=== PATIENT | male | born 1960 | race African-American/Black ===

== ENCOUNTER 2017-02-20 17:59 | Emergency (ER) | payer MEDICARE, MEDICAID ==
[2017-02-20] MEDS ORDERED: Furosemide 40 MG/4 ML VIAL ONE (19:42)
[2017-02-20 19:48] LABS: #Eosinphils 0.3 thou/uL (0.0-0.7); #Lymphocytes 1.3 thou/uL (1.20-3.40); #Monocytes 0.6 thou/uL (0.11-0.59); %Basophils 0.5 % (0.0-1.0); %Eosinophils 5.8 % (0.0-10.0); %Lymphocytes 25.1 % (21.0-51.0); %Monocytes 11.8 % (0.0-10.0); Hematocrit 33.8 % (42.0-52.0); Mean Platelet Volume 7.7 fL (7.4-10.4); Red Blood Cell (RBC) Count 3.95 mill/uL (4.70-6.10); White Blood Cell (WBC) Count 5.3 thou/uL (4.8-10.8)
--- NOTE | 2017-02-20 19:55 | RAD ---
PORTABLE AP CHEST X-RAY 02/20/17 HISTORY: Dyspnea, lower extremity swelling for a couple of months. Now with pain to the lower extremities. COMPARISON: 03/15/15. FINDINGS: The cardiac silhouette is magnified by projection but is at the upper limits of normal in size. Ther e is a subsegmental atelectasis in the region of the lingula versus mild scarring. Lungs are otherwi se clear. The pulmonary vasculature is at the upper limits of normal. There has been no other interv al change from prior study. IMPRESSION: 1. No acute cardiopulmonary process. 2. Scarring versus atelectasis in the region of the lingula. POS: [facility]
[2017-02-20 20:14] LABS: ALT (SGPT) 37 U/L (8-55); AST (SGOT) 31 U/L (5-34); Alkaline Phosphatase 311 U/L (40-150); Anion Gap 7 mmol/L (10-20); BUN (Urea Nitrogen) 32 mg/dL (8.4-25.7); Bilirubin, Total 0.2 mg/dL (0.2-1.2); CK (CPK) 908 U/L (30-200); Calc. Creatinine Clearance 0 mL/min (70-130); Calcium 8.5 mg/dL (7.8-10.44); Carbon Dioxide 27 mmol/L (22-29); Chloride 110 mmol/L (98-107); Estimated GFR-MDRD 25; Globulin 3.3 g/dL (2.4-3.5); Protein, Total 6.1 g/dL (6.0-8.3)
[2017-02-20 20:15] LABS: Troponin I 0.042 ng/mL (< 0.028)
== END 2017-02-20 22:10 | disposition home or self-care (01) ==
LOC: ERS 17:59
DX: I12.9 Hypertensive chronic kidney disease with stage 1 through stage 4 chronic kidney disease, or unspecified chronic kidney disease (principal); E11.22 Type 2 diabetes mellitus with diabetic chronic kidney disease; N18.9 Chronic kidney disease, unspecified; J44.9 Chronic obstructive pulmonary disease, unspecified; G47.30 Sleep apnea, unspecified; I25.10 Atherosclerotic heart disease of native coronary artery without angina pectoris; E78.5 Hyperlipidemia, unspecified; F41.9 Anxiety disorder, unspecified; F17.210 Nicotine dependence, cigarettes, uncomplicated; Z79.4 Long term (current) use of insulin; Z79.899 Other long term (current) drug therapy
CPT/HCPCS: 36415; 71010; 80053; 82553; 83880; 84484; 85025; 93005; 96374; J1940

== ENCOUNTER 2017-04-20 09:53 | Inpatient (IN) | payer MEDICAID, MEDICARE ==
[2017-04-20 10:32] LABS: #Eosinphils 0.2 thou/uL (0.0-0.7); #Lymphocytes 1.7 thou/uL (1.20-3.40); #Monocytes 0.7 thou/uL (0.11-0.59); #Neutrophils 4.9 thou/uL (1.40-6.50); %Lymphocytes 22.6 % (21.0-51.0); %Monocytes 8.9 % (0.0-10.0); Hematocrit 38.3 % (42.0-52.0); Mean Platelet Volume 8.4 fL (7.4-10.4); Red Blood Cell (RBC) Count 4.61 mill/uL (4.70-6.10); White Blood Cell (WBC) Count 7.5 thou/uL (4.8-10.8)
--- NOTE | 2017-04-20 10:40 | RAD ---
CHEST 1 VIEW: Date: 04/20/17 COMPARISON: 02/20/17. HISTORY: Vomiting. Nausea. Abdominal pain. FINDINGS: Enlarged cardiac silhouette. Pulmonary vessels and hilum are normal. No consolidation or mass. No pne umothorax or osseous abnormalities. IMPRESSION: Cardiomegaly. No acute cardiopulmonary process. POS: [facility]
[2017-04-20 10:57] LABS: Troponin I 0.084 ng/mL (< 0.028)
[2017-04-20] MEDS ORDERED: Ondansetron HCl/PF 4 MG/2 ML Vial ONE (11:16)
[2017-04-20 11:22] LABS: ALT (SGPT) 18 U/L (8-55); AST (SGOT) 21 U/L (5-34); Alkaline Phosphatase 201 U/L (40-150); Anion Gap 11 mmol/L (10-20); BUN (Urea Nitrogen) 30 mg/dL (8.4-25.7); Bilirubin, Total 0.4 mg/dL (0.2-1.2); CK (CPK) 657 U/L (30-200); Calc. Creatinine Clearance 0 mL/min (70-130); Calcium 9.2 mg/dL (7.8-10.44); Carbon Dioxide 23 mmol/L (22-29); Chloride 108 mmol/L (98-107); Estimated GFR-MDRD 28; Globulin 4.1 g/dL (2.4-3.5); Protein, Total 7.1 g/dL (6.0-8.3)
[2017-04-20 11:35] LABS: Bilirubin Negative (Negative); Blood, Urine Moderate (Negative); Glucose, Urine (Dipstick) 100 mg/dL (Negative); Ketone, Urine Negative (Negative); Nitrite Negative (Negative); Protein, Urine (Dipstick) 300 mg/dL (Neg-Trace); Urobilinogen 0.2 mg/dL (0.2-1.0)
[2017-04-20 11:37] LABS: Bacteria/HPF None Seen HPF (None Seen); Hyaline Casts/LPF 4-6 HYALINE CAST LPF (0-3 Hyaline); Squamous Epithelial 0-3 HPF (0-3); WBC/HPF 0-3 HPF (0-3)
[2017-04-20 11:53] LABS: Oval Fat Bodies/HPF None Seen HPF (None Seen); Trichomonas/HPF None Seen HPF (None Seen)
[2017-04-20] MEDS ORDERED: Morphine 4 MG/ML VIAL ONE (12:51)
[2017-04-20 15:04] LABS: Hemoglobin A1c 6.6 % (4.0-6.0)
[2017-04-20 15:10] LABS: Amphetamine Not Detected (NotDetected); Methadone Not Detected (NotDetected); Methamphetamine Not Detected (NotDetected)
--- NOTE | 2017-04-20 15:44 | CT ---
CT ABDOMEN AND PELVIS WITHOUT CONTRAST 04/20/17 COMPARISON: 12/22/14. INDICATION: Pain. FINDINGS: There is punctate calcification of the left kidney without hydronephrosis. The contrast opacified sma ll bowel is normal in caliber. There is limited evaluation of the solid abdominal organs without IV c ontrast administration. No obvious free air or ascites of significance. There are areas of skin thick ening/subcutaneous fat stranding of the ventral abdomen which could relate to recent injections. Cindy elate clinically. Mild colonic diverticulosis is present. There is mild vascular calcification. Scatt ered patchy opacities of the pulmonary parenchyma at each lung base are incompletely assessed. There is scattered osseous degenerative change. IMPRESSION: 1. Punctate calcific density at the left renal hilum. This could be on the basis of vascular siobhan cification or possibly punctate nonobstructing nephrolithiasis. There is no hydronephrosis of either kidney. 2. The contrast opacified small bowel is normal in caliber. 3. Evaluation otherwise limited on the basis of noncontrast technique. POS: [facility]
[2017-04-20 15:48] LABS: Troponin I 0.077 ng/mL (< 0.028)
[2017-04-20 15:50] LABS: Critical Call CKMBM RESULT DECREASING
--- NOTE | 2017-04-20 17:43 | HP ---
PRIMARY CARE PHYSICIAN: Dr. Nunez. PRIMARY BLOCK CLEANER: Dr. Nickolas Mercado. CHIEF COMPLAINT: Persistent intractable nausea and abdominal pain with poor p.o. intake. HISTORY OF PRESENTING ILLNESS: Mr. Keita is a pleasant 56-year-old -Tuval[place] male with histo ry of diabetes, hypertension, nonischemic cardiomyopathy as well as nonischemic cardiomyopathy with l ast EF recorded on 45%, who presented to the ER with the above-mentioned complaints. History is main ly obtained by the patient himself and electronic medical records have been reviewed. His last admis laureen to our facility was in 03/2015 for chest pain. At that time, he underwent a nuclear medicine st ress test, which showed a fixed defect and EF estimated at 40% without any evidence of reversible isc hemia. Mr. Keita reports that he has been having symptoms of persistent nausea, vomiting, abdominal pain, a nd some diarrhea for almost 4-5 weeks. He initially presented to the [facility] about 1 month ago fo r these symptoms and was admitted for overnight or maybe 2 nights. He underwent some sort of imaging , which was reportedly normal. He was treated with possibly antibiotics and was discharged home. Hi s symptoms did improve somewhat, especially his diarrhea and cough and rhinorrhea, but his vomiting a nd nausea persisted. He reports nausea for most of the foods and is unable to eat or drink much. He also reports dry heaving a lot. He also reports on and off or vomiting. He reports constipation as well as crampy abdominal pain all over. He denies any hematochezia, melena or hematemesis. He repo rts that he underwent an EGD and colonoscopy about [address] Heard, which was reportedly normal. The patient reports good control of his blood sugars, actually low blood sugar values. He checks his blood sugar every day according to him. He is compliant with his medications. Only new m edication includes carvedilol. Upon presentation to the emergency room, his blood pressure was elevated at 225/110. His workup reve aled renal insufficiency with creatinine of 2.90 with his baseline creatinine. He was also found to have elevated creatinine kinase with CK of 657 with elevated alkaline phosphatase of 201. His tropon in is also elevated to 0.084 which seems mostly chronic. He does have elevated BNP of 503 along with these above-mentioned findings. His urinalysis shows RBC glucosuria and proteinuria. Chest x-ray i s unremarkable. CT scan of the abdomen and pelvis is ordered, but pending. He was treated in the Emergency Room with his home medications for his uncontrolled hypertension and is now being admitted for same. He will also be worked up for his intractable nausea and abdominal p ain as well as acute renal insufficiency on chronic kidney disease. The patient does report that he was seen in the emergency room couple of months ago for increased low er extremity swelling, but it has since resolved. He is compliant with his diuretics. PAST MEDICAL HISTORY: 1. Diabetes mellitus type 2. 2. COPD. 3. Tobacco abuse. 4. Hypertension. 5. Dyslipidemia. 6. Cardiomyopathy, likely nonischemic. 7. Mild coronary artery disease without any CABG or stenting. He follows up with Dr. Mercado at [facility]. 8. History of peripheral neuropathy. PAST SURGICAL HISTORY: Cardiac catheterization x2; 2006 and 2013. ALLERGIES: No known medication allergies. SOCIAL HISTORY: He stopped smoking about 6 years ago, but has picked up the habit again. One pack o f cigarettes last him about 2-3 days. He denies any drug or alcohol abuse, but he used to drink heav bebe in the past. He also has history of cocaine abuse, but has been abstinent. He is currently empl oyed. FAMILY HISTORY: Significant for diabetes and hypertension in his father and mother had stroke. CURRENT MEDICATIONS: As per the ER records, hydralazine 25 mg b.i.d., metronidazole 500 mg b.i.d., T essalon Perles as needed, Phenergan as needed, calcitriol 0.25 mcg daily, Advair Diskus 1 puff b.i.d. , aspirin 81 mg daily, Ventolin 2 puffs every 6 hours as needed, carvedilol 25 mg daily, Levemir 50 u nits b.i.d., Lasix 80 mg daily, atorvastatin 40 mg daily, clonidine 0.2 mg b.i.d., tramadol 50 mg b.i .d. and glimepiride at 4 mg daily. REVIEW OF SYSTEMS: The following complete review of systems was negative, unless otherwise mentioned in the HPI or below: Constitutional: Weight loss or gain, ability to conduct usual activities. Skin: Rash, itching. Eyes: Double vision, pain. ENT/Mouth: Nose bleeding, neck stiffness, pain, tenderness. Cardiovascular: Palpitations, dyspnea on exertion, orthopnea. Respiratory: Shortness of breath, wheezing, cough, hemoptysis, fever or night sweats. Gastrointestinal: Poor appetite, abdominal pain, heartburn, nausea, vomiting, constipation, or diarr hea. Genitourinary: Urgency, frequency, dysuria, nocturia. Musculoskeletal: Pain, swelling. Neurologic/Psychiatric: Anxiety, depression. Allergy/Immunologic: Skin rash, bleeding tendency. It is negative except for those mentioned in the history and physical. PHYSICAL EXAMINATION: VITAL SIGNS: Most recent vital signs include blood pressure 145/83, pulse 58, respirations 16, tempe rature 98.1, and saturating 96% on room air. GENERAL: No acute distress, awake, alert, oriented x3, lying comfortably in bed. No respiratory dis tress noticed. HEENT: Mucous membrane is moist and pink. No oropharyngeal exudate or erythema. Head is normocepha lic, atraumatic. Pupils are equal and reactive to light and accommodation. NECK: Supple without any lymphadenopathy, JVD or bruit. CHEST: Clear to auscultation without any wheezing, rales or rhonchi. Rhythm is regular without any murmur, rubs or gallops. ABDOMEN: Distended, obese, nontender. No fluid wave noticed. Soft. No rebound, guarding or rigidi ty. No hepatosplenomegaly. EXTREMITIES: Free of any cyanosis, clubbing, or edema. NEUROLOGIC: Examination is nonfocal. SKIN: Free of any rashes or bruises. Feels warm and dry to touch. PSYCHIATRIC: Normal affect. VASCULAR: +2 pedal pulses felt bilaterally. LABORATORY DATA AND IMAGING: His CBC is unremarkable except for hemoglobin low at 12.9. Serum chemi stries shows BUN of 30, creatinine 2.90. Total bilirubin, AST, ALT are within normal limits with alk mary phosphatase of 201. Creatinine kinase is 657. CK-MB 8.9, troponin 0.084, BNP of 503. Lipase is normal. Chest x-ray by my review has no pulmonary edema, effusion or infiltrate. IMPRESSION AND PLAN: 1. Hypertensive urgency with possible end organ damage in form of demand ischemia. The patient will be admitted to telemetry unit and his blood pressure has been controlled in the emergency room by re sumption of his home medications. We will restart all of his home medications once confirmed and add p.r.n. antihypertensives as well. Given his history of mild coronary artery disease and cardiomyopa thy; we will repeat transthoracic echocardiogram. He will be monitored closely. 2. Acute on chronic kidney disease. This is most likely secondary to decreased p.o. intake in the s etting of intractable nausea for almost over a month. He will be gently rehydrated with IV fluids wi th close monitoring of hemodynamics and fluid status. We will consult his device repair technician, Dr. Jose blancas in the hospital. Avoid any nephrotoxic medications. 3. Intractable nausea, vomiting, and abdominal pain. Etiology is unclear. He does have elevated al kaline phosphatase and creatinine kinase, but this seems to be rather chronic. CT scan has been orde red and the report is pending at this time. His lipase is unremarkable. Possible differential would include diabetic gastroparesis versus viral or bacterial gastroenteritis versus pancreatic or gallbl adder pathology. The patient had a normal esophagogastroduodenoscopy and colonoscopy about 5 years a go. We will reconsult his pattern wheel maker, Dr. Heard. He is supposed to see him in the clini c, but because of poor p.o. intake, he has sustained renal insufficiency and likely demand ischemia. We will also check serology for Helicobacter pylori. Add empiric proton pump inhibitor in case the symptoms are secondary to gastritis. We will also send stool studies given his recent diarrheal illn ess. No indication for antibiotics currently until CT scan shows evidence of inflammation/infection. 4. Elevated creatinine kinase, unclear significance. We will check urine drug screen given his hist ory of cocaine abuse. The patient seems to have chronically elevated creatinine kinase. He will be gently rehydrated. 5. Elevated cardiac enzymes, likely demand ischemia from uncontrolled hypertension. His CK-MB is al so elevated because of chronically elevated creatinine kinase. We will continue to trend serial card iac enzymes and obtain a transthoracic echocardiogram. We will restart his home medication of aspiri n and statin as well as beta shaun. He will continue follow up with his mobility specialist as an outpati ent if there is no acute need. 6. Diabetes mellitus type 2. We will restart his Levemir and glimepiride. We will add additional c overage with insulin sliding scale with frequent Accu-Cheks. Also, check hemoglobin A1c given his hi story of uncontrolled diabetes. 7. History of cardiomyopathy. Likely nonischemic given his history of mild coronary artery disease and cardiac catheterization, multiple years ago. At this time, he appears hemodynamically stable. W e will monitor his fluid status closely and restart his home medications. 8. History of chronic obstructive pulmonary disease. He is currently compensated with regards to th at. We will restart his Advair and add nebulizers as needed and continue with his Ventolin as needed as well. 9. Deep venous thrombosis and gastrointestinal prophylaxis. 10. Add p.r.n. medication order. 11. Code status: FULL CODE. Discussed with the patient. DISPOSITION: Mr. Keita is currently being admitted for a multitude of symptoms and findings includi ng acute renal insufficiency, elevated cardiac enzymes, hypertensive urgency and likely demand ischem ia secondary to that along with intractable nausea, vomiting, and abdominal pain. Estimated length of stay is at least 2-3 midnights. He is hemodynamically stable and further hospita l course will be dictated by his clinical progress.
[2017-04-20] MEDS ORDERED: Mag-Al 1200 mg/1200 mg/30 ML UDCUP PO PRN (18:23)
[2017-04-20] MEDS ORDERED: Benzonatate 100 MG CAP PO PRN (18:23)
[2017-04-20] MEDS ORDERED: Sodium Chloride 0.9% 1,000 ML IV SCH (18:23)
[2017-04-20] MEDS ORDERED: Diabetic Tussin 200 MG/10 ML UDCUP PO PRN (18:23)
[2017-04-20] MEDS ORDERED: Dextrose 5% in Water 1,000 ML IV PRN (18:23)
[2017-04-20] MEDS ORDERED: Nitroglycerin 0.4 MG TAB (25 Tab Bottle) SL PRN (18:23)
[2017-04-20] MEDS ORDERED: HumaLOG 300 UNITS/3 ML VIAL SC PRN ×2 (18:23)
[2017-04-20] MEDS ORDERED: Dextrose 50% Abboject 50 ML SYRINGE SLOW IVP PRN (18:23)
[2017-04-20] MEDS ORDERED: Acetaminophen 325 MG TAB PO PRN (18:23)
[2017-04-20] MEDS ORDERED: Bisacodyl 5 MG TAB PO PRN ×2 (18:23)
[2017-04-20] MEDS ORDERED: Ondansetron HCl/PF 4 MG/2 ML Vial IVP PRN (18:23)
[2017-04-20] MEDS ORDERED: Loratadine 10 MG TAB PO PRN (18:23)
[2017-04-20] MEDS ORDERED: hydrALAZINE 20 MG/ML VIAL SLOW IVP PRN (18:23)
[2017-04-20] MEDS ORDERED: Calcium Carbonate 500 MG ChewTAB PO PRN (18:23)
[2017-04-20] MEDS ORDERED: Senokot 8.6 MG TAB PO PRN ×2 (18:23)
[2017-04-20] MEDS: cloNIDine 0.1 MG TAB PO PRN (18:44)
[2017-04-20] MEDS: Mometasone/Formoterol 120 PUFF INHALER INH SCH (20:10)
[2017-04-20] MEDS: Atorvastatin Calcium 40 MG TAB PO SCH (20:57)
[2017-04-20] MEDS: Famotidine/PF 20 mg/2ml Vial SLOW IVP SCH (20:58)
[2017-04-20] MEDS: Heparin 5,000 UNITS/ML VIAL SC SCH ×2 (21:00)
[2017-04-20] MEDS ORDERED: hydrALAZINE 25 MG TAB PO SCH (21:00)
[2017-04-20] MEDS: traMADol HCl 50 MG TAB PO PRN (21:11)
[2017-04-20 22:41] VITALS: BMI 34.5
[2017-04-21 05:14] LABS: #Eosinphils 0.2 thou/uL (0.0-0.7); #Lymphocytes 1.3 thou/uL (1.20-3.40); #Monocytes 0.6 thou/uL (0.11-0.59); #Neutrophils 2.7 thou/uL (1.40-6.50); %Basophils 0.4 % (0.0-1.0); %Eosinophils 4.1 % (0.0-10.0); %Lymphocytes 27.4 % (21.0-51.0); %Monocytes 12.1 % (0.0-10.0); Hematocrit 33.5 % (42.0-52.0); Mean Platelet Volume 8.1 fL (7.4-10.4); Red Blood Cell (RBC) Count 3.99 mill/uL (4.70-6.10); White Blood Cell (WBC) Count 4.9 thou/uL (4.8-10.8)
[2017-04-21 05:44] LABS: Anion Gap 10 mmol/L (10-20); BUN (Urea Nitrogen) 30 mg/dL (8.4-25.7); Calc. Creatinine Clearance 47 mL/min (70-130); Calcium 8.4 mg/dL (7.8-10.44); Carbon Dioxide 24 mmol/L (22-29); Chloride 108 mmol/L (98-107); Estimated GFR-MDRD 29
[2017-04-21] MEDS: cloNIDine 0.1 MG TAB PO PRN ×2 (05:57→16:37)
--- NOTE | 2017-04-21 06:42 | CON ---
DATE OF CONSULTATION: 04/20/2017 REFERRING PHYSICIAN: Mignon Urias MD REASON FOR CONSULTATION: Persistent nausea and vomiting and vague abdominal pain. HISTORY OF PRESENT ILLNESS: Mr. Morris Keita is a 56-year-old -[place] male with hyperten laureen, insulin-dependent diabetes mellitus, coronary artery disease, chronic kidney disease. The brenton ent presented to the hospital this evening with vague abdominal pain, nausea, vomiting, and also diar thierno. The patient says he has had this persistent nausea and vomiting over the last month or so. Th e vomiting occurs on an empty stomach and also postprandially. He has no acute abdominal pain or rig ht upper quadrant pain. He has some vague abdominal pain over the lower abdomen. He has no fever or chills. The patient also has intermittent diarrhea. The patient came to the ER because of the abov e reason and hospitalized. At the time of the consultation, he appears to be very comfortable. He i s in no acute distress. He has had no more nausea or vomiting since admission to the hospital. He a lso had no stool today. The patient had seen me in 2013 with some abdominal pain and nausea. He had a negative EGD at that time. He also had a negative CAT scan. He had a colonoscopy and polypectomy . At that time, he was under a lot of stress and was placed on Zoloft. The patient did not come usama k to me after he was placed on Zoloft. The patient has had nausea and vomiting off and on and was ho spitalized more than a month ago at [facility]. They did a noncontrast abdominal CAT scan as he could not keep the contrast, kept throwing up. A noncontrast CAT scan of the abdomen was negative. Again, today's noncontrast abdominal CAT scan shows no acute pathology. There is no evidence of small-bowel obstruction. The patient is obese. He was more than 300 pounds in 2013. He did lose his weight and came down to weight 200 pounds. Now, he is gaining the weight back again. His weight is up 242 pounds at the present time. When he came to the ER, he was also found to have a markedly elevated blood pressure of 220/115, it is down to 192/105. At the present time, he denies chest pain, any palpitation, dyspnea, orthopnea, or PND. He has no other relevant history. ALLERGIES: None. SOCIAL HISTORY: The patient is . He is employed. He smoked cigarettes and quit smoking for a while, then started back the cigarettes again. He has positive alcohol abuse. At the present time , he does not drink alcohol and no history of drug abuse. MEDICAL ILLNESSES: 1. Hypertension. 2. Diabetes mellitus type 2. 3. COPD. 4. Hyperlipidemia. 5. Cardiomyopathy, nonischemic with EF of around 45%. 6. Chronic kidney disease. 7. Peripheral neuropathy. SURGERIES: He has had multiple cardiac catheterizations in the past. FAMILY HISTORY: Hypertension, diabetes in father and mother had a stroke. No family history of any cancer. MEDICATIONS: List reviewed, which include hydralazine, metronidazole, Tessalon Perles, Phenergan as needed. He is also on Calcitriol, Advair Diskus, aspirin, Ventolin spray, Coreg, Levemir, atorvastat in, tramadol, glimepiride. REVIEW OF SYSTEMS: A 10-point system reviewed. HIGHWAY TRAFFIC CONTROL TECHNICIAN: No history of TIA. No syncope, no seizure dis order, no chronic headache. Constitutional: No history of fever or chills, no weight loss. Respira tory System: No history of chronic cough, hemoptysis, or dyspnea. Cardiovascular System: No chest pain, no palpitation, no exertional dyspnea, orthopnea, or PND. Gastrointestinal: As in the history of present illness. Genitourinary: No dysuria, hematuria, or frequency of urination. Musculoskele ciera: Unremarkable. Endocrine: Unremarkable. Hematologic: Unremarkable. Neuropsychiatric: Unrem arkable. PHYSICAL EXAMINATION: GENERAL: The patient is obese, appears comfortable. VITAL SIGNS: His pulse is 58, blood pressure was 220/115 this afternoon, but it has come down to 190 /100 at the present time. HEENT: Conjunctivae clear. NECK: Supple. No adenitis or thyromegaly noted. CARDIOVASCULAR SYSTEM: First and second heart sounds are normal. LUNGS: Clear to auscultation. ABDOMEN: Soft to palpate. Abdomen is tender across the lower abdomen, very mild. He has no epigast alyce tenderness. There is no right upper quadrant tenderness. No organomegaly or masses. Bowel soun ds are normal. EXTREMITIES: Reveal no edema. CENTRAL NERVOUS SYSTEM: Grossly within normal limits. LABORATORY DATA: CBC: WBC 7500, hemoglobin 12.9, hematocrit 38.3, MCV 83.1, platelet count 188,000, polymorphs 65, lymphocytes 22, monocytes 8. Serum chemistries: Sodium 138, potassium 3.6, chloride 108, bicarbonate 23, BUN is 30, creatinine 2.90, glucose is 101, calcium 9.2, bilirubin 0.4, AST 21, ALT 18, alkaline phosphatase 201, creatine kinase 657, CPK 6.7, troponin 0.077, albumin is 3. CLINICAL IMPRESSION: A 56-year-old -[place] male with: 1. Intractable nausea and vomiting, etiology unclear. He also has had diarrhea off and on. The [facility] had an EGD and a colonoscopy on 07/12/2013, which was negative. He also had an abdominal CAT sc an in 2013. 2. Diabetes mellitus. 3. Hypertension. 4. Chronic kidney disease. 5. Nonischemic cardiomyopathy. 6. Obesity. 7. Colon polyp. RECOMMENDATIONS: 1. Symptomatic treatment. 2. We will plan on EGD tomorrow and make further recommendations after EGD.
[2017-04-21] MEDS: Mometasone/Formoterol 120 PUFF INHALER INH SCH ×2 (07:21→19:24)
[2017-04-21] MEDS ORDERED: Carvedilol 25 MG TAB PO SCH (08:00)
[2017-04-21] MEDS ORDERED: Diprivan 20 ML ONE (08:08)
[2017-04-21] MEDS: Aspirin 81 mg Enteric Coated Tablet PO SCH (09:38)
[2017-04-21] MEDS: Famotidine/PF 20 mg/2ml Vial SLOW IVP SCH ×2 (09:38→20:27)
[2017-04-21] MEDS: Carvedilol 25 MG TAB PO SCH ×2 (09:38→20:28)
[2017-04-21] MEDS: hydrALAZINE 25 MG TAB PO SCH ×3 (09:38→20:28)
[2017-04-21] MEDS: cloNIDine 0.2 MG TAB PO SCH ×2 (09:41→20:29)
[2017-04-21] MEDS: Heparin 5,000 UNITS/ML VIAL SC SCH ×3 (09:42→20:28)
--- NOTE | 2017-04-21 11:05 | OP ---
DATE OF PROCEDURE: 04/21/2017 SURGEON: Fidel Heard M.D. OPERATIVE PROCEDURE: Esophagogastroduodenoscopy with biopsy. PREOPERATIVE DIAGNOSIS: A 56-year-old -Turkmen male with recurrent nausea and vomiting, unde rgoing esophagogastroduodenoscopy. POSTOPERATIVE DIAGNOSES: 1. Normal esophagus. 2. Normal duodenum. 3. Mildly friable edematous mucosa over the gastric antrum. 4. Hypertrophied gastric mucosa with proximal stomach, biopsied. Overall, the endoscopic examinatio n is basically negative except for abdominal pain, nausea, and vomiting. PROCEDURE IN DETAIL: The patient was placed on his left lateral position and was given sedation by A nesthesia Department. A Pentax video gastroscope under direct vision was passed down the oropharynx, past the GE junction, into the stomach and subsequently into the descending duodenum. The esophagea l mucosa appeared normal. No esophagitis seen. The GE junction, no pathology seen. The gastric muc raúl was hypertrophied and nodular. Again, the same findings about 3 years ago. There was no pyloric obstruction seen. Over the gastric antrum close to the pyloric opening, the mucosa was edematous an d friable. The duodenal bulb and descending duodenum, no pathology seen. Biopsies were obtained of the gastric body. The stomach was decompressed and the scope removed. RECOMMENDATIONS: 1. Obtain abdominal sonogram. 2. Consider doing a gastric emptying study as it is possible that the patient would have gastropares is. 3. If the symptoms recur, consider Reglan 10 mg p.o. 3 times a day.
[2017-04-21] MEDS: traMADol HCl 50 MG TAB PO PRN (11:11)
[2017-04-21] MEDS ORDERED: Propofol 200 MG/20 ML VIAL ONE (12:07)
[2017-04-21] MEDS ORDERED: Lidocaine 1% PF 5 ML VIAL ONE (12:07)
--- NOTE | 2017-04-21 12:28 | CON ---
DATE OF CONSULTATION: 04/21/2017 SERVICE: Renal Medicine. HISTORY OF PRESENT ILLNESS: Mr. Keita is a 56-year-old black male with known history of chronic annette al failure from presumed diabetic nephropathy and admitted for nausea, vomiting and abdominal pain. He was seen by GI. He underwent upper GI endoscopy with negative findings. The feeling that this ma y be related to his diabetic gastroparesis. We are now being consulted for his chronic renal failure . Please note, I followed this patient in the clinic for the last several years and he has had fluct uating creatinine. This morning, he said he is feeling better. He says no issues. REVIEW OF SYSTEMS: Occasional nausea and vomiting. No diarrhea, no constipation, no abdominal pain, no headache. Positive for abdominal pain, no headache, no diplopia, no fever or chills. No sore th roat. No hematochezia, no melena, no hematemesis, no gross hematuria, no dysuria, no urinary frequen cy. MEDICATIONS: Ecotrin 81 mg tab once a day, Lipitor 40 mg tab at bedtime, Tessalon Perles p.r.n., Rubia s 1000 mg q.4 h, clonidine 0.1 mg q.4 h., Coreg 25 mg p.o. b.i.d., Catapres 0.2 mg p.o. b.i.d., Pepci d 40 mg tab once a day, heparin 5000 units subcutaneously every 8, Humalog sliding scale, Dulera oral ly inhaler as directed, valsartan 320 mg tab once a day, and Senokot p.r.n. PAST MEDICAL HISTORY: 1. Chronic renal failure from diabetic nephropathy. 2. Type 2 diabetes mellitus. 3. Diabetic gastroparesis. 4. Hypertension. 5. History of decreased EF, coronary artery disease. PAST SURGICAL HISTORY: Recently status post upper GI endoscopy, status post colonoscopy, history of status post cardiac catheterization. SOCIAL HISTORY: The patient still smokes about 1/3 pack a day and has been smoking for the last 20+ years. 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 and lives in [place]. Originally from [place]. No IV drug abuse. No blood transfusion. ALLERGIES: None. TRAUMA: None. IMMUNIZATIONS: Up to date. HOSPITALIZATIONS: Please see past medical history. FAMILY HISTORY: No family history of ESRD. PHYSICAL EXAMINATION: VITAL SIGNS: Blood pressure ranging from 189/94-230/119, elevated 230s before medication, heart rate 60, respiratory rate 18, temperature 96. GENERAL: Awake, alert, comfortable. SKIN: Adequate turgor. HEENT: Pinkish conjunctivae, anicteric sclerae. NECK: No neck mass, no carotid bruits, no JVD. CHEST: No deformities. LUNGS: Clear breath sounds, no wheezing, no crackles. HEART: Normal sinus rhythm. No murmur, no gallops, no rubs. ABDOMEN: Globular, soft, nontender, no masses. EXTREMITIES: No edema. LABORATORY AND X-RAY FINDINGS: Laboratories of 04/21/2017 was reviewed. Please note creatinine was 2.76, which is near baseline. ASSESSMENT AND PLAN: 1. Chronic renal failure from diabetic nephropathy, supportive care. No indication for any dialytic intervention. Continue supportive care. No changes to be made with this medication and avoid all N SAIDs. Should the renal function in the near future worsened, we could always suggest the valsartan. Please note that valsartan due to his hypertension and proteinuria. 2. Hypertension. Continue current blood pressure meds. If still not in good control, consider star ting low dose minoxidil 5 mg tab q.a.m. 3. Nausea, vomiting -- most likely related to diabetic gastroparesis, negative upper GI endoscopy. Thank you for the consult. We will continue to follow as an outpatient.
--- NOTE | 2017-04-21 12:56 | PDOC.PN ---
- Subjective Encounter Start Date: 04/21/17 Encounter Start Time: 12:53 Subjective: feels very good.nausea better - Objective MAR Reviewed: Yes Vital Signs & Weight: Vital Signs (12 hours) Temp Pulse Resp BP BP Pulse Ox 04/21/17 11:06 98.7 F 60 16 146/76 H 95 04/21/17 09:41 230/119 H 04/21/17 09:38 60 230/119 H 04/21/17 09:30 97.2 F L 60 18 230/119 H 96 04/21/17 08:02 97.4 F L 60 17 189/94 H 95 04/21/17 07:28 98.5 F 58 L 16 04/21/17 07:21 58 L 16 100 04/21/17 05:57 192/95 H 04/21/17 04:00 97.8 F 62 18 192/95 H 96 Weight Weight 241 lb I&O: 04/20/17 04/21/17 04/22/17 06:59 06:59 06:59 Output Total 200 Balance -200 Result Diagrams: 04/21/17 04:53 04/21/17 04:53 Additional Labs: Accuchecks 04/21/17 04/21/17 04/20/17 12:40 05:42 20:20 POC Glucose 180 H 109 188 H Laboratory Tests 12/11/16 02/20/17 02/20/17 13:17 19:41 19:41 Creatinine 3.21 H Hemoglobin A1c 10.0 H Creatine Kinase CK-MB (CK-2) 7.5 H* Troponin I 0.042 H U Cocaine Metab Screen 03/08/17 04/20/17 04/20/17 11:30 10:25 10:25 Creatinine 2.65 H 2.90 H Hemoglobin A1c Creatine Kinase 657 H CK-MB (CK-2) 8.9 H* Troponin I 0.084 H U Cocaine Metab Screen 04/20/17 04/20/17 04/20/17 10:25 11:15 15:11 Creatinine Hemoglobin A1c 6.6 H Creatine Kinase CK-MB (CK-2) 6.7 H* Troponin I 0.077 H U Cocaine Metab Screen Detected H 04/21/17 04:53 Creatinine 2.76 H Hemoglobin A1c Creatine Kinase CK-MB (CK-2) Troponin I U Cocaine Metab Screen Phys Exam - Physical Examination Constitutional: NAD HEENT: PERRLA, moist MMs, sclera anicteric, oral pharynx no lesions Neck: no nodes, no JVD, supple, full ROM Respiratory: no wheezing, no rales, no rhonchi, clear to auscultation bilateral Cardiovascular: RRR, no significant murmur Gastrointestinal: soft, non-tender, no distention, positive bowel sounds Musculoskeletal: no edema, pulses present Neurological: non-focal, normal sensation, moves all 4 limbs Psychiatric: normal affect, A&O x 3 Skin: no rash Dx/Plan (1) Hypertensive urgency Code(s): I16.0 - HYPERTENSIVE URGENCY Status: Acute (2) Intractable vomiting with nausea Code(s): R11.2 - NAUSEA WITH VOMITING, UNSPECIFIED Status: Acute (3) CKD (chronic kidney disease), stage II Code(s): N18.2 - CHRONIC KIDNEY DISEASE, STAGE 2 (MILD) Status: Acute (4) Cocaine abuse Code(s): F14.10 - COCAINE ABUSE, UNCOMPLICATED Status: Acute (5) Diabetic nephropathy associated with type 2 diabetes mellitus Code(s): E11.21 - TYPE 2 DIABETES MELLITUS WITH DIABETIC NEPHROPATHY Status: Acute (6) Tobacco abuse Code(s): Z72.0 - TOBACCO USE Status: Acute (7) NSTEMI (non-ST elevated myocardial infarction) Code(s): I21.4 - NON-ST ELEVATION (NSTEMI) MYOCARDIAL INFARCTION Status: Acute - Plan out of bed/ambulate, DVT proph w/SCDs BP still very high.cont meds. Increase hydralazine to TID. -: add Minoxidil starting tomorrrow.appreciate nephrology follow up -: add Abdominal US per GI.EGD negative.prn reglan -: not stable for DC yet . -: am labs * . Review of Systems - Review of Systems Constitutional: negative: Fever, Chills, Sweats, Weakness, Malaise, Other ENT: negative: Ear Pain, Ear Discharge, Nose Pain, Nose Discharge, Nose Congestion, Mouth Pain, Mouth Swelling, Throat Pain, Throat Swelling, Other Respiratory: negative: Cough, Dry, Shortness of Breath, Hemoptysis, SOB with Excertion, Pleuritic Pain, Sputum, Wheezing Cardiovascular: negative: Chest Pain, Palpitations, Orthopnea, Paroxysmal Noc. Dyspnea, Edema, Light Headedness, Other Gastrointestinal: negative: Nausea, Vomiting, Abdominal Pain, Diarrhea, Constipation, Melena, Hematochezia, Other Genitourinary: negative: Dysuria, Frequency, Incontinence, Hematuria, Retention , Other Musculoskeletal: negative: Neck Pain, Shoulder Pain, Arm Pain, Back Pain, Hand Pain, Leg Pain, Foot Pain, Other Neurological: negative: Weakness, Numbness, Incoordination, Change in Speech, Confusion, Seizures, Other - Medications/Allergies Allergies/Adverse Reactions: Allergies Allergy/AdvReac Type Severity Reaction Status Date / Time No Known Drug Allergies Allergy Verified 04/20/17 20:27 Medications: Current Medications Acetaminophen (Tylenol) 650 mg PO Q4H PRN PRN Reason: Headache/Fever or Pain Al Hydroxide/Mg Hydroxide (Maalox) 30 ml PO Q6H PRN PRN Reason: Heartburn or Indigestion Aspirin (Ecotrin) 81 mg PO DAILY [facility] Last Admin: 04/21/17 09:38 Dose: 81 mg Atorvastatin Calcium (Lipitor) 40 mg PO HS [facility] Last Admin: 04/20/17 20:57 Dose: 40 mg Benzonatate (Tessalon) 100 mg PO Q4H PRN PRN Reason: Cough Bisacodyl (Dulcolax) 10 mg PO DAILYPRN PRN PRN Reason: Constipation Calcium Carbonate (Tums) 1,000 mg PO Q4H PRN PRN Reason: Heartburn or Indigestion Carvedilol (Coreg) 25 mg PO BID [facility] Last Admin: 04/21/17 09:38 Dose: 25 mg Clonidine (Catapres) 0.1 mg PO Q4H PRN PRN Reason: Systolic BP > 160 Last Admin: 04/21/17 05:57 Dose: 0.1 mg Clonidine (Catapres) 0.2 mg PO BID [facility] Last Admin: 04/21/17 09:41 Dose: 0.2 mg Dextrose/Water (Dextrose 50%) 25 gm SLOW IVP PRN PRN PRN Reason: Hypoglycemia Famotidine (Pepcid) 20 mg SLOW IVP Q12HR [facility] Last Admin: 04/21/17 09:38 Dose: 20 mg Glucagon (Glucagon) 1 mg IM PRN PRN PRN Reason: Hypoglycemia Guaifenesin (Robitussin Sf) 200 mg PO Q4H PRN PRN Reason: Cough Heparin Sodium (Porcine) (Heparin) 5,000 units SC TID [facility] Last Admin: 04/21/17 09:42 Dose: 5,000 units Hydralazine HCl (Apresoline) 10 mg SLOW IVP Q4H PRN PRN Reason: Systolic BP > 170 Hydralazine HCl (Apresoline) 25 mg PO TID [facility] Last Admin: 04/21/17 09:38 Dose: 25 mg Dextrose/Water (D5w) 1,000 mls @ 0 mls/hr IV .Q0M PRN; As Directed PRN Reason: Hypoglycemia Insulin Human Lispro (Humalog) 0 units SC .AGGRESSIVE SLIDING PRN PRN Reason: Aggressive Correctional Scale Insulin Human Lispro (Humalog) 0 units SC .BEDTIME SLIDING SC PRN PRN Reason: Bedtime Correctional Scale Loratadine (Claritin) 10 mg PO DAILYPRN PRN PRN Reason: Sinus Symptoms Minoxidil (Minoxidil) 5 mg PO DAILY [facility] Mometasone Furoate/Formoterol Fumar (Dulera 100 Mcg/5 Mcg Inhaler) 1 puff INH BID-RT [facility] Last Admin: 04/21/17 07:21 Dose: 1 puff Nitroglycerin (Nitrostat) 0.4 mg SL Q5MIN PRN PRN Reason: Chest Pain Ondansetron HCl (Zofran) 4 mg IVP Q6H PRN PRN Reason: Nausea/Vomiting Pantoprazole Sodium (Protonix) 40 mg PO 2100 [facility] Senna (Senokot) 2 tab PO HSPRN PRN PRN Reason: Constipation Sodium Chloride (Flush - Normal Saline) 10 ml IVF PRN PRN PRN Reason: Saline Flush Tramadol HCl (Ultram) 50 mg PO Q4H PRN PRN Reason: Moderate Pain (4-6) Last Admin: 04/21/17 11:11 Dose: 50 mg
--- NOTE | 2017-04-21 16:58 | ULT ---
ABDOMINAL ULTRASOUND: Date: 04/21/17 HISTORY: Abdominal pain and intermittent nausea/vomiting for 1 month. TECHNIQUE: Multiplanar Lewis scale sonographic imaging of the abdomen obtained. FINDINGS: The imaged abdominal aorta and IVC appear within normal limits. The pancreas is not well assessed sec ondary to body habitus and bowel gas. No focal liver lesion or intrahepatic biliary dilatation is see n. The common bile duct measures 4.0 mm, within normal limits. The press set up person reports a negative Parry's sign. The gallbladder demonstrates no wall thickening or cholelithiasis. A small amount of gallbladder sludge is seen within the gallbladder lumen. Right kidn ey measures 11.1 cm in craniocaudal dimension and left kidney measures 10.3 cm in craniocaudal dimens ion. No renal mass, hydronephrosis, or renal stone seen on either side. Spleen measures up to 10.3 cm , within normal limits. IMPRESSION: No sonographic evidence of cholelithiasis, cholecystitis, or biliary dilatation. POS: [facility]
[2017-04-21] MEDS: Metoclopramide HCl 10 MG/10 ML UDCUP PO SCH ×2 (17:37→20:28)
[2017-04-21] MEDS: Atorvastatin Calcium 40 MG TAB PO SCH (20:28)
[2017-04-22] MEDS: Mometasone/Formoterol 120 PUFF INHALER INH SCH (07:16)
[2017-04-22] MEDS: Metoclopramide HCl 10 MG/10 ML UDCUP PO SCH ×2 (08:18→12:00)
[2017-04-22] MEDS: Famotidine/PF 20 mg/2ml Vial SLOW IVP SCH (08:19)
[2017-04-22] MEDS: Heparin 5,000 UNITS/ML VIAL SC SCH ×2 (08:19→15:41)
[2017-04-22] MEDS: Carvedilol 25 MG TAB PO SCH (08:20)
[2017-04-22] MEDS: Aspirin 81 mg Enteric Coated Tablet PO SCH (08:20)
[2017-04-22] MEDS: hydrALAZINE 25 MG TAB PO SCH ×2 (08:20→15:41)
[2017-04-22] MEDS: cloNIDine 0.2 MG TAB PO SCH (08:20)
[2017-04-22] MEDS ORDERED: Minoxidil 2.5 MG TAB PO SCH (09:00)
[2017-04-22] MEDS: traMADol HCl 50 MG TAB PO PRN (10:04)
--- NOTE | 2017-04-22 13:54 | PDOC.PN ---
- Subjective Encounter Start Date: 04/22/17 Encounter Start Time: 13:52 Subjective: feels well. slept all night - Objective MAR Reviewed: Yes Vital Signs & Weight: Vital Signs (12 hours) Temp Pulse Resp BP BP BP Pulse Ox 04/22/17 13:00 69 169/87 H 04/22/17 12:00 60 197/91 H 04/22/17 11:50 67 18 197/91 H 96 04/22/17 09:43 60 147/70 H 04/22/17 08:20 58 L 209/99 H 04/22/17 07:35 96.9 F L 60 16 209/99 H 96 04/22/17 07:16 61 16 100 04/22/17 04:00 97.8 F 64 12 183/91 H 96 Weight Weight 241 lb I&O: 04/21/17 04/22/17 04/23/17 06:59 06:59 06:59 Intake Total 1800 Output Total 200 2800 Balance -200 -1000 Result Diagrams: 04/21/17 04:53 04/21/17 04:53 Additional Labs: Accuchecks 04/22/17 04/22/17 04/21/17 11:17 05:51 19:54 POC Glucose 207 H 133 H 193 H 04/21/17 17:16 POC Glucose 147 H Radiology Reviewed by me: Yes (US abdomen-NL.ECHO-Diastolic dysFx) Phys Exam - Physical Examination Constitutional: NAD HEENT: PERRLA, moist MMs, sclera anicteric, oral pharynx no lesions Neck: no nodes, no JVD, supple, full ROM Respiratory: no wheezing, no rales, no rhonchi, clear to auscultation bilateral Cardiovascular: RRR, no significant murmur Gastrointestinal: soft, non-tender, no distention, positive bowel sounds Musculoskeletal: no edema, pulses present Neurological: non-focal, normal sensation, moves all 4 limbs Psychiatric: normal affect, A&O x 3 Skin: no rash Dx/Plan (1) Hypertensive urgency Code(s): I16.0 - HYPERTENSIVE URGENCY Status: Acute (2) Intractable vomiting with nausea Code(s): R11.2 - NAUSEA WITH VOMITING, UNSPECIFIED Status: Acute (3) CKD (chronic kidney disease), stage II Code(s): N18.2 - CHRONIC KIDNEY DISEASE, STAGE 2 (MILD) Status: Acute (4) Cocaine abuse Code(s): F14.10 - COCAINE ABUSE, UNCOMPLICATED Status: Acute (5) Diabetic nephropathy associated with type 2 diabetes mellitus Code(s): E11.21 - TYPE 2 DIABETES MELLITUS WITH DIABETIC NEPHROPATHY Status: Acute (6) Tobacco abuse Code(s): Z72.0 - TOBACCO USE Status: Acute (7) NSTEMI (non-ST elevated myocardial infarction) Code(s): I21.4 - NON-ST ELEVATION (NSTEMI) MYOCARDIAL INFARCTION Status: Acute - Plan out of bed/ambulate, DVT proph w/SCDs appreciate GI & Nephrology input.Reglan added w benefit. -: all work up for GI causes negative.suspect either gastroparesis/HTN -: increase clonidine.Add Minoxidil.hydralazine increased yesterday -: BP still very high this am.Monitor -: DC home when BP better controlled,later today or tomorrow * .Pt Vehemently denies using Cocaine despite UDS positive for same. * Renal Fx better. restart lasix tonight * am labs if still here tomorrow Review of Systems - Review of Systems Constitutional: negative: Fever, Chills, Sweats, Weakness, Malaise, Other Respiratory: negative: Cough, Dry, Shortness of Breath, Hemoptysis, SOB with Excertion, Pleuritic Pain, Sputum, Wheezing Cardiovascular: negative: Chest Pain, Palpitations, Orthopnea, Paroxysmal Noc. Dyspnea, Edema, Light Headedness, Other Gastrointestinal: negative: Nausea, Vomiting, Abdominal Pain, Diarrhea, Constipation, Melena, Hematochezia, Other Genitourinary: negative: Dysuria, Frequency, Incontinence, Hematuria, Retention , Other Musculoskeletal: negative: Neck Pain, Shoulder Pain, Arm Pain, Back Pain, Hand Pain, Leg Pain, Foot Pain, Other Neurological: negative: Weakness, Numbness, Incoordination, Change in Speech, Confusion, Seizures, Other - Medications/Allergies Allergies/Adverse Reactions: Allergies Allergy/AdvReac Type Severity Reaction Status Date / Time No Known Drug Allergies Allergy Verified 04/20/17 20:27 Medications: Current Medications Acetaminophen (Tylenol) 650 mg PO Q4H PRN PRN Reason: Headache/Fever or Pain Al Hydroxide/Mg Hydroxide (Maalox) 30 ml PO Q6H PRN PRN Reason: Heartburn or Indigestion Aspirin (Ecotrin) 81 mg PO DAILY [facility] Last Admin: 04/22/17 08:20 Dose: 81 mg Atorvastatin Calcium (Lipitor) 40 mg PO HS [facility] Last Admin: 04/21/17 20:28 Dose: 40 mg Benzonatate (Tessalon) 100 mg PO Q4H PRN PRN Reason: Cough Bisacodyl (Dulcolax) 10 mg PO DAILYPRN PRN PRN Reason: Constipation Calcium Carbonate (Tums) 1,000 mg PO Q4H PRN PRN Reason: Heartburn or Indigestion Carvedilol (Coreg) 25 mg PO BID [facility] Last Admin: 04/22/17 08:20 Dose: 25 mg Clonidine (Catapres) 0.1 mg PO Q4H PRN PRN Reason: Systolic BP > 160 Last Admin: 04/21/17 16:37 Dose: 0.1 mg Clonidine (Catapres) 0.2 mg PO TID [facility] Dextrose/Water (Dextrose 50%) 25 gm SLOW IVP PRN PRN PRN Reason: Hypoglycemia Famotidine (Pepcid) 20 mg SLOW IVP Q12HR [facility] Last Admin: 04/22/17 08:19 Dose: 20 mg Furosemide (Lasix) 40 mg PO HS [facility] Glimepiride (Amaryl) 4 mg PO BID [facility] Glucagon (Glucagon) 1 mg IM PRN PRN PRN Reason: Hypoglycemia Guaifenesin (Robitussin Sf) 200 mg PO Q4H PRN PRN Reason: Cough Heparin Sodium (Porcine) (Heparin) 5,000 units SC TID [facility] Last Admin: 04/22/17 08:19 Dose: 5,000 units Hydralazine HCl (Apresoline) 10 mg SLOW IVP Q4H PRN PRN Reason: Systolic BP > 170 Last Admin: 04/22/17 12:00 Dose: 10 mg Hydralazine HCl (Apresoline) 25 mg PO TID [facility] Last Admin: 04/22/17 08:20 Dose: 25 mg Dextrose/Water (D5w) 1,000 mls @ 0 mls/hr IV .Q0M PRN; As Directed PRN Reason: Hypoglycemia Insulin Human Lispro (Humalog) 0 units SC .AGGRESSIVE SLIDING PRN PRN Reason: Aggressive Correctional Scale Last Admin: 04/22/17 12:01 Dose: 6 unit Insulin Human Lispro (Humalog) 0 units SC .BEDTIME SLIDING SC PRN PRN Reason: Bedtime Correctional Scale Loratadine (Claritin) 10 mg PO DAILYPRN PRN PRN Reason: Sinus Symptoms Metoclopramide HCl (Reglan) 10 mg PO ACHS [facility] Last Admin: 04/22/17 12:00 Dose: 10 mg Minoxidil (Minoxidil) 5 mg PO DAILY [facility] Last Admin: 04/22/17 08:19 Dose: 5 mg Mometasone Furoate/Formoterol Fumar (Dulera 100 Mcg/5 Mcg Inhaler) 1 puff INH BID-RT [facility] Last Admin: 04/22/17 07:16 Dose: 1 puff Nitroglycerin (Nitrostat) 0.4 mg SL Q5MIN PRN PRN Reason: Chest Pain Ondansetron HCl (Zofran) 4 mg IVP Q6H PRN PRN Reason: Nausea/Vomiting Pantoprazole Sodium (Protonix) 40 mg PO 2100 [facility] Last Admin: 04/21/17 20:29 Dose: 40 mg Senna (Senokot) 2 tab PO HSPRN PRN PRN Reason: Constipation Sodium Chloride (Flush - Normal Saline) 10 ml IVF PRN PRN PRN Reason: Saline Flush Last Admin: 04/22/17 08:18 Dose: 10 ml Tramadol HCl (Ultram) 50 mg PO Q4H PRN PRN Reason: Moderate Pain (4-6) Last Admin: 04/22/17 10:04 Dose: 50 mg
[2017-04-22] MEDS ORDERED: cloNIDine 0.2 MG TAB PO SCH (15:00)
[2017-04-22 15:45] VITALS: BP 156/73
[2017-04-22 15:54] VITALS: TEMP 97.9
--- NOTE | 2017-04-22 17:34 | DIS ---
DATE OF ADMISSION: 04/20/2017 DATE OF DISCHARGE: 04/22/2017 CONDITION AT THE TIME OF DISCHARGE: Stable and improved. PRIMARY CARE PHYSICIAN: Kim Nunez M.D. DISCHARGE DISPOSITION: Home. DISCHARGE DIAGNOSES: 1. Uncontrolled hypertension with hypertensive urgency with end-organ damage in the form of acute re nal insufficiency. 2. Intractable nausea and vomiting. 3. Chronic kidney disease. 4. Cocaine abuse. 5. Diabetic nephropathy with chronic kidney disease and diabetes mellitus. 6. Non-ST elevation myocardial infarction secondary to demand ischemia. 7. Ongoing tobacco abuse. DISCHARGE MEDICATIONS: As follows: Tramadol as needed, glimepiride 4 mg p.o. b.i.d., Lasix 40 mg at bedtime, Advair Diskus 1 puff b.i.d., carvedilol 25 mg p.o. b.i.d., calcitriol 0.25 mcg daily, benzo natate as needed, atorvastatin 40 mg daily, aspirin 81 mg daily, albuterol as needed. New medication , hydralazine was increased to 25 mg p.o. t.i.d. from b.i.d. and clonidine 0.2 mg p.o. t.i.d. from b. i.d., minoxidil 5 mg p.o. daily. CONSULTATIONS: In-House include, 1. Nephrology, Dr. Garcia. 2. Gastroenterology, Dr. Heard. PROCEDURES DONE IN THE HOSPITAL: 1. CT scan of the abdomen and pelvis upon presentation without contrast which was unremarkable. 2. Transthoracic echocardiogram, which showed diastolic dysfunction, left ventricular hypertrophy. 3. EGD on 04/21/2017 which shows esophagus, normal duodenum, mildly friable edematous mucosa with th e gastric antrum and hypertrophic gastric mucosa with biopsies obtained. 4. Abdominal ultrasound which was negative for cholelithiasis. ADMISSION HISTORY: Mr. Keita is a 57-year-old male with past medical history of hypertension and ch ronic kidney disease who presented to the emergency room with complaints of persistent intractable na usea and abdominal pain with poor p.o. intake for about 4-5 weeks. Upon admission, his blood pressur e was elevated to 225/110 and his creatinine was elevated to 2.90, above the baseline and mild elevat ion of creatinine kinase and troponin. His BNP was also 503, but chest x-ray was unremarkable. He w as admitted for hypertensive emergency as well as acute renal insufficiency and workup for intractabl e nausea and vomiting. Please see admission history and physical for further details. HOSPITAL COURSE: The patient was seen by Gastroenterology and underwent an EGD along with a CT scan of the abdomen and pelvis and abdominal ultrasound. All the workup was unremarkable. This was thoug ht secondary to diabetic gastroparesis and was started on Reglan and was discharged on the same. 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 With regards to his uncontrolled hypertension, his medications were adjusted and Nephrology was consu lted. The patient was started on minoxidil and his hydralazine and clonidine dose were increased. H is blood pressure responded very well to this. Dr. Garcia also saw the patient for his acute on chronic renal insufficiency. He also recommended blood pressure management. His creatinine continued to im prove and on the day of discharge, it was almost close to his baseline. He is instructed to follow u p with Dr. Garcia as an outpatient as well. He was seen and examined prior to discharge. Please see hospitalist progress note from today's date for further details including [id number] interaction. All medication prescriptions were provided a nd discharge plan was discussed with the patient who verbalized understanding.
[2017-04-22] MEDS ORDERED: Furosemide 20 MG TAB PO SCH (21:00)
[2017-04-22] MEDS ORDERED: Glimepiride 4 MG TAB PO SCH (21:00)
== END 2017-04-22 17:30 | disposition home or self-care (01) | DRG 281 ==
LOC: ERS 09:53 → 2NO 17:57
PROVIDERS: ADMIT Internal Medicine; ATTEND Internal Medicine
PROC: 0DB68ZX Excision of Stomach, Via Natural or Artificial Opening Endoscopic, Diagnostic (ICD-10-PCS; principal; 2017-04-21)
DX: I16.1 Hypertensive emergency (principal); I21.4 Non-ST elevation (NSTEMI) myocardial infarction; N17.9 Acute kidney failure, unspecified; K31.84 Gastroparesis; I42.8 Other cardiomyopathies; E11.22 Type 2 diabetes mellitus with diabetic chronic kidney disease; E11.43 Type 2 diabetes mellitus with diabetic autonomic (poly)neuropathy; I50.9 Heart failure, unspecified; I13.0 Hypertensive heart and chronic kidney disease with heart failure and stage 1 through stage 4 chronic kidney disease, or unspecified chronic kidney disease; F14.10 Cocaine abuse, uncomplicated; J44.9 Chronic obstructive pulmonary disease, unspecified; E78.5 Hyperlipidemia, unspecified; I25.10 Atherosclerotic heart disease of native coronary artery without angina pectoris; Z87.891 Personal history of nicotine dependence; N18.2 Chronic kidney disease, stage 2 (mild)
CPT/HCPCS: 36415; 36416; 71010; 74176; 76700; 80048; 80053; 80306; 81003; 81015; 82553; 83036; 83690; 83880; 84484; 85025; 88305; 88312; 93005; 93306; 94664; 96374; 96375; 99406; A4216; J0360; J1644; J2001; J2270; J2405; J2704; S0028

== ENCOUNTER 2017-05-22 11:04 | Inpatient (IN) | payer MEDICARE ==
[2017-05-22] MEDS ORDERED: Nitroglycerin 2% Ointment 1 INCH/1 GM Packet ONE (11:30)
[2017-05-22] MEDS ORDERED: Furosemide 40 MG/4 ML VIAL ONE (11:30)
[2017-05-22 11:36] LABS: #Eosinphils 0.2 thou/uL (0.0-0.7); #Lymphocytes 0.9 thou/uL (1.20-3.40); #Monocytes 0.5 thou/uL (0.11-0.59); #Neutrophils 4.4 thou/uL (1.40-6.50); %Basophils 0.7 % (0.0-1.0); %Eosinophils 3.3 % (0.0-10.0); %Monocytes 8.4 % (0.0-10.0); %Neutrophils 72.6 % (42.0-75.0); Hemoglobin 9.7 g/dL (14.0-18.0); Mean Corpuscular HGB CONC 32.7 g/dL (32.0-36.0); Mean Corpuscular Hemoglobin 27.8 pg (27.0-31.0); Mean Corpuscular Volume 84.9 fl (80.0-94.0); Mean Platelet Volume 7.8 fL (7.4-10.4); Platelet Count 195 thou/uL (130-400); RBC Distribution Width 12.3 % (11.5-14.5); Red Blood Cell (RBC) Count 3.51 mill/uL (4.70-6.10); White Blood Cell (WBC) Count 6.1 thou/uL (4.8-10.8)
[2017-05-22 12:03] LABS: Troponin I 0.073 ng/mL (< 0.028)
[2017-05-22 12:04] LABS: ALT (SGPT) 21 U/L (8-55); AST (SGOT) 20 U/L (5-34); Alkaline Phosphatase 382 U/L (40-150); Anion Gap 10 mmol/L (10-20); BUN (Urea Nitrogen) 26 mg/dL (8.4-25.7); Bilirubin, Total 0.3 mg/dL (0.2-1.2); CK (CPK) 875 U/L (30-200); Calc. Creatinine Clearance 0 mL/min (70-130); Calcium 8.6 mg/dL (7.8-10.44); Carbon Dioxide 22 mmol/L (22-29); Chloride 109 mmol/L (98-107); Estimated GFR-MDRD 27; Globulin 3.4 g/dL (2.4-3.5); Glucose 140 mg/dL (70-105); Lipase 8 U/L (8-78); Potassium 3.8 mmol/L (3.5-5.1); Protein, Total 6.4 g/dL (6.0-8.3); Sodium 137 mmol/L (136-145)
--- NOTE | 2017-05-22 12:05 | RAD ---
CHEST 2 VIEWS: Date: 05/22/17 HISTORY: Dyspnea. COMPARISON: 04/20/17. FINDINGS: Cardiac silhouette is enlarged. Pulmonary vasculature is now engorged with widespread reticulonodular interstitial prominence. Mediastinum is midline. There is no lobar consolidation or pneumothorax ainsley dent. farm boss leads overlie the chest. IMPRESSION: CHF. POS: [facility]
[2017-05-22 12:12] LABS: CKMB 8.8 ng/mL (0-6.6)
[2017-05-22] MEDS ORDERED: Acetaminophen 500 MG TAB ONE (12:49)
[2017-05-22 13:11] LABS: Bilirubin Negative (Negative); Blood, Urine Small (Negative); Clarity CLEAR (Clear); Glucose, Urine (Dipstick) 100 mg/dL (Negative); Leukocyte Negative (Negative); Nitrite Negative (Negative); Protein, Urine (Dipstick) 300 mg/dL (Neg-Trace); Specific Gravity, Urine 1.013 (1.002-1.036); Urobilinogen 0.2 mg/dL (0.2-1.0)
[2017-05-22 13:24] LABS: Bacteria/HPF None Seen HPF (None Seen); Hyaline Casts/LPF 0-3 HYALINE CAST LPF (0-3 Hyaline); Pathc Cast-AUWi Flag 0.13 (0-2.49); RBC/HPF 0-3 HPF (0-3); Squamous Epithelial 0-3 HPF (0-3); WBC/HPF 0-3 HPF (0-3)
--- NOTE | 2017-05-22 14:49 | HP ---
PRIMARY CARE PHYSICIAN: Dr. Nunez. CHIEF COMPLAINT: Coughing and shortness of breath. HISTORY OF PRESENT ILLNESS: Mr. Keita is a pleasant 57-year-old gentleman that has a history of chr onic diastolic heart failure as well as COPD and diabetes mellitus. He says that he has been coughin g a lot and throwing up liquid almost every day and sometimes twice a day. The patient initially hollie cribed it as vomiting, but on further discussion, it appears as if he has spells of coughing and then one he has the coughing for longtime and then he throws up clear liquid he says. He also notes shor tness of breath when walking just minimal distance. He says he always feels nauseated and he has had some constipation. He denies any chest pain however and in review of his records, he was actually h ere just a month ago with almost exactly the same presentation. At that time, he was evaluated by GI . He had a CT scan of the abdomen which was essentially negative and an upper endoscopy which was es sentially negative as well as an abdominal ultrasound. At that time, it was felt that his symptoms w ere likely attributable to CHF exacerbation. I also asked him has he been on any recent medications. He had been started on minoxidil around about the same time that he started having these symptoms a nd he does admit that the minoxidil has caused him to have some leg swelling. In fact, his nephrolog ist had reduced the dose of minoxidil. He also takes Reglan and he says that the Reglan does absolut lacey nothing for his symptoms. He had been tried on this by Dr. Nunez prior to admission and then si nce being discharged on Reglan, he says it does not help him at all. REVIEW OF SYSTEMS: CONSTITUTIONAL: There have been no fevers, chills, no night sweats, no weight lo ss. HEENT: No headaches, no dizziness, no visual changes, no sore throat, no rhinorrhea, neck pain, no adenopathy. PULMONARY: He does complain of some shortness of breath and some wheezing, no hemop tysis. CARDIOVASCULAR: He denies any chest pain. He has had dyspnea on exertion, lower extremity e antonia, but he says it is actually less than it has been before as well as some orthopnea. GASTROINTES TINAL: He complains of some diffuse abdominal pain as well as nausea and vomiting and constipation, but no melena or hematemesis. MUSCULOSKELETAL: No muscle pain, weakness or joint pains. NEUROLOGIC: No focal weakness, numbness, no seizures. PSYCHIATRIC: No symptoms of anxiety or depression. SKI N AND INTEGUMENT: No skin changes. No rash. PAST MEDICAL HISTORY: Significant for chronic diastolic heart failure, COPD, diabetes mellitus type 2, hypertension, unsure about coronary artery disease. PAST SURGICAL HISTORY: He has had cardiac catheterization x2 in 2017. SOCIAL HISTORY: He currently smokes. He had quit for 6 years and started back 2 years ago. He says the pack lasts him anywhere from 3-4 days. Denies any alcohol use and he is . FAMILY HISTORY: Significant for diabetes and hypertension. ALLERGIES: No known drug allergies. CURRENT MEDICATIONS: These are taken from the ER records. Actually the medications were taken from the patient himself, he brought his medications with him and these include carvedilol 25 mg twice a d ay, isosorbide 20 mg t.i.d., furosemide 60 mg daily, Flovent inhaler 110 mcg inhaled daily, calcitrio l 0.25 mcg daily, atorvastatin 40 mg daily, minoxidil 5 mg daily, metoprolol 100 mg twice daily and h ydralazine 25 mg t.i.d. PHYSICAL EXAMINATION: GENERAL: He is alert and oriented. He appears to be actually in no acute distress. He is able to t alk in complete sentences and in fact he is lying fairly flat on the stretcher. He does not appear t oxic at all. VITAL SIGNS: Blood pressure was 160/94, heart rate 68, respiratory rate of 18, and he is afebrile. HEENT: Pupils are equal, round, and reactive. Extraocular muscles are intact. His sclerae are anic teric. Throat: There is no erythema, no exudates. NECK: No adenopathy, no bruits. LUNGS: He has got bilateral wheezing. The left is greater than the right. There were no rales. CARDIOVASCULAR: He has a normal S1 and S2. I did not appreciate an S3 or S4. No murmurs, clicks or rubs. ABDOMEN: Obese, it is soft, nontender, nondistended. Positive for bowel sounds. No rebound or guar ding. EXTREMITIES: He has got 2+ pitting edema bilaterally, no erythema, no redness. Palpable pulses bila terally. LABORATORY DATA AND IMAGING DATA: White blood cell count 6.1, hemoglobin 9.7, hematocrit is 29.8, an d platelet count is 195. Sodium 137, potassium 3.8, chloride is 109, CO2 is 22, BUN 26, creatinine 2 .9, glucose is 140. Urinalysis was essentially negative. On his chest x-ray, he has got cardiomegal y and bilateral pulmonary vascular, increase in pulmonary vascular markings. ASSESSMENT AND PLAN: 1. This is a 57-year-old gentleman that comes in with cough which is followed by vomiting. I suspec t his symptoms are more related to the cough than it is gastrointestinal problem. He has had an exte nsive gastrointestinal workup in the past and it appears as if a trial of Reglan was ineffective for possible diabetic gastroparesis which essentially rules this out well which makes this less likely. I suspect that the cough could be either related to chronic obstructive pulmonary disease. However, he said he has had chronic obstructive pulmonary disease exacerbations in the past which were "never like this." One factor is that he does have increased fluid on chest x-ray as well as an elevated BN P. Therefore, I suspect that this cough is related to congestive heart failure exacerbation. This m ight be made worse with minoxidil, which can cause significant fluid retention in some people. There fore, for the plan for the acute on chronic diastolic heart failure, he will be admitted and started on IV diuretics. We will hold minoxidil and see how his blood pressure tolerates off of the minoxidi l. We may need to use another agent such as Procardia in its place. 2. For chronic kidney disease, his renal function actually is slightly improved from the previous ho spitalization. Given the degree of his renal failure, it is likely best to have a expense analyst júnior casper to help renally dose medications, etc. 3. Hypertension. We will restart his medications with the exception minoxidil and place him on p.r. n. medications and see how his blood pressure trends and hopefully his blood pressure can be controll ed without minoxidil. 4. Anemia. I suspect this is anemia of chronic kidney disease. It appears to be stable over the la st few months. 5. Tobacco abuse. He has been counseled on this and the need to quit and if needed nicotine patch w ill be administered.
[2017-05-22 15:26] LABS: Troponin I 0.074 ng/mL (< 0.028)
[2017-05-22 15:33] LABS: CKMB 9.8 ng/mL (0-6.6)
[2017-05-22] MEDS ORDERED: Docusate 100 MG CAP PO PRN (16:03)
[2017-05-22] MEDS ORDERED: Dextrose 5% in Water 1,000 ML IV PRN (16:03)
[2017-05-22] MEDS ORDERED: Dextrose 50% Abboject 50 ML SYRINGE SLOW IVP PRN (16:03)
[2017-05-22] MEDS ORDERED: hydrALAZINE 20 MG/ML VIAL SLOW IVP PRN (16:03)
[2017-05-22] MEDS ORDERED: Labetalol HCl 100 MG/20 ML VIAL SLOW IVP PRN (16:03)
[2017-05-22] MEDS ORDERED: HumaLOG 300 UNITS/3 ML VIAL SC PRN (16:03)
[2017-05-22] MEDS ORDERED: Heparin 5,000 UNITS/ML VIAL SC SCH (16:30)
[2017-05-22] MEDS ORDERED: Benzonatate 100 MG CAP PO SCH (16:45)
[2017-05-22] MEDS ORDERED: hydrALAZINE 25 MG TAB PO SCH (16:45)
[2017-05-22 18:36] VITALS: BMI 38.6
[2017-05-22] MEDS: Nicotine 14 MG PATCH TD SCH (19:07)
[2017-05-22] MEDS: Famotidine 20 MG TAB PO SCH (21:41)
[2017-05-22] MEDS: Carvedilol 25 MG TAB PO SCH (21:41)
[2017-05-22] MEDS: hydrALAZINE 25 MG TAB PO SCH (21:41)
[2017-05-22] MEDS: Benzonatate 100 MG CAP PO SCH (21:41)
[2017-05-22] MEDS: Heparin 5,000 UNITS/ML VIAL SC SCH (21:55)
[2017-05-23] MEDS ORDERED: traMADol HCl 50 MG TAB PO PRN (00:03)
[2017-05-23] MEDS: traMADol HCl 50 MG TAB PO PRN ×2 (00:23→21:43)
[2017-05-23] MEDS: Ondansetron HCl/PF 4 MG/2 ML Vial IVP PRN ×4 (01:21→21:39)
[2017-05-23 05:16] LABS: #Eosinphils 0.2 thou/uL (0.0-0.7); #Lymphocytes 1.3 thou/uL (1.20-3.40); #Monocytes 0.6 thou/uL (0.11-0.59); #Neutrophils 3.6 thou/uL (1.40-6.50); %Basophils 0.3 % (0.0-1.0); %Eosinophils 3.7 % (0.0-10.0); %Lymphocytes 23.2 % (21.0-51.0); %Monocytes 10.1 % (0.0-10.0); %Neutrophils 62.7 % (42.0-75.0); Hemoglobin 9.4 g/dL (14.0-18.0); Mean Corpuscular HGB CONC 31.7 g/dL (32.0-36.0); Mean Corpuscular Hemoglobin 26.8 pg (27.0-31.0); Mean Corpuscular Volume 84.5 fl (80.0-94.0); Mean Platelet Volume 8.4 fL (7.4-10.4); Platelet Count 196 thou/uL (130-400); RBC Distribution Width 12.3 % (11.5-14.5); Red Blood Cell (RBC) Count 3.49 mill/uL (4.70-6.10); White Blood Cell (WBC) Count 5.7 thou/uL (4.8-10.8)
[2017-05-23 05:27] LABS: Anion Gap 10 mmol/L (10-20); BUN (Urea Nitrogen) 27 mg/dL (8.4-25.7); Calc. Creatinine Clearance 50 mL/min (70-130); Calcium 8.7 mg/dL (7.8-10.44); Carbon Dioxide 24 mmol/L (22-29); Chloride 108 mmol/L (98-107); Estimated GFR-MDRD 28; Glucose 109 mg/dL (70-105); Potassium 3.7 mmol/L (3.5-5.1); Sodium 138 mmol/L (136-145)
[2017-05-23] MEDS: Furosemide 40 MG/4 ML VIAL SLOW IVP SCH ×2 (06:53→14:50)
[2017-05-23] MEDS ORDERED: FLU VACC QS2017-18 36 mo. & older 0.5 ML SYRINGE IM ONE (09:00)
--- NOTE | 2017-05-23 09:01 | CON ---
DATE OF CONSULTATION: 05/23/2017 HISTORY OF PRESENT ILLNESS: Mr. Keita is a 57-year-old black male with known history of chronic annette al failure secondary to presumed diabetic nephropathy and admitted for coughing and shortness of ortega th. He was found to be in CHF. We are now being consulted for his chronic renal failure. Patient w [facility]. Adjustments with his diuretics have been made previously. REVIEW OF SYSTEMS: Positive for cough. Positive for shortness of breath, no chest pain, no syncopal episode, no diarrhea, no constipation, no productive cough, no fever or chills, no hematochezia, no melena, no hematemesis, no dysuria, no abdominal pain. Appetite and energy level is fair. No headac he, no sore throat, no earache, no new skin rash, occasional joint pains. HOME MEDICATIONS: Includes the following; carvedilol 25 mg p.o. b.i.d., isosorbide dinitrate 20 mg t ab t.i.d., furosemide 60 mg daily, Flovent inhaler, calcitriol 0.25 mcg tab daily, atorvastatin 40 mg tab daily, minoxidil 5 mg daily, metoprolol 100 mg p.o. twice a day, hydralazine 25 p.o. t.i.d. PAST MEDICAL HISTORY: Includes the following; chronic renal failure from presumed diabetic nephropat hy, type 2 diabetes mellitus, COPD, history of decreased EF/CHF, hypertension, diabetic gastroparesis , and coronary artery disease. PAST SURGICAL HISTORY: 1. Status post cardiac catheterization. 2. Status post colonoscopy. 3. Status post upper GI endoscopy. SOCIAL HISTORY: The patient originally from [place], but currently living in [place]. 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 History of smoking for the last 20+ years and still sm oking about a one-third pack a day. No blood transfusion. No IV drug abuse. Sedentary lifestyle. . ALLERGIES: None. TRAUMA: None. IMMUNIZATIONS: Up to date. HOSPITALIZATIONS: Please see past medical history. FAMILY HISTORY: No family history of ESRD. PHYSICAL EXAMINATION: VITAL SIGNS: Blood pressure is 177/86, heart rate 85, respiratory rate 21, temperature 98.2, and pul se ox 95%. GENERAL: Awake, supine, comfortable, not in overt distress. SKIN: Adequate turgor. HEENT: Slightly pale conjunctivae, anicteric sclerae. NECK: No neck mass, no carotid bruits, no JVD. CHEST: No deformities. LUNGS: Decreased breath sounds. HEART: Normal sinus rhythm. No murmur, no gallops, no rubs. ABDOMEN: Globular, soft, nontender, no masses. EXTREMITIES: Trace edema. NEUROLOGIC: Awake, oriented in 3 spheres. Moving all extremities. No tremors, no asterixis, no lc tucker. Current medications at the hospital have been removed. He is actually on furosemide 60 mg IV q.12 ho urs. LABORATORY DATA AND IMAGING DATA: 1. Laboratories of 05/23/2017; white count 5.7, hemoglobin 9.4. Sodium 138, potassium 3.7, chloride 108, carbon dioxide 24, BUN 27, creatinine 2.83, GFR 28 mL per minute, calcium 8.7, CK-MB is 9.8. B ORAL THERAPIST is 576. On 05/22/2017, creatinine is noted at 2.90. 2. On 04/25/2017, creatinine 3.28. 3. Report of his chest x-ray on 05/22/2017 showed evidence of CHF. ASSESSMENT AND PLAN: 1. Congestive heart failure - agree with diuresis. Continue current Lasix 60 mg IV q.12. 2. Chronic renal failure from diabetic nephropathy, stable relatively near baseline. There is no in dication for any emergent hemodialysis. I do anticipate some worsening of the renal dysfunction with the current diuretic regimen. We will continue to monitor. 3. Anemia - continue to observe. If this further worsens, we may need to consider initiating Epogen with this patient. Overall, agree with current management.
[2017-05-23] MEDS: Heparin 5,000 UNITS/ML VIAL SC SCH ×3 (10:54→21:39)
[2017-05-23] MEDS: hydrALAZINE 25 MG TAB PO SCH ×3 (10:55→21:38)
[2017-05-23] MEDS: Benzonatate 100 MG CAP PO SCH ×3 (10:55→21:38)
[2017-05-23] MEDS: Aspirin 81 mg Enteric Coated Tablet PO SCH (10:56)
[2017-05-23] MEDS: Carvedilol 25 MG TAB PO SCH ×2 (10:56→21:38)
[2017-05-23] MEDS: Calcitriol 0.25 MCG CAP PO SCH (10:56)
[2017-05-23] MEDS: Atorvastatin Calcium 40 MG TAB PO SCH (10:56)
[2017-05-23] MEDS: Famotidine 20 MG TAB PO SCH (21:38)
[2017-05-23] MEDS ORDERED: cloNIDine 0.1 MG TAB PO SCH (21:45)
--- NOTE | 2017-05-23 21:47 | PDOC.PN ---
- Subjective Encounter Start Date: 05/23/17 Encounter Start Time: 19:00 Patient seen and examined. SOB improving. No overnight events - Objective Resuscitation Status: Resuscitation Status FULL:Full Resuscitation MAR Reviewed: Yes Vital Signs & Weight: Vital Signs (12 hours) Temp Pulse Pulse Pulse Resp BP BP 05/23/17 20:50 97.5 F L 78 18 05/23/17 18:12 69 197/97 H 05/23/17 16:01 71 14 05/23/17 15:22 97.8 F 79 18 05/23/17 14:47 77 200/92 H 05/23/17 11:30 73 75 169/90 H 05/23/17 11:06 97.7 F 76 18 05/23/17 10:55 77 220/98 H BP BP Pulse Ox Pulse Ox Pulse Ox 05/23/17 20:50 189/91 H 95 05/23/17 18:12 05/23/17 16:01 97 05/23/17 15:22 191/89 H 98 05/23/17 14:47 05/23/17 11:30 183/88 H 95 94 L 05/23/17 11:06 201/104 H 96 05/23/17 10:55 Weight Weight 260 lb 12.8 oz I&O: 05/22/17 05/23/17 05/24/17 06:59 06:59 06:59 Intake Total 720 720 Output Total 750 1175 Balance -30 -455 Result Diagrams: 05/23/17 04:36 05/23/17 04:36 Additional Labs: Accuchecks 05/23/17 05/23/17 05/23/17 20:04 16:50 11:05 POC Glucose 154 H 154 H 162 H 05/23/17 06:01 POC Glucose 104 EKG Reviewed by me: Yes (Tele SR) Phys Exam - Physical Examination Constitutional: NAD Respiratory: no wheezing, no rhonchi Scat rales at bases, Symmetrical Cardiovascular: RRR, no rub no heaves/pulsations Gastrointestinal: soft, non-tender, no distention, positive bowel sounds Musculoskeletal: edema present Neurological: non-focal, moves all 4 limbs Psychiatric: A&O x 3 Dx/Plan - Plan DVT proph w/SCDs IMPRESSION: 1. Acute on chronic diastolic heart failure 2. Hypertensive crisis 3. Cocaine abuse 4. CKD 4 5. ?CAD/DM2/COPD/Tobacco dep/Elevated CK/Elevated troponins due to demand ischemia PLAN: * DC Heparin due to uncontrolled HTN * Add Clonidine PRN * Check Urine drug screen - Pt was Cocaine positive 04/28 * Resume home dose of Imdur * Nephro following * AM labs * Add Fluid restriction * Cont diuretics * Avoid Nephrotoxic agent * Conselled on HTN/CHF * Cont Cardiac Rehab * Check CK in AM Review of Systems - Review of Systems Respiratory: Cough, Dry. negative: Shortness of Breath, Hemoptysis, SOB with Excertion, Pleuritic Pain, Sputum, Wheezing Cardiovascular: edema. negative: chest pain, palpitations, orthopnea, paroxysmal nocturnal dyspnea, light headedness, other Gastrointestinal: negative: Nausea, Vomiting, Abdominal Pain, Diarrhea, Constipation, Melena, Hematochezia - Medications/Allergies Allergies/Adverse Reactions: Allergies Allergy/AdvReac Type Severity Reaction Status Date / Time No Known Drug Allergies Allergy Verified 05/22/17 16:54 Medications: Current Medications Acetaminophen (Tylenol) 650 mg PO Q4H PRN PRN Reason: Headache/Fever or Pain Albuterol/Ipratropium (Duoneb) 3 ml NEB Q6H PRN PRN Reason: SOB &/or Wheezing Last Admin: 05/23/17 16:01 Dose: 3 ml Aspirin (Ecotrin) 81 mg PO DAILY [facility] Last Admin: 05/23/17 10:56 Dose: 81 mg Atorvastatin Calcium (Lipitor) 40 mg PO DAILY [facility] Last Admin: 05/23/17 10:56 Dose: 40 mg Benzonatate (Tessalon) 200 mg PO TID [facility] Last Admin: 05/23/17 14:50 Dose: 200 mg Calcitriol (Rocaltrol) 0.25 mcg PO DAILY [facility] Last Admin: 05/23/17 10:56 Dose: 0.25 mcg Carvedilol (Coreg) 25 mg PO BID [facility] Last Admin: 05/23/17 10:56 Dose: 25 mg Clonidine (Catapres) 0.1 mg PO Q4H PRN PRN Reason: Systolic BP > 180 Clonidine (Catapres) 0.1 mg PO ONE [facility] Dextrose/Water (Dextrose 50%) 25 gm SLOW IVP PRN PRN PRN Reason: Hypoglycemia Docusate Sodium (Colace) 100 mg PO BIDPRN PRN PRN Reason: Constipation Famotidine (Pepcid) 20 mg PO Q24HR [facility] Last Admin: 05/22/17 21:41 Dose: 20 mg Furosemide (Lasix) 60 mg SLOW IVP 0600,1400 [facility] Last Admin: 05/23/17 14:50 Dose: 60 mg Glucagon (Glucagon) 1 mg IM PRN PRN PRN Reason: Hypoglycemia Heparin Sodium (Porcine) (Heparin) 5,000 units SC TID [facility] Last Admin: 05/23/17 14:51 Dose: 5,000 units Hydralazine HCl (Apresoline) 10 mg SLOW IVP Q4H PRN PRN Reason: Systolic BP > 180 Last Admin: 05/23/17 18:12 Dose: 10 mg Hydralazine HCl (Apresoline) 50 mg PO TID [facility] Last Admin: 05/23/17 14:47 Dose: 50 mg Hydralazine HCl (Apresoline) 10 mg SLOW IVP Q4H PRN PRN Reason: SBP Greater Than 180 Dextrose/Water (D5w) 1,000 mls @ 0 mls/hr IV .Q0M PRN; As Directed PRN Reason: Hypoglycemia Insulin Human Lispro (Humalog) 0 units SC .MILD SLIDING SCALE PRN PRN Reason: Mild Correctional Scale Insulin Human Lispro (Humalog) 0 units SC .BEDTIME SLIDING SC PRN PRN Reason: Bedtime Correctional Scale Isosorbide Dinitrate (Isordil) 20 mg PO TID [facility] Nicotine (Nicoderm Patch) 14 mg TD Q24HR [facility] Last Admin: 05/22/17 19:07 Dose: Not Given Non-Formulary Medication (Fluticasone/Salmeterol [Advair Diskus 250/50]) 1 inh IH BID [facility] Ondansetron HCl (Zofran) 4 mg IVP Q6H PRN PRN Reason: Nausea/Vomiting Last Admin: 05/23/17 14:50 Dose: 4 mg Sodium Chloride (Flush - Normal Saline) 10 ml IVF Q12HR [facility] Last Admin: 05/23/17 14:50 Dose: 10 ml Sodium Chloride (Flush - Normal Saline) 10 ml IVF PRN PRN PRN Reason: Saline Flush Tramadol HCl (Ultram) 50 mg PO Q4H PRN PRN Reason: Mild-Moderate Pain (1-5) Tramadol HCl (Ultram) 100 mg PO Q6H PRN PRN Reason: Moderate to Severe Pain (6-10) Last Admin: 05/23/17 00:23 Dose: 100 mg
[2017-05-23] MEDS: Acetaminophen 325 MG TAB PO PRN (22:47)
[2017-05-23] MEDS: Nicotine 14 MG PATCH TD SCH (22:54)
[2017-05-24] MEDS: cloNIDine 0.1 MG TAB PO PRN (04:41)
[2017-05-24 05:26] LABS: #Eosinphils 0.2 thou/uL (0.0-0.7); #Lymphocytes 1.2 thou/uL (1.20-3.40); #Monocytes 0.7 thou/uL (0.11-0.59); #Neutrophils 3.3 thou/uL (1.40-6.50); %Basophils 0.5 % (0.0-1.0); %Eosinophils 3.5 % (0.0-10.0); %Lymphocytes 22.5 % (21.0-51.0); %Monocytes 12.2 % (0.0-10.0); %Neutrophils 61.4 % (42.0-75.0); Hemoglobin 9.5 g/dL (14.0-18.0); Mean Corpuscular HGB CONC 32.9 g/dL (32.0-36.0); Mean Corpuscular Hemoglobin 27.7 pg (27.0-31.0); Mean Corpuscular Volume 84.3 fl (80.0-94.0); Mean Platelet Volume 8.5 fL (7.4-10.4); Platelet Count 189 thou/uL (130-400); RBC Distribution Width 12.3 % (11.5-14.5); Red Blood Cell (RBC) Count 3.43 mill/uL (4.70-6.10); White Blood Cell (WBC) Count 5.3 thou/uL (4.8-10.8)
[2017-05-24 05:37] LABS: Anion Gap 13 mmol/L (10-20); BUN (Urea Nitrogen) 30 mg/dL (8.4-25.7); CK (CPK) 791 U/L (30-200); Calc. Creatinine Clearance 44 mL/min (70-130); Calcium 8.7 mg/dL (7.8-10.44); Carbon Dioxide 22 mmol/L (22-29); Chloride 108 mmol/L (98-107); Estimated GFR-MDRD 25; Glucose 125 mg/dL (70-105); Potassium 3.6 mmol/L (3.5-5.1); Sodium 139 mmol/L (136-145)
[2017-05-24] MEDS: Furosemide 40 MG/4 ML VIAL SLOW IVP SCH (06:40)
[2017-05-24] MEDS: hydrALAZINE 20 MG/ML VIAL SLOW IVP PRN (06:47)
[2017-05-24] MEDS ORDERED: Artificial Tears 18 DROP/0.9 ML EA EYE PRN (08:01)
[2017-05-24] MEDS ORDERED: Sodium Chloride 0.65% Nasal 44 ML BOT EA NARE PRN (08:01)
[2017-05-24] MEDS ORDERED: Eucerin (Mineral Oil/Petrolatum,White) 30 gm Jar TOP PRN (08:01)
[2017-05-24] MEDS ORDERED: Milk Of Magnesia 30 ML UDCUP PO PRN (08:01)
[2017-05-24] MEDS ORDERED: Mag-Al 1200 mg/1200 mg/30 ML UDCUP PO PRN (08:01)
[2017-05-24] MEDS ORDERED: Loperamide HCl 2 MG CAP PO PRN (08:01)
[2017-05-24] MEDS ORDERED: Metoclopramide HCl 10 MG TAB PO PRN (08:01)
[2017-05-24] MEDS ORDERED: HYDROcodone/Acetaminophen 5/325 mg Tablet PO PRN (08:01)
[2017-05-24] MEDS ORDERED: Diabetic Tussin 200 MG/10 ML UDCUP PO PRN (08:01)
[2017-05-24] MEDS ORDERED: Ondansetron ODT 4 MG TAB PO PRN (08:01)
[2017-05-24] MEDS ORDERED: Loratadine 10 MG TAB PO PRN (08:01)
[2017-05-24] MEDS: Mometasone/Formoterol 120 PUFF INHALER INH SCH ×2 (08:07→20:24)
[2017-05-24 09:05] LABS: Amphetamine Not Detected (NotDetected); Barbiturates Screen Not Detected (NotDetected); Benzodiazepine Screen Not Detected (NotDetected); Cocaine Metabolite Screen Detected (NotDetected); Medtox Control Line Valid? VALID (VALID); Medtox Reader # READER 1; Methadone Not Detected (NotDetected); Methamphetamine Not Detected (NotDetected); Opiate Screen Not Detected (NotDetected); Oxycodone Screen Not Detected (NotDetected); Phencyclidine (PCP) Not Detected (NotDetected); THC/Cannabinoid Screen Not Detected (NotDetected); Tricyclic Screen Not Detected (NotDetected)
--- NOTE | 2017-05-24 09:31 | PRG ---
DATE OF SERVICE: 05/24/2017 SUBJECTIVE: Mr. Keita is a 57-year-old black male with chronic renal failure from diabetic nephropa thy, admitted for congestive heart failure. He was started on IV Lasix 60 mg IV q.12. His shortness of breath is much improved. However, creatinine is noted to be slightly higher. No new complaints. No chest pain. PHYSICAL EXAMINATION: VITAL SIGNS: Blood pressure 192/88, heart rate 87, respiratory rate 15, pulse ox 97%. GENERAL: Noted to be awake, alert, comfortable, not in overt distress. SKIN: Adequate turgor. HEENT: He has pinkish conjunctivae, anicteric sclerae. NECK: No neck mass, no carotid bruits, no JVD. CHEST: No deformities. LUNGS: Clear. Decreased breath sounds. HEART: Normal sinus rhythm. No murmur, no gallops, no rubs. ABDOMEN: Globular, soft, nontender. No masses. EXTREMITIES: Trace edema. MEDICATIONS: 05/24/2017 - Reviewed. LABORATORIES: 05/24/2017 - White count 5.3, hemoglobin 9.5, hematocrit 28.9. Sodium 139, potassium 3.6, chloride 108, carbon dioxide 22, BUN 30, creatinine 3.2, glucose 125, calcium 8.7. CK 391. ASSESSMENT AND PLAN: 1. Congestive heart failure, clinically much improved with IV Lasix. Due to the worsening renal dys function we may need to adjust the Lasix downwards. 2. Chronic renal failure/acute kidney injury. Creatinine noted at 3.2 and this was 2.83 yesterday. The plan is to decrease his furosemide from 60 mg IV q.12h to once daily dosing. There is no indica tion for any dialytic intervention with this patient. Continue supportive care.
[2017-05-24] MEDS: Aspirin 81 mg Enteric Coated Tablet PO SCH (09:55)
[2017-05-24] MEDS: Atorvastatin Calcium 40 MG TAB PO SCH (09:55)
[2017-05-24] MEDS: Benzonatate 100 MG CAP PO SCH ×3 (09:56→21:22)
[2017-05-24] MEDS: Carvedilol 25 MG TAB PO SCH ×2 (09:56→21:22)
[2017-05-24] MEDS: Calcitriol 0.25 MCG CAP PO SCH (09:56)
[2017-05-24] MEDS: cloNIDine 0.2 MG TAB PO SCH ×3 (09:57→21:22)
[2017-05-24] MEDS: Isosorbide Dinitrate 20 MG TAB PO SCH ×3 (09:59→21:23)
[2017-05-24] MEDS: hydrALAZINE 25 MG TAB PO SCH ×4 (10:07→21:23)
--- NOTE | 2017-05-24 11:21 | PDOC.PN ---
- Subjective Encounter Start Date: 05/24/17 Encounter Start Time: 07:40 -: old records requested/rev Patient seen and examined. No new complaints. No overnight events - Objective Resuscitation Status: Resuscitation Status FULL:Full Resuscitation MAR Reviewed: Yes Vital Signs & Weight: Vital Signs (12 hours) Temp Pulse Resp BP BP Pulse Ox 05/24/17 10:10 151/83 H 05/24/17 10:07 151/83 H 05/24/17 09:57 151/83 H 05/24/17 09:52 98.2 F 79 18 151/83 H 96 05/24/17 08:09 87 15 97 05/24/17 08:07 87 15 97 05/24/17 06:48 70 192/88 H 05/24/17 06:47 70 192/88 H 05/24/17 04:41 205/91 H 05/24/17 04:00 98.6 F 68 14 205/91 H 94 L 05/23/17 23:31 75 16 98 05/23/17 23:29 81 18 166/100 H 05/23/17 23:22 166/100 H Weight Weight 260 lb 11.2 oz I&O: 05/23/17 05/24/17 05/25/17 06:59 06:59 06:59 Intake Total 720 1320 Output Total 750 2150 Balance -30 -830 Result Diagrams: 05/24/17 04:39 05/24/17 04:39 Additional Labs: Accuchecks 05/24/17 05/23/17 05/23/17 05:54 20:04 16:50 POC Glucose 124 H 154 H 154 H 05/23/17 11:05 POC Glucose 162 H EKG Reviewed by me: Yes Phys Exam - Physical Examination Constitutional: NAD HEENT: PERRLA, moist MMs, sclera anicteric Neck: no JVD, supple Respiratory: no wheezing, no rales, no rhonchi Cardiovascular: RRR, no significant murmur, no rub Gastrointestinal: soft, non-tender, no distention, positive bowel sounds Musculoskeletal: pulses present, edema present Neurological: non-focal, normal sensation, moves all 4 limbs Lymphatic: no nodes Psychiatric: normal affect, A&O x 3 Skin: no rash, normal turgor Dx/Plan (1) Acute on chronic diastolic (congestive) heart failure Code(s): I50.33 - ACUTE ON CHRONIC DIASTOLIC (CONGESTIVE) HEART FAILURE Status : Acute (2) Elevated troponin Code(s): R74.8 - ABNORMAL LEVELS OF OTHER SERUM ENZYMES Status: Acute (3) Hypertensive urgency Code(s): I16.0 - HYPERTENSIVE URGENCY Status: Acute (4) Rhabdomyolysis Code(s): M62.82 - RHABDOMYOLYSIS Status: Acute (5) CKD (chronic kidney disease) stage 4, GFR 15-29 ml/min Code(s): N18.4 - CHRONIC KIDNEY DISEASE, STAGE 4 (SEVERE) Status: Chronic (6) COPD (chronic obstructive pulmonary disease) Status: Chronic (7) Cocaine abuse Code(s): F14.10 - COCAINE ABUSE, UNCOMPLICATED Status: Chronic (8) Diabetic nephropathy associated with type 2 diabetes mellitus Code(s): E11.21 - TYPE 2 DIABETES MELLITUS WITH DIABETIC NEPHROPATHY Status: Chronic (9) Obesity (BMI 30-39.9) Code(s): E66.9 - OBESITY, UNSPECIFIED Status: Chronic (10) Tobacco abuse Code(s): Z72.0 - TOBACCO USE Status: Chronic - Plan cont current plan of care * medication reviewed as below * symptomatic treatment * continue diuresis * monitor renal function and electrolytes * nephrology following * counselled to avoid coccaine. Review of Systems - Review of Systems Eyes: negative: Pain, Vision Change, Conjunctivae Inflammation, Eyelid Inflammation, Redness, Other ENT: negative: Ear Pain, Ear Discharge, Nose Pain, Nose Discharge, Nose Congestion, Mouth Pain, Mouth Swelling, Throat Pain, Throat Swelling, Other Respiratory: negative: Cough, Dry, Shortness of Breath, Hemoptysis, SOB with Excertion, Pleuritic Pain, Sputum, Wheezing Cardiovascular: edema. negative: chest pain, palpitations, orthopnea, paroxysmal nocturnal dyspnea, light headedness, other Gastrointestinal: negative: Nausea, Vomiting, Abdominal Pain, Diarrhea, Constipation, Melena, Hematochezia, Other Genitourinary: negative: Dysuria, Frequency, Incontinence, Hematuria, Retention , Other Musculoskeletal: negative: Neck Pain, Shoulder Pain, Arm Pain, Back Pain, Hand Pain, Leg Pain, Foot Pain, Other Skin: negative: Rash, Lesions, Bryant, Bruising, Other - Medications/Allergies Allergies/Adverse Reactions: Allergies Allergy/AdvReac Type Severity Reaction Status Date / Time No Known Drug Allergies Allergy Verified 05/22/17 16:54 Medications: Current Medications Acetaminophen (Tylenol) 650 mg PO Q4H PRN PRN Reason: Headache/Fever or Pain Last Admin: 05/23/17 22:47 Dose: 650 mg Hydrocodone Bitart/Acetaminophen ([place] 5/325) 1 tab PO Q4H PRN PRN Reason: Moderate Pain (4-6) Al Hydroxide/Mg Hydroxide (Maalox) 15 ml PO Q4H PRN PRN Reason: Heartburn or Indigestion Albuterol/Ipratropium (Duoneb) 3 ml NEB Q6H PRN PRN Reason: SOB &/or Wheezing Last Admin: 05/24/17 08:09 Dose: 3 ml Artificial Tears (Tears Naturale) 0 drop EA EYE PRN PRN PRN Reason: Dry Eyes Aspirin (Ecotrin) 81 mg PO DAILY [facility] Last Admin: 05/24/17 09:55 Dose: 81 mg Atorvastatin Calcium (Lipitor) 40 mg PO DAILY [facility] Last Admin: 05/24/17 09:55 Dose: 40 mg Benzonatate (Tessalon) 200 mg PO TID [facility] Last Admin: 05/24/17 09:56 Dose: 200 mg Calcitriol (Rocaltrol) 0.25 mcg PO DAILY [facility] Last Admin: 05/24/17 09:56 Dose: 0.25 mcg Carvedilol (Coreg) 25 mg PO BID [facility] Last Admin: 05/24/17 09:56 Dose: 25 mg Clonidine (Catapres) 0.1 mg PO Q4H PRN PRN Reason: Systolic BP > 180 Last Admin: 05/24/17 04:41 Dose: 0.1 mg Clonidine (Catapres) 0.2 mg PO TID [facility] Last Admin: 05/24/17 09:57 Dose: 0.2 mg Dextrose/Water (Dextrose 50%) 25 gm SLOW IVP PRN PRN PRN Reason: Hypoglycemia Docusate Sodium (Colace) 100 mg PO BIDPRN PRN PRN Reason: Constipation Famotidine (Pepcid) 20 mg PO Q24HR [facility] Last Admin: 05/23/17 21:38 Dose: 20 mg Furosemide (Lasix) 60 mg SLOW IVP DAILY [facility] Glucagon (Glucagon) 1 mg IM PRN PRN PRN Reason: Hypoglycemia Guaifenesin (Robitussin Sf) 200 mg PO Q4H PRN PRN Reason: Cough Hydralazine HCl (Apresoline) 10 mg SLOW IVP Q4H PRN PRN Reason: SBP Greater Than 180 Last Admin: 05/24/17 06:47 Dose: 10 mg Hydralazine HCl (Apresoline) 75 mg PO TID [facility] Last Admin: 05/24/17 10:10 Dose: 75 mg Dextrose/Water (D5w) 1,000 mls @ 0 mls/hr IV .Q0M PRN; As Directed PRN Reason: Hypoglycemia Insulin Human Lispro (Humalog) 0 units SC .MILD SLIDING SCALE PRN PRN Reason: Mild Correctional Scale Insulin Human Lispro (Humalog) 0 units SC .BEDTIME SLIDING SC PRN PRN Reason: Bedtime Correctional Scale Isosorbide Dinitrate (Isordil) 20 mg PO TID [facility] Last Admin: 05/24/17 09:59 Dose: 20 mg Loperamide HCl (Imodium) 2 mg PO PRN PRN PRN Reason: Diarrhea/Loose Stools Loratadine (Claritin) 10 mg PO DAILYPRN PRN PRN Reason: Sinus Symptoms Magnesium Hydroxide (Milk Of Magnesium) 30 ml PO DAILYPRN PRN PRN Reason: Constipation Metoclopramide HCl (Reglan) 10 mg PO AC PRN PRN Reason: nausea Mineral Oil/White Petrolatum (Eucerin Cream) 0 gm TOP BIDPRN PRN PRN Reason: Dry Skin Mometasone Furoate/Formoterol Fumar (Dulera 200 Mcg/5 Mcg Inhaler) 1 puff INH BID-RT [facility] Last Admin: 05/24/17 08:07 Dose: 1 puff Nicotine (Nicoderm Patch) 14 mg TD Q24HR [facility] Last Admin: 05/23/17 22:54 Dose: Not Given Ondansetron HCl (Zofran) 4 mg IVP Q6H PRN PRN Reason: Nausea/Vomiting Last Admin: 05/23/17 21:39 Dose: 4 mg Ondansetron HCl (Zofran Odt) 4 mg PO Q6H PRN PRN Reason: Nausea/Vomiting Sodium Chloride (Flush - Normal Saline) 10 ml IVF Q12HR [facility] Last Admin: 05/24/17 09:58 Dose: 10 ml Sodium Chloride (Flush - Normal Saline) 10 ml IVF PRN PRN PRN Reason: Saline Flush Sodium Chloride ([place] 0.65%) 0 ml EA NARE QIDPRN PRN PRN Reason: Nasal Congestion Temazepam (Restoril) 15 mg PO HSPRN PRN PRN Reason: Insomnia Tramadol HCl (Ultram) 50 mg PO Q4H PRN PRN Reason: Mild-Moderate Pain (1-5)
[2017-05-24] MEDS: Nicotine 14 MG PATCH TD SCH (16:34)
[2017-05-24] MEDS: Famotidine 20 MG TAB PO SCH (21:23)
[2017-05-24] MEDS: Temazepam 15 MG CAP PO PRN (21:28)
[2017-05-25 05:19] LABS: #Eosinphils 0.2 thou/uL (0.0-0.7); #Lymphocytes 1.3 thou/uL (1.20-3.40); #Monocytes 0.5 thou/uL (0.11-0.59); #Neutrophils 3.2 thou/uL (1.40-6.50); %Basophils 0.2 % (0.0-1.0); %Eosinophils 3.4 % (0.0-10.0); %Lymphocytes 25.1 % (21.0-51.0); %Monocytes 9.8 % (0.0-10.0); %Neutrophils 61.6 % (42.0-75.0); Hemoglobin 9.3 g/dL (14.0-18.0); Mean Corpuscular HGB CONC 32.6 g/dL (32.0-36.0); Mean Corpuscular Hemoglobin 27.6 pg (27.0-31.0); Mean Corpuscular Volume 84.5 fl (80.0-94.0); Mean Platelet Volume 8.5 fL (7.4-10.4); Platelet Count 184 thou/uL (130-400); RBC Distribution Width 12.2 % (11.5-14.5); Red Blood Cell (RBC) Count 3.38 mill/uL (4.70-6.10); White Blood Cell (WBC) Count 5.3 thou/uL (4.8-10.8)
[2017-05-25 05:52] LABS: Albumin 2.9 g/dL (3.5-5.0); Anion Gap 10 mmol/L (10-20); BUN (Urea Nitrogen) 33 mg/dL (8.4-25.7); BUN/Creatinine Ratio 9.71; CK (CPK) 565 U/L (30-200); Calc. Creatinine Clearance 41 mL/min (70-130); Calcium 8.8 mg/dL (7.8-10.44); Carbon Dioxide 24 mmol/L (22-29); Chloride 107 mmol/L (98-107); Estimated GFR-MDRD 23; Glucose 125 mg/dL (70-105); Phosphorus 4.1 mg/dL (2.3-4.7); Potassium 3.5 mmol/L (3.5-5.1); Sodium 137 mmol/L (136-145)
[2017-05-25] MEDS ORDERED: Albumin 25% 25 GM/100 ML BOT IVPB SCH (07:00)
[2017-05-25] MEDS: Mometasone/Formoterol 120 PUFF INHALER INH SCH ×2 (07:27→20:11)
[2017-05-25] MEDS: Isosorbide Dinitrate 20 MG TAB PO SCH ×3 (08:08→21:11)
[2017-05-25] MEDS: Atorvastatin Calcium 40 MG TAB PO SCH (08:08)
[2017-05-25] MEDS: Calcitriol 0.25 MCG CAP PO SCH (08:08)
[2017-05-25] MEDS: Carvedilol 25 MG TAB PO SCH ×2 (08:08→21:10)
[2017-05-25] MEDS: cloNIDine 0.2 MG TAB PO SCH ×3 (08:08→21:10)
[2017-05-25] MEDS: Benzonatate 100 MG CAP PO SCH ×3 (08:09→21:09)
[2017-05-25] MEDS: Aspirin 81 mg Enteric Coated Tablet PO SCH (08:09)
[2017-05-25] MEDS: hydrALAZINE 25 MG TAB PO SCH ×3 (08:09→21:10)
[2017-05-25] MEDS ORDERED: Furosemide 40 MG/4 ML VIAL SLOW IVP SCH (09:00)
--- NOTE | 2017-05-25 09:07 | PDOC.PN ---
- Subjective Encounter Start Date: 05/25/17 Encounter Start Time: 07:30 Patient seen and examined. No new complaints. No overnight events - Objective Resuscitation Status: Resuscitation Status FULL:Full Resuscitation MAR Reviewed: Yes Vital Signs & Weight: Vital Signs (12 hours) Temp Pulse Resp BP BP Pulse Ox 05/25/17 08:53 155/90 H 05/25/17 08:08 193/83 H 05/25/17 08:05 98.3 F 66 16 193/83 H 95 05/25/17 07:28 70 16 99 05/25/17 07:27 70 16 98 05/25/17 04:15 97 05/25/17 03:51 98.2 F 67 18 162/78 H 97 05/25/17 00:18 93 L 05/25/17 00:00 97.5 F L 73 18 158/74 H 93 L 05/24/17 21:23 64 164/78 H 05/24/17 21:22 164/78 H Weight Weight 261 lb I&O: 05/24/17 05/25/17 05/26/17 06:59 06:59 06:59 Intake Total 1320 1440 Output Total 2150 1000 Balance -830 440 Result Diagrams: 05/25/17 04:39 05/25/17 04:39 Additional Labs: Accuchecks 05/25/17 05/24/17 05/24/17 05:55 20:44 15:37 POC Glucose 126 H 185 H 176 H 05/24/17 11:55 POC Glucose 172 H EKG Reviewed by me: Yes Phys Exam - Physical Examination Constitutional: NAD HEENT: PERRLA, moist MMs, sclera anicteric Neck: no JVD, supple Respiratory: no wheezing, no rales, no rhonchi Cardiovascular: RRR, no significant murmur, no rub Gastrointestinal: soft, non-tender, no distention, positive bowel sounds Musculoskeletal: pulses present, edema present Neurological: non-focal, normal sensation Lymphatic: no nodes Psychiatric: normal affect, A&O x 3 Skin: no rash, normal turgor Dx/Plan (1) Acute on chronic diastolic (congestive) heart failure Code(s): I50.33 - ACUTE ON CHRONIC DIASTOLIC (CONGESTIVE) HEART FAILURE Status : Acute (2) Elevated troponin Code(s): R74.8 - ABNORMAL LEVELS OF OTHER SERUM ENZYMES Status: Acute (3) Hypertensive urgency Code(s): I16.0 - HYPERTENSIVE URGENCY Status: Acute (4) Rhabdomyolysis Code(s): M62.82 - RHABDOMYOLYSIS Status: Acute (5) CKD (chronic kidney disease) stage 4, GFR 15-29 ml/min Code(s): N18.4 - CHRONIC KIDNEY DISEASE, STAGE 4 (SEVERE) Status: Chronic (6) COPD (chronic obstructive pulmonary disease) Status: Chronic (7) Cocaine abuse Code(s): F14.10 - COCAINE ABUSE, UNCOMPLICATED Status: Chronic (8) Diabetic nephropathy associated with type 2 diabetes mellitus Code(s): E11.21 - TYPE 2 DIABETES MELLITUS WITH DIABETIC NEPHROPATHY Status: Chronic (9) Obesity (BMI 30-39.9) Code(s): E66.9 - OBESITY, UNSPECIFIED Status: Chronic (10) Tobacco abuse Code(s): Z72.0 - TOBACCO USE Status: Chronic (11) Acute worsening of stage 4 chronic kidney disease Code(s): N28.9 - DISORDER OF KIDNEY AND URETER, UNSPECIFIED; N18.4 - CHRONIC KIDNEY DISEASE, STAGE 4 (SEVERE) Status: Acute - Plan cont current plan of care * will give 25% albumin one dose * edema reducing but creatinine is rising * lasix reduced * will repeat labs tomorrow * nephrology following * medication reviewed as below * symptomatic treatment. Review of Systems - Review of Systems Constitutional: negative: fever, chills, sweats, weakness, malaise, other ENT: negative: Ear Pain, Ear Discharge, Nose Pain, Nose Discharge, Nose Congestion, Mouth Pain, Mouth Swelling, Throat Pain, Throat Swelling, Other Respiratory: negative: Cough, Dry, Shortness of Breath, Hemoptysis, SOB with Excertion, Pleuritic Pain, Sputum, Wheezing Cardiovascular: negative: chest pain, palpitations, orthopnea, paroxysmal nocturnal dyspnea, edema, light headedness, other Gastrointestinal: negative: Nausea, Vomiting, Abdominal Pain, Diarrhea, Constipation, Melena, Hematochezia, Other Genitourinary: negative: Dysuria, Frequency, Incontinence, Hematuria, Retention , Other Musculoskeletal: negative: Neck Pain, Shoulder Pain, Arm Pain, Back Pain, Hand Pain, Leg Pain, Foot Pain, Other Skin: negative: Rash, Lesions, Bryant, Bruising, Other - Medications/Allergies Allergies/Adverse Reactions: Allergies Allergy/AdvReac Type Severity Reaction Status Date / Time No Known Drug Allergies Allergy Verified 05/22/17 16:54 Medications: Current Medications Acetaminophen (Tylenol) 650 mg PO Q4H PRN PRN Reason: Headache/Fever or Pain Last Admin: 05/23/17 22:47 Dose: 650 mg Hydrocodone Bitart/Acetaminophen ([place] 5/325) 1 tab PO Q4H PRN PRN Reason: Moderate Pain (4-6) Al Hydroxide/Mg Hydroxide (Maalox) 15 ml PO Q4H PRN PRN Reason: Heartburn or Indigestion Albumin Human (Albumin 25%) 25 gm IVPB NOW [facility] Stop: 05/25/17 11:00 Last Admin: 05/25/17 08:08 Dose: 25 gm Albuterol/Ipratropium (Duoneb) 3 ml NEB Q6H PRN PRN Reason: SOB &/or Wheezing Last Admin: 05/25/17 07:28 Dose: 3 ml Artificial Tears (Tears Naturale) 0 drop EA EYE PRN PRN PRN Reason: Dry Eyes Aspirin (Ecotrin) 81 mg PO DAILY [facility] Last Admin: 05/25/17 08:09 Dose: 81 mg Atorvastatin Calcium (Lipitor) 40 mg PO DAILY [facility] Last Admin: 05/25/17 08:08 Dose: 40 mg Benzonatate (Tessalon) 200 mg PO TID [facility] Last Admin: 05/25/17 08:09 Dose: 200 mg Calcitriol (Rocaltrol) 0.25 mcg PO DAILY [facility] Last Admin: 05/25/17 08:08 Dose: 0.25 mcg Carvedilol (Coreg) 25 mg PO BID [facility] Last Admin: 05/25/17 08:08 Dose: 25 mg Clonidine (Catapres) 0.1 mg PO Q4H PRN PRN Reason: Systolic BP > 180 Last Admin: 05/24/17 04:41 Dose: 0.1 mg Clonidine (Catapres) 0.2 mg PO TID [facility] Last Admin: 05/25/17 08:08 Dose: 0.2 mg Dextrose/Water (Dextrose 50%) 25 gm SLOW IVP PRN PRN PRN Reason: Hypoglycemia Docusate Sodium (Colace) 100 mg PO BIDPRN PRN PRN Reason: Constipation Famotidine (Pepcid) 20 mg PO Q24HR [facility] Last Admin: 05/24/17 21:23 Dose: 20 mg Furosemide (Lasix) 60 mg SLOW IVP DAILY [facility] Last Admin: 05/25/17 08:09 Dose: 60 mg Glucagon (Glucagon) 1 mg IM PRN PRN PRN Reason: Hypoglycemia Guaifenesin (Robitussin Sf) 200 mg PO Q4H PRN PRN Reason: Cough Hydralazine HCl (Apresoline) 10 mg SLOW IVP Q4H PRN PRN Reason: SBP Greater Than 180 Last Admin: 05/24/17 06:47 Dose: 10 mg Hydralazine HCl (Apresoline) 75 mg PO TID [facility] Last Admin: 05/25/17 08:09 Dose: 75 mg Dextrose/Water (D5w) 1,000 mls @ 0 mls/hr IV .Q0M PRN; As Directed PRN Reason: Hypoglycemia Insulin Human Lispro (Humalog) 0 units SC .MILD SLIDING SCALE PRN PRN Reason: Mild Correctional Scale Insulin Human Lispro (Humalog) 0 units SC .BEDTIME SLIDING SC PRN PRN Reason: Bedtime Correctional Scale Isosorbide Dinitrate (Isordil) 20 mg PO TID [facility] Last Admin: 05/25/17 08:08 Dose: 20 mg Loperamide HCl (Imodium) 2 mg PO PRN PRN PRN Reason: Diarrhea/Loose Stools Loratadine (Claritin) 10 mg PO DAILYPRN PRN PRN Reason: Sinus Symptoms Magnesium Hydroxide (Milk Of Magnesium) 30 ml PO DAILYPRN PRN PRN Reason: Constipation Metoclopramide HCl (Reglan) 10 mg PO AC PRN PRN Reason: nausea Mineral Oil/White Petrolatum (Eucerin Cream) 0 gm TOP BIDPRN PRN PRN Reason: Dry Skin Mometasone Furoate/Formoterol Fumar (Dulera 200 Mcg/5 Mcg Inhaler) 1 puff INH BID-RT [facility] Last Admin: 05/25/17 07:27 Dose: 1 puff Nicotine (Nicoderm Patch) 14 mg TD Q24HR [facility] Last Admin: 05/24/17 16:34 Dose: Not Given Ondansetron HCl (Zofran) 4 mg IVP Q6H PRN PRN Reason: Nausea/Vomiting Last Admin: 01/11/18 21:39 Dose: 4 mg Ondansetron HCl (Zofran Odt) 4 mg PO Q6H PRN PRN Reason: Nausea/Vomiting Sodium Chloride (Flush - Normal Saline) 10 ml IVF Q12HR [facility] Last Admin: 05/25/17 08:10 Dose: 10 ml Sodium Chloride (Flush - Normal Saline) 10 ml IVF PRN PRN PRN Reason: Saline Flush Sodium Chloride ([place] 0.65%) 0 ml EA NARE QIDPRN PRN PRN Reason: Nasal Congestion Temazepam (Restoril) 15 mg PO HSPRN PRN PRN Reason: Insomnia Last Admin: 05/24/17 21:28 Dose: 15 mg Tramadol HCl (Ultram) 50 mg PO Q4H PRN PRN Reason: Mild-Moderate Pain (1-5)
--- NOTE | 2017-05-25 10:57 | PRG ---
DATE OF SERVICE: 05/25/2017 SUBJECTIVE: Mr. Keita is a 57-year-old black male, who was seen by the renal service for his acute kidney injury on top of his chronic renal failure. He was admitted for CHF exacerbation. He has bee n diuresed. His breathing is much improved. His leg edema is also dramatically decreased. No new c omplaints today. No chest pain or shortness of breath. He has also been started on some salt poor a lbumin. OBJECTIVE: VITAL SIGNS: Blood pressure is 155/90, heart rate 66, respiratory rate 16, temperature 98.2, and pul se ox 95%. GENERAL: Noted to be awake, alert, comfortable, supine, not in distress. SKIN: Adequate turgor. HEENT: He has slightly pale conjunctivae, anicteric sclerae. NECK: No neck mass, no carotid bruits, no JVD. CHEST: No deformities. LUNGS: Decreased breath sounds. HEART: Normal sinus rhythm. No murmurs, no gallops or rubs. ABDOMEN: Globular, soft, nontender, no masses. EXTREMITIES: Trace ankle edema. MEDICATIONS: 05/25/2017 was reviewed. LABORATORY DATA: 05/25/2017 - White count 5.3, hemoglobin 9.3. Sodium 137, potassium 3.5, chloride 107, carbon dioxide 24, BUN 33, creatinine 3.4, glucose 125, calcium 8.8, phosphorus 4.1, and albumin 2.9. ASSESSMENT AND PLAN: 1. Acute kidney injury/chronic renal failure. Renal function slightly worsening. This is a reflect ion of the current diuretic regimen. My plan is to change IV Lasix 60 mg to 40 mg tab q. day. Alysia nue supportive care. There is no indication for any dialytic intervention. 2. Congestive heart failure, clinically much improved with diuresis. Change IV Lasix to p.o. Lasix 40 mg tablet once a day. 3. Anemia. We will continue to observe. Consider starting this patient on ferrous sulfate 325 mg t ablet b.i.d. We will recheck basic metabolic panel and CBC in a.m.
[2017-05-25] MEDS: HumaLOG 300 UNITS/3 ML VIAL SC PRN (12:09)
[2017-05-25] MEDS: Albumin 25% 25 GM/100 ML BOT IVPB SCH ×2 (15:09→21:08)
[2017-05-25] MEDS: Acetaminophen 325 MG TAB PO PRN (15:16)
[2017-05-25] MEDS: Nicotine 14 MG PATCH TD SCH (17:10)
[2017-05-25] MEDS: Ferrous Sulfate 325 MG TAB PO SCH (17:30)
[2017-05-25] MEDS: Famotidine 20 MG TAB PO SCH (21:10)
[2017-05-25] MEDS: Temazepam 15 MG CAP PO PRN (21:11)
[2017-05-26] MEDS: hydrALAZINE 20 MG/ML VIAL SLOW IVP PRN (00:35)
[2017-05-26] MEDS: Albumin 25% 25 GM/100 ML BOT IVPB SCH ×3 (02:17→15:17)
[2017-05-26] MEDS: cloNIDine 0.1 MG TAB PO PRN (02:19)
[2017-05-26] MEDS: Acetaminophen 325 MG TAB PO PRN (04:22)
[2017-05-26] MEDS ORDERED: Amlodipine 5 MG TAB PO SCH (05:00)
[2017-05-26 05:15] LABS: #Eosinphils 0.2 thou/uL (0.0-0.7); #Monocytes 0.5 thou/uL (0.11-0.59); #Neutrophils 3.4 thou/uL (1.40-6.50); %Basophils 0.4 % (0.0-1.0); %Eosinophils 3.1 % (0.0-10.0); %Lymphocytes 19.9 % (21.0-51.0); %Monocytes 9.7 % (0.0-10.0); %Neutrophils 67.1 % (42.0-75.0); Hemoglobin 9.3 g/dL (14.0-18.0); Mean Corpuscular HGB CONC 32.9 g/dL (32.0-36.0); Mean Corpuscular Hemoglobin 27.5 pg (27.0-31.0); Mean Corpuscular Volume 83.5 fl (80.0-94.0); Mean Platelet Volume 8.4 fL (7.4-10.4); Platelet Count 170 thou/uL (130-400); RBC Distribution Width 12.1 % (11.5-14.5); Red Blood Cell (RBC) Count 3.38 mill/uL (4.70-6.10); White Blood Cell (WBC) Count 5.1 thou/uL (4.8-10.8)
[2017-05-26 05:23] LABS: Anion Gap 13 mmol/L (10-20); BUN (Urea Nitrogen) 32 mg/dL (8.4-25.7); Calc. Creatinine Clearance 45 mL/min (70-130); Calcium 9.5 mg/dL (7.8-10.44); Carbon Dioxide 22 mmol/L (22-29); Chloride 107 mmol/L (98-107); Estimated GFR-MDRD 25; Glucose 134 mg/dL (70-105); Potassium 3.4 mmol/L (3.5-5.1); Sodium 139 mmol/L (136-145)
[2017-05-26] MEDS: Mometasone/Formoterol 120 PUFF INHALER INH SCH (07:10)
[2017-05-26] MEDS: Isosorbide Dinitrate 20 MG TAB PO SCH (07:22)
[2017-05-26] MEDS: Carvedilol 25 MG TAB PO SCH (07:22)
[2017-05-26] MEDS: Calcitriol 0.25 MCG CAP PO SCH (07:22)
[2017-05-26] MEDS: hydrALAZINE 25 MG TAB PO SCH (07:22)
[2017-05-26] MEDS: cloNIDine 0.2 MG TAB PO SCH (07:22)
[2017-05-26] MEDS: Aspirin 81 mg Enteric Coated Tablet PO SCH (07:23)
[2017-05-26] MEDS: Atorvastatin Calcium 40 MG TAB PO SCH (07:23)
[2017-05-26] MEDS ORDERED: Furosemide 40 MG TAB PO SCH (07:30)
[2017-05-26] MEDS: Benzonatate 100 MG CAP PO SCH (07:53)
[2017-05-26] MEDS: Ferrous Sulfate 325 MG TAB PO SCH (07:53)
[2017-05-26] MEDS ORDERED: Potassium Chloride 20 MEQ TAB PO SCH (08:00)
[2017-05-26] MEDS: HumaLOG 300 UNITS/3 ML VIAL SC PRN (11:52)
[2017-05-26 12:06] VITALS: BP 175/84; TEMP 98.3
--- NOTE | 2017-05-26 14:16 | PRG ---
DATE OF SERVICE: 05/26/2017 SERVICE: Renal Medicine. SUBJECTIVE: Mr. Keita is a 57-year-old black male who was admitted for shortness of breath. He was found to have congestive heart failure. He was diuresed with clinical improvement of the CHF. We a re following him up for his acute kidney injury on top of his chronic renal failure. Creatinine is c urrently now stabilizing after adjustments of his diuretics. He feels better. He is wanting to go h ome. He denies any chest pain or shortness of breath. OBJECTIVE: VITAL SIGNS: Blood pressure is 175/83, heart rate is 83, respiratory rate 20 and temperature 95. GENERAL: He is noted to be awake, alert and comfortable, not in distress. SKIN: Adequate turgor. HEENT: He has pinkish conjunctivae, anicteric sclerae. NECK: No neck mass, no carotid bruits, no JVD. CHEST: No deformities. LUNGS: Clear breath sounds. No wheezing, no crackles. HEART: Normal sinus rhythm. No murmur, no gallops, no rubs. ABDOMEN: Globular, soft and nontender. No masses. EXTREMITIES: Trace edema. MEDICATIONS: Medications of 05/26/2017 reviewed. LABORATORY DATA: Laboratories of 05/26/2017, white count 5.1 and hemoglobin 9.3. Sodium 139, potass ium 3.4, chloride 107, carbon dioxide 22, BUN 32, creatinine 3.13, glucose 134 and calcium 9.5. ASSESSMENT AND PLAN: 1. Acute kidney injury on top of his chronic renal failure, slowly improving creatinine after adjust ment of the diuretics. Please note he is also on infusion. Continue current management. Cont inue current dose of Lasix. 2. Congestive heart failure, clinically improved. Continue current dose of furosemide of 40 mg tab once a day. I did instruct the patient once discharged, he can go back to 40 mg tab b.i.d., dosing o f the Lasix. We will adjust this after I see him at the renal outpatient clinic. Please note there is no indication for any dialytic intervention with this patient. From a renal poi nt of view, this patient can be discharged.
[2017-05-26] MEDS ORDERED: hydrALAZINE 25 MG TAB PO SCH (15:00)
--- NOTE | 2017-05-26 20:10 | DIS ---
DATE OF ADMISSION: 05/22/2017 DATE OF DISCHARGE: 05/26/2017 DISCHARGE DIAGNOSES: 1. Acute on chronic diastolic congestive heart failure exacerbation with ejection fraction of 50% to 55%. 2. Hypertension, labile. 3. Acute kidney injury on chronic kidney disease, stage 3-4. 4. Elevated troponin I, chronic. 5. Cocaine use. 6. Chronic normocytic anemia secondary to chronic kidney disease. 7. Rhabdomyolysis, mild, resolving. 8. Hypertensive urgency, resolving. 9. Tobacco abuse. CONSULTATIONS: Dr. Garcia with Nephrology Service. PERTINENT LABORATORY AND X-RAY FINDINGS: Creatinine ranged between 2.83-3.40. Estimated GFR ranged between 23-28. Total CK 875, troponin I ranged between 0.073-0.074. BNP ranged between 432-576. CB C showed hemoglobin ranged between 9.3-9.7. Urine drug screen positive for cocaine on 05/24/2017. P ortable chest x-ray dated 05/22/2017 showed bilateral pulmonary edema. HOSPITAL COURSE: The patient was admitted to the telemetry unit after initially presenting with incr eased shortness of breath and cough. Chest imaging confirmed evidence of bilateral pulmonary edema, at which point, the patient was placed on IV Lasix. The patient continued to improve symptomatically with the addition of IV Lasix and stabilize without need for oxygen supplementation. The patient wa s also noted with worsening renal function in the context of known chronic kidney disease stage 3-4. The patient was evaluated by the Nephrology Service with recommendations for tighter blood pressure control with titration of hydralazine to 100 mg t.i.d., Coreg 25 mg b.i.d., and amlodipine 10 mg p.o. daily. The patient was transitioned off IV Lasix to oral regimen at 40 mg daily. Overall, the brenton ent remained clinically stable through the remainder of the hospital course, tolerating regular oral intake, maintaining O2 saturations in the mid 90% range on room air and ready for discharge on 2017. DISCHARGE MEDICATIONS: 1. Amlodipine 10 mg 1 tab p.o. daily. 2. Xanax 0.25 mg p.o. daily p.r.n. anxiety. 3. ProAir HFA two puffs inhaled q.6 hours p.r.n. 4. Enteric coated aspirin 81 mg 1 tab p.o. daily. 5. Lipitor 40 mg 1 tab p.o. daily. 6. Calcitriol 0.25 mcg p.o. daily. 7. Carvedilol 25 mg p.o. b.i.d. 8. Clonidine 0.2 mg p.o. t.i.d. 9. Advair Diskus 1 inhalation b.i.d. 10. Lasix 60 mg 1 tab p.o. daily. 11. Hydralazine 100 mg p.o. t.i.d. 12. Levemir 100 units subcutaneously daily. 13. Isosorbide dinitrate 20 mg p.o. t.i.d. 14. Reglan 10 mg p.o. a.c. and at bedtime. 15. Tramadol 50 mg 1-2 tabs p.o. q.4-6 hours p.r.n. FOLLOWUP: The patient will follow up with his primary care provider, Dr. Nunez within 7 days of dis charge. The patient will follow up with Dr. Garcia with Nephrology Service. The patient given referral to [facility]. CONDITION ON DISCHARGE: Stable. ACTIVITY: Ad varun. DIET: Heart healthy and ADA. CODE STATUS: FULL. DISPOSITION: Home on 05/26/2017.
[2017-05-27] MEDS ORDERED: Amlodipine 10 MG TAB PO SCH (09:00)
--- NOTE | 2017-06-15 14:10 | EKG ---
Test Reason : Blood Pressure : / mmHG Vent. Rate : 064 BPM Atrial Rate : 064 BPM P-R Int : 156 ms QRS Dur : 108 ms QT Int : 436 ms P-R-T Axes : 051 -13 106 degrees QTc Int : 449 ms Normal sinus rhythm Possible Left atrial enlargement Incomplete left bundle branch block T wave abnormality, consider lateral ischemia Abnormal ECG Confirmed by MICHAEL JIMENEZ, ZANE ([id number]), technical editor DELVIN LANIER ([id number]) on 06/15/2017 2:09:46 PM [facility] Confirmed By:ZANE RODRIGUEZ MD
== END 2017-05-26 15:59 | disposition home or self-care (01) | DRG 292 ==
LOC: ERS 11:04 → 2NO 14:31
PROVIDERS: ADMIT Internal Medicine; ATTEND Internal Medicine
DX: I11.0 Hypertensive heart disease with heart failure (principal); N17.9 Acute kidney failure, unspecified; E11.22 Type 2 diabetes mellitus with diabetic chronic kidney disease; M62.82 Rhabdomyolysis; N18.4 Chronic kidney disease, stage 4 (severe); D63.1 Anemia in chronic kidney disease; E11.9 Type 2 diabetes mellitus without complications; F14.90 Cocaine use, unspecified, uncomplicated; F17.210 Nicotine dependence, cigarettes, uncomplicated; I50.33 Acute on chronic diastolic (congestive) heart failure; I16.0 Hypertensive urgency; I25.10 Atherosclerotic heart disease of native coronary artery without angina pectoris; J44.9 Chronic obstructive pulmonary disease, unspecified; R74.8 Abnormal levels of other serum enzymes; Z83.3 Family history of diabetes mellitus; Z82.49 Family history of ischemic heart disease and other diseases of the circulatory system
CPT/HCPCS: 36415; 36416; 71046; 80048; 80053; 80069; 80306; 81003; 81015; 82550; 82553; 83690; 83880; 84484; 85025; 93005; 93798; 94640; 96374; A4216; J0360; J1644; J1940; J2405; J7620; P9047

== ENCOUNTER 2017-08-06 12:39 | Outpatient (CLI) | payer MEDICARE ==
--- NOTE | 2017-08-06 14:43 | RAD ---
RADIOGRAPH CHEST 2 VIEWS: DATE: 07-27-17 HISTORY: 57-year-old male with dyspnea. FINDINGS: There is cardiomegaly. There is no evidence of air space density, pulmonary edema, or pneumothorax. T here is no pleural effusion. The cardiomegaly is similar to the 05-22-17 study. The pulmonary vascular engorgement demonstrated previously has slightly decreased on the current study. IMPRESSION: 1) No acute pulmonary findings. 2) Cardiomegaly without congestive heart failure. oscar POS: CECILIA
== END 2017-08-06 12:40 | disposition home or self-care (01) ==
LOC: RAD 12:39
PROVIDERS: ATTEND Internal Medicine Critical Care Medicine
DX: R06.00 Dyspnea, unspecified (principal); I51.7 Cardiomegaly
CPT/HCPCS: 71046

== ENCOUNTER 2017-08-22 14:22 | Outpatient (CLI) | payer MEDICARE, MEDICAID ==
--- NOTE | 2017-08-28 09:22 | PFT ---
PATIENT HISTORY: HEIGHT: WEIGHT: SMOKER: HOW LONG: PACKS PER DAY PRODUCTIVE COUGH: LUNG DISEASE: PHYSICIAN INTERPRETATION FINAL REPORT: Dough Sheeter comments patient had good effort and cooperation FVC 3.62 (88%), FEV1 3.08 (102%), FEV1/FVC 0.85. TLC 5.52 (90%), RV 2.20 (113%). Diffusion 25.85 (93%). The FEV1 and FVC are normal. There is insignificant improvement following bronchodilator. The ratio was also normal suggesting there is no element of obstructive airflow limitation. Lung volumes fall within the normal limits. Diffusion capacity is also normal. IMPRESSION: These pulmonary function studies are normal Dough Sheeter: SANTOS Ward Clerk: SANTOS SEO
== END 2017-08-22 14:23 | disposition home or self-care (01) ==
LOC: CP 14:22
PROVIDERS: ATTEND Internal Medicine Critical Care Medicine
DX: R06.00 Dyspnea, unspecified (principal)
CPT/HCPCS: 94060; 94727; 94729

== ENCOUNTER 2017-09-22 12:52 | Emergency (ER) | payer MEDICARE, MEDICAID | END 2017-09-22 13:25 | disposition home or self-care (01) | LOC: ERS 12:52 | DX: L03.811 Cellulitis of head [any part, except face] (principal); L02.811 Cutaneous abscess of head [any part, except face]; J44.9 Chronic obstructive pulmonary disease, unspecified; G47.30 Sleep apnea, unspecified; I25.10 Atherosclerotic heart disease of native coronary artery without angina pectoris; E11.40 Type 2 diabetes mellitus with diabetic neuropathy, unspecified; E78.5 Hyperlipidemia, unspecified; I12.0 Hypertensive chronic kidney disease with stage 5 chronic kidney disease or end stage renal disease; E11.22 Type 2 diabetes mellitus with diabetic chronic kidney disease; F17.210 Nicotine dependence, cigarettes, uncomplicated; N18.6 End stage renal disease; Z79.4 Long term (current) use of insulin; Z79.51 Long term (current) use of inhaled steroids; Z79.82 Long term (current) use of aspirin; Z79.891 Long term (current) use of opiate analgesic; Z79.899 Other long term (current) drug therapy | CPT/HCPCS: 99283 ==

== ENCOUNTER 2017-11-03 15:11 | Emergency (ER) | payer MEDICARE, MEDICAID ==
[2017-11-03 15:36] LABS: #Eosinphils 0.4 thou/uL (0.0-0.7); #Lymphocytes 0.7 thou/uL (1.20-3.40); #Monocytes 0.6 thou/uL (0.11-0.59); #Neutrophils 4.6 thou/uL (1.40-6.50); %Basophils 0.3 % (0.0-1.0); %Eosinophils 6.6 % (0.0-10.0); %Lymphocytes 11.2 % (21.0-51.0); %Monocytes 9.2 % (0.0-10.0); %Neutrophils 72.7 % (42.0-75.0); Hemoglobin 10.4 g/dL (14.0-18.0); Mean Corpuscular HGB CONC 33.3 g/dL (32.0-36.0); Mean Corpuscular Hemoglobin 27.8 pg (27.0-31.0); Mean Corpuscular Volume 83.5 fL (78.0-98.0); Mean Platelet Volume 8.2 fL (7.4-10.4); Platelet Count 170 thou/uL (130-400); RBC Distribution Width 12.6 % (11.5-14.5); Red Blood Cell (RBC) Count 3.75 mill/uL (4.70-6.10); White Blood Cell (WBC) Count 6.3 thou/uL (4.8-10.8)
--- NOTE | 2017-11-03 15:37 | RAD ---
TWO VIEWS CHEST: Comparison: 05-22-17 History: Cough and weakness for one day. FINDINGS: Two views of the chest show normal sized cardiomediastinal silhouette. There is no evidence of consol idation, mass, or pleural effusion. Degenerative changes are seen in the spine. IMPRESSION: No evidence of acute cardiopulmonary disease. POS: [facility]
[2017-11-03 15:58] LABS: ALT (SGPT) 13 U/L (8-55); AST (SGOT) 21 U/L (5-34); Albumin 2.7 g/dL (3.5-5.0); Alkaline Phosphatase 200 U/L (40-150); Anion Gap 11 mmol/L (10-20); BUN (Urea Nitrogen) 37 mg/dL (8.4-25.7); Bilirubin, Total 0.2 mg/dL (0.2-1.2); Calc. Creatinine Clearance 0 mL/min (70-130); Calcium 8.3 mg/dL (7.8-10.44); Carbon Dioxide 24 mmol/L (22-29); Chloride 106 mmol/L (98-107); Estimated GFR-MDRD 13; Globulin 3.4 g/dL (2.4-3.5); Glucose 181 mg/dL (70-105); Potassium 4.4 mmol/L (3.5-5.1); Protein, Total 6.1 g/dL (6.0-8.3); Sodium 137 mmol/L (136-145)
[2017-11-03 16:11] LABS: Troponin I 0.166 ng/mL (< 0.028)
[2017-11-03 16:16] LABS: CKMB 10.6 ng/mL (0-6.6)
[2017-11-03] MEDS ORDERED: methylPREDNISolone Sod Succ/PF 125 MG/2 ML VIAL ONE (16:17)
[2017-11-03 16:27] LABS: Magnesium 1.6 mg/dL (1.6-2.6)
[2017-11-03] MEDS ORDERED: Enoxaparin Sodium 100 MG/ML SYRINGE ONE (17:55)
[2017-11-03] MEDS ORDERED: Furosemide 20 MG/2 ML VIAL ONE (17:55)
[2017-11-03] MEDS ORDERED: Furosemide 40 MG/4 ML VIAL ONE (17:55)
== END 2017-11-03 16:30 | disposition left against medical advice (07) ==
LOC: ERS 15:11
DX: I21.4 Non-ST elevation (NSTEMI) myocardial infarction (principal); G47.30 Sleep apnea, unspecified; J44.9 Chronic obstructive pulmonary disease, unspecified; I25.10 Atherosclerotic heart disease of native coronary artery without angina pectoris; E78.5 Hyperlipidemia, unspecified; I13.2 Hypertensive heart and chronic kidney disease with heart failure and with stage 5 chronic kidney disease, or end stage renal disease; E11.22 Type 2 diabetes mellitus with diabetic chronic kidney disease; N18.6 End stage renal disease; I50.9 Heart failure, unspecified; E11.40 Type 2 diabetes mellitus with diabetic neuropathy, unspecified; F41.9 Anxiety disorder, unspecified; F17.210 Nicotine dependence, cigarettes, uncomplicated; Z79.899 Other long term (current) drug therapy; Z79.82 Long term (current) use of aspirin; Z79.4 Long term (current) use of insulin
CPT/HCPCS: 36415; 71046; 80053; 82553; 83690; 83735; 83880; 84484; 85025; 85379; 93005; 94640; J1650; J1940; J2930; J7620

== ENCOUNTER 2017-11-04 09:52 | Inpatient (IN) | payer MEDICARE, MEDICAID ==
[2017-11-04] MEDS ORDERED: Nitroglycerin 2% Ointment 1 INCH/1 GM Packet ONE (10:08)
[2017-11-04 10:45] LABS: #Lymphocytes 0.8 thou/uL (1.20-3.40); #Monocytes 0.8 thou/uL (0.11-0.59); #Neutrophils 6.6 thou/uL (1.40-6.50); %Basophils 0.2 % (0.0-1.0); %Eosinophils 0.2 % (0.0-10.0); %Lymphocytes 9.8 % (21.0-51.0); %Monocytes 9.7 % (0.0-10.0); %Neutrophils 80.1 % (42.0-75.0); Hemoglobin 10.5 g/dL (14.0-18.0); Mean Corpuscular HGB CONC 33.2 g/dL (32.0-36.0); Mean Corpuscular Hemoglobin 27.8 pg (27.0-31.0); Mean Corpuscular Volume 83.6 fL (78.0-98.0); Mean Platelet Volume 9.1 fL (7.4-10.4); Platelet Count 184 thou/uL (130-400); RBC Distribution Width 12.4 % (11.5-14.5); Red Blood Cell (RBC) Count 3.78 mill/uL (4.70-6.10); White Blood Cell (WBC) Count 8.2 thou/uL (4.8-10.8)
--- NOTE | 2017-11-04 11:04 | RAD ---
SINGLE VIEW CHEST: Date: 11/04/17 COMPARISON: None. HISTORY: Chest pain. FINDINGS: Single view of the chest shows an enlarged but stable cardiomediastinal silhouette. There is no evide nce of consolidation, mass, or pleural effusion. Degenerative changes are seen in the spine. IMPRESSION: 1. No evidence of acute cardiopulmonary disease. 2. Stable cardiomegaly. POS: OFF
[2017-11-04 11:07] LABS: ALT (SGPT) 13 U/L (8-55); AST (SGOT) 20 U/L (5-34); Albumin 2.8 g/dL (3.5-5.0); Alkaline Phosphatase 210 U/L (40-150); Anion Gap 12 mmol/L (10-20); BUN (Urea Nitrogen) 43 mg/dL (8.4-25.7); Bilirubin, Total 0.2 mg/dL (0.2-1.2); Calc. Creatinine Clearance 0 mL/min (70-130); Calcium 8.5 mg/dL (7.8-10.44); Carbon Dioxide 24 mmol/L (22-29); Chloride 105 mmol/L (98-107); Estimated GFR-MDRD 13; Globulin 3.8 g/dL (2.4-3.5); Glucose 177 mg/dL (70-105); Potassium 4.4 mmol/L (3.5-5.1); Protein, Total 6.6 g/dL (6.0-8.3); Sodium 137 mmol/L (136-145)
[2017-11-04 11:09] LABS: Troponin I 0.146 ng/mL (< 0.028)
[2017-11-04 11:13] LABS: CKMB 9.6 ng/mL (0-6.6)
[2017-11-04 12:59] LABS: Troponin I 0.113 ng/mL (< 0.028)
[2017-11-04] MEDS ORDERED: cloNIDine 0.1 MG TAB PO PRN (15:34)
[2017-11-04] MEDS ORDERED: Nitroglycerin 0.4 MG TAB (25 Tab Bottle) PO PRN (15:34)
[2017-11-04] MEDS ORDERED: Acetaminophen 500 MG TAB PO PRN (15:34)
[2017-11-04] MEDS ORDERED: Ondansetron HCl/PF 4 MG/2 ML Vial IVP PRN (15:34)
[2017-11-04] MEDS ORDERED: PROVENTIL INHALER 6.7 G (200 INHALATIONS) INH PRN (15:34)
[2017-11-04] MEDS ORDERED: Dextrose 5% in Water 1,000 ML IV PRN (15:34)
[2017-11-04] MEDS ORDERED: HumaLOG 300 UNITS/3 ML VIAL SC PRN ×2 (15:34)
[2017-11-04] MEDS ORDERED: Ondansetron ODT 4 MG TAB PO PRN (15:34)
[2017-11-04] MEDS ORDERED: hydrALAZINE 20 MG/ML VIAL SLOW IVP PRN (15:34)
[2017-11-04] MEDS ORDERED: Benzonatate 100 MG CAP PO PRN (15:34)
[2017-11-04] MEDS ORDERED: Dextrose 50% Abboject 50 ML SYRINGE SLOW IVP PRN (15:34)
[2017-11-04] MEDS ORDERED: Meclizine HCl 25 MG TAB PO PRN (15:34)
[2017-11-04] MEDS: Sodium Chloride 0.9% 1,000 ML IV SCH (16:45)
[2017-11-04 16:52] LABS: Troponin I 0.131 ng/mL (< 0.028)
[2017-11-04 18:12] VITALS: BMI 33.1
[2017-11-04] MEDS: Mometasone/Formoterol 120 PUFF INHALER INH SCH (19:47)
[2017-11-04] MEDS ORDERED: Famotidine 20 MG TAB PO SCH (21:00)
[2017-11-04] MEDS ORDERED: INSULIN DETEMIR 50 UNIT SQ SCH (21:00)
[2017-11-04] MEDS ORDERED: Atorvastatin Calcium 40 MG TAB PO SCH (21:00)
--- NOTE | 2017-11-04 21:26 | HP ---
PRIMARY CARE PROVIDER: Dr. Nunez. CHIEF COMPLAINT: Shortness of breath, cough, and chest pain. HISTORY OF PRESENT ILLNESS: This is a 57-year-old -Australian male who presents to [facility] complaining of persistent dry cough, chest pain, left arm discomfort and genera l body aches. The patient was apparently seen in the emergency room at [place] on 11/03/2017 for similar symptoms; however, left against medical advice due to his having health issues. The elsa arabella followed up with his primary oracle forms developer, Dr. Garcia, for routine appointment at which point Dr. Deanna schwartz directed him back to the emergency room for evaluation due to concerns for his symptoms and descri ption. The patient admits to increased shortness of breath over the last several weeks, increasing l ower extremity swelling with persistent dry cough. The patient states he had a dry cough that lasted for approximately 24 hours causing his left ribcage to hurt. The patient does admit to smoking up t o 1-2 packs of cigarettes daily since 14 years of age as well as remote use of crack cocaine. The linda patricia admits to hypertension, diabetes as well as chronic kidney disease which has been followed by h is oracle forms developer for consideration of initiation of hemodialysis. The patient states he had been titr ated down on his Lasix dosing and discontinued finally at the direction of Dr. Garcia. The patient stat es he is also transitioned from metoprolol to Coreg. The patient denies any specific travel history, but does states he has been in and out of the hospital due to his 's illness. In the emergency room, the patient underwent general evaluation including chest imaging showing no prominent pulmonary edema. Screening metabolic survey showed elevated creatinine of 5.57 with estimated GFR of 13 as we ll as elevated troponin I x2. Initial BNP over 1000. The patient received morphine sulfate, intrave nous normal saline, enteric coated aspirin 324 mg as well as transdermal nitroglycerin. The patient also received captopril 25 mg x1 dose. The patient was transferred to the telemetry unit for further evaluation and potential non-ST elevation myocardial infarction and worsening renal function. PAST MEDICAL HISTORY: 1. Diastolic heart failure with ejection fraction of 50%-55%. 2. Hypertension, labile. 3. 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 4. Chronic elevated troponin I. 5. History of remote cocaine use. 6. Chronic normocytic anemia secondary to chronic kidney disease. 7. Tobacco abuse. 8. Chronic obstructive pulmonary disease. 9. Diabetes mellitus type 2, insulin requiring. PAST SURGICAL HISTORY: Status post cardiac catheterization x2 in 2017. CURRENT MEDICATIONS: 1. ProAir HFA 2 puffs inhaled q.6 hours p.r.n. 2. Norvasc 10 mg 1 tab p.o. daily. 3. Enteric coated aspirin 81 mg p.o. daily. 4. Lipitor 40 mg p.o. at bedtime. 5. Calcitriol 0.25 mcg p.o. daily. 6. Carvedilol 25 mg p.o. b.i.d. 7. Clonidine 0.2 mg p.o. b.i.d. 8. Advair Diskus 1 inhalation b.i.d. 9. Amaryl 4 mg p.o. b.i.d. 10. Hydralazine 100 mg p.o. daily. 11. Levemir 50 units subcutaneously b.i.d. 12. Antivert 25 mg p.o. daily. ALLERGIES: No known drug allergies. FAMILY HISTORY: Mother had CVA at age 62. Dad with history of alcoholism, hypertension and diabetes mellitus. Brother with history of diabetes mellitus and chronic kidney disease. SOCIAL HISTORY: The patient is and resides in [place], [place]. Currently disabled. Smokes up to 1-2 packs of cigarettes since the age of [age] years old. No alcohol use. History of coca ine use, last noted positive drug screen 05/2017. REVIEW OF SYSTEMS: The following complete review of systems was negative, unless otherwise mentioned in the HPI or below: Constitutional: Weight loss or gain, ability to conduct usual activities. Skin: Rash, itching. Eyes: Double vision, pain. ENT/Mouth: Nose bleeding, neck stiffness, pain, tenderness. Cardiovascular: Palpitations, dyspnea on exertion, orthopnea. Respiratory: Shortness of breath, wheezing, cough, hemoptysis, fever or night sweats. Gastrointestinal: Poor appetite, abdominal pain, heartburn, nausea, vomiting, constipation, or diarr hea. Genitourinary: Urgency, frequency, dysuria, nocturia. Musculoskeletal: Pain, swelling. Neurologic/Psychiatric: Anxiety, depression. Allergy/Immunologic: Skin rash, bleeding tendency. Otherwise negative except as stated per HPI. PHYSICAL EXAMINATION: VITAL SIGNS: Currently, blood pressure 195/108, pulse 72, respiratory rate 16, temperature 98.0 degr ees Fahrenheit, O2 saturation 98% on room air. GENERAL APPEARANCE: This is a 57-year-old -Australian male, alert and oriented x3, pleasant, co nversant, responsive, in no acute distress. HEENT: Pupils equal, round and reactive to light and accommodation. Extraocular muscles are intact. No scleral icterus, no conjunctival injection. Nares patent. OP is clear. NECK: Supple, no cervical adenopathy, no thyromegaly, no carotid bruits, no JVD appreciated. Cervic al spine with full active and passive range of motion. No meningeal signs appreciated. CHEST: Coarse rhonchi and decreased breath sounds bilaterally. CARDIOVASCULAR: S1 and S2 with a 1-2/6 systolic ejection murmur in the left upper sternal border. ABDOMEN: Nontender and nondistended. Bowel sounds are positive in all 4 quadrants. No hepatospleno megaly, no abdominal bruits, no rebound or guarding appreciated. EXTREMITIES: Pitting edema to the proximal shins bilaterally. Pulses palpable distally. NEUROLOGIC: Cranial nerves II-XII are grossly intact. No focal or lateralizing signs appreciated. PERTINENT LABORATORY DATA AND X-RAY FINDINGS: Sodium 137, potassium 4.4, chloride 105, CO2 24, BUN 4 3, creatinine 5.57, estimated GFR of 13, glucose 177, calcium 8.5. LFTs within normal limits. Tropo piotr I 0.113-0.146, BNP 1181 previously noted 712 on 11/03/2017. CBC showed a white blood cell count 8.2, hemoglobin 10.5, hematocrit 32, platelet count 184 with 80% neutrophils. Portable chest x-ray d ated 11/04/2017 showed no acute cardiopulmonary process. Cardiomegaly noted. EKG dated 11/04/2017 b y my interpretation shows sinus mechanism with heart rates in the 70s. Normal R-wave progression not ed in the precordial leads. Normal axis. Isolated T-wave inversion in lead 1. No acute ST-T wave c hanges appreciated. ASSESSMENT AND PLAN: 1. Chest pain. The patient will be admitted to the telemetry unit. It appears patient likely with NSTEMI. We will continue aspirin 325 mg daily and nitroglycerin 0.4 mg sublingually p.r.n. chest darien n. We will consult Cardiology Service for evaluation. Patient likely will need a left heart cathete rization for further delineation of coronary anatomy. Continue Lipitor 40 mg daily. 2. Non-ST elevation myocardial infarction. Suspected given patient's elevated troponin I above base line values of troponin I. Potential component of worsening chronic kidney disease. See #1 above. 3. Chronic kidney disease stage 4-5. Renal function continues declining after review of electronic medical record. Avoid nephrotoxic agents and limit contrast exposure. Consult Nephrology Service fo r further evaluation and likely initiation of hemodialysis during this hospital course. 4. Diabetes mellitus type 2, insulin requiring. Insulin sliding scale for reflexive coverage. Cont inue home regimen of Levemir 50 units subcutaneously b.i.d., Accu-Cheks a.c. and at bedtime. Hold Am aryl due to worsening renal function. ADA diet. 5. Chronic obstructive pulmonary disease. We will continue Advair Diskus 1 inhalation b.i.d., DuoNe b q.4 hours while awake. Oxygen p.r.n. 6. Tobacco abuse. We will offer smoking cessation resources prior to discharge. 7. Prophylaxis. Sequential compression devices held due to lower extremity edema. Heparin 5000 uni ts subcutaneously t.i.d. and Pepcid 20 mg p.o. b.i.d. 8. Code status is FULL. Surrogate medical decision maker is patient's spouse.
[2017-11-04] MEDS: Heparin 5,000 UNITS/ML VIAL SC SCH (21:44)
[2017-11-04] MEDS: Carvedilol 25 MG TAB PO SCH (21:45)
[2017-11-04] MEDS: cloNIDine 0.2 MG TAB PO SCH (21:45)
[2017-11-04] MEDS: Insulin Glargine 50 UNITS in Pre-Filled Syringe SC SCH (21:46)
--- NOTE | 2017-11-05 01:26 | CON ---
DATE OF CONSULTATION: 11/04/2017 HISTORY OF PRESENT ILLNESS: Mr. Keita is a 57-year-old black male with known history of chronic annette al failure and admitted for chest pain and shortness of breath. He was initially seen in the ER yest chris. He was found to be in CHF, but declined admission. Today, he decided to go back to the ER fo r further management. We are now being consulted for his chronic renal failure. Please note, I have reviewed his records and he has progressive ischemia. This morning, prior to admission, he was seen at the renal clinic. At that time, I did recommend to consider initiating dialysis. The patient at that time was a bit hesitant. We are being consulted for further management of his chronic renal failure. REVIEW OF SYSTEMS: Positive for leg edema. Positive for dry cough. Positive for mild shortness of breath. No nausea. No vomiting. No diarrhea or constipation. Occasional chest pain. No syncopal episode. Decreased energy level. Positive for occasional joint pains. No abdominal pain. No gross hematuria. No dysuria. No urinary frequency. PAST MEDICAL HISTORY: 1. Chronic renal failure from presumed diabetic nephropathy. 2. Type 2 diabetes mellitus. 3. COPD. 4. History of CHF/decreased EF. 5. Hypertension. 6. Diabetic gastroparesis. 7. Coronary artery disease. PAST SURGICAL HISTORY: Status post cardiac catheterization, status post colonoscopy, status post upp er GI endoscopy. MEDICATIONS: DuoNeb q.6 hours p.r.n.; aspirin 325 mg daily; Lipitor 40 mg at bedtime; calcitriol 0.2 5 mcg every day; Tessalon Perles p.r.n.; Coreg 25 mg p.o. b.i.d.; clonidine 0.2 mg b.i.d.; heparin 50 00 units subcu daily; Humalog sliding scale; NovoLog mix 70/30, 20 units subcu b.i.d.; normal saline 50 mL per hour. SOCIAL HISTORY: The patient is . He lives in the [facility] area, but originally from [place]. He has history of smoking for the last 20+ years, still smoking about a third of a pack a day. No blood transfusion. No IV drug abuse . 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 Edu cation, high school. ALLERGIES: None. TRAUMA: None. IMMUNIZATIONS: Up-to-date. HOSPITALIZATIONS: Please see past medical history. FAMILY HISTORY: No family history of ESRD. PHYSICAL EXAMINATION: VITAL SIGNS: Blood pressure is 195/108, heart rate 72, respiratory rate 16, temperature 98, pulse ox 98%. GENERAL: Noted to be awake, alert, comfortable, not in overt distress. SKIN: Adequate turgor. HEENT: He has pinkish conjunctivae, anicteric sclerae. NECK: No neck mass. No carotid bruits. No JVD. CHEST: No deformities. LUNGS: Bibasilar crackles. HEART: Normal sinus rhythm. No murmur. No gallops or rubs. ABDOMEN: Globular, soft, nontender. No masses. EXTREMITIES: +4 edema. LABORATORY DATA: 11/04/2017, white count 8.2, hemoglobin 10.5. Sodium 137, potassium 4.4, chloride 105, carbon dioxide 24, BUN 43, creatinine 5.57, GFR 13 mL/minute, glucose 177, CK-MB 9.6, albumin 2. 8. BNP is 1181. 11/04/2017, chest x-ray, stable cardiomegaly, no evidence of acute cardiopulmonary disease. ASSESSMENT AND PLAN: 1. Chronic renal failure from diabetic nephropathy - worsening renal dysfunction. This patient may need to be initiated on dialysis. He is still hesitant to proceed with dialysis. If he is declining for an acute dialysis, I would at least consider placing an AV fistula while the patient is here at the hospital. He is not interested in peritoneal dialysis at the moment since he is taking care of h is , who is also on dialysis. I did explain to the patient eventually he will need to be referre d for renal transplant evaluation. 2. Secondary hyperparathyroidism - lab work at the renal office shows a PTH that is more than 1000. For this reason, the patient will be started on calcitriol 0.25 mcg tab every day. I would suggest we recheck PTH and phosphorus level in a.m. Agree with current management.
--- NOTE | 2017-11-05 04:05 | CON ---
DATE OF CONSULTATION: 11/04/2017 HISTORY OF PRESENT ILLNESS: Morris Keita is a 57-year-old black male, who has been evaluated by Mayda Storey in the past. In 05/2006, Dr. Storey performed a catheterization. He had a 10% steno sis in the pvc-ia-ckylil circumflex, an ejection fraction of 55% to 60%. Also, he apparently had a c atheterization by Dr. Mercado 5 or 6 years ago and was told that he had some disease, but nothing re quired any intervention. In 03/2015, he was hospitalized here with chest pain and underwent Cardioli te testing, which revealed no evidence of ischemia. He now is admitted with increase chest pain. At times, he would have pain in his left arm and other times pain in the lower costal margins on both sides of his chest. The pain along the lower costal m argins is definitely pleuritic in nature and related to cough. States that he has had more coughing recently productive of clear sputum. He has chronically elevated cardiac enzymes and is admitted for further evaluation. PAST MEDICAL HISTORY: Hypertension, hyperlipidemia, diabetes, neuropathy, coronary artery disease, c hronic kidney disease, COPD. OPERATION: Heart catheterization. MEDICATIONS: ProAir 2 puffs q.6 hours p.r.n., Norvasc 10 mg daily, aspirin 81 daily, atorvastatin 40 at bedtime, carvedilol 25 mg b.i.d., clonidine 0.2 mg b.i.d., Amaryl 4 mg daily, Advair b.i.d., hydr alazine 100 mg daily, insulin, and meclizine. ALLERGIES: None. SOCIAL HISTORY: Smokes 1/2 to 2 packs per day. He has a longstanding history of cocaine abuse. FAMILY HISTORY: Unremarkable. REVIEW OF SYSTEMS: Twelve-point review of systems unremarkable. PHYSICAL EXAMINATION: VITAL SIGNS: Blood pressure 170/93, pulse 65. HEENT: PERRL. NECK: Supple. CHEST: Reveals expiratory wheezing bilaterally. CARDIOVASCULAR: S1 and S2 are normal, without any S3 or S4, or murmurs. ABDOMEN: Normal bowel sounds. EXTREMITIES: Revealed 1+ pretibial edema. NEUROLOGIC: Grossly intact. SKIN: Warm and dry. LABORATORY AND DIAGNOSTIC DATA: EKG revealed normal sinus rhythm with left atrial enlargement. Hemo globin 10.5, hematocrit 31.6, white count 8200, platelets 184,000. D-dimer 0.48. Sodium 137, potass ium 4.4, chloride 105, carbon dioxide 24, BUN 43, creatinine 5.57. BNP 1181.4. CK-MB 9.6. Troponin I is up to 0.146. No urine drug screen was performed. IMPRESSION: 1. Atypical chest discomfort which probably is more related to chronic obstructive pulmonary disease exacerbation with pain, worse with coughing and deep breath. 2. Chronically elevated troponin I as well as CK being elevated and MB always in the past. 3. Hypertension. 4. Hyperlipidemia. 5. Diabetes. 6. Smoker. 7. Cocaine abuse. PLAN: Echocardiogram will be performed. He has chronically elevated troponin I, CK, and CK-MB. CK has not been performed and this will be performed. Also, urine drug screen will be performed with hi s chronic history of cocaine abuse. I will start him on DuoNeb with his expiratory wheezing on a rou nati basis and he will undergo Lexiscan Cardiolite testing. I would be very hesitant to consider larissa ing this gentleman to the labor relations director with his current creatinine unless there is definite evidence of i schemia.
[2017-11-05] MEDS ORDERED: traMADol HCl 50 MG TAB PO PRN (04:42)
[2017-11-05 05:06] LABS: Anion Gap 12 mmol/L (10-20); BUN (Urea Nitrogen) 42 mg/dL (8.4-25.7); Calc. Creatinine Clearance 23 mL/min (70-130); Calcium 8.3 mg/dL (7.8-10.44); Carbon Dioxide 21 mmol/L (22-29); Cardiac Risk 3.6 (Less than 4.5); Chloride 109 mmol/L (98-107); Cholesterol 170 mg/dl (< 200 Desired); Estimated GFR-MDRD 13; Glucose 146 mg/dL (70-105); HDL Cholesterol 47 mg/dL (>60 Neg Risk); LDL Cholesterol, Calculated 103 mg/dL; Phosphorus 4.8 mg/dL (2.3-4.7); Potassium 4.1 mmol/L (3.5-5.1); Sodium 138 mmol/L (136-145); Triglycerides 100 mg/dL (Less than 150)
[2017-11-05 06:00] LABS: Band 16 % (5-11); Eosinophils 6 % (0-10); Lymphocytes 23 % (21-51); MDiff Complete? YES; Mean Corpuscular HGB CONC 32.5 g/dL (32.0-36.0); Mean Corpuscular Hemoglobin 27.5 pg (27.0-31.0); Mean Corpuscular Volume 84.6 fL (78.0-98.0); Mean Platelet Volume 8.5 fL (7.4-10.4); Monocytes 7 % (0-10); Neutrophil 48 % (42-75); Platelet Count 171 thou/uL (130-400); RBC Distribution Width 12.6 % (11.5-14.5); Red Blood Cell (RBC) Count 3.63 mill/uL (4.70-6.10); White Blood Cell (WBC) Count 5.6 thou/uL (4.8-10.8)
[2017-11-05 06:17] LABS: Amphetamine Not Detected (NotDetected); Barbiturates Screen Not Detected (NotDetected); Benzodiazepine Screen Not Detected (NotDetected); Cocaine Metabolite Screen Detected (NotDetected); Medtox Control Line Valid? VALID (VALID); Medtox Reader # READER 4; Methadone Not Detected (NotDetected); Methamphetamine Not Detected (NotDetected); Opiate Screen Detected (NotDetected); Oxycodone Screen Not Detected (NotDetected); Phencyclidine (PCP) Not Detected (NotDetected); THC/Cannabinoid Screen Not Detected (NotDetected); Tricyclic Screen Not Detected (NotDetected)
[2017-11-05] MEDS: Mometasone/Formoterol 120 PUFF INHALER INH SCH (06:37)
[2017-11-05 08:25] VITALS: TEMP 97.7
[2017-11-05] MEDS: cloNIDine 0.2 MG TAB PO SCH (08:25)
[2017-11-05] MEDS ORDERED: Amlodipine 10 MG TAB PO SCH (09:00)
[2017-11-05] MEDS ORDERED: hydrALAZINE 25 MG TAB PO SCH ×2 (09:00→15:00)
[2017-11-05] MEDS ORDERED: Calcitriol 0.25 MCG CAP PO SCH (09:00)
[2017-11-05] MEDS ORDERED: Aspirin 325 MG TAB PO SCH (09:00)
--- NOTE | 2017-11-05 09:29 | PRG ---
DATE OF SERVICE: 11/05/2017 SUBJECTIVE: Mr. Keita is a 57-year-old black male with known history of chronic renal failure secon larry to presumed diabetic nephropathy and admitted due to shortness of breath and questionable chest pain. He has been evaluated by Cardiology - Dr. De La Vega. The plan is for him to undergo a cardiac echo. He did have a history of cocaine abuse in the past. I have discussed dialysis with this patient. He is hesitant to proceed with dialysis, but he has agr eed to have an AV fistula placed. He said he could not pursue peritoneal dialysis because he is taki ng care of his who is also on dialysis. This morning, he is feeling a little better. He denies any worsening shortness of breath or chest pain. PHYSICAL EXAMINATION: VITAL SIGNS: Blood pressure is 178/105, heart rate 64, respiratory rate 17, temperature 97.7. GENERAL: Noted to be awake, supine, comfortable, not in distress. SKIN: Adequate turgor. HEENT: He has slightly pale conjunctivae, anicteric sclerae. NECK: No neck mass, no carotid bruits, no JVD. CHEST: No deformities. LUNGS: Decreased breath sounds. Occasional wheezing. HEART: Normal sinus rhythm. No murmur, no gallops, no rubs. ABDOMEN: Globular, soft, nontender, no masses. EXTREMITIES: No edema, no deformities. MEDICATIONS: 11/05/2017 - Reviewed. LABORATORY DATA: 11/05/2017 - White count 5.6, hemoglobin 10. Sodium 138, potassium 4.1, chloride 1 09, carbon dioxide 21, BUN 42, creatinine 5.42, glucose 146, calcium 8.3, phosphorus is 4.8. Cholest lydia is 170, CK 842. Chest x-ray of 11/04/2017 shows no evidence of acute cardiopulmonary disease. ASSESSMENT AND PLAN: 1. Chest pain - currently being evaluated by Cardiology. The patient is undergoing cardiac echo at the present time. 2. Chronic renal failure from diabetic/hypertensive nephropathy - stable renal function. I have rec ommended initiating dialysis with this patient, but he has declined. However, he has agreed to proce ed with an AV fistula placement. We will be consulting Surgery, Dr. Delarosa/Leeroy for AV fistula pl acement. 3. Hypertension. His medications were reviewed today. Currently, the patient is on hydralazine 100 mg p.o. daily. We will adjust this to a t.i.d. dosing. Please note the patient is also on clonidin e 0.2 mg p.o. b.i.d. 4. Secondary hyperparathyroidism. PTH more than 1000, which was done a few days ago. Continue calc itriol. 5. Hyperphosphatemia. Start Renvela 800 mg t.i.d. with meals. Recheck base met and CBC in a.m.
[2017-11-05] MEDS: Insulin Glargine 50 UNITS in Pre-Filled Syringe SC SCH (11:58)
[2017-11-05] MEDS: Heparin 5,000 UNITS/ML VIAL SC SCH ×2 (11:58→14:05)
[2017-11-05] MEDS ORDERED: Regadenoson 0.4 MG/5 ML SYRINGE ONE (13:48)
[2017-11-05] MEDS: Carvedilol 25 MG TAB PO SCH (14:04)
[2017-11-05] MEDS: Sevelamer Carbonate 800 MG TAB PO SCH ×2 (14:11→18:13)
--- NOTE | 2017-11-05 14:15 | PDOC.CTH ---
Cardiology Progress Note - Subjective Anxious now as in ER. BP up. No CP today. Just returned from stress test. - Objective Vital Signs Temp Pulse Resp BP BP BP Pulse Ox 11/05/17 10:42 167/85 H 11/05/17 09:21 179/103 H 11/05/17 09:05 217/114 H 11/05/17 08:22 97.7 F 64 17 178/105 H 98 11/05/17 06:38 96 11/05/17 06:37 65 16 96 11/05/17 06:36 65 16 96 11/05/17 03:58 97.5 F L 59 L 18 172/97 H 96 Admit Weight 231 lb 4 oz Weight 231 lb 4 oz 11/04/17 11/05/17 11/06/17 06:59 06:59 06:59 Intake Total 1080 Output Total 800 Balance 280 - Physical Examination General/Neuro: alert & oriented x3 Neck: no JVD present Lungs: CTA Heart: RRR Abdomen: NT/ND Extremities: other: (no edema) - Telemetry Telemetry Rhythm: SR - Labs Result Diagrams: 11/05/17 03:47 11/05/17 03:47 Troponin/CKMB CK-MB (CK-2) 9.6 ng/mL (0-6.6) H* 11/04/17 10:20 Troponin I 0.131 ng/mL (< 0.028) H 11/04/17 16:18 - Assessment/Plan 1. Chest pain 2. HTN 3. Cocaine Abuse 4. CKD-V Stable. BP meds being resumed now as they were held this morning for stress test. Await MPI results. If negative and BP controlled, ok for discharge from cardio standpoint.
--- NOTE | 2017-11-05 15:07 | ULT ---
BILATERAL UPPER EXTREMITY ULTRASOUND FOR VESSEL MAPPING AND DIALYSIS ACCESSS: Date: 11/05/17 HISTORY: 57-year-old male with history of renal failure and ESRD. FINDINGS: RIGHT UPPER EXTREMITY CEPHALIC VEIN Proximal Arm: 1.4 mm Mid Arm: 1.4 mm Distal Arm: 1.3 mm Antecubital Fossa: 2.2 mm Proximal Forearm: 1.5 mm Mid Forearm: 1.0 mm Distal Forearm: 1.0 mm BASILIC VEIN Proximal Arm: 2.5 mm Mid Arm: 1.4 mm Distal Arm: 1.3 mm Antecubital Fossa: 1.2 mm Proximal Forearm: 1.1 mm Mid Forearm: 1.1 mm Distal Forearm: 1.0 mm BRACHIAL ARTERY: 5.2 mm RADIAL ARTERY: 2.6 mm ULNAR ARTERY: 1.6 mm LEFT UPPER EXTREMITY CEPHALIC VEIN Proximal Arm: 1.5 mm Mid Arm: 2.2 mm Distal Arm: 1.4 mm Antecubital Fossa: 2.2 mm Proximal Forearm: 1.1 mm Mid Forearm: 1.2 mm Distal Forearm: 1.0 mm BASILIC VEIN Proximal Arm: 1.5 mm Mid Arm: 1.4 mm Distal Arm: 1.2 mm Antecubital Fossa: 1.1 mm Proximal Forearm: 1.2 mm Mid Forearm: 1.3 mm Distal Forearm: 1.1 mm BRACHIAL ARTERY: 3.9 mm RADIAL ARTERY: 2.6 mm ULNAR ARTERY: 1.5 mm POS: [facility]
[2017-11-05] MEDS ORDERED: CEFAZOLIN/Water 2 GM/20 ML SYRINGE SLOW IVP SCH (15:45)
--- NOTE | 2017-11-05 16:05 | NM ---
CARDIAC SPECT: CLINICAL HISTORY: 57-year-old male with elevated troponin, coronary artery disease, CHF, COPD, hypertension, diabetes, and smoker. TECHNIQUE: A myocardial perfusion scan was performed using the single isotope one day protocol with technetium-9 9m sestamibi. 9 mCi were injected intravenously for the rest exam followed by 28 mCi for the stress e xam. Pharmacologic stress with Lexiscan was monitored and interpreted by Bakari Acosta NP. FINDINGS: Homogeneous tracer distribution is seen in the myocardial segments on stress and rest images without fixed or reversible defects. GATED SPECT LVEF: 37%. WALL MOTION EXAM: Global hypokinesis. IMPRESSION: No evidence of reversible ischemia. POS: OFF
[2017-11-05] MEDS: Sodium Chloride 0.9% 1,000 ML IV SCH (16:31)
[2017-11-05 17:27] VITALS: BP 138/76
--- NOTE | 2017-11-05 22:27 | HP ---
HISTORY OF PRESENT ILLNESS: Bossman is a 57-year-old black male with progressive renal failure second karthikeyan to diabetes and hypertension has been seen by Dr. Garcia, who has asked me to see him regarding dial ysis access. 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 He has been told he has good veins by ultrasound vein mapping suggests the veins are small. He has b andage over his left antecubital area indicative of recent blood draw on IV in his left hand. ALLERGIES: None. SOCIAL HISTORY: Tobacco: Less than a pack a day. Alcohol occasionally. MEDICATIONS: Insulin, hydralazine, carvedilol 25 b.i.d., calcitriol 0.25 mcg daily, atorvastatin 40 mg at bedtime, aspirin 81 mg, amlodipine 2 mg daily, albuterol p.r.n., glimepiride 4 mg b.i.d., mecli zine 25 mg daily, clonidine 0.2 mg daily. PAST SURGICAL HISTORY: Noncontributory. PAST MEDICAL HISTORY: Diabetes mellitus, elevated cholesterol, hypertension. Patient had a cardiac stress test today, results pending. He has been followed Dr. Mercado had a cardiac catheterization 6 years ago. He was told to had minimal disease. Patient has history of cocaine use. Cocaine metab olite positive on 11/04/2017 screen. PHYSICAL EXAMINATION: VITAL SIGNS: 5 feet 10 inches, 231 pounds, 33 BMI, 97.7, 167/85, 170, and 98% room air, respiration rate 17. HEAD, EYES, EARS, NOSE, AND THROAT: Unremarkable. NEUROLOGICAL: Neurologically intact. No deficit. NECK: No lymphadenopathy in neck, axilla, or groins. LUNGS: Clear to auscultation, no wheezing. CARDIAC: Regular rate and rhythm without murmur or gallop. ABDOMEN: Soft, nontender, no hernias evident. EXTREMITIES: Palpable radial pulses bilaterally. LABORATORY DATA: Sodium 138, potassium 4.1, creatinine 5.4, BUN 42. GFR 13, hemoglobin 10, white co unt 5. ASSESSMENT AND PLAN: 1. Progressive chronic kidney disease secondary to diabetes and hypertension. We will plan placemen t of a left-arm primary fistula as an outpatient later date his is having surgery today and he w ishes to be discharged. He has had a cardiac stress test this hospitalization and pending cardiac ca theterization [address] Mercado was without significant disease. 2. Diabetes mellitus. 3. Hypertension. 4. Tobacco use.
== END 2017-11-05 18:18 | disposition home or self-care (01) | DRG 191 ==
LOC: ERS 09:52 → 2NO 13:38
PROVIDERS: ADMIT Family Medicine; ATTEND Family Medicine
DX: J44.1 Chronic obstructive pulmonary disease with (acute) exacerbation (principal); I13.2 Hypertensive heart and chronic kidney disease with heart failure and with stage 5 chronic kidney disease, or end stage renal disease; N18.5 Chronic kidney disease, stage 5; I50.30 Unspecified diastolic (congestive) heart failure; N17.9 Acute kidney failure, unspecified; N25.81 Secondary hyperparathyroidism of renal origin; E11.22 Type 2 diabetes mellitus with diabetic chronic kidney disease; F17.210 Nicotine dependence, cigarettes, uncomplicated; Z79.4 Long term (current) use of insulin; Z79.82 Long term (current) use of aspirin; E78.00 Pure hypercholesterolemia, unspecified; F14.10 Cocaine abuse, uncomplicated; E83.39 Other disorders of phosphorus metabolism; I25.10 Atherosclerotic heart disease of native coronary artery without angina pectoris; E11.43 Type 2 diabetes mellitus with diabetic autonomic (poly)neuropathy; K31.84 Gastroparesis; D63.1 Anemia in chronic kidney disease
CPT/HCPCS: 36415; 36416; 71045; 71046; 78452; 80048; 80053; 80061; 80306; 82553; 83690; 83735; 83880; 83970; 84100; 84484; 85007; 85025; 85027; 85379; 93005; 93017; 93306; 93798; 93970; 94640; 94760; 96361; 96372; 96374; 96375; A9500; G0365; J0360; J1644; J1650; J1940; J2270; J2785; J2930; J7620

== ENCOUNTER 2017-11-14 12:02 | Emergency (ER) | payer MEDICARE, MEDICAID ==
[2017-11-14] MEDS ORDERED: hydrALAZINE 20 MG/ML VIAL ONE (12:44)
[2017-11-14] MEDS ORDERED: Aspirin 325 MG TAB ONE (12:44)
[2017-11-14 12:54] LABS: #Basophils 0.1 thou/uL (0.0-0.2); #Eosinphils 0.5 thou/uL (0.0-0.7); #Lymphocytes 1.3 thou/uL (1.20-3.40); #Monocytes 0.4 thou/uL (0.11-0.59); #Neutrophils 4.7 thou/uL (1.40-6.50); %Eosinophils 7.7 % (0.0-10.0); %Lymphocytes 17.9 % (21.0-51.0); %Monocytes 6.2 % (0.0-10.0); %Neutrophils 67.2 % (42.0-75.0); Mean Corpuscular HGB CONC 30.8 g/dL (32.0-36.0); Mean Corpuscular Hemoglobin 25.9 pg (27.0-31.0); Mean Corpuscular Volume 83.9 fL (78.0-98.0); Mean Platelet Volume 9.3 fL (7.4-10.4); Platelet Count 165 thou/uL (130-400); RBC Distribution Width 12.5 % (11.5-14.5); Red Blood Cell (RBC) Count 4.23 mill/uL (4.70-6.10)
--- NOTE | 2017-11-14 13:05 | RAD ---
SINGLE VIEW CHEST: Date: 11/14/17 COMPARISON: 11/04/17. HISTORY: Chest pain. FINDINGS: Single view of the chest shows a normal sized cardiomediastinal silhouette. There is no evidence of c onsolidation, mass, or pleural effusion. The bones are unremarkable. IMPRESSION: No evidence of acute cardiopulmonary disease. POS: [facility]
[2017-11-14 13:24] LABS: ALT (SGPT) 14 U/L (8-55); AST (SGOT) 20 U/L (5-34); Albumin 2.6 g/dL (3.5-5.0); Alkaline Phosphatase 195 U/L (40-150); Anion Gap 10 mmol/L (10-20); BUN (Urea Nitrogen) 32 mg/dL (8.4-25.7); Bilirubin, Total 0.2 mg/dL (0.2-1.2); Calc. Creatinine Clearance 0 mL/min (70-130); Calcium 8.3 mg/dL (7.8-10.44); Carbon Dioxide 24 mmol/L (22-29); Chloride 107 mmol/L (98-107); Estimated GFR-MDRD 11; Globulin 3.4 g/dL (2.4-3.5); Glucose 174 mg/dL (70-105); Potassium 4.3 mmol/L (3.5-5.1); Sodium 137 mmol/L (136-145)
[2017-11-14 13:27] LABS: Troponin I 0.157 ng/mL (< 0.028)
[2017-11-14 13:29] LABS: CKMB 10.8 ng/mL (0-6.6)
[2017-11-14] MEDS ORDERED: Nitroglycerin 2% Ointment 1 INCH/1 GM Packet ONE (13:34)
[2017-11-14] MEDS ORDERED: cloNIDine 0.1 MG TAB ONE (14:16)
[2017-11-14] MEDS ORDERED: Amlodipine 5 MG TAB ONE (14:16)
[2017-11-14] MEDS ORDERED: Carvedilol 25 MG TAB PO SCH (14:30)
--- NOTE | 2017-11-16 14:25 | EKG ---
Test Reason : Blood Pressure : / mmHG Vent. Rate : 080 BPM Atrial Rate : 080 BPM P-R Int : 142 ms QRS Dur : 100 ms QT Int : 386 ms P-R-T Axes : 054 -18 100 degrees QTc Int : 445 ms Normal sinus rhythm Possible Left atrial enlargement T wave abnormality, consider lateral ischemia Abnormal ECG Confirmed by BECKA GARDNER ([id number]), scientific editor DELVIN LANIER ([id number]) on 11/16/2017 2:24:41 PM Referred By: Confirmed By:BECKA GARDNER
== END 2017-11-14 17:04 | disposition home or self-care (01) ==
LOC: ERS 12:02
DX: I13.2 Hypertensive heart and chronic kidney disease with heart failure and with stage 5 chronic kidney disease, or end stage renal disease (principal); E11.22 Type 2 diabetes mellitus with diabetic chronic kidney disease; I43 Cardiomyopathy in diseases classified elsewhere; N18.6 End stage renal disease; I50.9 Heart failure, unspecified; Z71.6 Tobacco abuse counseling; F17.210 Nicotine dependence, cigarettes, uncomplicated; G47.30 Sleep apnea, unspecified; J44.9 Chronic obstructive pulmonary disease, unspecified; I25.10 Atherosclerotic heart disease of native coronary artery without angina pectoris; E11.40 Type 2 diabetes mellitus with diabetic neuropathy, unspecified; E78.5 Hyperlipidemia, unspecified; Z79.82 Long term (current) use of aspirin; Z79.4 Long term (current) use of insulin; Z79.899 Other long term (current) drug therapy
CPT/HCPCS: 71045; 80053; 82553; 83880; 84484; 85025; 93005; 96374; 99406; J0360

== ENCOUNTER 2017-11-25 08:51 | Day surgery (SDC) | payer MEDICARE, MEDICAID ==
[2017-11-22 16:12] VITALS: BMI 32.9
[2017-11-25] MEDS ORDERED: Bupivacaine HCl 0.5%/Epinephrine 1:200,000/PF 30 ml Vial ONE ×2 (09:52→13:37)
[2017-11-25] MEDS ORDERED: Protamine Sulfate 50 MG/5 ML VIAL ONE (09:53)
[2017-11-25] MEDS ORDERED: Heparin 5,000 UNITS/ML VIAL ONE (09:53)
[2017-11-25] MEDS ORDERED: Lidocaine 2% 10 ML INJ ONE (09:53)
[2017-11-25] MEDS ORDERED: Fentanyl 100 MCG/2 ML VIAL ONE ×2 (09:56→10:03)
[2017-11-25] MEDS ORDERED: Propofol 500 MG/50 ML VIAL ONE (09:56)
[2017-11-25] MEDS ORDERED: Midazolam HCl 2 mg/2 ml Vial ONE (10:03)
[2017-11-25] MEDS ORDERED: CEFAZOLIN/Water 2 GM/20 ML SYRINGE ONE (10:03)
[2017-11-25] MEDS ORDERED: Ropivacaine 0.2% HCl/PF 0 ML ONE (10:12)
[2017-11-25 10:32] LABS: Anion Gap 12 mmol/L (10-20); Carbon Dioxide 20 mmol/L (22-29); Chloride 110 mmol/L (98-107); Potassium 4.4 mmol/L (3.5-5.1); Sodium 138 mmol/L (136-145)
[2017-11-25] MEDS ORDERED: Propofol 1,000 MG/100 ML VIAL IV ONE (11:21)
--- NOTE | 2017-11-25 12:40 | OP ---
DATE OF OPERATION: 11/25/2017 PREOPERATIVE DIAGNOSIS: Chronic kidney disease, not yet started dialysis. POSTOPERATIVE DIAGNOSIS: Chronic kidney disease, not yet started dialysis. PROCEDURES: Left arm Nellie fistula, 4 mm coronary dilator interrogation cephalic vein outflow. Goo d Doppler signal at the end of the procedure. SURGEON: Dr. Jovon Delarosa ANESTHESIA: Regional, TIVA. PROCEDURE: The patient was taken to the operating room where under regional and TIVA anesthesia, lef t upper extremity was prepared with ChloraPrep, draped in routine fashion. Incision made longitudina lly between the radial artery and cephalic vein wrist, carried down skin and subcutaneous tissue and the radial artery and cephalic vein dissected free. Cephalic vein was of good caliber and stump on t he hand side ligated with 3-0 silk tie and branches divided between 4-0 silk ties and clips. Vein sp atulated and interrogated with coronary dilators, passing coronary dilators from a 2 mm to a 4 mm cor onary dilator throughout the length of the cephalic vein without obstruction. It was then flushed wi th heparinized saline solution. The patient was given 6000 units heparin intravenously by Anesthesia . Radial artery that was of good caliber, dissected free and clamped proximally and distally and sunny gitudinal arteriotomy made sharply and elongated with the Trevino scissors and end vein to side radial artery anastomosis created with continuous suture of 6-0 Prolene. After completion of anastomosis, v ascular clamps were released and there was good Doppler signal in the fistula outflow. Good hemostas is noted. The patient given 25 mg protamine intravenously. Subcutaneous tissues approximated with 3 -0 Monocryl, skin with subdermal 4-0 Monocryl and DermaGlue applied.
[2017-11-25] MEDS ORDERED: Ropivacaine 0.2% HCl/PF (40 MG/20 ML VIAL) ONE (13:37)
[2017-11-25] MEDS ORDERED: PROPOFOL 200 MG/20 ML VIAL ONE (14:30)
[2017-11-25] MEDS ORDERED: Lidocaine 1% PF 5 ML VIAL ONE (14:30)
[2017-11-25] MEDS ORDERED: Heparin 10,000 UNITS/ 10 ML VIAL ONE (14:30)
== END 2017-11-25 14:15 | disposition home or self-care (01) ==
LOC: SDC 08:51
PROVIDERS: ATTEND Specialist
PROC: 031C0ZF Bypass Left Radial Artery to Lower Arm Vein, Open Approach (ICD-10-PCS; principal; 2017-11-25)
DX: I12.0 Hypertensive chronic kidney disease with stage 5 chronic kidney disease or end stage renal disease (principal); E11.22 Type 2 diabetes mellitus with diabetic chronic kidney disease; E11.40 Type 2 diabetes mellitus with diabetic neuropathy, unspecified; N18.6 End stage renal disease; E78.5 Hyperlipidemia, unspecified; I25.10 Atherosclerotic heart disease of native coronary artery without angina pectoris; J44.9 Chronic obstructive pulmonary disease, unspecified; F32.9 Major depressive disorder, single episode, unspecified; K21.9 Gastro-esophageal reflux disease without esophagitis; G47.33 Obstructive sleep apnea (adult) (pediatric); F17.210 Nicotine dependence, cigarettes, uncomplicated; Z79.82 Long term (current) use of aspirin; Z79.899 Other long term (current) drug therapy
CPT/HCPCS: 36415; 36416; 80051; J0670; J1644; J2001; J2250; J2704; J2720; J2795; J3010

== ENCOUNTER 2017-12-07 01:02 | Inpatient (IN) | payer MEDICARE, MEDICAID ==
[2017-12-07 02:18] LABS: #Eosinphils 0.8 thou/uL (0.0-0.7); #Lymphocytes 1.4 thou/uL (1.20-3.40); #Monocytes 0.6 thou/uL (0.11-0.59); #Neutrophils 6.4 thou/uL (1.40-6.50); %Basophils 0.5 % (0.0-1.0); %Eosinophils 8.6 % (0.0-10.0); %Lymphocytes 14.9 % (21.0-51.0); %Monocytes 6.4 % (0.0-10.0); %Neutrophils 69.6 % (42.0-75.0); Hemoglobin 11.2 g/dL (14.0-18.0); Mean Corpuscular HGB CONC 33.2 g/dL (32.0-36.0); Mean Corpuscular Hemoglobin 28.2 pg (27.0-31.0); Mean Corpuscular Volume 84.9 fL (78.0-98.0); Platelet Count 211 thou/uL (130-400); RBC Distribution Width 12.3 % (11.5-14.5); Red Blood Cell (RBC) Count 3.98 mill/uL (4.70-6.10); White Blood Cell (WBC) Count 9.2 thou/uL (4.8-10.8)
[2017-12-07 02:35] LABS: ALT (SGPT) 13 U/L (8-55); AST (SGOT) 18 U/L (5-34); Albumin 2.9 g/dL (3.5-5.0); Alkaline Phosphatase 220 U/L (40-150); Anion Gap 12 mmol/L (10-20); BUN (Urea Nitrogen) 38 mg/dL (8.4-25.7); Bilirubin, Total 0.3 mg/dL (0.2-1.2); Calc. Creatinine Clearance 0 mL/min (70-130); Calcium 9.1 mg/dL (7.8-10.44); Carbon Dioxide 23 mmol/L (22-29); Chloride 108 mmol/L (98-107); Estimated GFR-MDRD 11; Globulin 3.8 g/dL (2.4-3.5); Glucose 147 mg/dL (70-105); Magnesium 1.6 mg/dL (1.6-2.6); Potassium 4.3 mmol/L (3.5-5.1); Protein, Total 6.7 g/dL (6.0-8.3); Sodium 139 mmol/L (136-145)
[2017-12-07 02:41] LABS: Troponin I 0.153 ng/mL (< 0.028)
[2017-12-07 02:45] LABS: CKMB 9.5 ng/mL (0-6.6); Critical Call CKMBM RESULT DECREASING
[2017-12-07] MEDS ORDERED: Furosemide 100 MG/10 ML VIAL ONE (03:16)
[2017-12-07] MEDS ORDERED: Nitroglycerin 2% Ointment 1 INCH/1 GM Packet ONE ×2 (03:16→03:40)
[2017-12-07] MEDS ORDERED: diphenhydrAMINE 50 MG/ML VIAL ONE (04:05)
[2017-12-07] MEDS ORDERED: methylPREDNISolone Sod Succ/PF 125 MG/2 ML VIAL ONE (04:05)
[2017-12-07 04:51] LABS: Bilirubin Negative (Negative); Blood, Urine Small (Negative); Clarity CLEAR (Clear); Glucose, Urine (Dipstick) 250 mg/dL (Negative); Leukocyte Negative (Negative); Nitrite Negative (Negative); Protein, Urine (Dipstick) > or equal to 300 mg/dL (Neg-Trace); Specific Gravity, Urine 1.016 (1.002-1.036); Urobilinogen 0.2 mg/dL (0.2-1.0)
[2017-12-07 04:55] LABS: Bacteria/HPF None Seen HPF (None Seen); Pathc Cast-AUWi Flag 0.72 (0-2.49); Squamous Epithelial 0-3 HPF (0-3); WBC/HPF 0-3 HPF (0-3)
[2017-12-07 05:29] LABS: Hyaline Casts/LPF NONE SEEN LPF (0-3 Hyaline)
[2017-12-07] MEDS ORDERED: hydrALAZINE 20 MG/ML VIAL SLOW IVP PRN (06:37)
[2017-12-07] MEDS ORDERED: cloNIDine 0.1 MG TAB PO PRN (06:37)
[2017-12-07] MEDS ORDERED: Dextrose 50% Abboject 50 ML SYRINGE SLOW IVP PRN (06:39)
[2017-12-07] MEDS ORDERED: Dextrose 5% in Water 1,000 ML IV PRN (06:39)
[2017-12-07] MEDS ORDERED: HumaLOG 300 UNITS/3 ML VIAL SC PRN (06:39)
[2017-12-07] MEDS ORDERED: Carvedilol 25 MG TAB PO SCH (07:15)
[2017-12-07] MEDS ORDERED: cloNIDine 0.2 MG TAB PO SCH (07:15)
[2017-12-07 07:29] LABS: Troponin I 0.151 ng/mL (< 0.028)
[2017-12-07 07:37] LABS: CKMB 10.4 ng/mL (0-6.6)
[2017-12-07] MEDS ORDERED: Cephalexin 250 MG CAP PO SCH (09:00)
[2017-12-07] MEDS ORDERED: Aspirin 325 mg Enteric Coated Tablet PO SCH (09:00)
[2017-12-07] MEDS ORDERED: INSULIN DETEMIR 50 UNIT SQ SCH (09:00)
[2017-12-07] MEDS: INSULIN GLARGINE SC SCH ×2 (09:03→21:30)
[2017-12-07] MEDS: Aspirin 81 mg Enteric Coated Tablet PO SCH (09:03)
[2017-12-07] MEDS: Glimepiride 4 MG TAB PO SCH ×2 (09:03→17:33)
[2017-12-07] MEDS ORDERED: Bisacodyl 5 MG TAB PO PRN (09:30)
[2017-12-07] MEDS ORDERED: Acetaminophen 650 MG Suppository PR PRN (09:30)
[2017-12-07] MEDS ORDERED: Ondansetron HCl/PF 4 MG/2 ML Vial IVP PRN (09:30)
--- NOTE | 2017-12-07 10:06 | RAD ---
PA AND LATERAL CHEST: HISTORY: A 57-year-old male with a history of shortness of breath and wheezing. COMPARISON: 11/03/2017 and 11/14/2017 FINDINGS: There is bilateral mild vascular congestion and small pleural effusions with minimal cardiomegaly dev eloping since the 11/14/2017 study. This is evidence for some developing mild congestive heart failu re. IMPRESSION: Cardiomegaly with mild vascular congestion and pleural effusions developing since the prior study, ev idence for some developing mild congestive heart failure. Short term followup for clearing or stabil ity. POS: [facility]
[2017-12-07 10:36] LABS: Troponin I 0.138 ng/mL (< 0.028)
[2017-12-07 10:45] LABS: CKMB 11.5 ng/mL (0-6.6)
[2017-12-07] MEDS ORDERED: predniSONE 20 MG TAB PO SCH (11:00)
[2017-12-07] MEDS: diphenhydrAMINE 50 MG/ML VIAL IVP PRN ×2 (11:51→21:24)
[2017-12-07] MEDS: Nicotine 21 MG PATCH TD SCH (11:52)
[2017-12-07] MEDS: HumaLOG 300 UNITS/3 ML VIAL SC PRN ×3 (13:04→21:25)
[2017-12-07] MEDS: Nitroglycerin 2% Ointment 1 INCH/1 GM Packet TOP SCH ×2 (13:05→21:24)
[2017-12-07] MEDS: Furosemide 40 MG/4 ML VIAL SLOW IVP SCH (13:05)
--- NOTE | 2017-12-07 13:26 | HP ---
PRIMARY CARE PROVIDER: Kim Nunez M.D. CHIEF COMPLAINT: Shortness of breath. HISTORY OF PRESENT ILLNESS: Mr. Keita is a pleasant 57-year-old gentleman who was seen at [facility] on 12/07/2017. He reports that he has been having shortness of breath over the last several days, worse over the las t 3 days. He also reports being started on an antibiotic approximately a week ago. After he started that antibiotic, he started having itchy lesions on his body. Over the last 3 days, he has had worsening shortness of breath. Shortness of breath is worse with ex ertion. He also endorses orthopnea. He reports cough that is productive of whitish sputum. He monika es fevers or chills. He reports wheezing. He also reports that he fell twice in the last couple of days. He also reports chronic leg swelling which has recently worsened. He came to the emergency room because of ongoing shortness of breath. REVIEW OF SYSTEMS: All other systems reviewed and found to be negative. PAST MEDICAL HISTORY: Diastolic heart failure with ejection fraction of 50%-55%, labile hypertension , chronic kidney disease stage 3 to IV, transitioning to stage 5, chronic elevated troponin I, remote cocaine use, chronic normocytic anemia secondary to chronic kidney disease, tobacco abuse, chronic o bstructive pulmonary disease, diabetes mellitus type 2, insulin requiring. PAST SURGICAL HISTORY: Cardiac catheterization in 2017, left upper extremity dialysis fistula placed on 11/25/2017. ALLERGIES: No known drug allergies. CURRENT MEDICATIONS: Amlodipine 10 mg at bedtime, aspirin 81 mg daily, atorvastatin 40 mg at bedtime , carvedilol 25 mg 2 times a day, cephalexin 500 mg 2 times a day, clonidine 0.2 mg 2 times a day, gl imepiride 4 mg 2 times a day and Levemir insulin 50 units 2 times a day. FAMILY HISTORY: Cerebrovascular accident in his mother at age 62. Alcoholism, hypertension, and autumn betes mellitus in his father. Brother with diabetes mellitus and chronic kidney disease. SOCIAL HISTORY: The patient smokes 1-2 packs of cigarettes a day. No alcohol use. Reports previous cocaine use, but not recently. PHYSICAL EXAMINATION: GENERAL: On examination, Mr. Keita is awake and alert, not in acute distress. He is obese, with a BMI of 32.5. VITAL SIGNS: Blood pressure is 167/84, pulse 75, respiratory rate 20, and oxygen saturation 94% on r oom air. He is afebrile. EYES: No scleral icterus. No conjunctival pallor. ENT: Moist mucosal membranes, no oropharyngeal erythema or exudates. NECK: Supple, nontender, trachea is midline. He has jugular venous distention. RESPIRATORY: Accessory muscles of breathing are not active. Chest wall movements are symmetric bila terally. He has diffuse expiratory wheeze. CARDIOVASCULAR: S1 and S2 are heard, regular. Peripheral pulses palpable. No carotid bruit, no per icardial rub. ABDOMEN: Soft, nontender, bowel sounds heard, no hepatomegaly, no splenomegaly. NEUROLOGIC: Cranial nerves II-XII intact. Deep tendon reflexes are 2+. MUSCULOSKELETAL: Power is 5/5 in all 4 extremities. SKIN: He has multiple urticarial lesions over his back and his extremities. LYMPHATIC: No cervical lymphadenopathy. PSYCHIATRIC: Normal mood, normal affect, patient is oriented to person, place, and time. IMAGING DATA AND LABORATORY DATA: Mr. Keita's labs and investigations were reviewed. I reviewed hi s electrocardiogram, which shows normal sinus rhythm, no ST changes to suggest an acute coronary synd francisco. I also reviewed his chest x-ray, which shows vascular congestion, no pulmonary infiltrates. Nitin blancas has a normal white count, normocytic anemia with hemoglobin 11.2, normal platelet count, normal sod ium, normal potassium, elevated blood urea nitrogen of 38, elevated creatinine of 6.30, last known cr eatinine 6.21 on 11/28/2017, elevated alkaline phosphatase of 220, it was 207 on 11/28/2017, decrease d albumin of 2.9, normal calcium, normal magnesium, normal AST, normal ALT and normal total bilirubin . Troponin I is indeterminate at 0.138. Urinalysis is positive for blood and RBC as well as protein and glucose. ASSESSMENT AND PLAN: Mr. Keita is a pleasant 57-year-old gentleman who was seen at [facility] on 12/07/2017. His problem list includes: 1. Shortness of breath: Likely secondary to a combination of chronic obstructive pulmonary disease exacerbation and congestive heart failure exacerbation. He will be admitted to the hospital for furt her management. 2. Congestive heart failure exacerbation: Diastolic congestive heart failure exacerbation class C. He will be treated with intravenous diuretics. Creatinine and electrolytes will be followed. 3. Chronic obstructive pulmonary disease exacerbation: We will treat patient with oxygen, steroids, and bronchodilators. I am avoiding antibiotics since he recently had a course of antibiotics. 4. Chronic kidney disease. Nephrology Service will be consulted for ongoing management and decision s regarding dialysis. 5. Allergic drug reaction: He appears to have had allergic reaction to CEPHALEXIN. We will hold ce phalexin and provide him Benadryl as needed. 6. Tobacco use: The patient has been counseled regarding tobacco cessation. We will start patient on nicotine replacement therapy. 7. Elevated troponin: Patient denies any chest pain. Troponin elevation most likely secondary to c hronic kidney disease. Many thanks for allowing me to participate in your patient's care. Please feel free to contact me wi th any questions or concerns. LEVEL OF RISK: High. LEVEL OF COMPLEXITY: High.
--- NOTE | 2017-12-07 15:30 | CON ---
DATE OF CONSULTATION: 12/07/2017 HISTORY OF PRESENT ILLNESS: Mr. Keita is a 57-year-old black male with chronic renal failure from d iabetic nephropathy. Few weeks ago, he had a left upper extremity AV fistula placed by Dr. Delarosa. He was admitted for shortness of breath. Review of the chest x-ray suggests he is in chronic congest regina failure. I did discuss with the hospitalist regarding management. We will proceed with IV diure tics. If needed, we can initiate dialysis. REVIEW OF SYSTEMS: Positive for shortness of breath, no chest pain, no syncopal episode, no producti ve cough, no fever or chills, no diarrhea, no constipation, no medications, no melena, no hematemesis , no headache, no diplopia, no sore throat. Appetite and energy level is decreased. No hematochezia , no melena, no dysuria, no abdominal pain, occasional joint pains. MEDICATIONS: The patient is currently on Lasix 40 mg IV q.12, DuoNeb q.4 hours as needed, Norvasc 10 mg at bedtime, aspirin 81 mg tab once a day, Lipitor 40 mg at bedtime, Coreg 25 mg p.o. b.i.d., Anupama pres 0.2 mg p.o. b.i.d., Amaryl 4 mg p.o. b.i.d., heparin 5000 units subcu t.i.d., hydralazine p.r.n. , insulin glargine 50 units subcu b.i.d., Humalog sliding scale, Nicoderm patch, Nitro-Bid 0.5 an inc h q.8 hours, omeprazole 40 mg daily, valsartan 320 mg once a day, Zofran 4 mg IV q.6 hours, and predn isone 14 mg q. day. PAST MEDICAL HISTORY: Includes, 1. History of chronic renal failure from diabetic nephropathy. 2. Type 2 diabetes mellitus. 3. Status post CHF. 4. COPD. 5. Diabetic gastroparesis. 6. Coronary artery disease. 7. Longstanding hypertension. PAST SURGICAL HISTORY: 1. Status post cardiac catheterization 2. Status post colonoscopy. 3. Status post upper GI endoscopy. 4. Status post AV fistula placement. SOCIAL HISTORY: Patient is and lives in the [facility] - originally from [place]. Smoke d for 20+ years, averaging 1 pack a day, but currently on and off about 1/3 pack a day. No blood tra nsfusion, no IV drug abuse. 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 He has sever al children. ALLERGIES: None. TRAUMA: None. IMMUNIZATIONS: Up to date. HOSPITALIZATIONS: Please see past medical history. FAMILY HISTORY: No family history of ESRD. PHYSICAL EXAMINATION: VITAL SIGNS: Blood pressure is 167/84, heart rate 75, respiratory rate 20, temperature 98, and pulse ox 94%. GENERAL: Noted to be awake, alert, comfortable, not in overt distress. SKIN: Adequate turgor. HEENT: He has slightly pale conjunctivae, anicteric sclerae. NECK: No neck mass, no carotid bruits, no JVD. CHEST: No deformities. LUNGS: Decreased breath sounds, no wheezing. HEART: Normal sinus rhythm. No murmur, no gallops, no rubs. ABDOMEN: Globular, soft, nontender, no masses. EXTREMITIES: No edema, no deformities. LABORATORY DATA: On 12/07/2017, white count 9.2, hemoglobin 11.2, hematocrit 33.8. Sodium is noted at 139, potassium 4.3, chloride 108, carbon dioxide 23, BUN 38, creatinine 6.3, glucose 147, CK-MB 10 .4. BNP is 1369. Chest x-ray shows CHF. ASSESSMENT AND PLAN: 1. Shortness of breath - secondary to congestive heart failure. Agree with IV Lasix 40 mg IV q.12 h ours. 2. Chronic renal failure secondary to diabetic nephropathy. Most recent GFR is now 11 mL per minute . The patient has an AV fistula. We are awaiting for it to mature. Should his renal function furth er worsen, we can consider initiating dialysis while he is at the hospital. 3. Hypertension. For the moment, continue current blood pressure meds. I would discontinue valsart an due to the worsening renal dysfunction on this patient another blood pressure medication - nifedip ine 60 mg XL tab q. day.
[2017-12-07] MEDS: Heparin 5,000 UNITS/ML VIAL SC SCH ×2 (15:45→21:24)
[2017-12-07] MEDS: hydrALAZINE 25 MG TAB PO SCH ×2 (15:45→21:23)
[2017-12-07] MEDS ORDERED: Amoxicillin/Potassium Clav 875 MG TAB PO SCH (21:00)
[2017-12-07] MEDS: cloNIDine 0.2 MG TAB PO SCH (21:22)
[2017-12-07] MEDS: Amlodipine 10 MG TAB PO SCH (21:23)
[2017-12-07] MEDS: Acetaminophen 325 MG TAB PO PRN (21:23)
[2017-12-07] MEDS: Atorvastatin Calcium 40 MG TAB PO SCH (21:23)
[2017-12-07] MEDS: Carvedilol 25 MG TAB PO SCH (21:24)
[2017-12-08] MEDS: Acetaminophen 325 MG TAB PO PRN ×3 (03:21→23:05)
[2017-12-08] MEDS: diphenhydrAMINE 50 MG/ML VIAL IVP PRN (03:21)
[2017-12-08] MEDS: Furosemide 40 MG/4 ML VIAL SLOW IVP SCH ×4 (05:55→14:22)
[2017-12-08] MEDS: Nitroglycerin 2% Ointment 1 INCH/1 GM Packet TOP SCH ×3 (05:55→20:47)
[2017-12-08 06:44] LABS: Anion Gap 13 mmol/L (10-20); BUN (Urea Nitrogen) 53 mg/dL (8.4-25.7); Calc. Creatinine Clearance 18 mL/min (70-130); Calcium 8.1 mg/dL (7.8-10.44); Carbon Dioxide 20 mmol/L (22-29); Chloride 107 mmol/L (98-107); Estimated GFR-MDRD 10; Glucose 181 mg/dL (70-105); Potassium 4.7 mmol/L (3.5-5.1); Sodium 135 mmol/L (136-145)
[2017-12-08 06:46] LABS: #Monocytes 0.7 thou/uL (0.11-0.59); #Neutrophils 7.9 thou/uL (1.40-6.50); %Basophils 0.1 % (0.0-1.0); %Eosinophils 0.3 % (0.0-10.0); %Lymphocytes 10.3 % (21.0-51.0); %Monocytes 7.5 % (0.0-10.0); %Neutrophils 81.7 % (42.0-75.0); Hemoglobin 9.4 g/dL (14.0-18.0); Mean Corpuscular HGB CONC 32.7 g/dL (32.0-36.0); Mean Corpuscular Hemoglobin 27.8 pg (27.0-31.0); Mean Corpuscular Volume 85.1 fL (78.0-98.0); Mean Platelet Volume 8.4 fL (7.4-10.4); Platelet Count 172 thou/uL (130-400); RBC Distribution Width 12.2 % (11.5-14.5); Red Blood Cell (RBC) Count 3.37 mill/uL (4.70-6.10); White Blood Cell (WBC) Count 9.6 thou/uL (4.8-10.8)
[2017-12-08] MEDS: Heparin 5,000 UNITS/ML VIAL SC SCH ×3 (08:27→20:46)
[2017-12-08] MEDS: hydrALAZINE 25 MG TAB PO SCH ×3 (08:28→20:46)
[2017-12-08] MEDS: predniSONE 20 MG TAB PO SCH (08:28)
[2017-12-08] MEDS: Aspirin 81 mg Enteric Coated Tablet PO SCH (08:28)
[2017-12-08] MEDS: cloNIDine 0.2 MG TAB PO SCH ×2 (08:28→20:47)
[2017-12-08] MEDS: Glimepiride 4 MG TAB PO SCH ×2 (08:29→16:15)
[2017-12-08] MEDS: Carvedilol 25 MG TAB PO SCH ×2 (08:29→20:47)
[2017-12-08] MEDS: INSULIN GLARGINE SC SCH ×2 (09:28→20:45)
[2017-12-08] MEDS: Nicotine 21 MG PATCH TD SCH (09:28)
[2017-12-08] MEDS ORDERED: Epoetin (ESRD) 20,000 UNITS/ML SC SCH (11:00)
--- NOTE | 2017-12-08 11:52 | PRG ---
DATE OF SERVICE: 12/08/2017 RENAL MEDICINE SUBJECTIVE: Mr. Keita is a 57-year-old black male who was admitted for shortness of breath secondar y to congestive heart failure. He is started on IV diuretics. We are following up this patient for his chronic renal failure. Creatinine is slightly worsened from yesterday. This is anticipated due to the current diuretic regimen. GFR is 11 mL per minute which is actually stable. He has had a lef t upper extremity AV fistula placed recently by Dr. Delarosa. No other complaints. His shortness of breath slightly improved. I did have a long discussion with this patient about initiation of dialysis. He has declined for the moment. PHYSICAL EXAMINATION: VITAL SIGNS: Blood pressure is 147/84, heart rate 76, respiratory rate 16, pulse ox 100% room air. GENERAL: Noted to be awake, alert, comfortable, not in overt distress. SKIN: Adequate turgor. HEENT: He has slightly pale conjunctivae, anicteric sclerae. NECK: No neck mass, no carotid bruits, no JVD. CHEST: No deformities. LUNGS: Clear breath sounds. No wheezing, no crackles. HEART: Normal sinus rhythm. No murmur, no gallops, no rubs. ABDOMEN: Globular, soft, nontender, no masses. EXTREMITIES: No edema. MEDICATIONS: Medications of 12/08/2017 reviewed. LABORATORY DATA: Laboratories of 12/08/2017; white count 9.6, hemoglobin 9.4. Sodium 135, potassium 4.7, chloride 107, carbon dioxide 20, BUN 53, creatinine 6.74, glucose 181, calcium 8.1. ASSESSMENT AND PLAN: 1. Chronic renal failure - creatinine slightly high at 6.74. Repeat creatinine showed a value of 6. 74 and GFR has dropped from 11 to 10 mL per minute. He is currently at stage 5 chronic renal failure . This is secondary to diabetic nephropathy, worsening renal dysfunction. I anticipate that because of the diuretic regimen, GFR has dropped from 11 to 10 mL per minute. He is currently at stage 5 ch ronic renal failure. I had a long discussion about initiating dialysis. Patient declining for the m oment, 2. Anemia. Start Epogen and iron supplementation. 3. Congestive heart failure, clinically improved. Continue current diuretic regimen. There is no e mergent indication for dialytic intervention.
[2017-12-08] MEDS ORDERED: Furosemide 40 MG/4 ML VIAL SLOW IVP SCH (14:00)
--- NOTE | 2017-12-08 14:13 | PDOC.PN ---
- Subjective Encounter Start Date: 12/08/17 Encounter Start Time: 07:40 Patient seen for followup re: CHF exacerbation. Feels better. Shortness of breath is better. Denies nausea or vomiting. - Objective MAR Reviewed: Yes Vital Signs & Weight: Vital Signs (12 hours) Temp Pulse Resp BP BP Pulse Ox 12/08/17 13:49 84 16 12/08/17 11:40 97.6 F 62 18 135/83 96 12/08/17 08:28 147/84 H 12/08/17 08:00 97.7 F 67 18 97 12/08/17 07:26 100 12/08/17 07:25 76 16 12/08/17 07:10 97.7 F 67 18 147/84 H 97 12/08/17 05:51 67 141/77 H 12/08/17 03:17 98.0 F 68 18 147/79 H 99 Weight Weight 227 lb 6.4 oz I&O: 12/07/17 12/08/17 12/09/17 06:59 06:59 06:59 Intake Total 1400 Output Total 230 550 Balance -230 850 Result Diagrams: 12/08/17 06:04 12/08/17 06:04 Additional Labs: Accuchecks 12/08/17 12/08/17 12/07/17 10:59 05:54 22:32 POC Glucose 107 205 H 232 H 12/07/17 12/07/17 21:17 15:58 POC Glucose 239 H 223 H EKG Reviewed by me: Yes (Tele: NSR) Phys Exam - Physical Examination Constitutional: NAD HEENT: moist MMs, sclera anicteric, oral pharynx no lesions, 2+ tonsils Neck: no nodes, supple, full ROM JVD Respiratory: no rales, no rhonchi, wheezing present Cardiovascular: RRR, no rub S1, S2 Gastrointestinal: soft, non-tender, no distention, positive bowel sounds Musculoskeletal: edema present Neurological: moves all 4 limbs Psychiatric: normal affect, A&O x 3 Dx/Plan (1) CHF exacerbation Code(s): I50.9 - HEART FAILURE, UNSPECIFIED Status: Acute Comment: continue IV furosemide (2) COPD exacerbation Code(s): J44.1 - CHRONIC OBSTRUCTIVE PULMONARY DISEASE W (ACUTE) EXACERBATION Status: Acute Comment: continue oxygen, steroids, bronchodilators (3) CKD (chronic kidney disease), stage V Code(s): N18.5 - CHRONIC KIDNEY DISEASE, STAGE 5 Status: Chronic Comment: nephrology following (4) Tobacco use Code(s): Z72.0 - TOBACCO USE Status: Chronic Comment: continue nicotine replacement therapy (5) DM2 (diabetes mellitus, type 2) Status: Chronic Comment: continue accuchecks, insulin sliding scale - Plan out of bed/ambulate * . Review of Systems - Review of Systems Constitutional: negative: fever, chills, sweats, weakness, malaise Respiratory: Cough, Shortness of Breath, SOB with Excertion. negative: Dry, Hemoptysis, Pleuritic Pain, Sputum, Wheezing Cardiovascular: negative: chest pain, palpitations, orthopnea, paroxysmal nocturnal dyspnea, edema, light headedness Gastrointestinal: negative: Nausea, Vomiting, Abdominal Pain, Diarrhea, Constipation, Melena, Hematochezia Genitourinary: negative: Dysuria, Frequency, Incontinence, Hematuria, Retention Skin: negative: Rash, Lesions, Bryant, Bruising - Medications/Allergies Allergies/Adverse Reactions: Allergies Allergy/AdvReac Type Severity Reaction Status Date / Time No Known Drug Allergies Allergy Verified 12/07/17 06:32 Medications: Current Medications Acetaminophen (Tylenol) 650 mg PO Q4H PRN PRN Reason: Headache/Fever or Pain Last Admin: 12/08/17 09:48 Dose: 650 mg Acetaminophen (Tylenol) 650 mg ME Q4H PRN PRN Reason: Headache/Fever or Pain Albuterol/Ipratropium (Duoneb) 3 ml NEB [id number] PRN PRN Reason: SOB &/or Wheezing Albuterol/Ipratropium (Duoneb) 3 ml NEB [id number] [facility] Last Admin: 12/08/17 13:49 Dose: 3 ml Amlodipine Besylate (Norvasc) 10 mg PO HS [facility] Last Admin: 12/07/17 21:23 Dose: 10 mg Aspirin (Ecotrin) 81 mg PO DAILY [facility] Last Admin: 12/08/17 08:28 Dose: 81 mg Atorvastatin Calcium (Lipitor) 40 mg PO HS [facility] Last Admin: 12/07/17 21:23 Dose: 40 mg Bisacodyl (Dulcolax) 10 mg PO DAILYPRN PRN PRN Reason: Constipation Carvedilol (Coreg) 25 mg PO BID [facility] Last Admin: 12/08/17 08:29 Dose: 25 mg Clonidine (Catapres) 0.1 mg PO Q4H PRN PRN Reason: SBP>160 Clonidine (Catapres) 0.2 mg PO BID [facility] Last Admin: 12/08/17 08:28 Dose: 0.2 mg Dextrose/Water (Dextrose 50%) 25 gm SLOW IVP PRN PRN PRN Reason: Hypoglycemia Diphenhydramine HCl (Benadryl) 25 mg IVP Q6H PRN PRN Reason: Itching Last Admin: 12/08/17 03:21 Dose: 25 mg Epoetin Rojelio (Procrit) 7,500 units SC Q7D [facility] Furosemide (Lasix) 40 mg SLOW IVP 0600,1400 [facility] Last Admin: 12/08/17 08:27 Dose: 40 mg Furosemide (Lasix) 40 mg SLOW IVP 1400 [facility] Stop: 12/08/17 16:00 [facility]l) [facility] Last Admin: 12/08/17 08:29 Dose: 4 mg Glucagon (Glucagon) 1 mg IM PRN PRN PRN Reason: Hypoglycemia Heparin Sodium (Porcine) (Heparin) 5,000 units SC TID [facility] Last Admin: 12/08/17 08:27 Dose: 5,000 units Hydralazine HCl (Apresoline) 10 mg SLOW IVP Q4H PRN PRN Reason: SBP>170 Last Admin: 12/07/17 12:09 Dose: 10 mg Hydralazine HCl (Apresoline) 75 mg PO TID [facility] Last Admin: 12/08/17 08:28 Dose: 75 mg Dextrose/Water (D5w) 1,000 mls @ 0 mls/hr IV .Q0M PRN; As Directed PRN Reason: Hypoglycemia Insulin Glargine 50 units/ (Syringe) 0.5 mls @ 0 mls/hr SC BID [facility] Last Admin: 12/08/17 09:28 Dose: 0.5 mls Insulin Human Lispro (Humalog) 0 units SC .MODERATE SLIDING SC PRN PRN Reason: Moderate Correctional Scale Last Admin: 12/07/17 21:25 Dose: 4 units Insulin Human Lispro (Humalog) 0 units SC .BEDTIME SLIDING SC PRN PRN Reason: Bedtime Correctional Scale Nicotine (Nicoderm Patch) 21 mg TD Q24HR [facility] Last Admin: 12/08/17 09:28 Dose: 21 mg Nitroglycerin (Nitro-Bid 2% Ointment) 0.5 inch TOP Q8HR [facility] Last Admin: 12/08/17 05:55 Dose: 0.5 inch Ondansetron HCl (Zofran) 4 mg IVP Q6H PRN PRN Reason: Nausea/Vomiting Prednisone (Prednisone) 40 mg PO DAILY [facility] Last Admin: 12/08/17 08:28 Dose: 40 mg
[2017-12-08] MEDS: Ferrous Sulfate 325 MG TAB PO SCH (16:15)
[2017-12-08] MEDS: HumaLOG 300 UNITS/3 ML VIAL SC PRN (16:27)
[2017-12-08] MEDS: Amlodipine 10 MG TAB PO SCH (20:47)
[2017-12-08] MEDS: Atorvastatin Calcium 40 MG TAB PO SCH (20:47)
[2017-12-09] MEDS: diphenhydrAMINE 50 MG/ML VIAL IVP PRN ×2 (02:33→23:02)
[2017-12-09] MEDS: Furosemide 40 MG/4 ML VIAL SLOW IVP SCH ×2 (05:38→13:30)
[2017-12-09] MEDS: Nitroglycerin 2% Ointment 1 INCH/1 GM Packet TOP SCH ×3 (05:38→23:02)
[2017-12-09 05:45] LABS: #Lymphocytes 1.4 thou/uL (1.20-3.40); #Monocytes 0.5 thou/uL (0.11-0.59); %Eosinophils 0.3 % (0.0-10.0); %Lymphocytes 17.6 % (21.0-51.0); %Monocytes 6.7 % (0.0-10.0); %Neutrophils 75.4 % (42.0-75.0); Anion Gap 13 mmol/L (10-20); BUN (Urea Nitrogen) 61 mg/dL (8.4-25.7); Calc. Creatinine Clearance 17 mL/min (70-130); Carbon Dioxide 21 mmol/L (22-29); Chloride 105 mmol/L (98-107); Estimated GFR-MDRD 10; Glucose 80 mg/dL (70-105); Hemoglobin 10.4 g/dL (14.0-18.0); Mean Corpuscular HGB CONC 33.9 g/dL (32.0-36.0); Mean Corpuscular Hemoglobin 28.9 pg (27.0-31.0); Mean Corpuscular Volume 85.1 fL (78.0-98.0); Mean Platelet Volume 8.9 fL (7.4-10.4); Platelet Count 175 thou/uL (130-400); Potassium 4.2 mmol/L (3.5-5.1); RBC Distribution Width 12.4 % (11.5-14.5); Red Blood Cell (RBC) Count 3.59 mill/uL (4.70-6.10); Sodium 135 mmol/L (136-145)
[2017-12-09] MEDS: Acetaminophen 325 MG TAB PO PRN (06:41)
[2017-12-09] MEDS: hydrALAZINE 25 MG TAB PO SCH ×3 (07:55→20:25)
[2017-12-09] MEDS: predniSONE 20 MG TAB PO SCH (07:56)
[2017-12-09] MEDS: Aspirin 81 mg Enteric Coated Tablet PO SCH (07:56)
[2017-12-09] MEDS: cloNIDine 0.2 MG TAB PO SCH ×2 (07:56→20:26)
[2017-12-09] MEDS: Ferrous Sulfate 325 MG TAB PO SCH ×2 (07:56→16:44)
[2017-12-09] MEDS: Glimepiride 4 MG TAB PO SCH (07:57)
[2017-12-09] MEDS: Carvedilol 25 MG TAB PO SCH ×2 (07:57→20:27)
[2017-12-09] MEDS: Heparin 5,000 UNITS/ML VIAL SC SCH ×3 (07:57→20:27)
[2017-12-09] MEDS: INSULIN GLARGINE SC SCH ×2 (07:58→20:29)
[2017-12-09] MEDS ORDERED: Tuberculin PPD 0.1 ML VIAL I-DERMAL SCH (08:45)
[2017-12-09 09:49] LABS: HBSAB Concentration 1.24 mIU/mL; Hep B Surf AB Non-Reactive (NonReactive); Hep B Surf Ag Non-Reactive S/CO (NonReactive); Hep C IgG Ab Non-Reactive (NonReactive); Hep C Index 0.06 S/CO (0-0.79)
--- NOTE | 2017-12-09 09:51 | PRG ---
DATE OF SERVICE: 12/09/2017 RENAL MEDICINE SUBJECTIVE: Mr. Keita is a 57-year-old black male with chronic renal failure from diabetic nephropa thy. He was admitted for CHF. He is currently being diuresed. I did explain to the patient the annette al function has been worsening. An AV fistula has been placed 2 weeks ago, but this is not mature to initiate dialysis. I told the patient, he may need dialysis earlier. He has agreed to proceed with dialysis and place a cuffed hemodialysis catheter. No other complaints. His shortness of breath is actually improved. PHYSICAL EXAMINATION: VITAL SIGNS: Blood pressure 187/88, heart rate 70, respiratory rate 16, temperature 98, pulse ox 98% room air. GENERAL: Noted to be awake, supine, comfortable, not in distress. SKIN: Adequate turgor. HEENT: Slightly pale conjunctivae, anicteric sclerae. NECK: No neck mass, no carotid bruits, no JVD. CHEST: No deformities. LUNGS: Decreased breath sounds. HEART: Normal sinus rhythm. No murmurs, no gallops, no rubs. ABDOMEN: Globular, soft, nontender, no masses. EXTREMITIES: No edema, no deformities. MEDICATIONS: Medications of 12/09/2017 reviewed. LABORATORY DATA: Laboratories of 12/09/2017; white count 8, hemoglobin 10.4, sodium 135, potassium 4 .2, chloride 105, carbon dioxide 21, BUN 61, creatinine 7.17, glucose 80, calcium 8. ASSESSMENT AND PLAN: 1. Chronic renal failure from diabetic nephropathy, worsening renal dysfunction. GFR has dropped do wn to 10 mL per minute. I did advise the patient with his history of congestive heart failure that w e should initiate dialysis. He has agreed to that. He tells me he is not feeling well. He may actu ally be uremic at the present time. A surgical consult will be done with Dr. Delarosa for placement of a cuffed hemodialysis catheter. AV fistula is not yet matured. 2. Anemia. Epogen and iron supplementation. Epogen and iron has been initiated with this patient. 3. Congestive heart failure, clinically improved. Continue IV Lasix until we initiate dialysis. Recheck base met and CBC in a.m. Hepatitis B surface antigen has been ordered as well as a PPD.
[2017-12-09] MEDS: Nicotine 21 MG PATCH TD SCH (11:14)
--- NOTE | 2017-12-09 15:46 | PDOC.PN ---
- Subjective Encounter Start Date: 12/09/17 Encounter Start Time: 15:30 Subjective: f/u for ESRD prepping for HD. No new complaints. Still with edema of -: LE's but SOB improved. - Objective MAR Reviewed: Yes Vital Signs & Weight: Vital Signs (12 hours) Temp Pulse Pulse Pulse Resp BP BP 12/09/17 15:09 97.7 F 67 18 12/09/17 14:26 70 12/09/17 13:21 70 12 12/09/17 11:16 64 16 12/09/17 09:52 59 L 61 128/66 12/09/17 08:00 98.0 F 70 16 12/09/17 07:56 187/88 H 12/09/17 07:55 70 12/09/17 07:31 98.0 F 70 16 12/09/17 07:15 80 14 12/09/17 05:32 97.9 F 72 18 BP BP Pulse Ox 12/09/17 15:09 160/85 H 98 12/09/17 14:26 12/09/17 13:21 12/09/17 11:16 156/83 H 98 12/09/17 09:52 155/80 H 12/09/17 08:00 12/09/17 07:56 12/09/17 07:55 12/09/17 07:31 187/91 H 98 12/09/17 07:15 12/09/17 05:32 148/77 H 98 Weight Weight 231 lb 8 oz I&O: 12/08/17 12/09/17 12/10/17 06:59 06:59 06:59 Intake Total 1400 800 Output Total 550 450 Balance 850 350 Result Diagrams: 12/09/17 04:29 12/09/17 04:29 Additional Labs: Accuchecks 12/09/17 12/09/17 12/09/17 11:24 11:04 08:39 POC Glucose 72 55 L* 84 12/09/17 12/09/17 12/08/17 07:53 07:14 20:44 POC Glucose 58 L* 50 L* 164 H 12/08/17 16:24 POC Glucose 220 H Laboratory Tests 12/07/17 12/07/17 12/08/17 02:05 02:06 06:04 Creatinine 6.30 H 6.74 H Hep Bs Antigen Non-Reactive Hep Bs Antibody Non-Reactive Hep Bs Antibody Index 1.24 Hepatitis C Antibody Non-Reactive EKG Reviewed by me: Yes (Tele - SR) Phys Exam - Physical Examination Constitutional: NAD HEENT: PERRLA, sclera anicteric, oral pharynx no lesions Neck: no nodes, no JVD, supple, full ROM Respiratory: no wheezing, no rales, no rhonchi, clear to auscultation bilateral Cardiovascular: RRR, no significant murmur, no rub, gallop Gastrointestinal: soft, non-tender, no distention, positive bowel sounds Musculoskeletal: pulses present, edema present Neurological: non-focal, normal sensation, moves all 4 limbs Psychiatric: normal affect, A&O x 3 Skin: no rash, normal turgor, cap refill <2 seconds Dx/Plan (1) ESRD (end stage renal disease) Code(s): N18.6 - END STAGE RENAL DISEASE Status: Chronic Comment: Plan for Dempsey catheter placement then initiation of HD, avoid nephrotoxic meds and limit contrast exposure (2) Tobacco use Code(s): Z72.0 - TOBACCO USE Status: Chronic Comment: continue nicotine replacement therapy (3) Acute on chronic diastolic (congestive) heart failure Code(s): I50.33 - ACUTE ON CHRONIC DIASTOLIC (CONGESTIVE) HEART FAILURE Status : Acute Comment: Stable currently, continue Lasix 40mg IV BID (4) DM2 (diabetes mellitus, type 2) Status: Chronic Comment: continue accuchecks, insulin sliding scale, monitor for hypoglycemia - Plan 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
[2017-12-09] MEDS ORDERED: Heparin 10,000 UNITS/ 10 ML VIAL ONE (15:53)
[2017-12-09] MEDS: Glimepiride 2 MG TAB PO SCH (16:44)
[2017-12-09] MEDS: Amlodipine 10 MG TAB PO SCH (20:25)
[2017-12-09] MEDS: Atorvastatin Calcium 40 MG TAB PO SCH (20:27)
[2017-12-10] MEDS: diphenhydrAMINE 50 MG/ML VIAL IVP PRN (03:48)
[2017-12-10 05:34] LABS: #Lymphocytes 1.3 thou/uL (1.20-3.40); #Monocytes 0.7 thou/uL (0.11-0.59); #Neutrophils 5.2 thou/uL (1.40-6.50); %Basophils 0.5 % (0.0-1.0); %Eosinophils 0.7 % (0.0-10.0); %Lymphocytes 18.4 % (21.0-51.0); %Monocytes 9.7 % (0.0-10.0); %Neutrophils 70.8 % (42.0-75.0); Hemoglobin 9.7 g/dL (14.0-18.0); Mean Corpuscular HGB CONC 33.4 g/dL (32.0-36.0); Mean Corpuscular Hemoglobin 28.4 pg (27.0-31.0); Mean Corpuscular Volume 84.8 fL (78.0-98.0); Mean Platelet Volume 8.6 fL (7.4-10.4); Platelet Count 178 thou/uL (130-400); RBC Distribution Width 12.4 % (11.5-14.5); Red Blood Cell (RBC) Count 3.42 mill/uL (4.70-6.10); White Blood Cell (WBC) Count 7.3 thou/uL (4.8-10.8)
[2017-12-10 05:58] LABS: Anion Gap 12 mmol/L (10-20); BUN (Urea Nitrogen) 62 mg/dL (8.4-25.7); Calc. Creatinine Clearance 18 mL/min (70-130); Calcium 7.7 mg/dL (7.8-10.44); Carbon Dioxide 24 mmol/L (22-29); Chloride 105 mmol/L (98-107); Estimated GFR-MDRD 10; Glucose 87 mg/dL (70-105); Potassium 4.1 mmol/L (3.5-5.1); Sodium 137 mmol/L (136-145)
[2017-12-10 06:20] VITALS: BMI 33.5
[2017-12-10] MEDS: Nitroglycerin 2% Ointment 1 INCH/1 GM Packet TOP SCH ×3 (06:32→22:07)
[2017-12-10] MEDS: Carvedilol 25 MG TAB PO SCH ×2 (06:32→22:09)
[2017-12-10] MEDS: Furosemide 40 MG/4 ML VIAL SLOW IVP SCH ×2 (06:32→16:43)
[2017-12-10] MEDS ORDERED: CEFAZOLIN/Water 2 GM/20 ML SYRINGE SLOW IVP SCH (08:45)
[2017-12-10] MEDS: INSULIN GLARGINE SC SCH (09:00)
--- NOTE | 2017-12-10 09:11 | PRG ---
DATE OF SERVICE: 12/10/2017 Mr. Keita is a 57-year-old white male with chronic renal failure from diabetic nephropathy, admitted for CHF. He has been diuresed in the last few days. His breathing is better. However, renal funct ion has been worsening. He had a left AV fistula placed 2 weeks ago, but it has not matured. I did discuss with Mr. Keita about initiating dialysis. He has agreed. I have consulted Surgery for plac ement of cuffed hemodialysis catheter. No new complaints today. PHYSICAL EXAMINATION: VITAL SIGNS: Blood pressure 160/81, heart rate 80, respiratory rate 18, temperature 97.9, pulse ox 9 6%. GENERAL: Awake, alert, comfortable, not in distress. SKIN: Adequate turgor. HEENT: He has slightly pale conjunctivae, anicteric sclerae. NECK: No neck mass, no carotid bruits, no JVD. CHEST: No deformities. LUNGS: Decreased breath sounds. HEART: Normal sinus rhythm. No murmur, no gallops, no rubs. ABDOMEN: Globular, soft, nontender, no masses. EXTREMITIES: No edema. MEDICATIONS: 12/10/2017 - Reviewed. LABORATORY: 12/10/2017 - White count 7.3, hemoglobin 9.7, sodium 137, potassium 4.1, chloride 105, c arbon dioxide 24, BUN 62, creatinine 7.04, glucose 87, calcium 7.7. Glucose 51. ASSESSMENT AND PLAN: 1. Chronic renal failure from diabetic nephropathy, worsening renal dysfunction. Due to the volume overload we will initiate dialysis. A cuffed hemodialysis catheter will be placed. After the said p rocedure we will initiate a 1 hour hemodialysis with 1 liter fluid removal with this patient. 2. Congestive heart failure, clinically improved. After initiation of dialysis, consider discontinu ing the Lasix.
[2017-12-10] MEDS: cloNIDine 0.2 MG TAB PO SCH ×2 (09:18→22:08)
[2017-12-10] MEDS: Aspirin 81 mg Enteric Coated Tablet PO SCH (09:18)
[2017-12-10] MEDS: Ferrous Sulfate 325 MG TAB PO SCH ×2 (09:19→16:42)
[2017-12-10] MEDS: Heparin 5,000 UNITS/ML VIAL SC SCH ×3 (09:46→22:07)
[2017-12-10] MEDS: Glimepiride 2 MG TAB PO SCH ×3 (09:46→17:00)
--- NOTE | 2017-12-10 10:21 | CON ---
DATE OF CONSULTATION: 12/10/2017 REASON FOR CONSULTATION: Need for dialysis catheter. HISTORY: Mr. Keita is a 57-year-old man who is a patient of Dr. Whiting. Dr. Delarosa placed a fistu la for him last month for worsening renal failure, but the fistula is not yet mature and the patient has had a worsening of his renal failure and heart failure with fluid overload and Dr. Garcia feels that institution of dialysis is necessary at this time. A tunneled hemodialysis catheter has been reques krystal for that purpose. 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 PAST SURGICAL HISTORY: Left AV fistula on 11/25/2017 and heart catheterization in 2017 without signi ficant occlusive disease found. ALLERGIES: No known drug allergies. OUTPATIENT MEDICATIONS: Amlodipine, aspirin, atorvastatin, carvedilol, clonidine, glimepiride and Le vemir. He was also taking Keflex for shortness of breath, but this was causing itching and he is no longer taking that. FAMILY HISTORY: Stroke, hypertension, diabetes, and renal failure. SOCIAL HISTORY: Ongoing tobacco use, no alcohol use. Distant history of cocaine use, but none curre ntly. REVIEW OF SYSTEMS: Ten system review of systems is negative except per HPI and the following. The p atient came in because of worsening shortness of breath and lower extremity edema. He has been treat ed with diuretics and both of these are much better. He denies any chest pain. This morning he is f eeling like his blood sugar is low. PHYSICAL EXAMINATION: VITAL SIGNS: The patient has been afebrile since his hospital admission. Heart rate 80, respiration s 14, 96% saturated on room air, blood pressure 160/81. GENERAL: Reveals a pleasant gentleman in no acute distress. He is not flushed or toxic, jaundiced o r icteric. HEENT: Unremarkable. NECK: Supple, without lymphadenopathy or thyroid nodules. HEART: Regular in its rate and rhythm without murmurs, rubs or gallops. LUNGS: Clear to auscultation bilaterally and the patient is able to lie flat without dyspnea. ABDOMEN: Soft, nontender, nondistended. EXTREMITIES: Warm and well perfused without sores. He has moderate ankle edema. He has a left Cimi no AV fistula which has a good thrill at the level of the wrist which is more difficult to feel above the mid forearm. However, the cephalic vein is dilated up to the antecubital fossa. NEUROLOGIC: No focal deficits. PSYCHIATRIC: Alert, oriented and appropriate. LABORATORY DATA: White count 7.3, hematocrit 29, platelets 178. BUN and creatinine are 62 and 7.04, but potassium and bicarbonate are normal. Bedside glucose just performed by the nurse was 51. Urin e was positive for greater than 300 protein, 250 glucose, and small amount of blood and hepatitis ser ology is negative. ASSESSMENT: End-stage renal failure requiring dialysis. His fistula is not yet mature and he may groves ve collaterals which are delaying maturation. A tunneled hemodialysis catheter has been recommended for institution of dialysis during this hospital admission. He has responded somewhat to diuretics, but given his underlying diastolic heart failure and renal failure, dialysis is felt to be necessary at this time. The procedure of tunneled hemodialysis catheter was discussed with the patient. Inher ent risks were also discussed. These include, but are not limited to bleeding, infection, risks of a nesthesia, hemothorax, pneumothorax, and DVT. He understands and accepts these risks and wishes to p roceed. All of his questions were answered. He has been posted for the OR. His case is scheduled f or afternoon, so I will allow him to have clear liquids this morning due to his hypoglycemia. Niya garcia, he needs to be n.p.o. after 11.
[2017-12-10] MEDS: hydrALAZINE 25 MG TAB PO SCH ×3 (10:45→22:08)
[2017-12-10] MEDS ORDERED: Dextrose 50% Abboject 50 ML SYRINGE ONE ×2 (12:17→14:12)
[2017-12-10] MEDS: Nicotine 21 MG PATCH TD SCH (12:46)
[2017-12-10] MEDS: predniSONE 20 MG TAB PO SCH ×2 (12:47→16:43)
[2017-12-10] MEDS ORDERED: PROPOFOL 200 MG/20 ML VIAL ONE (13:31)
[2017-12-10] MEDS ORDERED: Lidocaine 2% Jelly 5 ML TUBE ONE (14:04)
[2017-12-10] MEDS ORDERED: Propofol 500 MG/50 ML VIAL ONE (14:04)
[2017-12-10] MEDS ORDERED: Fentanyl 100 MCG/2 ML VIAL ONE (14:04)
[2017-12-10] MEDS ORDERED: CEFAZOLIN/Water 2 GM/20 ML SYRINGE ONE (14:05)
[2017-12-10] MEDS ORDERED: Sodium Chloride 0.9% 30 ML ONE (14:13)
[2017-12-10] MEDS ORDERED: Heparin 10,000 UNITS/1 ML VIAL ONE (14:13)
[2017-12-10] MEDS ORDERED: Lidocaine 2% 10 ML INJ ONE (14:13)
[2017-12-10] MEDS ORDERED: Bupivacaine/Epinephrine 0.25% 30 ML VIAL ONE (14:13)
[2017-12-10] MEDS ORDERED: Promethazine HCl 25 MG/ML VIAL IM PRN (15:06)
[2017-12-10] MEDS ORDERED: Ondansetron HCl/PF 4 MG/2 ML Vial IVP PRN (15:06)
[2017-12-10] MEDS ORDERED: Promethazine HCl 25 MG/ML VIAL SLOW IVP PRN (15:06)
--- NOTE | 2017-12-10 17:46 | RAD ---
PORTABLE UPRIGHT FRONTAL CHEST: Date: 12/10/17 COMPARISON: 11/14/17. HISTORY: Evaluate chest following dialysis catheter placement. FINDINGS: A right-sided dialysis catheter is present. The superior curl in the supraclavicular region is not fu lly imaged. The distal tip overlies the expected location of the SVC. No pneumothorax. There is mild pulmonary vascular congestion. Cardiac silhouette is enlarged. IMPRESSION: Right-sided dialysis catheter as detailed above. POS: CECILIA
--- NOTE | 2017-12-10 18:36 | PDOC.PN ---
- Subjective Encounter Start Date: 12/10/17 Encounter Start Time: 18:30 Subjective: f/u for ESRD s/p R Dempsey catheter placement today. Initiating HD today. -: Feels ok overall. Nsg reports hypoglycemia tx with D50, DM meds held. - Objective MAR Reviewed: Yes Vital Signs & Weight: Vital Signs (12 hours) Temp Pulse Pulse Pulse Resp BP BP 12/10/17 16:57 62 189/97 H 12/10/17 10:45 178/84 H 12/10/17 09:35 67 64 178/94 H 12/10/17 09:18 178/84 H 12/10/17 08:00 97.6 F 66 16 12/10/17 07:08 80 14 BP BP Pulse Ox 12/10/17 16:57 12/10/17 10:45 12/10/17 09:35 142/75 H 12/10/17 09:18 12/10/17 08:00 178/84 H 96 12/10/17 07:08 Weight Weight 234 lb I&O: 12/09/17 12/10/17 12/11/17 06:59 06:59 06:59 Intake Total 800 Output Total 450 Balance 350 Result Diagrams: 12/10/17 04:31 12/10/17 04:31 Additional Labs: Accuchecks 12/10/17 12/10/17 12/10/17 17:23 16:49 15:20 POC Glucose 81 52 L* 87 12/10/17 12/10/17 12/10/17 14:45 14:09 12:45 POC Glucose 58 L* 45 L* 106 12/10/17 12/10/17 12/10/17 10:45 08:43 05:50 POC Glucose 64 L 51 L* 72 12/09/17 20:47 POC Glucose 192 H Laboratory Tests 03/15/15 03/16/15 12/07/17 16:03 04:57 02:05 Creatinine 1.33 H Creatine Kinase 451 H Hep Bs Antigen Non-Reactive Hep Bs Antibody Non-Reactive Hep Bs Antibody Index 1.24 Hepatitis C Antibody Non-Reactive 12/07/17 12/08/17 02:06 06:04 Creatinine 6.30 H 6.74 H Creatine Kinase Hep Bs Antigen Hep Bs Antibody Hep Bs Antibody Index Hepatitis C Antibody Radiology Reviewed by me: Yes (PCXR - R IJ HD catheter in place, no pneumothorax ) EKG Reviewed by me: Yes (Tele - SR) Phys Exam - Physical Examination Constitutional: NAD HEENT: PERRLA, sclera anicteric, oral pharynx no lesions Neck: no nodes, no JVD, supple, full ROM R IJ Dempsey catheter in place Respiratory: no wheezing, no rales, no rhonchi, clear to auscultation bilateral S1, S2 Cardiovascular: RRR, no significant murmur, no rub, gallop Gastrointestinal: soft, non-tender, no distention, positive bowel sounds Musculoskeletal: pulses present, edema present Neurological: non-focal, normal sensation, moves all 4 limbs Psychiatric: normal affect, A&O x 3 Skin: no rash, normal turgor, cap refill <2 seconds Dx/Plan (1) ESRD (end stage renal disease) Code(s): N18.6 - END STAGE RENAL DISEASE Status: Chronic Comment: Dempsey catheter placement then initiation of HD 12/10/17, avoid nephrotoxic meds and limit contrast exposure (2) Tobacco use Code(s): Z72.0 - TOBACCO USE Status: Chronic Comment: continue nicotine replacement therapy (3) Acute on chronic diastolic (congestive) heart failure Code(s): I50.33 - ACUTE ON CHRONIC DIASTOLIC (CONGESTIVE) HEART FAILURE Status : Acute Comment: Stable currently, continue Lasix 40mg IV BID (4) DM2 (diabetes mellitus, type 2) Status: Chronic Comment: continue accuchecks, insulin sliding scale, hold all DM meds, D50 prn, monitor trend - Plan 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
--- NOTE | 2017-12-10 21:43 | PDOC.OP ---
Operative Note - Operative Note Operative Note: PROCEDURE: Placement of right internal jugular tunneled hemodialysis catheter with ultrasound and fluoroscopic guidance. SURGEON: Thania Umaña M.D. DATE OF PROCEDURE: 12/10/2017 PREOPERATIVE DIAGNOSIS: End-stage renal failure. POSTOPERATIVE DIAGNOSIS: End-stage renal failure. HISTORY: Patient with chronic renal failure which has progressed to end-stage. He requires dialysis due to fluid overload. He has a fistula but this is not yet mature. 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 PROCEDURE: After informed consent was obtained and appropriate preoperative antibiotics were administered, the patient was taken to the Operating Room, placed in the supine position and monitored anesthesia care was administered. The neck and chest were prepped and draped in a standard sterile fashion and the patient placed in Trendelenburg position. A sterile ultrasound probe was used to identify the patent compressible right IJ vein which was accessed under direct ultrasound guidance. A wire was threaded through the needle and confirmed by ultrasound to be within the patent compressible vessel with the tip in the vena cava by fluoroscopy. Local anesthesia was infused to the skin and subcutaneous tissues of the right neck and chest. An infraclavicular incision was made and a catheter tunneled from the infraclavicular to the right IJ access site. The right IJ was sequentially dilated over the wire following which a dilator and sheath were placed over the wire and the dilator and wire removed leaving the sheath in place. The catheter was tunneled through the sheath which was then split and removed leaving the catheter in place. This was confirmed by fluoroscopy to be in good position in the superior vena cava with no kinking of the course of the catheter. Both ports easily aspirated dark venous nonpulsatile blood and easily flushed without resistance. Heparin was instilled to the quantity specified on the hub, and the hub was secured to the skin with 3-0 nylon sutures. The skin incision at the neck was closed in two layers with 4-0 Monocryl suture and Dermabond dressings were placed. The skin at the exit site was snugged up around the catheter with 4-0 Monocryl suture and Dermabond was placed there as well. Once the Dermabond was dry, a Biopatch and Tegaderm dressing was placed at the exit site. The patient was taken to Recovery in good condition. Estimated blood loss was minimal. There were no complications. There were no specimens.
[2017-12-10] MEDS: Acetaminophen 325 MG TAB PO PRN (22:07)
[2017-12-10] MEDS: Atorvastatin Calcium 40 MG TAB PO SCH (22:08)
[2017-12-10] MEDS: Amlodipine 10 MG TAB PO SCH (22:09)
[2017-12-11] MEDS: Acetaminophen 325 MG TAB PO PRN ×2 (01:35→16:03)
[2017-12-11] MEDS: Furosemide 40 MG/4 ML VIAL SLOW IVP SCH (05:53)
[2017-12-11] MEDS: Nitroglycerin 2% Ointment 1 INCH/1 GM Packet TOP SCH ×3 (05:53→20:54)
[2017-12-11] MEDS: diphenhydrAMINE 50 MG/ML VIAL IVP PRN ×2 (05:59→18:27)
[2017-12-11] MEDS: Aspirin 81 mg Enteric Coated Tablet PO SCH (09:01)
[2017-12-11] MEDS: Carvedilol 25 MG TAB PO SCH ×3 (09:01→20:48)
[2017-12-11] MEDS: cloNIDine 0.2 MG TAB PO SCH ×3 (09:01→20:48)
[2017-12-11] MEDS: hydrALAZINE 25 MG TAB PO SCH ×3 (09:01→20:54)
[2017-12-11] MEDS: Ferrous Sulfate 325 MG TAB PO SCH ×2 (09:01→16:04)
[2017-12-11] MEDS: Heparin 5,000 UNITS/ML VIAL SC SCH ×3 (09:01→20:49)
--- NOTE | 2017-12-11 09:06 | PRG ---
DATE OF SERVICE: 12/11/2017 RENAL MEDICINE SUBJECTIVE: Mr. Keita is a 57-year-old black male with chronic renal failure from diabetic nephropa thy. He was admitted for congestive heart failure. Over the last several days, renal function has w orsened. We have initiated dialysis due to the worsening renal dysfunction as well as uremic signs a nd symptoms. He received 1 hour hemodialysis yesterday and tolerated said procedure. [facility] dialysis. My plan is to do a 2-hour dialysis. He is asymptomatic at the present time. His shortness of breath is improved. PHYSICAL EXAMINATION: VITAL SIGNS: Blood pressure is 178/86, heart rate 73, respiratory rate 20, temperature 96.8, pulse o x 100%. GENERAL: Awake, alert, comfortable, not in distress. SKIN: Adequate turgor. HEENT: He has pinkish conjunctivae, anicteric sclerae. NECK: No neck mass, no carotid bruits, no JVD. CHEST: No deformities. LUNGS: Clear breath sounds, no wheezing, no crackles. HEART: Normal sinus rhythm. No murmurs, no gallops, no rubs. ABDOMEN: Globular, soft, nontender. No masses. EXTREMITIES: Positive for edema. MEDICATIONS: Medications of 12/11/2017 was reviewed. LABORATORY DATA: Laboratories of 12/10/2017; white count 7.3, hemoglobin 9.7. On 12/10/2017; sodium 137, potassium 4.1, chloride 105, carbon dioxide 24, BUN 62, creatinine 7.04, c alcium 7.7. ASSESSMENT AND PLAN: 1. Chronic renal failure - due to the volume overload and uremic signs and symptoms, hemodialysis groves s been initiated. My plan is to do a 2-hour hemodialysis with fluid removal as tolerated. Due to th e initiation of dialysis, we will discontinue furosemide. We will make arrangements for outpatient h emodialysis placement. 2. Congestive heart failure, clinically much improved. Fluid removal with dialysis.
[2017-12-11] MEDS: Nicotine 21 MG PATCH TD SCH (12:37)
[2017-12-11 14:53] LABS: HIV (1/2) Antibody/Antigen Non-Reactive (NonReactive); HIV 1/2 INDEX 0.14 S/CO (<1.00); Hep B Core Total Ab Non-Reactive (NonReactive); Hep B Core Total Index 0.05 S/CO (0-0.79)
--- NOTE | 2017-12-11 15:26 | PDOC.PN ---
- Subjective Encounter Start Date: 12/11/17 Encounter Start Time: 15:20 Subjective: f/u for ESRD initiating HD completing 2nd session 12/11/17. No new -: complaints except some R upper chest wall discomfort near Dempsey -: catheter. - Objective MAR Reviewed: Yes Vital Signs & Weight: Vital Signs (12 hours) Temp Pulse Resp BP BP Pulse Ox 12/11/17 14:04 70 12 12/11/17 12:00 98.1 F 69 20 191/93 H 12/11/17 08:00 96.8 F L 73 20 178/86 H 100 12/11/17 07:10 100 12/11/17 07:07 76 12 12/11/17 03:26 98.2 F 71 17 142/82 H 98 Weight Weight 235 lb 1.6 oz I&O: 12/10/17 12/11/17 12/12/17 06:59 06:59 06:59 Intake Total 820 Output Total 850 Balance -30 Result Diagrams: 12/10/17 04:31 12/10/17 04:31 Additional Labs: Accuchecks 12/11/17 12/11/17 12/10/17 11:06 05:41 20:43 POC Glucose 150 H 185 H 106 12/10/17 12/10/17 12/10/17 17:23 16:49 15:20 POC Glucose 81 52 L* 87 12/10/17 12/09/17 09:37 20:47 POC Glucose 69 L 192 H Laboratory Tests 03/15/15 03/16/15 12/07/17 16:03 04:57 02:05 Creatinine 1.33 H Creatine Kinase 451 H Hep Bs Antigen Non-Reactive Hep Bs Antibody Non-Reactive Hep Bs Antibody Index 1.24 Hepatitis C Antibody Non-Reactive 12/07/17 12/08/17 02:06 06:04 Creatinine 6.30 H 6.74 H Creatine Kinase Hep Bs Antigen Hep Bs Antibody Hep Bs Antibody Index Hepatitis C Antibody EKG Reviewed by me: Yes (Tele - SR) Phys Exam - Physical Examination Constitutional: NAD HEENT: PERRLA, sclera anicteric, oral pharynx no lesions Neck: no nodes, no JVD, supple, full ROM Respiratory: no wheezing, no rales, no rhonchi, clear to auscultation bilateral S1, S2 Cardiovascular: RRR, no significant murmur, no rub, gallop Gastrointestinal: soft, non-tender, no distention, positive bowel sounds Musculoskeletal: pulses present, edema present Neurological: non-focal, normal sensation, moves all 4 limbs Psychiatric: normal affect, A&O x 3 Skin: no rash, normal turgor, cap refill <2 seconds Dx/Plan (1) ESRD (end stage renal disease) Code(s): N18.6 - END STAGE RENAL DISEASE Status: Chronic Comment: Dempsey catheter placement then initiation of HD 12/10/17, avoid nephrotoxic meds and limit contrast exposure, continue HD, CM assisting with outpt HD coordination (2) Tobacco use Code(s): Z72.0 - TOBACCO USE Status: Chronic Comment: continue nicotine replacement therapy (3) Acute on chronic diastolic (congestive) heart failure Code(s): I50.33 - ACUTE ON CHRONIC DIASTOLIC (CONGESTIVE) HEART FAILURE Status : Acute Comment: Stable currently (4) DM2 (diabetes mellitus, type 2) Status: Chronic Comment: continue accuchecks, insulin sliding scale, hold all DM meds, D50 prn, monitor trend - Plan 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
[2017-12-11] MEDS: Atorvastatin Calcium 40 MG TAB PO SCH (20:48)
[2017-12-11] MEDS: Amlodipine 10 MG TAB PO SCH (20:49)
[2017-12-11] MEDS: Insulin Glargine 20 UNITS in Pre-Filled Syringe SC SCH (20:49)
[2017-12-12] MEDS: diphenhydrAMINE 50 MG/ML VIAL IVP PRN (00:09)
[2017-12-12] MEDS: Acetaminophen 325 MG TAB PO PRN ×2 (05:45→16:36)
[2017-12-12] MEDS: Nitroglycerin 2% Ointment 1 INCH/1 GM Packet TOP SCH ×3 (06:01→20:56)
--- NOTE | 2017-12-12 08:49 | PRG ---
DATE OF SERVICE: 12/12/2017 SUBJECTIVE: Mr. Keita is a 57-year-old black male who was admitted for CHF. Due to the worsening r enal dysfunction and volume overload he was initiated on dialysis. Doing better. He is currently un dergoing dialysis. I am at the bedside supervising his dialysis. No new complaints. No chest pain or shortness of breath. PHYSICAL EXAMINATION: VITAL SIGNS: Blood pressure 141/68, heart rate 66, respiratory rate 14, temperature 97.9, pulse ox 1 00%. GENERAL: Noted to be awake, alert, comfortable, not in distress SKIN: Adequate turgor. HEENT: He has slightly pale conjunctivae, anicteric sclerae. NECK: No neck mass, no carotid bruits, no JVD. CHEST: No deformities. LUNGS: Clear breath sounds. No wheezing, no crackles. HEART: Normal sinus rhythm. No murmur, no gallops or rubs. ABDOMEN: Globular, soft, nontender, no masses. EXTREMITIES: No edema, no deformities. Left upper extremity positive for AV fistula. MEDICATIONS: 12/12/2017 - Reviewed. LABORATORY: 12/10/2017 - Hemoglobin 9.7. 12/12/2017 - Glucose 206. 12/10/2017 - BUN 62, creatinine 7.04. ASSESSMENT AND PLAN: 1. Anemia - on weekly Epogen, p.r.n. blood transfusion. 2. Congestive heart failure, clinically much improved with diuretics and dialysis. 3. Chronic renal failure - hemodialysis has been initiated with this patient. Fluid removal as tole rated. The patient is undergoing a 3 hour dialysis today. I will reschedule him for another 4 hour hemodialysis tomorrow. Awaiting outpatient dialysis placement.
[2017-12-12] MEDS: Nicotine 21 MG PATCH TD SCH (09:00)
[2017-12-12] MEDS: Ferrous Sulfate 325 MG TAB PO SCH ×2 (12:15→16:38)
[2017-12-12] MEDS: predniSONE 20 MG TAB PO SCH (12:16)
[2017-12-12] MEDS: hydrALAZINE 25 MG TAB PO SCH ×3 (12:16→20:54)
[2017-12-12] MEDS: Carvedilol 25 MG TAB PO SCH ×2 (12:16→20:53)
[2017-12-12] MEDS: cloNIDine 0.2 MG TAB PO SCH ×2 (12:17→20:53)
[2017-12-12] MEDS: Heparin 5,000 UNITS/ML VIAL SC SCH ×3 (12:17→20:54)
[2017-12-12] MEDS: Aspirin 81 mg Enteric Coated Tablet PO SCH (12:17)
[2017-12-12] MEDS: Insulin Glargine 25 UNITS in Pre-Filled Syringe SC SCH (12:26)
[2017-12-12] MEDS ORDERED: Heparin 10,000 UNITS/ 10 ML VIAL ONE (16:01)
--- NOTE | 2017-12-12 19:44 | PDOC.PN ---
- Subjective Encounter Start Date: 12/12/17 Encounter Start Time: 19:05 Subjective: f/u for ESRD on current HD. Completed 3rd session today. No SOB and -: LE edema decreased. No new complaints. - Objective MAR Reviewed: Yes Vital Signs & Weight: Vital Signs (12 hours) Temp Pulse Resp BP BP Pulse Ox 12/12/17 19:00 76 16 100 12/12/17 16:38 68 175/85 H 12/12/17 16:00 97.6 F 61 18 100 12/12/17 13:56 68 16 98 12/12/17 12:17 169/81 H 12/12/17 12:16 70 184/97 H 12/12/17 12:00 97.8 F 60 20 184/70 H 99 12/12/17 08:00 97.4 F L 70 18 156/84 H 98 Weight Weight 234 lb 9.6 oz I&O: 12/11/17 12/12/17 12/13/17 06:59 06:59 06:59 Intake Total 820 300 Output Total 850 400 Balance -30 -100 Result Diagrams: 12/10/17 04:31 12/10/17 04:31 Additional Labs: Accuchecks 12/12/17 12/12/17 12/11/17 16:35 06:10 20:45 POC Glucose 171 H 206 H 195 H Laboratory Tests 03/15/15 03/16/15 12/07/17 16:03 04:57 02:05 Creatinine 1.33 H Creatine Kinase 451 H Hep Bs Antigen Non-Reactive Hep Bs Antibody Non-Reactive Hep Bs Antibody Index 1.24 Hepatitis C Antibody Non-Reactive 12/07/17 12/08/17 02:06 06:04 Creatinine 6.30 H 6.74 H Creatine Kinase Hep Bs Antigen Hep Bs Antibody Hep Bs Antibody Index Hepatitis C Antibody EKG Reviewed by me: Yes (Tele - SR ) Phys Exam - Physical Examination Constitutional: NAD HEENT: PERRLA, sclera anicteric, oral pharynx no lesions Neck: no nodes, no JVD, supple, full ROM Respiratory: no wheezing, no rales, no rhonchi, clear to auscultation bilateral S1, S2 Cardiovascular: RRR, no significant murmur, no rub, gallop Gastrointestinal: soft, non-tender, no distention, positive bowel sounds Musculoskeletal: pulses present, edema present Neurological: normal sensation, moves all 4 limbs Psychiatric: normal affect, A&O x 3 Skin: no rash, normal turgor, cap refill <2 seconds Dx/Plan (1) ESRD (end stage renal disease) Code(s): N18.6 - END STAGE RENAL DISEASE Status: Chronic Comment: Dempsey catheter placement then initiation of HD 12/10/17, avoid nephrotoxic meds and limit contrast exposure, continue HD, CM assisting with outpt HD coordination (2) Tobacco use Code(s): Z72.0 - TOBACCO USE Status: Chronic Comment: continue nicotine replacement therapy (3) Acute on chronic diastolic (congestive) heart failure Code(s): I50.33 - ACUTE ON CHRONIC DIASTOLIC (CONGESTIVE) HEART FAILURE Status : Acute Comment: Stable currently (4) DM2 (diabetes mellitus, type 2) Status: Chronic Comment: continue accuchecks, insulin sliding scale, hold all DM meds, D50 prn, monitor trend - Plan 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
[2017-12-12] MEDS: Amlodipine 10 MG TAB PO SCH (20:53)
[2017-12-12] MEDS: Atorvastatin Calcium 40 MG TAB PO SCH (20:53)
[2017-12-12] MEDS: Insulin Glargine 20 UNITS in Pre-Filled Syringe SC SCH (20:54)
[2017-12-13] MEDS: diphenhydrAMINE 50 MG/ML VIAL IVP PRN (01:01)
[2017-12-13] MEDS: Nitroglycerin 2% Ointment 1 INCH/1 GM Packet TOP SCH ×2 (05:30→14:41)
[2017-12-13] MEDS ORDERED: predniSONE 20 MG TAB PO SCH (09:00)
--- NOTE | 2017-12-13 09:02 | PRG ---
DATE OF SERVICE: 12/13/2017 SERVICE: Renal Medicine. SUBJECTIVE: Mr. Keita is a 57-year-old black male, who was initially admitted for congestive heart failure. However, due to the worsening renal dysfunction, he was initiated on dialysis. He has been doing well with the current dialysis regimen. Fluid removal is being successfully removed. We have stopped his furosemide. He is breathing better. He denies any chest pain or shortness of breath th is morning. I am currently supervising him at the dialysis; I am at the bedside. OBJECTIVE: VITAL SIGNS: Blood pressure 161/72, heart rate 82, respiratory rate 14, temperature 98.2, pulse ox 9 8%. GENERAL EXAM: Awake, alert, comfortable, not in distress. SKIN: Adequate turgor. HEENT: He has slightly pale conjunctivae and anicteric sclerae. NECK: No neck mass, no carotid bruits, no JVD. CHEST: No deformities. LUNGS: Clear breath sounds. HEART: Normal sinus rhythm. No murmur, no gallops, no rubs. ABDOMEN: Globular, soft, nontender, no masses. EXTREMITIES: No edema, no deformities. Medications of 12/13/2017 were reviewed. LABORATORY DATA: Laboratories of 12/13/2017, blood sugar 184. 12/10/2017, sodium 137, potassium 4.1 , chloride 105, carbon dioxide 24, BUN 62, creatinine 7.4, hemoglobin 9.7, hematocrit 29. ASSESSMENT AND PLAN: 1. Chronic renal failure - hemodialysis will be initiated. He is most likely at end-stage renal dis ease. Fluid removal as tolerated. We will now place him on a Saturday, Saturday, Saturday hemodialysis schedule. We are awaiting outpatient dialysis placement. 2. Anemia, on weekly Epogen. 3. Congestive heart failure, clinically much improved with fluid removal with dialysis. Continue zelaya pportive care.
[2017-12-13] MEDS: Insulin Glargine 25 UNITS in Pre-Filled Syringe SC SCH (10:38)
[2017-12-13] MEDS: Heparin 5,000 UNITS/ML VIAL SC SCH ×2 (10:39→14:41)
[2017-12-13] MEDS ORDERED: Heparin 1,000 UNITS/ML VIAL ONE (11:11)
[2017-12-13] MEDS: hydrALAZINE 25 MG TAB PO SCH ×2 (14:39→14:47)
[2017-12-13] MEDS: Carvedilol 25 MG TAB PO SCH (14:40)
[2017-12-13] MEDS: cloNIDine 0.2 MG TAB PO SCH (14:40)
[2017-12-13] MEDS: Aspirin 81 mg Enteric Coated Tablet PO SCH (14:40)
[2017-12-13] MEDS: Nicotine 21 MG PATCH TD SCH (14:41)
[2017-12-13] MEDS: Ferrous Sulfate 325 MG TAB PO SCH ×2 (14:41→14:47)
[2017-12-13 14:43] VITALS: BP 194/89; TEMP 98.1
--- NOTE | 2017-12-13 16:03 | DIS ---
DATE OF ADMISSION: 12/07/2017 DATE OF DISCHARGE: 12/13/2017 DISCHARGE DIAGNOSES: 1. End-stage renal disease with current hemodialysis. 2. Acute on chronic diastolic congestive heart failure with ejection fraction of 50%-55%. 3. Diabetes mellitus type 2, insulin requiring. 4. Tobacco abuse. 5. Hypertension, improved. 6. Chronic anemia secondary to chronic kidney disease. CONSULTATIONS: Dr. Garcia with Nephrology Service. Dr. Umaña with General Surgery Service. PERTINENT LABORATORY DATA AND X-RAY FINDINGS: Creatinine ranged between 6.30-7.17. Estimated GFR ra nged between 10-11. Troponin I ranged between 0.138-0.153. BNP 1370, previously noted 709 on 2017. CBC showed a hemoglobin ranged between 9.4-11.2. Hepatitis B panel negative. Hepatitis C non reactive. HIV 1 and 2 antigen and antibody nonreactive, 12/11/2017. Portable chest x-ray dated 11/11 showed cardiomegaly and pulmonary edema. HOSPITAL COURSE: Patient was admitted after presenting with increased shortness of breath in the con text of end-stage renal disease with associated pulmonary edema and hypoxemia. The patient was place d on oxygen therapy as well as pulmonary supportive measures and evaluated by the nephrology service for worsening renal function. The patient initially with history of chronic kidney disease stage 4-5 , progressing to end-stage renal disease. The patient underwent a right internal jugular tunneled he modialysis catheter placement and subsequently proceeded with initiation of hemodialysis during the h ospital course completing 4 sessions. The patient was evaluated by case management and coordinated f or outpatient hemodialysis services after discharge. The patient clinically improved in regards to p ulmonary status with volume removal and general pulmonary supportive care. The patient with a previo us 2D transthoracic echocardiogram in 10/2017 showing a preserved ejection fraction of 50% -55%; [place], the patient does have diastolic dysfunction. Patient's overall blood pressure trend improved wi th maintenance hemodialysis; however, may need additional titration of his antihypertensive regimen o n an ongoing basis after discharge. The patient was titrated on his diabetic regimen with decreasing Amaryl to 2 mg b.i.d. as well as decreasing Levemir to 25 units q.a.m. and 20 units subcutaneously a t bedtime. Overall, the patient remained clinically stable with telemetry monitoring showing sinus m echanism. I have examined the patient at the time of discharge and discussed followup instructions, at which point the patient verbalized understanding and agreement. The patient overall clinically st able and ready for discharge on 12/13/2017. DISCHARGE MEDICATIONS: 1. Norvasc 10 mg p.o. at bedtime. 2. Enteric coated aspirin 81 mg p.o. daily. 3. Lipitor 40 mg p.o. at bedtime. 4. Carvedilol 25 mg p.o. b.i.d. 5. Clonidine 0.2 mg p.o. b.i.d. 6. Feosol 325 mg p.o. b.i.d. 7. Amaryl 2 mg p.o. b.i.d. 8. Levemir 25 units subcutaneously q.a.m. and 20 units subcutaneously at bedtime. 9. Nicotine patch 21 mg transdermally q.24 hours. FOLLOWUP: The patient will follow up with Dr. Nunez within 7 days of discharge. The patient will f ollow up with Dr. Garcia with Nephrology Service for hemodialysis Saturday, Saturday, and Saturday at [facility] at [place], [place]. The patient will follow up with Dr. Storey with [facility] and to call his office for appointment time and date. CONDITION ON DISCHARGE: Stable. ACTIVITY: ad varun. DIET: Heart healthy ADA and renal. CODE STATUS: FULL. DISPOSITION: Home, 12/13/2017. Total time preparing and coordinating this discharge is 35 minutes.
== END 2017-12-13 15:54 | disposition home or self-care (01) | DRG 291 ==
LOC: ERS 01:02 → 2NO 04:10
PROVIDERS: ADMIT Internal Medicine; ATTEND Internal Medicine
PROC: 5A1D70Z Performance of Urinary Filtration, Intermittent, Less than 6 Hours Per Day (ICD-10-PCS; principal; 2017-12-07)
PROC: 0JH63XZ Insertion of Tunneled Vascular Access Device into Chest Subcutaneous Tissue and Fascia, Percutaneous Approach (ICD-10-PCS; 2017-12-10)
PROC: 02HV33Z Insertion of Infusion Device into Superior Vena Cava, Percutaneous Approach (ICD-10-PCS; 2017-12-10)
DX: I13.2 Hypertensive heart and chronic kidney disease with heart failure and with stage 5 chronic kidney disease, or end stage renal disease (principal); I50.33 Acute on chronic diastolic (congestive) heart failure; N18.6 End stage renal disease; J44.1 Chronic obstructive pulmonary disease with (acute) exacerbation; Z99.2 Dependence on renal dialysis; E11.22 Type 2 diabetes mellitus with diabetic chronic kidney disease; F17.210 Nicotine dependence, cigarettes, uncomplicated; T78.40XA Allergy, unspecified, initial encounter; T36.1X5A Adverse effect of cephalosporins and other beta-lactam antibiotics, initial encounter; D63.1 Anemia in chronic kidney disease; E11.43 Type 2 diabetes mellitus with diabetic autonomic (poly)neuropathy; K31.84 Gastroparesis; I25.10 Atherosclerotic heart disease of native coronary artery without angina pectoris; Z23 Encounter for immunization
CPT/HCPCS: 36415; 36416; 71045; 71046; 80048; 80053; 81003; 81015; 82553; 83735; 83880; 84484; 85025; 86580; 86704; 86706; 86803; 87340; 87389; 90935; 93005; 93798; 94640; 94760; 96374; 96375; A4216; C1752; C1769; G0257; J0360; J1200; J1642; J1644; J1940; J2270; J2704; J2930; J3010; J7506; J7620; Q4081

== ENCOUNTER 2017-12-19 20:00 | Inpatient (IN) | payer MEDICARE, MEDICAID ==
[2017-12-19] MEDS ORDERED: Nitroglycerin 0.4 MG TAB (25 Tab Bottle) ONE (20:17)
[2017-12-19] MEDS ORDERED: Nitroglycerin 2% Ointment 1 INCH/1 GM Packet ONE (20:17)
[2017-12-19 20:25] LABS: #Basophils 0.1 thou/uL (0.0-0.2); #Eosinphils 0.3 thou/uL (0.0-0.7); #Lymphocytes 1.4 thou/uL (1.20-3.40); #Monocytes 0.7 thou/uL (0.11-0.59); #Neutrophils 6.3 thou/uL (1.40-6.50); %Basophils 0.7 % (0.0-1.0); %Lymphocytes 15.9 % (21.0-51.0); %Monocytes 8.2 % (0.0-10.0); %Neutrophils 72.3 % (42.0-75.0); Hemoglobin 10.1 g/dL (14.0-18.0); Mean Corpuscular HGB CONC 33.2 g/dL (32.0-36.0); Mean Corpuscular Hemoglobin 28.5 pg (27.0-31.0); Mean Corpuscular Volume 85.9 fL (78.0-98.0); Platelet Count 154 thou/uL (130-400); RBC Distribution Width 12.8 % (11.5-14.5); Red Blood Cell (RBC) Count 3.55 mill/uL (4.70-6.10); White Blood Cell (WBC) Count 8.7 thou/uL (4.8-10.8)
--- NOTE | 2017-12-19 20:37 | RAD ---
AP VIEW OF THE CHEST: 12/19/17 INDICATION: Shortness of breath. IMPRESSION: There is a dialysis catheter projecting in the SVC. There is mild cardiomegaly with mild pulmonary va scular congestion. There is subsegmental atelectasis within the left mid lung. No jefry pleural effus ion or pneumothorax is evident. The exam is compared with prior dated 12/10/17. POS: ALESIA
[2017-12-19] MEDS ORDERED: Acetaminophen 325 MG TAB ONE (20:47)
[2017-12-19 20:50] LABS: ALT (SGPT) 26 U/L (8-55); AST (SGOT) 34 U/L (5-34); Albumin 3.2 g/dL (3.5-5.0); Alkaline Phosphatase 251 U/L (40-150); Anion Gap 14 mmol/L (10-20); BUN (Urea Nitrogen) 21 mg/dL (8.4-25.7); Bilirubin, Total 0.5 mg/dL (0.2-1.2); CK (CPK) 791 U/L (30-200); Calc. Creatinine Clearance 0 mL/min (70-130); Calcium 8.5 mg/dL (7.8-10.44); Carbon Dioxide 27 mmol/L (22-29); Chloride 105 mmol/L (98-107); Estimated GFR-MDRD 20; Globulin 3.3 g/dL (2.4-3.5); Glucose 90 mg/dL (70-105); Lipase 14 U/L (8-78); Potassium 4.2 mmol/L (3.5-5.1); Protein, Total 6.5 g/dL (6.0-8.3); Sodium 142 mmol/L (136-145)
[2017-12-19 20:54] LABS: CKMB 5.6 ng/mL (0-6.6); Troponin I 0.107 ng/mL (< 0.028)
[2017-12-19] MEDS ORDERED: Dextrose 5% in Water 1,000 ML IV PRN (22:15)
[2017-12-19] MEDS ORDERED: HumaLOG 300 UNITS/3 ML VIAL SC PRN (22:15)
[2017-12-19] MEDS ORDERED: Furosemide 20 MG TAB PO SCH (22:15)
[2017-12-19 23:46] LABS: Troponin I 0.119 ng/mL (< 0.028)
[2017-12-19] MEDS: Zolpidem Tartrate 5 MG TAB PO PRN (23:59)
--- NOTE | 2017-12-20 02:27 | HP ---
CHIEF COMPLAINT: Shortness of breath. HISTORY OF PRESENT ILLNESS: Patient is a 57-year-old male who was just admitted here to the facility , discharged last week. At that time, the patient had essentially progression to end-stage renal dis ease requiring dialysis. He had a right-tunneled catheter placed and had dialysis initiated to have follow up as an outpatient. The patient reported that he did okay for a day or two then subsequently he has been having some difficulties. He reports that he is in the process of moving and has some o f his stuff in storage. His nebulizer machine is among those things in storage and he has not had ac cess to it for his COPD. The patient reports he has been having some difficulty breathing and signif icant dyspnea on minimal exertion. He has orthopnea. He has been coughing with production of clear phlegm. He feels tightness in his chest. He also has some nasal congestion, which makes him feel ev en more like he cannot breathe and that causes him anxiety and sometimes that full on anxiety attack. His symptoms had not improved. He presented to the emergency department here today. REVIEW OF SYSTEMS: Notable for very poor sleep, some chills without fever, and very poor appetite. He has been having significant difficulty with his vision and has been referred to Dr. Li for diabe tic retinopathy issues. He has had significant lower extremity edema, which has been causing him rufino e discomfort. He reports that sometimes it will get better, but by the next morning, it is back agai n. He has the above-mentioned chest discomfort with pressure, some palpitations, cough, shortness of breath. He has not had significant wheezing. He has had nocturia x2, which is normal for him. He also feels some tingling in his lower extremities with the edema. He does have the anxiety related t o shortness of breath. He also reports some depression and was actually scheduled for [facility] tomorrow. Other than that, review of systems through [facility] systems only notable for the history of present illn ess. PAST MEDICAL HISTORY: Notable for diastolic heart failure with an EF of 50% to 55%, labile hypertens ion, end-stage renal disease with the recent transition to dialysis, chronically elevated troponin, n ormocytic anemia likely secondary to chronic kidney disease, COPD, and diabetes mellitus. PAST SURGICAL HISTORY: Heart catheterization in 2017, left upper extremity dialysis fistula placed i n 11/27 with a tunneled catheter placed last week. FAMILY HISTORY: His mother had a CVA at the age of 62. His father had diabetes, hypertension, alcoh olism. He had a brother with diabetes and chronic kidney disease who is already . SOCIAL HISTORY: Patient reports he has only smoked two cigarettes since his discharge last week. He would like a nicotine patch; however, denies alcohol use. He does have a history of cocaine abuse i n the past. Currently, the patient is living in a homeless facility. He is FULL CODE. His grace ld be a surrogate decision maker. ALLERGIES: None. CURRENT MEDICATIONS: Coreg 25 b.i.d., Lantus 25 q.a.m. and 20 q.p.m., Coreg 25 mg b.i.d., clonidine 0.2 b.i.d., atorvastatin 40 mg every day, Norvasc 10 mg every day, aspirin 81 mg every day, glimepiri de 4 mg every day. PHYSICAL EXAMINATION: VITAL SIGNS: Initially in the ER, BP was 240/110. Most recent is 150s/60s, pulse 79, respirations 1 6, O2 sats 98% on room air. GENERAL APPEARANCE: Age appropriate male in no distress. He is pleasant, cooperative with a good se nse of humor. HEENT: PERRL. No OP lesions. TMs are normal. NECK: Supple and symmetric without lymphadenopathy, JVD, or carotid bruits. CARDIOVASCULAR: Regular rate and rhythm without murmurs, gallops, or rubs. LUNGS: Reveal some scattered rales throughout with some diminished breath sounds. ABDOMEN: Soft, nontender, nondistended with positive bowel sounds. No masses and no organomegaly. EXTREMITIES: Reveal 2+ pitting of the lower extremities in spite of wearing some compression stockin gs. IMAGING: Chest x-ray reveals the dialysis catheter, there is mild cardiomegaly with mild pulmonary v ascular congestion, subsegmental atelectasis within the left mid lung. LABORATORY DATA: White count 8.7, hemoglobin 10.1, platelets 154. Sodium 142, potassium 4.2, chlori de 105, CO2 of 27, BUN 21, creatinine is 3.9. Alkaline phosphatase 251, CK 791, troponin 0.107. BNP 1419. Albumin 3.2. ASSESSMENT AND PLAN: 1. Hypertensive urgency. This patient presented to the emergency department with significant elevat ion of the blood pressure. He had some Nitro-Bid transdermal applied as well as given sublingual nif edipine to relieve his blood pressure significantly. Presently, his blood pressure is under much bet ter control. It is unclear how much of this contributed to the patient's symptoms of shortness of br eath and chest pressure. It is possible this patient may need some more volume control via dialysis and we will consult Dr. Garcia to assess that. 2. End-stage renal disease with recent transition to hemodialysis. We will again have Dr. Garcia consu lt to determine if there are any adjustments that need to be made with respect to that. 3. Chest pressure. The patient has had a prior cardiac catheterization with no stent placement. We will continue to monitor the patient's troponins and nitro paste in place. He has history of chroni hari elevated troponin and these numbers are not off his baseline at all. 4. Shortness of breath again this may be related to the hypertensive urgency or possibly some volume issues. He does not have overt pulmonary edema on his chest x-ray but does have some vascular conge stion and peripheral edema. We will give him a dose of p.o. Lasix now. Patient does still make urin e. He may respond to that somewhat in the short term. Patient also has chronic obstructive pulmonar y disease. We will continue with nebulizer treatments to address that as well. 5. Diabetes mellitus. We will continue with a renal diet but have the patient on sliding scale insu shyann as needed. We will resume his usual home medications. 6. History of diastolic dysfunction. Continue with the Coreg 25 mg b.i.d. 7. Hyperlipidemia. Continue with his home dose of simvastatin. 8. History of tobacco abuse. We will give the patient a nicotine patch.
[2017-12-20 02:38] LABS: Troponin I 0.092 ng/mL (< 0.028)
[2017-12-20] MEDS ORDERED: Nicotine 14 MG PATCH TD SCH (09:00)
[2017-12-20] MEDS: Acetaminophen 325 MG TAB PO PRN ×2 (09:31→22:02)
[2017-12-20] MEDS: Heparin 5,000 UNITS/ML VIAL SC SCH ×3 (09:31→20:07)
[2017-12-20] MEDS ORDERED: Epoetin (ESRD) 20,000 UNITS/ML SC SCH (10:15)
--- NOTE | 2017-12-20 10:30 | PRG ---
DATE OF SERVICE: 12/20/2017 RENAL MEDICINE SUBJECTIVE: Mr. Keita is a 57-year-old black male with ESRD from diabetic nephropathy and admitted for shortness of breath. He was found to be with COPD exacerbation. According to the patient, he co uld not find his nebulizer. Chest x-ray did show some increased lung markings. We are being consulted for his maintenance hemodialysis. I have scheduled him for dialysis this afte rnoon. PHYSICAL EXAMINATION: VITAL SIGNS: Blood pressure is 176/79, heart rate 69, respiratory rate 18, temperature 98.1, pulse o x 99%. GENERAL: Awake, alert, comfortable, not in distress. SKIN: Adequate turgor. HEENT: Slightly pale conjunctivae, anicteric sclerae. NECK: No neck mass, no carotid bruits, no JVD. CHEST: No deformities. LUNGS: Decreased breath sounds, occasional wheezing. HEART: Normal sinus rhythm. No murmur, no gallops, no rubs. ABDOMEN: Globular, soft, nontender, no masses. EXTREMITIES: No edema, no deformities. MEDICATIONS: Medications of 12/20/2017 was reviewed. LABORATORY DATA AND IMAGING DATA: Laboratories of 12/19/2017; white count 8.7, hemoglobin 10.1, sodi um 142, potassium 4.2, chloride 105, carbon dioxide 27, BUN 21, creatinine 3.9, AST 34, ALT 26, tropo piotr I 0.092, albumin 3.2. Chest x-ray, increased lung markings. ASSESSMENT AND PLAN: 1. ESRD - we will schedule for hemodialysis 4 hours today. Max out fluid removal as tolerated by th e patient. He is a new patient. We are waiting for the repeat KT/V with this patient. 2. Anemia -- Start Epogen 7500 units subcutaneously every week. 3. Shortness of breath, multifactorial, combination of congestive heart failure as well as chronic o bstructive pulmonary disease exacerbation. Agree with current management.
[2017-12-20] MEDS ORDERED: Carvedilol 25 MG TAB PO SCH ×2 (12:15→21:00)
[2017-12-20] MEDS ORDERED: cloNIDine 0.2 MG TAB PO SCH ×2 (12:15→21:00)
--- NOTE | 2017-12-20 12:49 | PQF ---
CLINICAL DOCUMENTATION IMPROVEMENT CLARIFICATION FORM: ICD-10 Updated PLEASE DO AN ADDENDUM TO THE PROGRESS NOTE WITH ANY DOCUMENTATION UPDATES OR ADDITIONS AND CARRY THROUGH TO DC SUMMARY. THANK YOU. DATE: 12/20/17 ATTN: DR. MADDOX Please exercise your independent, professional judgment in responding to the clarification form. Clinical indicators are provided on the bottom of this form for your review Please check appropriate box(s): HEART FAILURE: A. TYPE: [ ] Systolic / HFrEF [ X ] Diastolic / HFpEF [ ] Combined Systolic / Diastolic B. ACUITY [ ] Acute [ ] Acute on Chronic [ X ] Chronic [ ] Other diagnosis [ ] Unable to determine In addition, please specify: Present on Admission (POA): [ X ] Yes [ ] No [ ] Unable to determine For continuity of documentation, please document condition throughout progress notes and discharge summary. Thank You. CLINICAL INDICATORS - SIGNS / SYMPTOMS / LABS PROGRESS NOTE 12/20: "SHORTNESS OF BREATH, MULTIFACTORAL, COMBINATION OF CONGESTIVE HEART FAILURE WELL CHRONIC OBSTRUCTIVE PULMONARY DISEASE EXACERBATION." BNP 1419.9 RISKS: HYPERTENSION RENAL DISEASE TREATMENT: CARDIAC MONITORING COREG (12/20) LASIX (12/19) (This form is maintained as a part of the permanent medical record) 2014 [employer]. All Rights Reserved NANCY [email or web address] Office: [phone] GABBI
--- NOTE | 2017-12-20 18:13 | PDOC.PN ---
- Subjective Encounter Start Date: 12/20/17 Encounter Start Time: 10:20 Pt seen for followup re: hypertensive urgency. Denies chest pain. Has SOBOE. - Objective Resuscitation Status: Resuscitation Status FULL:Full Resuscitation MAR Reviewed: Yes Vital Signs & Weight: Vital Signs (12 hours) Temp Pulse Resp BP Pulse Ox 12/20/17 17:15 75 16 12/20/17 11:39 97.9 F 75 18 217/105 H 98 12/20/17 10:40 96 12/20/17 10:33 67 16 12/20/17 09:29 176/79 H 12/20/17 08:04 98.1 F 69 18 198/95 H 99 Weight Weight 229 lb 4.8 oz I&O: 12/19/17 12/20/17 12/21/17 06:59 06:59 06:59 Intake Total 1200 Output Total 400 Balance 800 Result Diagrams: 12/19/17 20:15 12/19/17 20:15 Additional Labs: Accuchecks 12/20/17 12/20/17 12/20/17 17:10 11:27 05:48 POC Glucose 63 L 109 141 H 12/20/17 00:14 POC Glucose 244 H EKG Reviewed by me: Yes (Tele: NSR) Phys Exam - Physical Examination Obese HEENT: moist MMs, sclera anicteric, oral pharynx no lesions, 2+ tonsils Neck: no nodes, no JVD, supple, full ROM Respiratory: no wheezing, no rhonchi Chandan crackles Cardiovascular: RRR, no rub S1, S2 Gastrointestinal: soft, non-tender, no distention, positive bowel sounds Musculoskeletal: edema present Neurological: moves all 4 limbs Psychiatric: normal affect, A&O x 3 Dx/Plan (1) Hypertensive urgency Code(s): I16.0 - HYPERTENSIVE URGENCY Status: Acute Comment: monitor vital signs, titrate antihypertensives as needed. (2) Volume overload Code(s): E87.70 - FLUID OVERLOAD, UNSPECIFIED Status: Acute Comment: pt needs dialysis (3) ESRD on dialysis Code(s): N18.6 - END STAGE RENAL DISEASE; Z99.2 - DEPENDENCE ON RENAL DIALYSIS Status: Acute Comment: nephrology consulted (4) Chronic diastolic heart failure Code(s): I50.32 - CHRONIC DIASTOLIC (CONGESTIVE) HEART FAILURE Status: Chronic Comment: remove volume by dialysis (5) COPD (chronic obstructive pulmonary disease) Status: Chronic Comment: duonebs PRN (6) DM2 (diabetes mellitus, type 2) Status: Chronic Comment: continue accuchecks, insulin sliding scale (7) Obesity (BMI 30-39.9) Code(s): E66.9 - OBESITY, UNSPECIFIED Status: Chronic - Plan * . Review of Systems - Review of Systems Constitutional: negative: fever, chills, sweats, weakness, malaise Respiratory: SOB with Excertion, Wheezing. negative: Cough, Shortness of Breath , Pleuritic Pain Cardiovascular: edema. negative: chest pain, palpitations, orthopnea, paroxysmal nocturnal dyspnea, light headedness Gastrointestinal: negative: Nausea, Vomiting, Abdominal Pain, Diarrhea, Constipation, Melena, Hematochezia Genitourinary: negative: Dysuria, Frequency, Incontinence, Hematuria, Retention Skin: negative: Rash, Lesions, Bryant, Bruising - Medications/Allergies Allergies/Adverse Reactions: Allergies Allergy/AdvReac Type Severity Reaction Status Date / Time No Known Drug Allergies Allergy Verified 12/07/17 06:32 Medications: Current Medications Acetaminophen (Tylenol) 650 mg PO Q4H PRN PRN Reason: Headache/Fever or Pain Last Admin: 12/20/17 09:31 Dose: 650 mg Albuterol/Ipratropium (Duoneb) 3 ml NEB Q4H PRN PRN Reason: SOB &/or Wheezing Last Admin: 12/20/17 17:15 Dose: 3 ml Carvedilol (Coreg) 25 mg PO BID [facility] Clonidine (Catapres) 0.2 mg PO BID [facility] Dextrose/Water (Dextrose 50%) 25 gm SLOW IVP PRN PRN PRN Reason: Hypoglycemia Epoetin Rojleio (Procrit) 7,500 units SC Q7D [facility] Last Admin: 12/20/17 12:08 Dose: 7,500 units Glucagon (Glucagon) 1 mg IM PRN PRN PRN Reason: Hypoglycemia Heparin Sodium (Porcine) (Heparin) 5,000 units SC TID [facility] Last Admin: 12/20/17 17:56 Dose: Not Given Dextrose/Water (D5w) 1,000 mls @ 0 mls/hr IV .Q0M PRN PRN Reason: Hypoglycemia Insulin Human Lispro (Humalog) 0 units SC .MILD SLIDING SCALE PRN PRN Reason: Mild Correctional Scale Nicotine (Nicoderm Patch) 14 mg TD Q24HR [facility] Last Admin: 12/20/17 09:31 Dose: 14 mg Zolpidem Tartrate (Ambien) 5 mg PO HSPRN PRN PRN Reason: Insomnia Last Admin: 12/19/17 23:59 Dose: 5 mg
[2017-12-20] MEDS: Nicotine 21 MG PATCH TD SCH (18:40)
[2017-12-20] MEDS: hydrALAZINE 20 MG/ML VIAL SLOW IVP PRN (18:43)
[2017-12-20] MEDS: Atorvastatin Calcium 40 MG TAB PO SCH (20:07)
[2017-12-20] MEDS: Insulin Glargine 25 UNITS in Pre-Filled Syringe 1 EACH SC SCH ×2 (20:58→23:14)
[2017-12-20] MEDS ORDERED: Non-Formulary Item 1 EACH (Hydralazine Hcl [Hydralazine Hcl] 100 MG) PO SCH (21:00)
[2017-12-20] MEDS: hydrALAZINE 25 MG TAB PO SCH (21:03)
[2017-12-20] MEDS: Zolpidem Tartrate 5 MG TAB PO PRN (22:02)
[2017-12-20] MEDS: cloNIDine 0.2 MG TAB PO SCH (23:14)
[2017-12-21 05:02] LABS: #Eosinphils 0.3 thou/uL (0.0-0.7); #Lymphocytes 1.3 thou/uL (1.20-3.40); #Monocytes 0.5 thou/uL (0.11-0.59); #Neutrophils 3.6 thou/uL (1.40-6.50); %Basophils 0.1 % (0.0-1.0); %Eosinophils 4.6 % (0.0-10.0); %Lymphocytes 22.1 % (21.0-51.0); %Neutrophils 64.2 % (42.0-75.0); Hemoglobin 9.7 g/dL (14.0-18.0); Mean Corpuscular HGB CONC 32.8 g/dL (32.0-36.0); Mean Corpuscular Hemoglobin 28.1 pg (27.0-31.0); Mean Corpuscular Volume 85.5 fL (78.0-98.0); Mean Platelet Volume 8.8 fL (7.4-10.4); Platelet Count 139 thou/uL (130-400); RBC Distribution Width 12.3 % (11.5-14.5); Red Blood Cell (RBC) Count 3.44 mill/uL (4.70-6.10); White Blood Cell (WBC) Count 5.7 thou/uL (4.8-10.8)
[2017-12-21 05:42] LABS: Anion Gap 10 mmol/L (10-20); BUN (Urea Nitrogen) 15 mg/dL (8.4-25.7); Calc. Creatinine Clearance 40 mL/min (70-130); Calcium 8.4 mg/dL (7.8-10.44); Carbon Dioxide 29 mmol/L (22-29); Chloride 102 mmol/L (98-107); Estimated GFR-MDRD 25; Glucose 101 mg/dL (70-105); Sodium 137 mmol/L (136-145)
[2017-12-21] MEDS: Heparin 5,000 UNITS/ML VIAL SC SCH ×3 (07:55→20:52)
[2017-12-21] MEDS: Insulin Glargine 25 UNITS in Pre-Filled Syringe 1 EACH SC SCH (07:55)
[2017-12-21] MEDS: cloNIDine 0.2 MG TAB PO SCH ×2 (07:56→20:52)
[2017-12-21] MEDS: Carvedilol 6.25 MG TAB PO SCH ×2 (07:56→18:02)
[2017-12-21] MEDS: Glimepiride 4 MG TAB PO SCH ×2 (07:56→18:02)
[2017-12-21] MEDS: Aspirin 81 mg Enteric Coated Tablet PO SCH (07:57)
[2017-12-21] MEDS: Ferrous Sulfate 325 MG TAB PO SCH ×2 (07:57→18:02)
[2017-12-21] MEDS: hydrALAZINE 25 MG TAB PO SCH ×3 (07:57→20:51)
[2017-12-21] MEDS: hydrALAZINE 20 MG/ML VIAL SLOW IVP PRN (12:26)
[2017-12-21] MEDS: Dextrose 50% Abboject 50 ML SYRINGE SLOW IVP PRN (13:31)
[2017-12-21] MEDS: Nicotine 21 MG PATCH TD SCH (18:03)
[2017-12-21] MEDS: Atorvastatin Calcium 40 MG TAB PO SCH (20:51)
[2017-12-21] MEDS ORDERED: Insulin Glargine 20 UNITS in Pre-Filled Syringe 1 EACH SC SCH (21:00)
--- NOTE | 2017-12-21 22:31 | PDOC.PN ---
- Subjective Encounter Start Date: 12/21/17 Encounter Start Time: 12:20 Patient seen and examined. HYpertensive and hypoglycemic. - Objective Resuscitation Status: Resuscitation Status FULL:Full Resuscitation MAR Reviewed: Yes Vital Signs & Weight: Vital Signs (12 hours) Temp Pulse Resp BP BP BP Pulse Ox 12/21/17 20:52 165/80 H 12/21/17 20:51 74 12/21/17 18:58 73 16 99 12/21/17 18:02 178/80 H 12/21/17 15:56 74 178/80 H 12/21/17 15:45 98.3 F 84 20 178/80 H 98 12/21/17 14:02 74 16 12/21/17 13:28 71 158/78 H 12/21/17 12:26 67 209/98 H 12/21/17 12:17 67 20 209/98 H Weight Weight 227 lb I&O: 12/20/17 12/21/17 12/22/17 06:59 06:59 06:59 Intake Total 1200 2280 1388 Output Total 400 1400 700 Balance 800 880 688 Result Diagrams: 12/21/17 04:24 12/21/17 04:24 Additional Labs: Accuchecks 12/21/17 12/21/17 12/21/17 20:36 16:43 14:41 POC Glucose 205 H 152 H 75 12/21/17 12/21/17 12/20/17 10:44 05:10 23:07 POC Glucose 161 H 103 169 H Phys Exam - Physical Examination Constitutional: NAD HEENT: PERRLA, moist MMs Neck: no JVD Respiratory: no wheezing, no rales, clear to auscultation bilateral Cardiovascular: RRR, no significant murmur Gastrointestinal: soft, non-tender, no distention, positive bowel sounds Musculoskeletal: no edema, pulses present Neurological: non-focal, normal sensation, moves all 4 limbs Psychiatric: normal affect, A&O x 3 Skin: no rash, normal turgor, cap refill <2 seconds Deviation from normal: AV fistula at left wrist Dx/Plan (1) Hypoglycemia Code(s): E16.2 - HYPOGLYCEMIA, UNSPECIFIED Status: Acute Comment: Have adjusted lantus dose to daily 20 units. will check morning fasting sugars and adjust accordingly (2) Hypertensive urgency Code(s): I16.0 - HYPERTENSIVE URGENCY Status: Acute Comment: monitor vital signs, titrate antihypertensives as needed. (3) ESRD on dialysis Code(s): N18.6 - END STAGE RENAL DISEASE; Z99.2 - DEPENDENCE ON RENAL DIALYSIS Status: Acute Comment: s/p dialysis. will continue to follow (4) Chronic diastolic heart failure Code(s): I50.32 - CHRONIC DIASTOLIC (CONGESTIVE) HEART FAILURE Status: Chronic Comment: remove volume by dialysis (5) Acute on chronic diastolic (congestive) heart failure Code(s): I50.33 - ACUTE ON CHRONIC DIASTOLIC (CONGESTIVE) HEART FAILURE Status : Acute Comment: Stable currently (6) COPD exacerbation Code(s): J44.1 - CHRONIC OBSTRUCTIVE PULMONARY DISEASE W (ACUTE) EXACERBATION Status: Acute Comment: continue oxygen, steroids, bronchodilators (7) DM2 (diabetes mellitus, type 2) Status: Chronic Comment: continue accuchecks, insulin sliding scale (8) Diabetic nephropathy associated with type 2 diabetes mellitus Code(s): E11.21 - TYPE 2 DIABETES MELLITUS WITH DIABETIC NEPHROPATHY Status: Chronic (9) Obesity (BMI 30-39.9) Code(s): E66.9 - OBESITY, UNSPECIFIED Status: Chronic - Plan * . Blood pressures are not controlled and patient became hypoglycemic due to high lantus doses. Have adjust medication. Will follow up in the Am to see how patient does on recent doses. Currently patient is not fully optimized to be discharged. Review of Systems - Review of Systems Constitutional: negative: fever, chills, sweats, weakness, malaise, other Eyes: negative: Pain, Vision Change, Conjunctivae Inflammation, Eyelid Inflammation, Redness, Other ENT: negative: Ear Pain, Ear Discharge, Nose Pain, Nose Discharge, Nose Congestion, Mouth Pain, Mouth Swelling, Throat Pain, Throat Swelling, Other Respiratory: negative: Cough, Dry, Shortness of Breath, Hemoptysis, SOB with Excertion, Pleuritic Pain, Sputum, Wheezing Cardiovascular: negative: chest pain, palpitations, orthopnea, paroxysmal nocturnal dyspnea, edema, light headedness, other Gastrointestinal: negative: Nausea, Vomiting, Abdominal Pain, Diarrhea, Constipation, Melena, Hematochezia, Other Genitourinary: negative: Dysuria, Frequency, Incontinence, Hematuria, Retention , Other Musculoskeletal: negative: Neck Pain, Shoulder Pain, Arm Pain, Back Pain, Hand Pain, Leg Pain, Foot Pain, Other Skin: negative: Rash, Lesions, Bryant, Bruising, Other Neurological: negative: Weakness, Numbness, Incoordination, Change in Speech, Confusion, Seizures, Other - Medications/Allergies Allergies/Adverse Reactions: Allergies Allergy/AdvReac Type Severity Reaction Status Date / Time No Known Drug Allergies Allergy Verified 12/07/17 06:32 Medications: Current Medications Acetaminophen (Tylenol) 650 mg PO Q4H PRN PRN Reason: Headache/Fever or Pain Last Admin: 12/20/17 22:02 Dose: 650 mg Albuterol/Ipratropium (Duoneb) 3 ml NEB Q4H PRN PRN Reason: SOB &/or Wheezing Last Admin: 12/21/17 18:58 Dose: 3 ml Aspirin (Ecotrin) [address] [facility] Last Admin: 12/21/17 07:57 Dose: 81 mg Atorvastatin Calcium (Lipitor) [address] [facility] Last Admin: 12/21/17 20:51 Dose: 40 mg Carvedilol (Coreg) 6.25 mg PO BID-[facility] Last Admin: 12/21/17 18:02 Dose: 6.25 mg Clonidine (Catapres) 0.[address] [facility] Last Admin: 12/21/17 20:52 Dose: 0.2 mg Dextrose/Water (Dextrose 50%) 25 gm SLOW IVP PRN PRN PRN Reason: Hypoglycemia Last Admin: 12/21/17 13:31 Dose: 25 gm Epoetin Rojelio (Procrit) 7,[address] [facility] Last Admin: 12/20/17 12:08 Dose: 7,500 units Ferrous Sulfate (Feosol) 325 mg PO BID-[facility] Last Admin: 12/21/17 18:02 Dose: 325 mg Glimepiride (Amaryl) 4 mg PO BID-[facility] Last Admin: 12/21/17 18:02 Dose: 4 mg Glucagon (Glucagon) 1 mg IM PRN PRN PRN Reason: Hypoglycemia Heparin Sodium (Porcine) (Heparin) 5,[address] [facility] Last Admin: 12/21/17 20:52 Dose: 5,000 units Hydralazine HCl (Apresoline) 10 mg SLOW IVP Q6H PRN PRN Reason: SBP Greater Than 170 Last Admin: 12/21/17 12:26 Dose: 10 mg Hydralazine HCl (Apresoline) [address] [facility] Last Admin: 12/21/17 20:51 Dose: 100 mg Dextrose/Water (D5w) 1,000 mls @ 0 mls/hr IV .Q0M PRN PRN Reason: Hypoglycemia Insulin Glargine 20 units/ (Miscellaneous Medication) 0.2 mls @ 0 mls/hr SC HS [facility] Last Admin: 12/21/17 22:13 Dose: 0.2 mls Insulin Human Lispro (Humalog) 0 units SC .MILD SLIDING SCALE PRN PRN Reason: Mild Correctional Scale Last Admin: 12/21/17 11:50 Dose: 2 unit Nicotine (Nicoderm Patch) [address] [facility] Last Admin: 12/21/17 18:03 Dose: 21 mg Sodium Chloride (Flush - Normal Saline) [address] [facility] Last Admin: 12/21/17 20:53 Dose: 10 ml Sodium Chloride (Flush - Normal Saline) 10 ml IVF PRN PRN PRN Reason: Saline Flush Zolpidem Tartrate (Ambien) 5 mg PO HSPRN PRN PRN Reason: Insomnia Last Admin: 12/20/17 22:02 Dose: 5 mg
[2017-12-22] MEDS ORDERED: HumaLOG 300 UNITS/3 ML VIAL SC PRN (01:58)
[2017-12-22] MEDS: Dextrose 50% Abboject 50 ML SYRINGE SLOW IVP PRN ×3 (04:45→16:47)
[2017-12-22] MEDS: Carvedilol 6.25 MG TAB PO SCH ×2 (08:40→16:46)
[2017-12-22] MEDS: Ferrous Sulfate 325 MG TAB PO SCH ×2 (08:41→16:46)
[2017-12-22] MEDS: hydrALAZINE 25 MG TAB PO SCH ×3 (08:41→20:05)
[2017-12-22] MEDS: Glimepiride 4 MG TAB PO SCH (08:41)
[2017-12-22] MEDS: cloNIDine 0.2 MG TAB PO SCH ×2 (08:41→20:06)
[2017-12-22] MEDS: Aspirin 81 mg Enteric Coated Tablet PO SCH (08:41)
[2017-12-22] MEDS: Heparin 5,000 UNITS/ML VIAL SC SCH ×3 (08:42→20:06)
[2017-12-22] MEDS: Acetaminophen 325 MG TAB PO PRN (08:42)
[2017-12-22] MEDS: hydrALAZINE 20 MG/ML VIAL SLOW IVP PRN (16:48)
[2017-12-22] MEDS: Nicotine 21 MG PATCH TD SCH (18:19)
[2017-12-22] MEDS: Mometasone/Formoterol 120 PUFF INHALER INH SCH (18:48)
[2017-12-22] MEDS: Atorvastatin Calcium 40 MG TAB PO SCH (20:06)
--- NOTE | 2017-12-22 20:35 | PDOC.PN ---
- Subjective Encounter Start Date: 12/22/17 Encounter Start Time: 16:20 Patient seen and examined by me. NAD. Had hypoglycemia overnight. Patient was also hypertensive. Per patient, he was sweating and very dizzy. - Objective Resuscitation Status: Resuscitation Status FULL:Full Resuscitation MAR Reviewed: Yes Vital Signs & Weight: Vital Signs (12 hours) Temp Pulse Resp BP BP Pulse Ox 12/22/17 20:06 166/70 H 12/22/17 20:05 76 166/70 H 12/22/17 18:48 76 16 100 12/22/17 18:11 170/82 H 12/22/17 16:48 73 192/103 H 12/22/17 16:46 196/92 H 12/22/17 16:00 97.7 F 73 18 192/103 H 100 12/22/17 14:39 67 12/22/17 14:10 98.4 F 73 18 98 12/22/17 13:33 67 12 12/22/17 11:49 97.6 F 64 18 164/85 H 100 12/22/17 08:41 73 12/22/17 08:40 196/92 H Weight Weight 235 lb I&O: 12/21/17 12/22/17 12/23/17 06:59 06:59 06:59 Intake Total 2280 2748 960 Output Total 1400 925 350 Balance 880 1823 610 Result Diagrams: 12/21/17 04:24 12/21/17 04:24 Additional Labs: Accuchecks 12/22/17 12/22/17 12/22/17 11:05 08:05 06:10 POC Glucose 106 60 L 92 12/22/17 12/22/17 12/22/17 05:23 03:54 01:22 POC Glucose 138 H 40 L* 96 12/22/17 12/21/17 00:36 20:36 POC Glucose 52 L* 205 H Phys Exam - Physical Examination Constitutional: NAD HEENT: PERRLA, moist MMs Neck: no JVD Respiratory: wheezing present Cardiovascular: RRR, no significant murmur, no rub Gastrointestinal: soft, non-tender, no distention Musculoskeletal: no edema, pulses present Neurological: non-focal, normal sensation Psychiatric: normal affect, A&O x 3 Skin: no rash, normal turgor Dx/Plan (1) Hypoglycemia Code(s): E16.2 - HYPOGLYCEMIA, UNSPECIFIED Status: Acute Comment: Have adjusted lantus dose to BID 20 units. Will dicontinue Amaryl and hold of coverage when sugars are <150. Will allow sugars around 140-180 which has shown to be beneficial in hospitalized patients. will check morning fasting sugars and adjust accordingly. (2) Hypertensive urgency Code(s): I16.0 - HYPERTENSIVE URGENCY Status: Acute Comment: increased coreg to 12.5 BID. Will follow morning BP accordingly. Will be careful not to lower BP as much since patient is scheduled for dialysis tomorrow. (3) ESRD on dialysis Code(s): N18.6 - END STAGE RENAL DISEASE; Z99.2 - DEPENDENCE ON RENAL DIALYSIS Status: Acute Comment: will continue dialysis as [facility] MWF. (4) Chronic diastolic heart failure Code(s): I50.32 - CHRONIC DIASTOLIC (CONGESTIVE) HEART FAILURE Status: Chronic Comment: remove volume by dialysis (5) Acute on chronic diastolic (congestive) heart failure Code(s): I50.33 - ACUTE ON CHRONIC DIASTOLIC (CONGESTIVE) HEART FAILURE Status : Acute Comment: Stable currently (6) COPD exacerbation Code(s): J44.1 - CHRONIC OBSTRUCTIVE PULMONARY DISEASE W (ACUTE) EXACERBATION Status: Acute Comment: continue oxygen, long acting inhaled steroids, bronchodilators (7) DM2 (diabetes mellitus, type 2) Status: Chronic Comment: see above for current regimen (8) Diabetic nephropathy associated with type 2 diabetes mellitus Code(s): E11.21 - TYPE 2 DIABETES MELLITUS WITH DIABETIC NEPHROPATHY Status: Chronic (9) Obesity (BMI 30-39.9) Code(s): E66.9 - OBESITY, UNSPECIFIED Status: Chronic - Plan * . Review of Systems - Review of Systems Constitutional: negative: fever, chills, sweats, weakness, malaise, other Eyes: negative: Pain, Vision Change, Conjunctivae Inflammation, Eyelid Inflammation, Redness, Other ENT: negative: Ear Pain, Ear Discharge, Nose Pain, Nose Discharge, Nose Congestion, Mouth Pain, Mouth Swelling, Throat Pain, Throat Swelling, Other Respiratory: negative: Cough, Dry, Shortness of Breath, Hemoptysis, SOB with Excertion, Pleuritic Pain, Sputum, Wheezing Cardiovascular: negative: chest pain, palpitations, orthopnea, paroxysmal nocturnal dyspnea, edema, light headedness, other Gastrointestinal: negative: Nausea, Vomiting, Abdominal Pain, Diarrhea, Constipation, Melena, Hematochezia, Other Genitourinary: negative: Dysuria, Frequency, Incontinence, Hematuria, Retention , Other Musculoskeletal: negative: Neck Pain, Shoulder Pain, Arm Pain, Back Pain, Hand Pain, Leg Pain, Foot Pain, Other Skin: negative: Rash, Lesions, Bryant, Bruising, Other Neurological: negative: Weakness, Numbness, Incoordination, Change in Speech, Confusion, Seizures, Other - Medications/Allergies Allergies/Adverse Reactions: Allergies Allergy/AdvReac Type Severity Reaction Status Date / Time No Known Drug Allergies Allergy Verified 12/07/17 06:32 Medications: Current Medications Acetaminophen (Tylenol) 650 mg PO Q4H PRN PRN Reason: Headache/Fever or Pain Last Admin: 12/22/17 08:42 Dose: 650 mg Albuterol/Ipratropium (Duoneb) 3 ml NEB Q4H PRN PRN Reason: SOB &/or Wheezing Last Admin: 12/22/17 13:33 Dose: 3 ml Aspirin (Ecotrin) 81 mg PO DAILY [facility] Last Admin: 12/22/17 08:41 Dose: 81 mg Atorvastatin Calcium (Lipitor) 40 mg PO [facility] Last Admin: 12/22/17 20:06 Dose: 40 mg Carvedilol (Coreg) 12.5 mg PO BID-[facility] Last Admin: 12/22/17 16:46 Dose: 12.5 mg Clonidine (Catapres) 0.2 mg PO BID [facility] Last Admin: 12/22/17 20:06 Dose: 0.2 mg Dextrose/Water (Dextrose 50%) 25 gm SLOW IVP PRN PRN PRN Reason: Hypoglycemia Last Admin: 12/22/17 16:47 Dose: 25 gm Epoetin Rojelio (Procrit) 7,500 units SC Q7D [facility] Last Admin: 12/20/17 12:08 Dose: 7,500 units Ferrous Sulfate (Feosol) 325 mg PO BID-[facility] Last Admin: 12/22/17 16:46 Dose: 325 mg Glucagon (Glucagon) 1 mg IM PRN PRN PRN Reason: Hypoglycemia Heparin Sodium (Porcine) (Heparin) 5,000 units SC TID [facility] Last Admin: 12/22/17 20:06 Dose: 5,000 units Hydralazine HCl (Apresoline) 10 mg SLOW IVP Q6H PRN PRN Reason: SBP Greater Than 170 Last Admin: 12/22/17 16:48 Dose: 10 mg Hydralazine HCl (Apresoline) 100 mg PO TID [facility] Last Admin: 12/22/17 20:05 Dose: 100 mg Dextrose/Water (D5w) 1,000 mls @ 0 mls/hr IV .Q0M PRN PRN Reason: Hypoglycemia Insulin Glargine 20 units/ (Miscellaneous Medication) 0.2 mls @ 0 mls/hr SC BID [facility] Insulin Human Lispro (Humalog) 0 units SC .MILD SLIDING SCALE PRN PRN Reason: Mild Correctional Scale Last Admin: 12/21/17 11:50 Dose: 2 unit Insulin Human Lispro (Humalog) 0 units SC .MILD SLIDING SCALE PRN; Protocol PRN Reason: MILD SLIDING SCALE Mometasone Furoate/Formoterol Fumar (Dulera 200 Mcg/5 Mcg Inhaler) 2 puff INH BID-RT [facility] Last Admin: 12/22/17 18:48 Dose: 2 puff Nicotine (Nicoderm Patch) 21 mg TD Q24HR [facility] Last Admin: 12/22/17 18:19 Dose: 21 mg Sodium Chloride (Flush - Normal Saline) 10 ml IVF Q12HR [facility] Last Admin: 12/22/17 20:13 Dose: 10 ml Sodium Chloride (Flush - Normal Saline) 10 ml IVF PRN PRN PRN Reason: Saline Flush Zolpidem Tartrate (Ambien) 5 mg PO HSPRN PRN PRN Reason: Insomnia Last Admin: 12/20/17 22:02 Dose: 5 mg
[2017-12-22] MEDS: diphenhydrAMINE 25 MG CAP PO PRN (22:08)
[2017-12-22] MEDS: Insulin Glargine 20 UNITS in Pre-Filled Syringe 1 EACH SC SCH (23:47)
[2017-12-23] MEDS: diphenhydrAMINE 25 MG CAP PO PRN (03:51)
[2017-12-23 07:49] LABS: #Eosinphils 0.3 thou/uL (0.0-0.7); #Lymphocytes 1.3 thou/uL (1.20-3.40); #Monocytes 0.6 thou/uL (0.11-0.59); #Neutrophils 4.4 thou/uL (1.40-6.50); %Basophils 0.1 % (0.0-1.0); %Eosinophils 4.4 % (0.0-10.0); %Lymphocytes 19.2 % (21.0-51.0); %Monocytes 8.9 % (0.0-10.0); %Neutrophils 67.3 % (42.0-75.0); Hemoglobin 10.2 g/dL (14.0-18.0); Mean Corpuscular HGB CONC 33.2 g/dL (32.0-36.0); Mean Corpuscular Hemoglobin 28.3 pg (27.0-31.0); Mean Corpuscular Volume 85.4 fL (78.0-98.0); Platelet Count 153 thou/uL (130-400); RBC Distribution Width 12.6 % (11.5-14.5); Red Blood Cell (RBC) Count 3.59 mill/uL (4.70-6.10); White Blood Cell (WBC) Count 6.5 thou/uL (4.8-10.8)
[2017-12-23] MEDS: Mometasone/Formoterol 120 PUFF INHALER INH SCH ×2 (08:05→18:40)
[2017-12-23 08:08] LABS: Albumin 3.1 g/dL (3.5-5.0); Anion Gap 11 mmol/L (10-20); BUN (Urea Nitrogen) 28 mg/dL (8.4-25.7); BUN/Creatinine Ratio 5.54; Calc. Creatinine Clearance 25 mL/min (70-130); Calcium 8.6 mg/dL (7.8-10.44); Carbon Dioxide 25 mmol/L (22-29); Chloride 104 mmol/L (98-107); Estimated GFR-MDRD 14; Glucose 83 mg/dL (70-105); Phosphorus 4.3 mg/dL (2.3-4.7); Potassium 4.2 mmol/L (3.5-5.1); Sodium 136 mmol/L (136-145)
--- NOTE | 2017-12-23 08:40 | PRG ---
DATE OF SERVICE: 12/23/2017 SUBJECTIVE: Mr. Keita is a 57-year-old black male with ESRD and being followed by the [facility]al Service for his maintenance hemodialysis. I am at the bedside supervising his dialysis. The patient has groves d episodes of high blood pressure as well as hypoglycemia. This morning, he is feeling better. He d enies any chest pain or shortness of breath. PHYSICAL EXAMINATION: VITAL SIGNS: Blood pressure is 158/81, heart rate 66, respiratory rate 18, temperature 98.2, pulse o x 100%. GENERAL: Noted to be awake, alert, comfortable, not in overt distress. SKIN: Adequate turgor. HEENT: He has slightly pale conjunctivae, anicteric sclerae. NECK: No neck mass, no carotid bruits, no JVD. CHEST: No deformities. LUNGS: Decreased breath sounds. HEART: Normal sinus rhythm. No murmur, no gallops, no rubs. ABDOMEN: Globular, soft, nontender, no masses. EXTREMITIES: No edema. MEDICATIONS: 12/23/2017 - Reviewed. LABORATORY: 12/23/2017 - White count 6.5, hemoglobin 10.2. Sodium 136, potassium 4.2, chloride 104, carbon dioxide 25, BUN 28, creatinine 5.05, glucose 83, calcium 8.3, phosphorus 4.3, albumin 3.1. ASSESSMENT AND PLAN: 1. End-stage renal disease, stable. Continuing current hemodialysis regimen. Again, fluid removal as tolerated. 2. Shortness of breath, much improved. 3. Anemia, continuing weekly Epogen. P.r.n. blood transfusion. I agree with current management.
[2017-12-23] MEDS ORDERED: Heparin 10,000 UNITS/ 10 ML VIAL ONE (09:00)
[2017-12-23] MEDS: Carvedilol 6.25 MG TAB PO SCH (12:42)
[2017-12-23] MEDS: Insulin Glargine 20 UNITS in Pre-Filled Syringe 1 EACH SC SCH (12:48)
[2017-12-23] MEDS: cloNIDine 0.2 MG TAB PO SCH ×2 (12:49→20:10)
[2017-12-23] MEDS: Ferrous Sulfate 325 MG TAB PO SCH ×2 (12:49→17:02)
[2017-12-23] MEDS: Aspirin 81 mg Enteric Coated Tablet PO SCH (12:50)
[2017-12-23] MEDS: Heparin 5,000 UNITS/ML VIAL SC SCH ×3 (12:50→20:10)
[2017-12-23] MEDS: hydrALAZINE 25 MG TAB PO SCH ×3 (12:50→20:09)
[2017-12-23] MEDS: Acetaminophen 325 MG TAB PO PRN (16:14)
--- NOTE | 2017-12-23 16:29 | PDOC.PN ---
- Subjective Encounter Start Date: 12/23/17 Encounter Start Time: 16:26 Patient seen and examined at dialysis center. States that he is doing well. NAD. overnight patient's sugar was 71. - Objective Resuscitation Status: Resuscitation Status FULL:Full Resuscitation Vital Signs & Weight: Vital Signs (12 hours) Temp Pulse Resp BP BP Pulse Ox 12/23/17 16:19 97.6 F 151/72 H 12/23/17 16:14 76 12/23/17 12:54 76 12 12/23/17 12:50 166/70 H 12/23/17 12:49 166/70 H 12/23/17 12:42 166/70 H 12/23/17 12:18 98 F 70 18 162/77 H 100 12/23/17 07:35 98.2 F 76 12 158/81 H 100 Weight Weight 237 lb 12.8 oz I&O: 12/22/17 12/23/17 12/24/17 06:59 06:59 06:59 Intake Total 2748 1480 Output Total 925 950 Balance 1823 530 Result Diagrams: 12/23/17 07:40 12/23/17 07:40 Additional Labs: Accuchecks 12/23/17 12/23/17 12/23/17 12:27 09:56 05:39 POC Glucose 97 71 79 12/22/17 12/22/17 12/22/17 20:44 18:07 16:29 POC Glucose 144 H 109 42 L* 12/21/17 13:23 POC Glucose Less than 35 L* Phys Exam - Physical Examination Constitutional: NAD HEENT: PERRLA, moist MMs Neck: no JVD, supple, full ROM Respiratory: no rales, no rhonchi, wheezing present Cardiovascular: RRR, no significant murmur Gastrointestinal: soft, non-tender, no distention, positive bowel sounds Musculoskeletal: no edema, pulses present Neurological: non-focal, normal sensation, moves all 4 limbs Psychiatric: normal affect, A&O x 3 Skin: no rash Dx/Plan (1) Hypoglycemia Code(s): E16.2 - HYPOGLYCEMIA, UNSPECIFIED Status: Acute Comment: Have adjusted to 25 lantus. Will dicontinue Amaryl and hold of coverage when sugars are <150. Will allow sugars around 140-180 which has shown to be beneficial in hospitalized patients. will check morning fasting sugars and adjust accordingly. (2) Hypertensive urgency Code(s): I16.0 - HYPERTENSIVE URGENCY Status: Acute Comment: increased coreg to 12.5 BID. Will follow morning BP accordingly. Will be careful not to lower BP as much since patient is scheduled for dialysis tomorrow. (3) ESRD on dialysis Code(s): N18.6 - END STAGE RENAL DISEASE; Z99.2 - DEPENDENCE ON RENAL DIALYSIS Status: Acute Comment: will continue dialysis as [facility] MWF. (4) Chronic diastolic heart failure Code(s): I50.32 - CHRONIC DIASTOLIC (CONGESTIVE) HEART FAILURE Status: Chronic Comment: remove volume by dialysis (5) Acute on chronic diastolic (congestive) heart failure Code(s): I50.33 - ACUTE ON CHRONIC DIASTOLIC (CONGESTIVE) HEART FAILURE Status : Acute Comment: Stable currently (6) COPD exacerbation Code(s): J44.1 - CHRONIC OBSTRUCTIVE PULMONARY DISEASE W (ACUTE) EXACERBATION Status: Acute Comment: continue oxygen, long acting inhaled steroids, bronchodilators (7) DM2 (diabetes mellitus, type 2) Status: Chronic Comment: see above for current regimen (8) Diabetic nephropathy associated with type 2 diabetes mellitus Code(s): E11.21 - TYPE 2 DIABETES MELLITUS WITH DIABETIC NEPHROPATHY Status: Chronic (9) Obesity (BMI 30-39.9) Code(s): E66.9 - OBESITY, UNSPECIFIED Status: Chronic - Plan * . Review of Systems - Review of Systems Constitutional: negative: fever, chills, sweats, weakness, malaise, other Eyes: negative: Pain, Vision Change, Conjunctivae Inflammation, Eyelid Inflammation, Redness, Other ENT: negative: Ear Pain, Ear Discharge, Nose Pain, Nose Discharge, Nose Congestion, Mouth Pain, Mouth Swelling, Throat Pain, Throat Swelling, Other Respiratory: negative: Cough, Dry, Shortness of Breath, Hemoptysis, SOB with Excertion, Pleuritic Pain, Sputum, Wheezing Cardiovascular: negative: chest pain, palpitations, orthopnea, paroxysmal nocturnal dyspnea, edema, light headedness, other Gastrointestinal: negative: Nausea, Vomiting, Abdominal Pain, Diarrhea, Constipation, Melena, Hematochezia, Other Genitourinary: negative: Dysuria, Frequency, Incontinence, Hematuria, Retention , Other Musculoskeletal: negative: Neck Pain, Shoulder Pain, Arm Pain, Back Pain, Hand Pain, Leg Pain, Foot Pain, Other Skin: negative: Rash, Lesions, Bryant, Bruising, Other Neurological: negative: Weakness, Numbness, Incoordination, Change in Speech, Confusion, Seizures, Other - Medications/Allergies Allergies/Adverse Reactions: Allergies Allergy/AdvReac Type Severity Reaction Status Date / Time No Known Drug Allergies Allergy Verified 12/07/17 06:32 Medications: Current Medications Acetaminophen (Tylenol) 650 mg PO Q4H PRN PRN Reason: Headache/Fever or Pain Last Admin: 12/23/17 16:14 Dose: 650 mg Albuterol/Ipratropium (Duoneb) 3 ml NEB Q4H PRN PRN Reason: SOB &/or Wheezing Last Admin: 12/23/17 12:54 Dose: 3 ml Aspirin (Ecotrin) 81 mg PO DAILY [facility] Last Admin: 12/23/17 12:50 Dose: 81 mg Atorvastatin Calcium (Lipitor) 40 mg PO HS [facility] Last Admin: 12/22/17 20:06 Dose: 40 mg Clonidine (Catapres) 0.2 mg PO BID [facility] Last Admin: 12/23/17 12:49 Dose: 0.2 mg Dextrose/Water (Dextrose 50%) 25 gm SLOW IVP PRN PRN PRN Reason: Hypoglycemia Last Admin: 12/22/17 16:47 Dose: 25 gm Diltiazem HCl (Cardizem Cd) 240 mg PO 1800 [facility] Diphenhydramine HCl (Benadryl) 25 mg PO Q6H PRN PRN Reason: Itching & Insomnia Last Admin: 12/23/17 03:51 Dose: 25 mg Epoetin Rojelio (Procrit) 7,500 units SC Q7D [facility] Last Admin: 12/20/17 12:08 Dose: 7,500 units Ferrous Sulfate (Feosol) 325 mg PO BID-[facility] Last Admin: 12/23/17 12:49 Dose: 325 mg Glucagon (Glucagon) 1 mg IM PRN PRN PRN Reason: Hypoglycemia Heparin Sodium (Porcine) (Heparin) 5,000 units SC TID [facility] Last Admin: 12/23/17 16:14 Dose: 5,000 units Hydralazine HCl (Apresoline) 10 mg SLOW IVP Q6H PRN PRN Reason: SBP Greater Than 170 Last Admin: 12/22/17 16:48 Dose: 10 mg Hydralazine HCl (Apresoline) 100 mg PO TID [facility] Last Admin: 12/23/17 16:14 Dose: 100 mg Dextrose/Water (D5w) 1,000 mls @ 0 mls/hr IV .Q0M PRN PRN Reason: Hypoglycemia Insulin Glargine 25 units/ (Miscellaneous Medication) 0.25 mls @ 0 mls/hr SC HS [facility] Insulin Human Lispro (Humalog) 0 units SC .MILD SLIDING SCALE PRN; Protocol PRN Reason: MILD SLIDING SCALE Mometasone Furoate/Formoterol Fumar (Dulera 200 Mcg/5 Mcg Inhaler) 2 puff INH BID-RT [facility] Last Admin: 12/23/17 08:05 Dose: Not Given Nicotine (Nicoderm Patch) 21 mg TD Q24HR [facility] Last Admin: 12/22/17 18:19 Dose: 21 mg Sodium Chloride (Flush - Normal Saline) 10 ml IVF Q12HR [facility] Last Admin: 12/23/17 12:57 Dose: 10 ml Sodium Chloride (Flush - Normal Saline) 10 ml IVF PRN PRN PRN Reason: Saline Flush Zolpidem Tartrate (Ambien) 5 mg PO HSPRN PRN PRN Reason: Insomnia Last Admin: 12/20/17 22:02 Dose: 5 mg
[2017-12-23] MEDS: Nicotine 21 MG PATCH TD SCH (17:59)
[2017-12-23] MEDS: Atorvastatin Calcium 40 MG TAB PO SCH (20:10)
[2017-12-23] MEDS: Insulin Glargine 25 UNITS in Pre-Filled Syringe 1 EACH SC SCH (22:06)
[2017-12-24] MEDS: Mometasone/Formoterol 120 PUFF INHALER INH SCH ×2 (07:30→19:10)
--- NOTE | 2017-12-24 07:37 | PRG ---
DATE OF SERVICE: 12/24/2017 SERVICE: Renal Medicine. SUBJECTIVE: Mr. Keita is a 57-year-old black male with known history of end-stage renal disease and being followed by the Renal Service for his maintenance hemodialysis. He underwent dialysis yesterd ay with several liters of fluid removed. No new complaints today. He is feeling better. In the pas t, he has had hypoglycemic episode, but this is improved. No complaints of chest pain or shortness of breath. PHYSICAL EXAMINATION: VITAL SIGNS: Blood pressure 135/71, heart rate is 62, respiratory rate 20, temperature 97.7, pulse o x 99%. GENERAL: Awake, alert, comfortable, not in distress. SKIN: Adequate turgor. HEENT: He has slightly pale conjunctivae, anicteric sclerae. NECK: No neck mass, no carotid bruits, no JVD. CHEST: No deformities. LUNGS: Clear breath sounds, no wheezing, no crackles. HEART: Normal sinus rhythm. No murmur, no gallops or rubs. ABDOMEN: Globular, soft, nontender, no masses. EXTREMITIES: No edema, no deformities. MEDICATIONS: Of 12/24/2017 was reviewed. LABORATORY DATA: Of 12/23/2017, white count 6.5, hemoglobin 10.2. Sodium 136, potassium 4.2, chlori de 104, carbon dioxide 25, BUN 28, creatinine 5.05, phosphorus 4.3, calcium 8.6. ASSESSMENT AND PLAN: 1. End-stage renal disease, stable. Continuing Saturday, Saturday, Saturday dialysis. Fluid removal a s tolerated. We removed about 5-6 liters of fluid yesterday. 2. Anemia, on weekly Epogen, p.r.n. blood transfusion. 3. Shortness of breath, clinically improved with fluid removal. Agree with current management. Recheck base met and CBC in a.m. ADDENDUM: Hypoalbuminemia. Nepro 1 can b.i.d.
[2017-12-24] MEDS: Ferrous Sulfate 325 MG TAB PO SCH ×2 (09:21→16:43)
[2017-12-24] MEDS: Heparin 5,000 UNITS/ML VIAL SC SCH ×3 (09:22→21:43)
[2017-12-24] MEDS: hydrALAZINE 25 MG TAB PO SCH ×3 (09:23→21:41)
[2017-12-24] MEDS: cloNIDine 0.2 MG TAB PO SCH ×2 (09:23→21:42)
[2017-12-24] MEDS: Aspirin 81 mg Enteric Coated Tablet PO SCH (09:24)
--- NOTE | 2017-12-24 10:25 | CON ---
DATE OF CONSULTATION: 12/23/2017 HISTORY OF PRESENT ILLNESS: The patient is an unfortunate 57-year-old gentleman with a history of poorly-controlled hypertension and end-stage renal disease, who presented with increasing dyspnea. The patient has a long cardiac history. He has previously undergone a cardiac catheterization in 2007, which revealed him to have mild coronary artery disease. He has been followed primarily by Dr. Mercado. He was seen here in 2018 with atypical chest pain. The patient has developed progressive renal failure and just recently started dialysis. The patient was recently admitted with a hypertensive crisis and dyspnea. During this hospitalization, the patient developed an irregular heart rhythm. The patient denies having any palpitations or chest discomfort. PAST MEDICAL HISTORY: 1. Coronary artery disease. 2. Congestive heart failure. 3. Hypertension. 4. Dyslipidemia. 5. Diabetes mellitus. 6. Chronic obstructive pulmonary disease. 7. End-stage renal disease. SOCIAL HISTORY: He has a long history of tobacco abuse. He has a history of cocaine use. PAST SURGICAL HISTORY: AV fistula. FAMILY HISTORY: His mother had a CVA. ALLERGIES: No known drug allergies. MEDICATIONS ON ADMISSION: Include hydralazine 100 t.i.d., clonidine 0.2 b.i.d. , Lipitor 40 at bedtime, aspirin 81 daily, carvedilol 12.5 p.o. b.i.d., and insulin. REVIEW OF SYSTEMS: Ten-point system, otherwise, unremarkable except for increasing dyspnea. PHYSICAL EXAMINATION: GENERAL: This is a well-developed gentleman in no acute distress. VITAL SIGNS: Blood pressure is 158/81. NECK: No jugular venous distention. LUNGS: Decreased breath sounds bilateral. HEART: Regular rate and rhythm, normal S1 and S2, no murmurs. ABDOMEN: Nondistended. EXTREMITIES: Showed trace edema. There is an AV fistula in his left arm. SKIN: Warm and dry. NEUROLOGIC EXAM: Nonfocal. LABORATORY DATA: White blood cell count 6.5, hemoglobin 10.2, hematocrit 30.7, platelets 153. Sodium 136, potassium 4.2, chloride 104, bicarbonate 25, BUN 28 , creatinine is 5.0. His EKG revealed normal sinus rhythm with a nonspecific intraventricular conduction delay. His air sampling and monitoring revealed short sustained run of SVT. IMPRESSION: 1. Supraventricular tachycardia. 2. Hypertensive crisis. 3. Coronary artery disease. 4. Diabetes mellitus. 5. Chronic obstructive pulmonary disease. 6. End-stage renal disease. 7. Tobacco abuse. This gentleman presents with a short run of SVT. From a cardiac standpoint, we would recommend he be treated with Cardizem since he has a history of normal left ventricular systolic function. We would avoid Coreg with his with history of chronic obstructive pulmonary disease. PLAN: 1. Discontinue Coreg. 2. Start Cardizem. MTDD
--- NOTE | 2017-12-24 14:56 | PRG ---
DATE OF SERVICE: 12/24/2017 SUBJECTIVE: Mr. Keita is doing well. His blood pressure appears to be better than upon presentatio n. He has had intermittent episodes of SVT. These are felt to be asymptomatic. OBJECTIVE: VITAL SIGNS: 142/78, pulse 69, temperature 98.6. LUNGS: Clear to auscultation. CARDIAC: Regular rate and rhythm. ABDOMEN: Soft, nontender, nondistended. EXTREMITIES: No edema. IMPRESSION: 1. New onset supraventricular tachycardia. 2. Hypertensive urgency. 3. End-stage renal disease. RECOMMENDATIONS: Blood pressure appears more stable. It is managed by Dr. Vasile Garcia. We will a dd digoxin low dose to help suppress SVT. This may be related to hypertensive urgency. We will cont inue to monitor closely. May consider EP consultation if it continues.
[2017-12-24] MEDS: diphenhydrAMINE 25 MG CAP PO PRN (18:12)
[2017-12-24] MEDS: Nicotine 21 MG PATCH TD SCH (18:18)
[2017-12-24] MEDS: Atorvastatin Calcium 40 MG TAB PO SCH (21:40)
[2017-12-24] MEDS: Insulin Glargine 25 UNITS in Pre-Filled Syringe 1 EACH SC SCH (23:16)
[2017-12-25 05:20] LABS: #Eosinphils 0.3 thou/uL (0.0-0.7); #Lymphocytes 1.4 thou/uL (1.20-3.40); #Monocytes 0.6 thou/uL (0.11-0.59); #Neutrophils 3.5 thou/uL (1.40-6.50); %Basophils 0.3 % (0.0-1.0); %Eosinophils 4.4 % (0.0-10.0); %Lymphocytes 24.2 % (21.0-51.0); %Monocytes 10.4 % (0.0-10.0); %Neutrophils 60.6 % (42.0-75.0); Hemoglobin 10.2 g/dL (14.0-18.0); Mean Corpuscular HGB CONC 32.7 g/dL (32.0-36.0); Mean Corpuscular Hemoglobin 28.1 pg (27.0-31.0); Mean Platelet Volume 7.9 fL (7.4-10.4); Platelet Count 161 thou/uL (130-400); RBC Distribution Width 12.7 % (11.5-14.5); Red Blood Cell (RBC) Count 3.63 mill/uL (4.70-6.10); White Blood Cell (WBC) Count 5.7 thou/uL (4.8-10.8)
[2017-12-25 05:42] LABS: Anion Gap 11 mmol/L (10-20); BUN (Urea Nitrogen) 28 mg/dL (8.4-25.7); Calc. Creatinine Clearance 24 mL/min (70-130); Calcium 8.8 mg/dL (7.8-10.44); Carbon Dioxide 27 mmol/L (22-29); Chloride 101 mmol/L (98-107); Estimated GFR-MDRD 15; Glucose 134 mg/dL (70-105); Potassium 4.3 mmol/L (3.5-5.1); Sodium 135 mmol/L (136-145)
[2017-12-25 06:20] VITALS: BMI 31.6
[2017-12-25] MEDS: Mometasone/Formoterol 120 PUFF INHALER INH SCH (06:48)
--- NOTE | 2017-12-25 08:26 | HP ---
DATE OF SERVICE: 12/25/2017 SERVICE: Renal Medicine. HISTORY OF PRESENT ILLNESS: Mr. Keita is a 57-year-old black male with end-stage renal disease. He came in with CHF. His breathing is much better. He has also had episodes of intermittent SVT. He was seen by Cardiology. Recommendation to digoxin was made. In addition, he is feeling better this morning. I am at the bedside supervising his dialysis today. No new complaints. No chest pain or s hortness of breath. PHYSICAL EXAMINATION: VITAL SIGNS: Blood pressure is 138/69, heart rate 62, respiratory 16, temperature 97.8, pulse ox 96% . GENERAL: Awake, alert, comfortable, not in distress. SKIN: Adequate turgor. HEENT: He has slightly pale conjunctivae, anicteric sclerae. NECK: No neck mass, no carotid bruits, no JVD. CHEST: No deformities. LUNGS: Clear breath sounds. HEART: Normal sinus rhythm. No murmur, no gallops, no rubs. ABDOMEN: Globular, soft, nontender, no masses. EXTREMITIES: No edema, no deformities. MEDICATIONS: Of 12/25/2017 was reviewed. LABORATORY DATA: Of 12/25/2017, white count 5.7, hemoglobin 10.2. Sodium 135, potassium 4.3, chlori de 101, carbon dioxide 27, BUN 28, creatinine 4.98, glucose 134, calcium 8.8. ASSESSMENT AND PLAN: 1. Anemia on weekly Epogen. 2. Intermittent supraventricular tachycardia - stable today. He initially noted to be in sinus rhyt hm today. He is on Cardizem and digoxin has been added by the lacquer machine feeder. 3. End-stage renal disease, stable. We will continue current Saturday, Saturday, Saturday dialysis. Deanna campos said treatment. Fluid removal only as tolerated. Recheck CBC, base met in a.m.
[2017-12-25] MEDS ORDERED: Heparin 10,000 UNITS/1 ML VIAL ONE (08:43)
[2017-12-25] MEDS ORDERED: Digoxin 0.125 MG TAB PO SCH (09:00)
[2017-12-25] MEDS: Heparin 5,000 UNITS/ML VIAL SC SCH ×2 (09:17→16:23)
[2017-12-25 12:06] VITALS: TEMP 98.7
[2017-12-25] MEDS: hydrALAZINE 25 MG TAB PO SCH ×2 (12:10→16:15)
[2017-12-25] MEDS: Ferrous Sulfate 325 MG TAB PO SCH ×2 (12:10→16:16)
[2017-12-25] MEDS: Aspirin 81 mg Enteric Coated Tablet PO SCH (12:11)
[2017-12-25] MEDS: cloNIDine 0.2 MG TAB PO SCH (12:11)
--- NOTE | 2017-12-25 15:18 | PDOC.PN ---
- Subjective Encounter Start Date: 12/24/17 Encounter Start Time: 19:00 Patient seen and examined. NAD. On tele patient had some runs of SVT's. But states that he has been fine. - Objective Resuscitation Status: Resuscitation Status FULL:Full Resuscitation MAR Reviewed: Yes Vital Signs & Weight: Vital Signs (12 hours) Temp Pulse Resp BP BP Pulse Ox 12/25/17 12:11 174/88 H 12/25/17 12:10 70 174/88 H 12/25/17 11:58 98.7 F 70 18 174/88 H 99 12/25/17 03:48 97.8 F 62 16 138/69 96 Weight Weight 220 lb 11.2 oz I&O: 12/24/17 12/25/17 12/26/17 06:59 06:59 06:59 Intake Total 620 1340 Output Total 665 950 Balance -45 390 Result Diagrams: 12/25/17 05:09 12/25/17 05:09 Additional Labs: Accuchecks 12/25/17 12/25/17 12/24/17 11:54 05:46 20:59 POC Glucose 112 H 126 H 172 H 12/24/17 12/23/17 17:07 11:43 POC Glucose 134 H 86 Phys Exam - Physical Examination Constitutional: NAD HEENT: PERRLA, moist MMs Neck: no JVD Respiratory: no wheezing, no rales, no rhonchi, clear to auscultation bilateral Cardiovascular: RRR, no significant murmur, no rub Gastrointestinal: soft, non-tender, no distention, positive bowel sounds Musculoskeletal: no edema, pulses present Neurological: non-focal, normal sensation, moves all 4 limbs Psychiatric: normal affect, A&O x 3 Skin: no rash Dx/Plan (1) SVT (supraventricular tachycardia) Code(s): I47.1 - SUPRAVENTRICULAR TACHYCARDIA Status: Acute Comment: seen and examined by cardio. started on po digoxin and cardizem. (2) Hypoglycemia Code(s): E16.2 - HYPOGLYCEMIA, UNSPECIFIED Status: Acute Comment: have adjust lantus. patient has not been hypoglycemic overnight. (3) Hypertensive urgency Code(s): I16.0 - HYPERTENSIVE URGENCY Status: Acute Comment: Patient switched to po coreg and Po cardizem. will continue per cardio recs. (4) ESRD on dialysis Code(s): N18.6 - END STAGE RENAL DISEASE; Z99.2 - DEPENDENCE ON RENAL DIALYSIS Status: Acute Comment[facility] (5) Chronic diastolic heart failure Code(s): I50.32 - CHRONIC DIASTOLIC (CONGESTIVE) HEART FAILURE Status: Chronic Comment: remove volume by dialysis (6) Acute on chronic diastolic (congestive) heart failure Code(s): I50.33 - ACUTE ON CHRONIC DIASTOLIC (CONGESTIVE) HEART FAILURE Status : Acute Comment: Stable (7) COPD exacerbation Code(s): J44.1 - CHRONIC OBSTRUCTIVE PULMONARY DISEASE W (ACUTE) EXACERBATION Status: Acute Comment: continue oxygen, long acting inhaled steroids, bronchodilators (8) DM2 (diabetes mellitus, type 2) Status: Chronic Comment: see above for current regimen (9) Diabetic nephropathy associated with type 2 diabetes mellitus Code(s): E11.21 - TYPE 2 DIABETES MELLITUS WITH DIABETIC NEPHROPATHY Status: Chronic (10) Obesity (BMI 30-39.9) Code(s): E66.9 - OBESITY, UNSPECIFIED Status: Chronic - Plan * . Review of Systems - Review of Systems Constitutional: negative: fever, chills, sweats, weakness, malaise, other Eyes: negative: Pain, Vision Change, Conjunctivae Inflammation, Eyelid Inflammation, Redness, Other ENT: negative: Ear Pain, Ear Discharge, Nose Pain, Nose Discharge, Nose Congestion, Mouth Pain, Mouth Swelling, Throat Pain, Throat Swelling, Other Respiratory: negative: Cough, Dry, Shortness of Breath, Hemoptysis, SOB with Excertion, Pleuritic Pain, Sputum, Wheezing Cardiovascular: negative: chest pain, palpitations, orthopnea, paroxysmal nocturnal dyspnea, edema, light headedness, other Gastrointestinal: negative: Nausea, Vomiting, Abdominal Pain, Diarrhea, Constipation, Melena, Hematochezia, Other Genitourinary: negative: Dysuria, Frequency, Incontinence, Hematuria, Retention , Other Musculoskeletal: negative: Neck Pain, Shoulder Pain, Arm Pain, Back Pain, Hand Pain, Leg Pain, Foot Pain, Other Skin: negative: Rash, Lesions, Bryant, Bruising, Other Neurological: negative: Weakness, Numbness, Incoordination, Change in Speech, Confusion, Seizures, Other - Medications/Allergies Allergies/Adverse Reactions: Allergies Allergy/AdvReac Type Severity Reaction Status Date / Time No Known Drug Allergies Allergy Verified 12/07/17 06:32 Medications: Current Medications Acetaminophen (Tylenol) 650 mg PO Q4H PRN PRN Reason: Headache/Fever or Pain Last Admin: 12/23/17 16:14 Dose: 650 mg Albuterol/Ipratropium (Duoneb) 3 ml NEB Q4H PRN PRN Reason: SOB &/or Wheezing Last Admin: 12/24/17 14:49 Dose: 3 ml Aspirin (Ecotrin) 81 mg PO DAILY [facility] Last Admin: 12/25/17 12:11 Dose: 81 mg Atorvastatin Calcium (Lipitor) 40 mg PO HS [facility] Last Admin: 12/24/17 21:40 Dose: 40 mg Clonidine (Catapres) 0.2 mg PO BID [facility] Last Admin: 12/25/17 12:11 Dose: 0.2 mg Dextrose/Water (Dextrose 50%) 25 gm SLOW IVP PRN PRN PRN Reason: Hypoglycemia Last Admin: 12/22/17 16:47 Dose: 25 gm Digoxin (Lanoxin) 0.125 mg PO DAILY [facility] Last Admin: 12/25/17 12:10 Dose: 0.125 mg Diltiazem HCl (Cardizem Cd) 240 mg PO 1800 [facility] Last Admin: 12/24/17 18:13 Dose: 240 mg Diphenhydramine HCl (Benadryl) 25 mg PO Q6H PRN PRN Reason: Itching & Insomnia Last Admin: 12/24/17 18:12 Dose: 25 mg Epoetin Rojelio (Procrit) 7,500 units SC Q7D [facility] Last Admin: 12/20/17 12:08 Dose: 7,500 units Ferrous Sulfate (Feosol) 325 mg PO BID-[facility] Last Admin: 12/25/17 12:10 Dose: 325 mg Glucagon (Glucagon) 1 mg IM PRN PRN PRN Reason: Hypoglycemia Heparin Sodium (Porcine) (Heparin) 5,000 units SC TID [facility] Last Admin: 12/25/17 09:17 Dose: Not Given Hydralazine HCl (Apresoline) 10 mg SLOW IVP Q6H PRN PRN Reason: SBP Greater Than 170 Last Admin: 12/22/17 16:48 Dose: 10 mg Hydralazine HCl (Apresoline) 100 mg PO TID [facility] Last Admin: 12/25/17 12:10 Dose: 100 mg Dextrose/Water (D5w) 1,000 mls @ 0 mls/hr IV .Q0M PRN PRN Reason: Hypoglycemia Insulin Glargine 25 units/ (Miscellaneous Medication) 0.25 mls @ 0 mls/hr SC HS [facility] Last Admin: 12/24/17 23:16 Dose: Not Given Insulin Human Lispro (Humalog) 0 units SC .MILD SLIDING SCALE PRN; Protocol PRN Reason: MILD SLIDING SCALE Mometasone Furoate/Formoterol Fumar (Dulera 200 Mcg/5 Mcg Inhaler) 2 puff INH BID-RT [facility] Last Admin: 12/25/17 06:48 Dose: 2 puff Nicotine (Nicoderm Patch) 21 mg TD Q24HR [facility] Last Admin: 12/24/17 18:18 Dose: Not Given Sodium Chloride (Flush - Normal Saline) 10 ml IVF Q12HR [facility] Last Admin: 12/25/17 12:12 Dose: 10 ml Sodium Chloride (Flush - Normal Saline) 10 ml IVF PRN PRN PRN Reason: Saline Flush Zolpidem Tartrate (Ambien) 5 mg PO HSPRN PRN PRN Reason: Insomnia Last Admin: 12/20/17 22:02 Dose: 5 mg
--- NOTE | 2017-12-25 16:11 | DIS ---
DATE OF ADMISSION: 12/22/2017 DATE OF DISCHARGE: 12/25/2017 On the day of discharge, the patient was seen and examined by me. The patient does not have any acut e distress. The patient states that he is feeling well. The patient does not have any shortness of breath or palpitation. The patient states that he feels great and is ready to be discharged home. DISCHARGE DIAGNOSES: 1. Supraventricular tachycardia. 2. Hypoglycemia. 3. Hypertensive urgency. 4. End-stage renal disease on dialysis. 5. Chronic diastolic heart failure. 6. Acute on chronic heart failure. 7. Chronic obstructive pulmonary disease exacerbation. 8. Diabetes mellitus type 2. 9. Diabetic nephropathy associated with type 2 diabetes mellitus. 10. Obesity. HOSPITAL COURSE: This is a 57-year-old male who was admitted for end-stage renal disease requiring d ialysis and having some difficulties with dialysis. The patient recently started dialysis and since the patient started dialysis, the patient has been having some weakness and some shortness of breath. In the hospital course, the patient was started back on dialysis Saturday, Wednesdays and Fridays. T he patient was placed on telemetry to monitor his heart for any arrhythmias. The patient was found t o be hypertensive in the 200s. Hydralazine p.r.n. were given. The patient was also given Coreg 12.5 mg b.i.d. The patient was given clonidine and the patient's blood pressure started to be controlled . In the event of controlling the patient's blood pressure, the patient also developed hypoglycemia and we adjusted the patient's Lantus to Lantus 15 daily. The patient was encouraged to hold his Lant us levels when sugars are below 150. The patient was optimized clinically; however, on the day prior to this discharge, the patient developed some SVTs overnight. Cardiology was consulted. The patien t's medications were adjusted. We discontinued the Coreg and restarted the patient on diltiazem p.o. and p.o. digoxin. DISCHARGE MEDICATIONS: Kindly refer to electronic medical records for discharge medications. DISPOSITION: The patient was in good and stable condition. The patient did not have any acute distr ess and the patient was optimized to go home. This discharge summary was dictated by Dr. Modesto Mares on patient Bossman Caceres. Discharge encounter was more than 35 minutes.
[2017-12-25 17:58] VITALS: BP 157/92
== END 2017-12-25 18:06 | disposition home or self-care (01) | DRG 304 ==
LOC: ERS 20:00 → 2NO 22:46 → INTOOBSV 22:46 → OBSVTOIN 12-22 13:48
PROVIDERS: ADMIT Internal Medicine; ATTEND Internal Medicine
PROC: 5A1D70Z Performance of Urinary Filtration, Intermittent, Less than 6 Hours Per Day (ICD-10-PCS; principal; 2017-12-23)
PROC: 5A1D70Z Performance of Urinary Filtration, Intermittent, Less than 6 Hours Per Day (ICD-10-PCS; 2017-12-25)
DX: I16.0 Hypertensive urgency (principal); N18.6 End stage renal disease; I50.33 Acute on chronic diastolic (congestive) heart failure; J44.1 Chronic obstructive pulmonary disease with (acute) exacerbation; I47.1 Supraventricular tachycardia; I42.9 Cardiomyopathy, unspecified; I13.2 Hypertensive heart and chronic kidney disease with heart failure and with stage 5 chronic kidney disease, or end stage renal disease; Z99.2 Dependence on renal dialysis; E11.22 Type 2 diabetes mellitus with diabetic chronic kidney disease; E78.5 Hyperlipidemia, unspecified; T38.3X5A Adverse effect of insulin and oral hypoglycemic [antidiabetic] drugs, initial encounter; E11.649 Type 2 diabetes mellitus with hypoglycemia without coma; Z72.0 Tobacco use; E11.21 Type 2 diabetes mellitus with diabetic nephropathy; E66.9 Obesity, unspecified; Y92.239 Unspecified place in hospital as the place of occurrence of the external cause; D63.1 Anemia in chronic kidney disease; I25.10 Atherosclerotic heart disease of native coronary artery without angina pectoris; E11.40 Type 2 diabetes mellitus with diabetic neuropathy, unspecified; Z79.4 Long term (current) use of insulin; Z68.31 Body mass index [BMI] 31.0-31.9, adult
CPT/HCPCS: 36415; 36416; 71045; 80048; 80053; 80069; 82553; 83690; 83880; 84484; 85025; 90935; 93005; 93798; 94640; A4216; G0257; J0360; J1644; J7620; Q4081

== ENCOUNTER 2018-01-28 08:45 | Inpatient (IN) | payer MEDICARE, MEDICAID ==
[2018-01-28 10:13] LABS: #Eosinphils 1.3 thou/uL (0.0-0.7); #Lymphocytes 1.3 thou/uL (1.20-3.40); #Monocytes 0.7 thou/uL (0.11-0.59); #Neutrophils 4.7 thou/uL (1.40-6.50); %Basophils 0.5 % (0.0-1.0); %Eosinophils 16.1 % (0.0-10.0); %Lymphocytes 16.4 % (21.0-51.0); %Monocytes 8.3 % (0.0-10.0); %Neutrophils 58.7 % (42.0-75.0); Hemoglobin 10.3 g/dL (14.0-18.0); Mean Corpuscular HGB CONC 32.8 g/dL (32.0-36.0); Mean Corpuscular Hemoglobin 27.9 pg (27.0-31.0); Mean Platelet Volume 8.6 fL (7.4-10.4); Platelet Count 176 thou/uL (130-400); RBC Distribution Width 12.1 % (11.5-14.5); Red Blood Cell (RBC) Count 3.69 mill/uL (4.70-6.10)
[2018-01-28] MEDS ORDERED: METHOCARBAMOL IVPB SCH (10:15)
[2018-01-28] MEDS ORDERED: SODIUM CHLORIDE IVPB SCH (10:15)
[2018-01-28] MEDS ORDERED: ADMIXTURE FEE IVPB SCH (10:15)
[2018-01-28] MEDS ORDERED: hydrALAZINE 20 MG/ML VIAL ONE ×2 (10:25→11:52)
[2018-01-28 10:34] LABS: ALT (SGPT) 20 U/L (8-55); AST (SGOT) 24 U/L (5-34); Albumin 3.3 g/dL (3.5-5.0); Alkaline Phosphatase 253 U/L (40-150); Anion Gap 13 mmol/L (10-20); BUN (Urea Nitrogen) 24 mg/dL (8.4-25.7); Bilirubin, Total 0.3 mg/dL (0.2-1.2); Calc. Creatinine Clearance 0 mL/min (70-130); Calcium 8.6 mg/dL (7.8-10.44); Carbon Dioxide 25 mmol/L (22-29); Chloride 104 mmol/L (98-107); Estimated GFR-MDRD 15; Globulin 3.5 g/dL (2.4-3.5); Glucose 181 mg/dL (70-105); Potassium 4.7 mmol/L (3.5-5.1); Protein, Total 6.8 g/dL (6.0-8.3); Sodium 137 mmol/L (136-145)
[2018-01-28 10:44] LABS: CKMB 5.8 ng/mL (0-6.6); Troponin I 0.128 ng/mL (< 0.028)
--- NOTE | 2018-01-28 11:18 | CT ---
HEAD CT WITHOUT CONTRAST: HISTORY: Headache. COMPARISON: 03/12/08. TECHNIQUE: Noncontrast head CT is performed from the skull base to the skull vertex. FINDINGS: No parenchymal hemorrhage. No extraaxial hematoma. No midline shift. Basilar cisterns are patent. Brain volume, age appropriate. Cortical horton-white matter differentiation is preserved. The ventricles and sulci are patent and symmetric. Minimal white matter hypodensities due to chronic small-vessel ischemic change. Calvarium is intact. Adequate aeration of the sinuses and mastoid air cells. IMPRESSION: 1. No acute intracranial process. 2. White matter hypodensities nonspecific but likely representing chronic small-vessel ischemic mitchell ge. POS: [facility]
--- NOTE | 2018-01-28 11:20 | CT ---
CT OF CERVICAL SPINE PERFORMED WITHOUT CONTRAST ENHANCEMENT: HISTORY: Neck pain and right shoulder pain. FINDINGS: The vertebral bodies maintain normal height. Disk spaces are all fairly well preserved. There are f airly minimal degenerative facet changes present. There is no evidence of any central canal stenosis and I do not see any signs of any significant fora xavi narrowing. There is some borderline left-sided foraminal narrowing at the C2-3 level. IMPRESSION: Minimal arthritic change of the spine. No evidence of any significant canal or a definite significan t foraminal narrowing to explain the patient's symptoms. POS: [facility]
[2018-01-28] MEDS ORDERED: Ketorolac Tromethamine 30 MG/ML VIAL ONE (11:52)
[2018-01-28] MEDS ORDERED: Enoxaparin Sodium 100 MG/ML SYRINGE ONE (12:44)
[2018-01-28] MEDS ORDERED: cloNIDine 0.1 MG TAB ONE (12:50)
[2018-01-28] MEDS ORDERED: Acetaminophen 650 MG Suppository PR PRN (13:30)
[2018-01-28] MEDS ORDERED: Acetaminophen 325 MG TAB PO PRN (13:30)
[2018-01-28] MEDS ORDERED: Bisacodyl 5 MG TAB PO PRN (13:30)
[2018-01-28] MEDS ORDERED: Labetalol HCl 100 MG/20 ML VIAL SLOW IVP PRN (13:35)
[2018-01-28] MEDS ORDERED: hydrALAZINE 20 MG/ML VIAL SLOW IVP PRN (13:35)
[2018-01-28] MEDS ORDERED: Dextrose 5% in Water 1,000 ML IV PRN (13:36)
[2018-01-28] MEDS ORDERED: HumaLOG 300 UNITS/3 ML VIAL SC PRN (13:36)
[2018-01-28] MEDS ORDERED: Dextrose 50% Abboject 50 ML SYRINGE SLOW IVP PRN (13:36)
[2018-01-28] MEDS ORDERED: Nitroglycerin 0.4 MG TAB (25 Tab Bottle) PO PRN (13:36)
[2018-01-28] MEDS ORDERED: Nicotine 14 MG PATCH TD SCH (14:00)
--- NOTE | 2018-01-28 14:21 | HP ---
PRIMARY CARE PROVIDER: Kim Nunez M.D. CHIEF COMPLAINT: Neck pain. HISTORY OF PRESENT ILLNESS: Mr. Keita is a pleasant 57-year-old gentleman who was seen in the emerg ency room at [facility] on 01/28/2018. He is a dialysis patient. He reports that he received the flu vaccine about a week ago. After that, he was noted to have elevated blood pressure during his dialysis sessions. He also had right-sided neck pain, which resolved after he came to the emergency room. He denies any chest pain. He reports occasional cough. He denies any fevers or chills. He denies a ny headaches. He was referred to Hospitalist Service for admission because of hypertensive urgency. REVIEW OF SYSTEMS: All other systems reviewed and found to be negative. PAST MEDICAL HISTORY: Diastolic heart failure, labile hypertension, end-stage renal disease on hemod ialysis, chronically elevated troponin, normocytic anemia, COPD and diabetes mellitus. He had a norm al stress test in 10/2017, supraventricular tachycardia. PAST SURGICAL HISTORY: Cardiac catheterization in 2017, left upper extremity dialysis fistula. FAMILY HISTORY: CVA in his mother at age 62, diabetes mellitus, hypertension, and alcoholism in his father. SOCIAL HISTORY: The patient denies alcohol use. He reports tobacco use, he smokes cigarettes, but h e is unable to quantify. He says that he does not buy cigarettes and only borrows them, so it varies from day to day. He also reports history of cocaine abuse in the past. ALLERGIES: None. CURRENT MEDICATIONS: Clonidine 0.2 mg 2 times a day, atorvastatin 40 mg at bedtime, aspirin 81 mg da beeb, hydralazine 100 mg 3 times a day, diltiazem 240 mg daily, digoxin 125 mcg daily and glimepiride 4 mg 2 times a day. PHYSICAL EXAMINATION: GENERAL: On examination, Mr. Keita is awake and alert, not in acute distress. VITAL SIGNS: Blood pressure is 181/88, pulse 76, respiratory rate 19 and oxygen saturation 98% on ro om air. He is afebrile. EYES: No scleral icterus. No conjunctival pallor. ENT: Moist mucosal membranes, no oropharyngeal erythema or exudates. NECK: Supple, nontender, trachea is midline. RESPIRATORY: Accessory muscles of breathing are not active. Chest wall movements are symmetric bila terally. LUNGS: Examination reveals occasional expiratory wheeze. CARDIOVASCULAR: S1 and S2 are heard, regular. Peripheral pulses palpable. No carotid bruit, no per icardial rub. ABDOMEN: Soft, nontender, bowel sounds are heard, no hepatomegaly, no splenomegaly. NEUROLOGIC: Cranial nerves II-XII intact. Deep tendon reflexes are 2+. MUSCULOSKELETAL: Power is 5/5 in all 4 extremities. SKIN: No rashes or subcutaneous nodules. LYMPHATIC: No cervical lymphadenopathy. PSYCHIATRIC: Normal mood, normal affect, patient is oriented to person, place, and time. IMAGING DATA AND LABORATORY DATA: Mr. Keita's labs and investigations were reviewed. I reviewed hi s electrocardiogram, which shows normal sinus rhythm. He has T-wave inversions in V5 and V6. I also reviewed his noncontrast CT scan of the brain, which does not show any acute intracranial abnormalit y. He also had a CT scan of the cervical spine, which showed minimal arthritic change of the spine. He has normal white count, normocytic anemia with hemoglobin 10.3, normal platelet count, normal kristina ctrolytes, elevated creatinine of 4.80, elevated alkaline phosphatase of 253, last known alkaline krishna sphatase is 251 on 12/19/2017, normal AST, normal ALT, normal total bilirubin, indeterminate troponin I of 0.128, last known troponin I 0.092 on 12/20/2017 and decreased albumin of 3.3. ASSESSMENT AND PLAN: Mr. Keita is a pleasant 57-year-old gentleman who was seen at [facility] on 01/28/2018. His problem list includes: 1. Hypertensive urgency: Mr. Keita is presenting with hypertensive urgency. He will be admitted t o the [facility] for further management. He will receive intravenous labetalol and hydralazine as need ed. 2. Abnormal EKG: ER physician was able to obtain old electrocardiograms and reports that the T-wave inversions in leads V5 and V6 are new. Patient himself does not complain of any pain, and he has groves d chronically elevated troponin. We will monitor on telemetry, recheck troponin and request Cardiolo gy Service input for opinion and help with management. 3. End-stage renal disease on dialysis. Nephrology Service is being consulted for maintenance dialy sis. At this point in time, there is no evidence that the patient is in volume overload. We will ch deneen a chest x-ray to make sure. 4. Diabetes mellitus. Start Accu-Cheks, insulin sliding scale. 5. Tobacco abuse: Patient has been counseled regarding tobacco cessation. Start nicotine replaceme nt therapy. 6. Dyslipidemia: Continue statin. 7. Supraventricular tachycardia: Continue digoxin. Many thanks for allowing me to participate in your patient's care. Please feel free to contact me wi th any questions or concerns. LEVEL OF RISK: High. LEVEL OF COMPLEXITY: High.
[2018-01-28 14:24] LABS: Troponin I 0.112 ng/mL (< 0.028)
--- NOTE | 2018-01-28 15:22 | RAD ---
CHEST 2 VIEWS: Date: 01/28/18 COMPARISON: 12/19/17. HISTORY: Shortness of breath. FINDINGS: Heart size appears slightly enlarged. Right-sided HemoSplit catheter is unchanged in position. There has been development of elevation of the right hemidiaphragm and more linear parenchymal change in th e right base suggestive of atelectasis or infiltrate. No signs of failure. IMPRESSION: 1. Cardiomegaly. 2. Development of an elevated right hemidiaphragm with right lower lobe atelectatic type lung change . POS: [facility]
[2018-01-28] MEDS ORDERED: Ondansetron HCl/PF 4 MG/2 ML Vial IVP PRN (15:30)
[2018-01-28] MEDS ORDERED: Ondansetron ODT 4 MG TAB PO PRN (15:31)
[2018-01-28] MEDS ORDERED: cloNIDine 0.2 MG TAB PO SCH (17:15)
[2018-01-28 18:56] VITALS: BMI 30.9
--- NOTE | 2018-01-28 19:18 | CON ---
DATE OF CONSULTATION: 01/28/2018 REASON FOR CONSULTATION: Hypertension. HISTORY OF PRESENT ILLNESS: Mr. Keita is a 57-year-old gentleman who I have seen and evaluated in t he past. He has a history of nonischemic cardiomyopathy. He also has a history of end-stage renal d isease in addition to illicit drug use. He states he was recently admitted for hypertensive urgency. He states he has had much difficulty on recent dialysis having elevated blood pressure. To me, he denies chest pain, pressure or other associated symptoms. His EKG showed slight T-wave inversion. PAST MEDICAL HISTORY: Diastolic heart failure, anemia, end-stage renal disease, COPD, diabetes melli tus, previous SVT. PAST SURGICAL HISTORY: Dialysis fistula. SOCIAL HISTORY: No current alcohol use. Positive tobacco use. He has used illicit drugs in the pas t. PHYSICAL EXAMINATION: GENERAL: The patient is a pleasant male who is in no acute distress. The patient appears his stated age. VITAL SIGNS: Blood pressure 192/98, pulse 70, temperature afebrile. NEUROLOGIC: The patient is alert and oriented times 3 with no focal neurologic deficits. HEENT: Sclerae without icterus. Mouth has moist mucous membranes with normal pallor. NECK: No JVD. Carotid upstroke brisk. No bruits bilaterally. LUNGS: Clear to auscultation with unlabored respirations. BACK: No scoliosis or kyphosis. CARDIAC: Regular rate and rhythm with normal S1 and S2. No S3 or S4 noted. No significant rubs, mu rmurs, thrills, or gallops noted throughout the precordium. PMI is not displaced. There is no viridiana ternal heave. ABDOMEN: Soft, nontender, nondistended. No peritoneal signs present. No hepatosplenomegaly. No ab normal striae. EXTREMITIES: 2+ femoral and 2+ dorsalis pedis pulses. No cyanosis, clubbing, or edema. SKIN: No gross abnormalities. PERTINENT LABS: Creatinine 4.8. Troponin 0.128. IMPRESSION: 1. Hypertensive urgency. 2. ? chest pain. 3. History of nonischemic cardiomyopathy. 4. Recent normal stress test. RECOMMENDATIONS: During my visit, Mr. Keita did not elicit any history of chest pain, pressure or other associated symptoms. At this point, I would recommend aggressive blood pressure management per Renal given that he is a dialysis patient. Given a normal stress study, I would not recommend any f urther intervention from a CV standpoint.
[2018-01-28] MEDS: hydrALAZINE 25 MG TAB PO SCH (20:03)
[2018-01-28] MEDS: cloNIDine 0.2 MG TAB PO SCH (20:05)
[2018-01-28] MEDS: Heparin 5,000 UNITS/ML VIAL SC SCH ×2 (20:06→22:32)
[2018-01-28] MEDS ORDERED: Atorvastatin Calcium 40 MG TAB PO SCH (21:00)
[2018-01-29] MEDS ORDERED: diphenhydrAMINE 50 MG/ML VIAL IVP SCH (02:30)
[2018-01-29 05:48] LABS: #Lymphocytes 1.4 thou/uL (1.20-3.40); #Monocytes 0.5 thou/uL (0.11-0.59); #Neutrophils 2.6 thou/uL (1.40-6.50); %Basophils 0.5 % (0.0-1.0); %Eosinophils 18.7 % (0.0-10.0); %Lymphocytes 24.9 % (21.0-51.0); %Neutrophils 46.9 % (42.0-75.0); Hemoglobin 9.5 g/dL (14.0-18.0); Mean Corpuscular HGB CONC 31.9 g/dL (32.0-36.0); Mean Corpuscular Hemoglobin 27.1 pg (27.0-31.0); Mean Corpuscular Volume 84.9 fL (78.0-98.0); Mean Platelet Volume 8.3 fL (7.4-10.4); Platelet Count 162 thou/uL (130-400); RBC Distribution Width 12.3 % (11.5-14.5); Red Blood Cell (RBC) Count 3.51 mill/uL (4.70-6.10); White Blood Cell (WBC) Count 5.5 thou/uL (4.8-10.8)
[2018-01-29 05:59] LABS: Anion Gap 13 mmol/L (10-20); BUN (Urea Nitrogen) 33 mg/dL (8.4-25.7); Calc. Creatinine Clearance 20 mL/min (70-130); Calcium 8.5 mg/dL (7.8-10.44); Carbon Dioxide 25 mmol/L (22-29); Chloride 104 mmol/L (98-107); Estimated GFR-MDRD 12; Glucose 113 mg/dL (70-105); Potassium 4.4 mmol/L (3.5-5.1); Sodium 138 mmol/L (136-145)
[2018-01-29] MEDS ORDERED: Mometasone/Formoterol 120 PUFF INHALER INH SCH (06:30)
[2018-01-29 08:22] LABS: HBSAg Index 0.47 S/CO (0-0.99); Hep B Surf Ag Non-Reactive S/CO (NonReactive)
[2018-01-29] MEDS ORDERED: Aspirin 325 MG TAB PO SCH (09:00)
[2018-01-29] MEDS ORDERED: Aspirin 81 mg Enteric Coated Tablet PO SCH (09:00)
[2018-01-29] MEDS ORDERED: Digoxin 0.125 MG TAB PO SCH (09:00)
[2018-01-29 09:04] LABS: Amphetamine Not Detected (NotDetected); Barbiturates Screen Not Detected (NotDetected); Benzodiazepine Screen Not Detected (NotDetected); Cocaine Metabolite Screen Detected (NotDetected); Medtox Control Line Valid? VALID (VALID); Medtox Reader # READER 4; Methadone Not Detected (NotDetected); Methamphetamine Not Detected (NotDetected); Opiate Screen Not Detected (NotDetected); Oxycodone Screen Not Detected (NotDetected); Phencyclidine (PCP) Not Detected (NotDetected); THC/Cannabinoid Screen Not Detected (NotDetected); Tricyclic Screen Not Detected (NotDetected)
--- NOTE | 2018-01-29 09:24 | PRG ---
DATE OF SERVICE: 01/29/2018 SUBJECTIVE: Mr. Keita is a 57-year-old black male with ESRD from diabetic nephropathy - currently on maintenance hemodialysis and admitted for labile hypertension. Adjustment was done during this ad mission, blood pressure this morning is much improved. We are following this patient for his mainte nance hemodialysis. He is currently undergoing dialysis and tolerating said treatment. My plan is t o do a 4-hour hemodialysis with him today. I am at the bedside supervising his dialysis and he is to lerating said procedure. No other complaints today, no chest pain or shortness of breath. OBJECTIVE: VITAL SIGNS: Blood pressure is 175/86, heart rate 65, respiratory rate 24, temperature 98.4, pulse o x 95%. GENERAL: Awake, supine, comfortable, not in distress. SKIN: Adequate turgor. HEENT: He has slightly pale conjunctivae, anicteric sclerae. NECK: No neck mass, no carotid bruits, no JVD. CHEST: No deformities. LUNGS: Clear breath sounds, no wheezing, no crackles. HEART: Normal sinus rhythm. No murmur, no gallops, no rubs. ABDOMEN: Globular, soft, nontender, no masses. EXTREMITIES: No edema, no deformities. MEDICATIONS: 01/29/2018 - Reviewed. LABORATORY: 01/29/2018 - White count 5.5, hemoglobin 9.5. Sodium 138, potassium 4.4, chloride 104, carbon dioxide 25, BUN 33, creatinine 5.75, glucose 113, calcium 8.5. ASSESSMENT AND PLAN: 1. Labile hypertension. Continue current blood pressure meds. Maximizing fluid removal with dialys is. 2. End-stage renal disease, stable. We will continue current Saturday, Saturday, Saturday hemodialysis . As previously mentioned, we will max out fluid removal as tolerated. 3. Anemia. We will continue to observe. Resume back Epogen when the blood pressure is better contr olled. Overall, I agree with current management.
[2018-01-29] MEDS ORDERED: Heparin 10,000 UNITS/ 10 ML VIAL ONE (10:00)
[2018-01-29] MEDS: cloNIDine 0.2 MG TAB PO SCH (11:34)
[2018-01-29] MEDS: hydrALAZINE 25 MG TAB PO SCH (11:34)
[2018-01-29] MEDS: Heparin 5,000 UNITS/ML VIAL SC SCH (11:35)
[2018-01-29 13:47] VITALS: BP 172/67; TEMP 98.6
--- NOTE | 2018-01-29 20:26 | DIS ---
DATE OF ADMISSION: 01/28/2018 DATE OF DISCHARGE: 01/29/2018 DISCHARGE DIAGNOSES: 1. Hypertensive urgency due to noncompliance. 2. End-stage renal disease with hemodialysis. 3. Cocaine abuse. 4. Tobacco abuse. 5. Diabetes mellitus, type 2, stable. 6. Nonischemic cardiomyopathy with ejection fraction of 50% to 55%. CONSULTATIONS: Dr. Garcia with Nephrology Service. Dr. Storey with Cardiology Service. PERTINENT LABORATORY AND X-RAY FINDINGS: Creatinine ranged between 4.8-5.75, estimated GFR ranged be tween 12-15, calcium 8.5, phosphorus 4.6, troponin I ranged between 0.112-0.128. CBC showed a hemogl obin ranging between 9.5-10.3. Urine drug screen dated 01/29/2018, positive for cocaine. Hepatitis B surface antigen nonreactive on 01/29/2018. CT of the brain without contrast dated 01/28/2018 showe d no acute intracranial process. Portable chest x-ray dated 01/28/2018 showed cardiomegaly. HOSPITAL COURSE: The patient was initially admitted to the telemetry unit after presenting with neck pain with associated hypertensive urgency in the context of end-stage renal disease and noncomplianc e with cocaine positive drug screen. The patient was placed on IV labetalol and hydralazine and init iated on maintenance hemodialysis for maximum volume removal to assist with blood pressure control. The patient clinically not in acute volume overload with chest imaging showing no evidence of pulmona ry edema. The patient clinically improved with supportive management, institution of hemodialysis an d home blood pressure regimen. The patient was cautioned regarding the use of cocaine and its ramifi cations on blood pressure control. The patient was also given education regarding smoking cessation. Overall, the patient did remain clinically stable throughout the hospital course, tolerating regula r oral intake. I have examined the patient at the time of discharge and discussed followup instructi ons, at which point patient verbalized understanding and agreement. DISCHARGE MEDICATIONS: 1. Enteric coated aspirin 81 mg 1 tab p.o. daily. 2. Lipitor 40 mg p.o. at bedtime. 3. Clonidine 0.2 mg p.o. b.i.d. 4. Amaryl 4 mg p.o. b.i.d. 5. Hydralazine 100 mg p.o. t.i.d. 6. Levemir 25 units subcutaneously daily. 7. Digoxin 0.125 mg p.o. daily. 8. Cardizem CD 240 mg p.o. daily. 9. Dulera 200/5 mcg 2 puffs inhaled b.i.d. 10. Nicotine patch 21 mg transdermally daily. FOLLOWUP: The patient to follow up with his primary care provider, Dr. Nunez, within 7 days of disc harge. The patient will follow up with Dr. Garcia with hemodialysis on Saturday, Saturday, and Saturday. CONDITION ON DISCHARGE: Stable. ACTIVITY: Ad varun. DIET: Heart healthy and ADA. CODE STATUS: FULL. DISPOSITION: Home on 01/29/2018.
--- NOTE | 2018-02-01 13:24 | EKG ---
Test Reason : Blood Pressure : / mmHG Vent. Rate : 074 BPM Atrial Rate : 074 BPM P-R Int : 158 ms QRS Dur : 108 ms QT Int : 370 ms P-R-T Axes : 047 -21 122 degrees QTc Int : 410 ms Normal sinus rhythm New T wave inversions in V5-V6 from EKG on 12/19/2017 Confirmed by SONJA KNOX ([id number]), scientific editor DELVIN LANIER ([id number]) on 02/01/2018 1:24:15 PM Referred By: Confirmed By:SONJA KNOX
== END 2018-01-29 15:50 | disposition home or self-care (01) | DRG 304 ==
LOC: ERS 08:45 → 2NO 14:02
PROVIDERS: ADMIT Internal Medicine; ATTEND Internal Medicine
DX: I16.0 Hypertensive urgency (principal); N18.6 End stage renal disease; I42.8 Other cardiomyopathies; I50.30 Unspecified diastolic (congestive) heart failure; I47.1 Supraventricular tachycardia; E11.22 Type 2 diabetes mellitus with diabetic chronic kidney disease; Z99.2 Dependence on renal dialysis; F14.10 Cocaine abuse, uncomplicated; F17.210 Nicotine dependence, cigarettes, uncomplicated; Z91.19 Patient's noncompliance with other medical treatment and regimen; E11.21 Type 2 diabetes mellitus with diabetic nephropathy; D64.9 Anemia, unspecified; J44.9 Chronic obstructive pulmonary disease, unspecified; I13.0 Hypertensive heart and chronic kidney disease with heart failure and stage 1 through stage 4 chronic kidney disease, or unspecified chronic kidney disease
CPT/HCPCS: 36415; 36416; 70450; 71046; 72125; 80048; 80053; 80306; 82553; 82947; 84100; 84484; 85025; 87340; 90935; 93005; 94640; 94760; 96365; 96372; 96375; 96376; A4216; G0257; J0360; J1200; J1644; J1650; J1885; J2800; J7050; J7620

== ENCOUNTER 2018-04-06 13:43 | Emergency (ER) | payer MEDICARE, MEDICAID ==
--- NOTE | 2018-04-06 14:34 | RAD ---
CHEST PA AND LATERAL: HISTORY: A 57-year-old male with a history of cough and congestion and runny nose. COMPARISON: 01/28/2010. Linear parenchymal changes noted in both lung bases, greater on the right side with some right hemidi aphragm elevation but overall stable to actually improved when compared to the prior study. Borderli ne enlarged somewhat globular-shaped heart. No confluent lobar pneumonia or other acute process. IMPRESSION: Right hemidiaphragm elevation with bibasilar mostly linear parenchymal changes more so in the right b ase but stable from prior study. Borderline cardiomegaly. POS: [facility]
== END 2018-04-06 14:44 | disposition home or self-care (01) ==
LOC: ERS 13:43
DX: J01.90 Acute sinusitis, unspecified (principal); J44.9 Chronic obstructive pulmonary disease, unspecified; G47.30 Sleep apnea, unspecified; I25.10 Atherosclerotic heart disease of native coronary artery without angina pectoris; E11.40 Type 2 diabetes mellitus with diabetic neuropathy, unspecified; E78.5 Hyperlipidemia, unspecified; I13.2 Hypertensive heart and chronic kidney disease with heart failure and with stage 5 chronic kidney disease, or end stage renal disease; N18.6 End stage renal disease; I50.9 Heart failure, unspecified; F17.210 Nicotine dependence, cigarettes, uncomplicated; Z79.899 Other long term (current) drug therapy
CPT/HCPCS: 71046; 94640; J7620

== ENCOUNTER 2018-04-08 10:56 | Observation (INO) | payer MEDICARE, MEDICAID ==
[2018-04-08 11:45] LABS: #Eosinphils 0.4 thou/uL (0.0-0.7); #Lymphocytes 1.1 thou/uL (1.20-3.40); #Monocytes 0.8 thou/uL (0.11-0.59); %Basophils 0.3 % (0.0-1.0); %Eosinophils 4.5 % (0.0-10.0); %Lymphocytes 11.3 % (21.0-51.0); %Monocytes 8.8 % (0.0-10.0); %Neutrophils 75.1 % (42.0-75.0); Hemoglobin 11.2 g/dL (14.0-18.0); Mean Corpuscular HGB CONC 32.7 g/dL (32.0-36.0); Mean Corpuscular Hemoglobin 27.7 pg (27.0-31.0); Mean Corpuscular Volume 84.8 fL (78.0-98.0); Mean Platelet Volume 7.5 fL (7.4-10.4); Platelet Count 281 thou/uL (130-400); Red Blood Cell (RBC) Count 4.02 mill/uL (4.70-6.10); White Blood Cell (WBC) Count 9.3 thou/uL (4.8-10.8)
[2018-04-08 11:56] LABS: INR-International Normal Ratio 1.1; Prothrombin Time 14.3 SEC (12.0-14.7)
[2018-04-08 12:05] LABS: ALT (SGPT) 12 U/L (8-55); AST (SGOT) 17 U/L (5-34); Albumin 3.7 g/dL (3.5-5.0); Alkaline Phosphatase 247 U/L (40-150); Anion Gap 16 mmol/L (10-20); BUN (Urea Nitrogen) 21 mg/dL (8.4-25.7); Bilirubin, Total 0.4 mg/dL (0.2-1.2); Calc. Creatinine Clearance 0 mL/min (70-130); Calcium 9.7 mg/dL (7.8-10.44); Carbon Dioxide 26 mmol/L (22-29); Chloride 97 mmol/L (98-107); Estimated GFR-MDRD 14; Globulin 4.3 g/dL (2.4-3.5); Glucose 96 mg/dL (70-105); Potassium 3.8 mmol/L (3.5-5.1); Sodium 135 mmol/L (136-145)
[2018-04-08 12:10] LABS: CKMB 6.1 ng/mL (0-6.6); Troponin I 0.235 ng/mL (< 0.028)
--- NOTE | 2018-04-08 12:10 | RAD ---
PORTABLE CHEST 1 VIEW: Date: 04/08/18 Time: 1141 hours HISTORY: Dizziness, PVCs. FINDINGS/IMPRESSION: Comparison made with exam of 12/19/17. The heart size is borderline. There is continued elevation of the right hemidiaphragm. There is mild infiltrate versus atelectatic change at the right lung base. No pneumothoraces, lobar consolidation, jefry pulmonary edema, or large effusions are seen. The previously noted right-sided dialysis cathete r has been removed in the interim. POS: [facility]
--- NOTE | 2018-04-08 14:30 | CT ---
CT BRAIN NONCONTRAST: HISTORY: 57-year-old male with dizziness. FINDINGS: There is no midline shift or any other mass effect. There is no evidence of acute intracranial hemor rhage, large cortical infarct, obstructive hydrocephalus, or extraaxial fluid collection. The calvar ium is intact. IMPRESSION: No acute intracranial findings. jn [] POS: [facility]
[2018-04-08 15:48] LABS: Troponin I 0.207 ng/mL (< 0.028)
[2018-04-08 17:29] LABS: Digoxin Less than 0.15 ng/mL (0.8-2.0)
[2018-04-08 18:44] LABS: Troponin I 0.196 ng/mL (< 0.028)
[2018-04-08] MEDS ORDERED: Ondansetron PF 4 MG/2 ML Vial IVP PRN ×2 (20:44→20:47)
[2018-04-08] MEDS ORDERED: Ondansetron ODT 4 MG TAB SL PRN (20:44)
[2018-04-08] MEDS ORDERED: Acetaminophen 325 MG TAB PO PRN ×2 (20:44→20:47)
[2018-04-08] MEDS ORDERED: Senokot S 8.6-50 MG TAB PO PRN (20:47)
[2018-04-08] MEDS ORDERED: Nitroglycerin 0.4 MG TAB (25 Tab Bottle) PO PRN (20:47)
[2018-04-08] MEDS ORDERED: Insulin Regular 300 UNITS/3 ML VIAL SC PRN ×2 (20:47)
[2018-04-08] MEDS ORDERED: Dextrose 50% Abboject 50 ML SYRINGE SLOW IVP PRN (20:47)
[2018-04-08] MEDS ORDERED: Dextrose 5% in Water 1,000 ML IV PRN (20:47)
[2018-04-08] MEDS ORDERED: Ondansetron ODT 4 MG TAB PO PRN (20:47)
[2018-04-08] MEDS ORDERED: hydrALAZINE 20 MG/ML VIAL SLOW IVP PRN (20:54)
[2018-04-08] MEDS ORDERED: Nitroglycerin 2% Ointment 1 INCH/1 GM Packet TOP PRN (20:54)
[2018-04-08] MEDS ORDERED: Mometasone/Formoterol 120 PUFF INHALER INH SCH (21:00)
--- NOTE | 2018-04-08 21:41 | HP ---
PRIMARY CARE PHYSICIAN: Dr. Nunez. CHIEF COMPLAINT: Near syncopal episode. HISTORY OF PRESENT ILLNESS: The patient is a 57-year-old male with hypertension , diabetes mellitus type 2, and end-stage renal disease on hemodialysis, presented to the primary care physician's office for lightheadedness and dizziness. He was found to have heart rate of 28 to 30 along with lightheadedness and dizziness for which he was sent to the emergency room for evaluation. He felt generally weak; however, denies any nausea, vomiting, diaphoresis, or syncope. The patient is currently out of digoxin for 1 week. He is currently on clonidine 0.2 mg 4 times a day. The clonidine dose was increased from twice daily to 4 times a day by a physician in [place] last month. He denies any other symptoms. In the emergency room, his initial vital signs show a temperature of 98, respirations 15, pulse 71 with blood pressure of 152/88, with O2 saturation of 100% on room air. He received aspirin in the emergency room. PAST MEDICAL HISTORY: 1. End-stage renal disease, on hemodialysis. 2. Hypertension. 3. Diabetes mellitus type 2. 4. Nonischemic cardiomyopathy with ejection fraction 50% to 55%. 5. History of cocaine abuse. 6. Chronically elevated troponins. 7. Chronic anemia. 8. COPD. 9. Negative Cardiolite stress test in January 2018. 10. History of supraventricular tachycardia, managed by Dr. Mercado. PAST SURGICAL HISTORY: 1. Cardiac catheterization in 2016. 2. Dialysis access. ALLERGIES: NO KNOWN DRUG ALLERGIES. CURRENT HOME MEDICATIONS: Verified with the bottles at the bedside; 1. Glimepiride 4 mg twice a day. 2. Amlodipine 10 mg daily. 3. Aspirin 81 mg daily. 4. Albuterol nebulization as needed. 5. Clonidine 0.2 mg every 6 hourly. 6. Protonix 20 mg daily. 7. Digoxin 125 mcg daily. Please note that patient is out of digoxin for 1 week. 8. Hydroxyzine 25 mg as needed. 9. Hydralazine 100 mg 3 times a day. SOCIAL HISTORY: The patient currently lives at home with his family. He smokes cigarettes on a daily basis. He denies any current use of drugs. He has abused cocaine in the past. FAMILY HISTORY: Positive for hypertension. Mother with CVA. REVIEW OF SYSTEMS: The following complete review of systems was negative, unless otherwise mentioned in the HPI or below: Constitutional: Weight loss or gain, ability to conduct usual activities. Skin: Rash, itching. Eyes: Double vision, pain. ENT/Mouth: Nose bleeding, neck stiffness, pain, tenderness. Cardiovascular: Palpitations, dyspnea on exertion, orthopnea. Respiratory: Shortness of breath, wheezing, cough, hemoptysis, fever or night sweats. Gastrointestinal: Poor appetite, abdominal pain, heartburn, nausea, vomiting, constipation, or diarrhea. Genitourinary: Urgency, frequency, dysuria, nocturia. Musculoskeletal: Pain, swelling. Neurologic/Psychiatric: Anxiety, depression. Allergy/Immunologic: Skin rash, bleeding tendency. PHYSICAL EXAMINATION: VITAL SIGNS: As discussed above. GENERAL: A 57-year-old male, in no apparent distress. HEENT: Head atraumatic, normocephalic. Sclerae anicteric. Moist mucous membranes. No oral lesion. NECK: Supple. No JVD appreciated. No carotid bruits. LUNGS: Clear to auscultation bilaterally. No wheezing, rales, or rhonchi. HEART: S1 and S2 present. Regular rate and rhythm. No murmur, rubs, or gallop appreciated. ABDOMEN: Soft, nontender, bowel sounds present. EXTREMITIES: No edema or calf tenderness. NEUROLOGIC: Grossly nonfocal. Moves all 4 extremities. PSYCHIATRIC: Alert, awake, oriented x3. SKIN: Warm and dry. LYMPH NODE: No palpable lymph nodes in the neck. Peripheral, vascular, radial pulses palpable bilaterally. MUSCULOSKELETAL: No joint swelling or tenderness. LABORATORY DATA: CBC showed WBC 9.3, hemoglobin 11.2, hematocrit 34.1, platelets 281. Chemistry showed sodium 135, potassium 3.8, chloride 97, bicarb 26, BUN 21 , creatinine 5.29. Troponins of 0.235 with CK-MB 6.1. Digoxin level was less than 0.15. Chest x-ray by my review was negative for infiltrate or edema. CT scan of the brain was negative for acute findings. EKG by my review showed sinus rhythm with nonspecific ST-T wave changes in the lateral leads. IMPRESSION: 1. Near syncopal episode secondary to sinus bradycardia, probably secondary to high dose of clonidine. Please note that clonidine dose was increased last month in [place]. 2. End-stage renal disease, on hemodialysis. 3. Elevated troponins, probably secondary to demand ischemia. Also note that patient has chronically elevated troponin up to 0.1 in the past. His troponin today was 0.235. 4. Mild hyponatremia. 5. Tobacco dependence. 6. Hypertension. 7. Diabetes mellitus type 2. 8. Nonischemic cardiomyopathy with ejection fraction 50% to 55%. PLAN: The patient will be monitored on the telemetry unit. We will change clonidine to 0.2 mg twice daily. We will hold digoxin for now. He has history of supraventricular tachycardia in the past. Nephrology will be consulted for hemodialysis in a.m. Consult Dr. Storey. We will monitor him overnight. Vital signs q.4 hourly. Plan of care was discussed with the patient in detail. He stated understanding. Job ID: [id number] MTDD
[2018-04-08] MEDS: cloNIDine 0.2 MG TAB PO SCH (21:54)
[2018-04-08] MEDS: hydrALAZINE 25 MG TAB PO SCH (21:54)
[2018-04-08] MEDS: Atorvastatin Calcium 40 MG TAB PO SCH (21:56)
[2018-04-09] MEDS ORDERED: Loratadine 10 MG TAB PO PRN (01:40)
[2018-04-09] MEDS ORDERED: Sodium Chloride 0.65% Nasal 44 ML BOT EA NARE PRN (01:40)
[2018-04-09] MEDS: Mometasone/Formoterol 120 PUFF INHALER INH SCH ×2 (07:31→18:57)
[2018-04-09] MEDS ORDERED: Glimepiride 4 MG TAB PO SCH (08:00)
[2018-04-09] MEDS: Amlodipine 10 MG TAB PO SCH ×2 (09:07→12:53)
[2018-04-09] MEDS: hydrALAZINE 25 MG TAB PO SCH ×4 (09:08→21:03)
[2018-04-09] MEDS: cloNIDine 0.2 MG TAB PO SCH ×3 (09:08→21:03)
[2018-04-09] MEDS ORDERED: Heparin 10,000 UNITS/ 10 ML VIAL ONE (12:00)
[2018-04-09] MEDS: Aspirin 81 mg Enteric Coated Tablet PO SCH (12:53)
[2018-04-09] MEDS ORDERED: cloNIDine 0.1 MG TAB PO PRN (13:25)
--- NOTE | 2018-04-09 13:49 | PDOC.PN ---
- Subjective Encounter Start Date: 04/09/18 Encounter Start Time: 09:30 Patient seen and examined for Bradycardia. No new complaints. No overnight events - Objective Resuscitation Status - Order Detail: 04/08/18 20:47 Resuscitation Status Routine Resuscitation Status: FULL: Full Resuscitation Vital Signs & Weight: Vital Signs (12 hours) Temp Pulse Resp BP Pulse Ox 04/09/18 12:52 77 04/09/18 07:54 98.3 F 77 16 169/88 H 98 04/09/18 07:33 97 04/09/18 07:31 82 16 97 04/09/18 03:03 98.6 F 85 16 162/85 H 97 Weight Weight 209 lb 9.6 oz I&O: 04/08/18 04/09/18 04/10/18 06:59 06:59 06:59 Intake Total 540 Output Total 500 Balance 40 Result Diagrams: 04/08/18 11:31 04/08/18 11:31 Additional Labs: Accuchecks 04/09/18 04/09/18 04/08/18 06:31 06:00 21:14 POC Glucose 84 55 L* 94 EKG Reviewed by me: Yes (Tele SR) Phys Exam - Physical Examination Constitutional: NAD Respiratory: no wheezing, no rales, no rhonchi, clear to auscultation bilateral Cardiovascular: RRR, no rub no heaves/pulsations Gastrointestinal: soft, non-tender, no distention, positive bowel sounds Musculoskeletal: no edema Neurological: non-focal, normal sensation, moves all 4 limbs Psychiatric: normal affect, A&O x 3 Dx/Plan - Plan DVT proph w/SCDs 1. Near syncopal episode secondary to sinus bradycardia, probably secondary to high dose of clonidine. 2. End-stage renal disease, on hemodialysis. 3. Elevated troponins, probably secondary to demand ischemia. 4. Mild hyponatremia. 5. Tobacco dependence. 6. Hypertension. 7. Diabetes mellitus type 2 with hypoglycemia 8. Nonischemic cardiomyopathy with ejection fraction 50% to 55%. PLAN: Clonidine dose changed to 0.2 mg BID Cont Amlodipine and Hydralazine Dialysis today Hold Glimepiride due to hypoglycemia Cont other meds as below Await Cardiology input Review of Systems - Review of Systems Respiratory: negative: Cough, Dry, Shortness of Breath, Hemoptysis, SOB with Excertion, Pleuritic Pain, Sputum, Wheezing Cardiovascular: negative: chest pain, palpitations, orthopnea, paroxysmal nocturnal dyspnea, edema, light headedness, other - Medications/Allergies Allergies/Adverse Reactions: Allergies Allergy/AdvReac Type Severity Reaction Status Date / Time No Known Drug Allergies Allergy Verified 04/08/18 21:07 Medications: Current Medications Acetaminophen (Tylenol) 650 mg PO Q4H PRN PRN Reason: Headache/Fever/Mild Pain (1-3) Amlodipine Besylate (Norvasc) 10 mg PO DAILY [facility] Last Admin: 04/09/18 12:53 Dose: 10 mg Aspirin (Ecotrin) 81 mg PO DAILY [facility] Last Admin: 04/09/18 12:53 Dose: 81 mg Atorvastatin Calcium (Lipitor) 40 mg PO HS [facility] Last Admin: 04/08/18 21:56 Dose: 40 mg Clonidine (Catapres) 0.2 mg PO BID [facility] Last Admin: 04/09/18 12:52 Dose: 0.2 mg Clonidine (Catapres) 0.1 mg PO Q4H PRN PRN Reason: Systolic BP > 180 Dextrose/Water (Dextrose 50%) 25 gm SLOW IVP PRN PRN PRN Reason: Hypoglycemia Glucagon (Glucagon) 1 mg IM PRN PRN PRN Reason: Hypoglycemia Hydralazine HCl (Apresoline) 100 mg PO TID [facility] Last Admin: 04/09/18 12:52 Dose: 100 mg Hydralazine HCl (Apresoline) 10 mg SLOW IVP Q4H PRN PRN Reason: SBP Greater Than 180 Hydroxyzine HCl (Atarax) 25 mg PO Q6H PRN PRN Reason: Itching Dextrose/Water (D5w) 1,000 mls @ 0 mls/hr IV .Q0M PRN PRN Reason: Hypoglycemia Insulin Human Regular (Humulin R) 0 units SC .MILD SLIDING SCALE PRN PRN Reason: Mild Correctional Scale Insulin Human Regular (Humulin R) 0 units SC .BEDTIME SLIDING SC PRN PRN Reason: Bedtime Correctional Scale Loratadine (Claritin) 10 mg PO DAILYPRN PRN PRN Reason: ALLERGIES Last Admin: 04/09/18 02:59 Dose: 10 mg Mometasone Furoate/Formoterol Fumar (Dulera 200 Mcg/5 Mcg Inhaler) 2 puff INH BID-RT [facility] Last Admin: 04/09/18 07:31 Dose: 2 puff Nitroglycerin (Nitrostat) 0.4 mg PO Q5MIN PRN PRN Reason: Chest Pain Nitroglycerin (Nitro-Bid 2% Ointment) 0.5 inch TOP Q8H PRN PRN Reason: SBP Greater Than 180 Ondansetron HCl (Zofran Odt) 4 mg PO Q6H PRN PRN Reason: Nausea/Vomiting Ondansetron HCl (Zofran) 4 mg IVP Q6H PRN PRN Reason: Nausea/Vomiting Senna/Docusate Sodium (Senokot S) 2 tab PO BID PRN PRN Reason: Constipation Sodium Chloride (Flush - Normal Saline) 10 ml IVF PRN PRN PRN Reason: Saline Flush Last Admin: 04/08/18 21:56 Dose: 10 ml Sodium Chloride (Flush - Normal Saline) 10 ml IVF PRN PRN PRN Reason: Saline Flush Sodium Chloride ([place] 0.65%) 0 ml EA NARE PRN PRN PRN Reason: SINUS CONGESTION Last Admin: 04/09/18 02:59 Dose: 1 spr
--- NOTE | 2018-04-09 14:55 | CON ---
DATE OF CONSULTATION: 04/09/2018 HISTORY: Mr. Keita is a 57-year-old black male with ESRD - on maintenance hemodialysis and was admitted for near syncopal episode. The patient tells his reason for being admitted was he was feeling dizzy and somewhat weak. We were consulted for his maintenance hemodialysis. Please note that in the emergency room, his vital signs were noted to be stable. Due to the near syncopal episode/dizziness, he is admitted for further observation. This morning, he voices no new complaints, he was feeling better. REVIEW OF SYSTEMS: Positive for dizziness. No syncope present. No nausea. No vomiting. No chest pain. No shortness of breath. No abdominal pain. No diarrhea. No constipation. No diplopia. MEDICATIONS: Currently on; 1. Norvasc 10 mg daily. 2. Ecotrin 81 mg once daily. 3. Lipitor 40 mg at bedtime. 4. Catapres 0.2 mg b.i.d. 5. Atarax 25 mg q.6 p.r.n. 6. Humulin R sliding scale. 7. Zofran 4 mg IV q.6 p.r.n. PAST MEDICAL HISTORY: 1. ESRD from diabetic/hypertensive nephropathy. 2. Hypertension. 3. Type 2 diabetes mellitus. 4. Chronic anemia. 5. COPD. 6. Status post SVT. PAST SURGICAL HISTORY: 1. Status post AV fistula placement. 2. Status post hemodialysis catheter placement. 3. Status post cardiac cath. SOCIAL HISTORY: The patient currently lives with his family. He is from the [place], but originally from [place]. 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 The patient currently not smoking. Alcohol is occasional. He has several children. Sedentary lifestyle. FAMILY HISTORY: Positive history of hypertension. No ESRD. ALLERGIES: NO KNOWN DRUG ALLERGIES. TRAUMA: None. IMMUNIZATION: Up-to-date. Please see past medical history. PHYSICAL EXAMINATION: VITAL SIGNS: Blood pressure is noted at 169/88, heart rate 77, respiratory rate 16, temperature 98.3, and pulse ox 98%. GENERAL: Noted to be awake, alert, comfortable, not in overt distress. SKIN: Adequate turgor. HEENT: He has pinkish conjunctivae. Anicteric sclerae. NECK: No neck mass. No carotid bruits. No JVD. CHEST: No deformities. LUNGS: Clear breath sounds. HEART: Normal sinus rhythm. No murmur. No gallops. No rubs. ABDOMEN: Globular, soft, nontender. No masses. EXTREMITIES: No edema. No deformities. DIAGNOSTIC DATA: CT scan of the brain - no acute intracranial abnormality. Chest x-ray, no CHF. EKG, sinus rhythm with non-specific ST-T wave changes. LABORATORY DATA: Laboratories of 04/08/2018, white count 9.3, hemoglobin 11.2. Sodium was noted at 135, potassium 2.8, chloride 97, carbon dioxide 26, BUN 21, creatinine 5.29, and albumin 3.7. Troponin I 0.196. ASSESSMENT: 1. End-stage renal disease - stable. We will continue current maintenance hemodialysis. We would schedule him for his Saturday, Saturday, and Saturday dialysis. Please note, I reviewed and it was suggesting his adequately dialyzed with the current regimen. Fluid removal only as tolerated by the patient. 2. Chronic anemia. No indication for any Epogen. 3. Dizziness/near syncopal episode - Cardiology consult has been done by Dr. Garcia. 4. Overall agree with current management. Job ID: [id number]
--- NOTE | 2018-04-09 15:15 | DIS ---
DATE OF ADMISSION: 04/08/2018 DATE OF DISCHARGE: 04/10/2018 DISCHARGE DISPOSITION: Home. FOLLOWUP: 1. Follow up with primary care physician, Dr. Nunez in 1 week. 2. Follow up with Cardiology, Dr. Storey as scheduled. The patient will be discharged later today once cleared by Cardiology. ALLERGIES: NO KNOWN DRUG ALLERGIES. DISCHARGE MEDICATIONS: Clonidine dose was reduced to 0.1 mg twice a day. Minoxidil 2.5 mg daily was added. All other home medications were left unchanged.. BRIEF HOSPITAL COURSE: The patient is a 57-year-old male with hypertension; diabetes mellitus, type 2; and end-stage renal disease, on hemodialysis, presented to the hospital with near syncopal episode at Dr. Nunez's office. He was also found to have heart rate in 30s at Dr. Nunez's office along with lightheadedness and dizziness. He was sent to the emergency room for evaluation. During this hospitalization, the patient's heart rate remained stable. His clonidine dose has been reduced to 0.1 mg twice a day. He underwent hemodialysis per Nephrology. He has been cleared by Cardiology. FINAL DIAGNOSES: 1. Near syncopal episode secondary to bradycardia from high dose of clonidine. 2. End-stage renal disease, on hemodialysis. 3. Elevated troponin secondary to demand ischemia. 4. Mild hyponatremia. 5. Tobacco dependence. 6. Hypertension. 7. Diabetes mellitus, type 2. 8. Nonischemic cardiomyopathy with ejection fraction 50% to 55%. PLAN OF CARE: Plan of care was discussed with the patient in detail. He stated understanding. Job ID: [id number] MTDD
[2018-04-09] MEDS: Atorvastatin Calcium 40 MG TAB PO SCH (21:03)
[2018-04-09] MEDS: hydrOXYzine 25 MG TAB PO PRN (22:10)
[2018-04-10] MEDS: Mometasone/Formoterol 120 PUFF INHALER INH SCH (06:20)
--- NOTE | 2018-04-10 08:01 | CON ---
DATE OF CONSULTATION: 04/09/2018 REASON FOR CONSULTATION: Bradycardia. HISTORY OF PRESENT ILLNESS: Mr. Keita is a 57-year-old gentleman, who was seen and evaluated in the past. He has a history of end-stage renal disease. He recently had his blood pressure medicines adjusted. They doubled his clonidine. He was found to be in his primary care office with lightheadedness and dizziness. in the 20s to 30s. He was seen and evaluated at [facility]. His heart rate has been in the 70s to 80s. No current complaints. He is currently seen on dialysis. PAST MEDICAL HISTORY: End-stage renal disease, diabetes mellitus, COPD, hypertension, substance abuse, and recent fistula placement. SOCIAL HISTORY: No current tobacco or alcohol use. FAMILY HISTORY: Aunt with CAD. ALLERGIES: NONE. REVIEW OF SYSTEMS: A 10-point review of systems reviewed and is negative. PHYSICAL EXAMINATION: VITAL SIGNS: Blood pressure 190/95, pulse 76, temperature 97.7. LABORATORY DATA: Pertinent labs: Hemoglobin 11.2. Creatinine 5.2. IMPRESSION: 1. Bradycardia. 2. End-stage renal disease. 3. Diastolic dysfunction. RECOMMENDATIONS: Bradycardia, likely related to clonidine use. He has no previous history of bradycardia. At this point, we would recommend decreasing clonidine to 0.1 mg q.a.m. We will continue to observe. May benefit from . Job ID: [id number]
[2018-04-10] MEDS ORDERED: cloNIDine 0.2 MG TAB PO SCH (08:54)
[2018-04-10] MEDS ORDERED: cloNIDine 0.1 MG TAB PO SCH (09:00)
[2018-04-10] MEDS ORDERED: Minoxidil 2.5 MG TAB PO SCH (09:00)
[2018-04-10] MEDS: hydrALAZINE 25 MG TAB PO SCH ×2 (09:13→16:15)
[2018-04-10] MEDS: Aspirin 81 mg Enteric Coated Tablet PO SCH (09:14)
[2018-04-10] MEDS: Amlodipine 10 MG TAB PO SCH (09:14)
--- NOTE | 2018-04-10 10:52 | PRG ---
DATE OF SERVICE: 04/10/2018 SUBJECTIVE: Mr. Keita is a 57-year-old black male, who was admitted for bradycardia and near syncopal episode. Review of his medications suggested that the bradycardia may have been related to his clonidine. This has been decreased from 0.3 q.i.d. to currently 0.2 mg p.o. b.i.d. He still had an episode of bradycardia while on dialysis, which spontaneously resolved. Cardiology is following this patient and the recommendation is to continue to observe him and to continue to taper off his clonidine. No complaints today. No chest pain or shortness of breath. OBJECTIVE: VITAL SIGNS: Blood pressure is 163/85, heart rate is 74, respiratory rate 20, temperature 98.5, and pulse ox 96%. GENERAL: Awake, alert, comfortable, not in distress. SKIN: Adequate turgor. HEENT: Pinkish conjunctivae. Anicteric sclerae. NECK: No neck mass. No carotid bruits. No JVD. CHEST: No deformities. LUNGS: Clear breath sounds. HEART: Normal sinus rhythm. No murmur. No gallops. No rubs. ABDOMEN: Globular, soft, nontender. No masses. EXTREMITIES: No edema. No deformities. MEDICATIONS: Medications of April 10, 2018, was reviewed. LABORATORY DATA: Laboratories of April 10, 2018, glucose 99. On April 08, 2018, potassium was 3.8 and creatinine 5.29. ASSESSMENT AND PLAN: 1. Bradycardia, I think most likely drug-induced. My suggestion is to further decrease clonidine from 0.2 mg b.i.d. to 0.1 mg b.i.d. In addition, due to the decreased antihypertensive medication, we could consider adding Hytrin 2 mg q.h.s. 2. Hypertension. Decrease clonidine due to the bradycardia. Add Hytrin 2 mg tab q.h.s. 3. End-stage renal disease, stable with the routine current hemodialysis regimen. We will do another dialysis tomorrow, Saturday. Agree with current management. Job ID: [id number]
[2018-04-10] MEDS: hydrOXYzine 25 MG TAB PO PRN (12:06)
--- NOTE | 2018-04-10 12:38 | PDOC.PN ---
- Subjective Encounter Start Date: 04/10/18 Encounter Start Time: 10:00 Patient seen and examined for Near syncope/Bradycardia. No new complaints. No overnight events - Objective Resuscitation Status - Order Detail: 04/08/18 20:47 Resuscitation Status Routine Resuscitation Status: FULL: Full Resuscitation MAR Reviewed: Yes Vital Signs & Weight: Vital Signs (12 hours) Temp Pulse Resp BP BP Pulse Ox 04/10/18 11:06 98.7 F 76 20 135/76 98 04/10/18 07:31 98.5 F 74 20 163/85 H 96 04/10/18 06:21 98 04/10/18 06:18 90 16 98 04/10/18 05:18 73 18 143/77 H 98 Weight Weight 209 lb 9.6 oz I&O: 04/09/18 04/10/18 04/11/18 06:59 06:59 06:59 Intake Total 540 1585 Output Total 500 2750 Balance 40 -1165 Result Diagrams: 04/08/18 11:31 04/08/18 11:31 Additional Labs: Accuchecks 04/10/18 04/10/18 04/09/18 11:09 06:27 20:51 POC Glucose 155 H 99 180 H 04/09/18 16:20 POC Glucose 78 EKG Reviewed by me: Yes (Tele SR) Phys Exam - Physical Examination Constitutional: NAD Respiratory: no wheezing, no rhonchi Cardiovascular: RRR, no rub Gastrointestinal: soft, non-tender, positive bowel sounds Musculoskeletal: no edema Neurological: moves all 4 limbs Dx/Plan - Plan DVT proph w/SCDs 1. Near syncopal episode secondary to sinus bradycardia, probably secondary to high dose of clonidine. 2. End-stage renal disease, on hemodialysis - MWF 3. Elevated troponins, probably secondary to demand ischemia. 4. Mild hyponatremia. 5. Tobacco dependence. 6. Hypertension. 7. Diabetes mellitus type 2 with hypoglycemia 8. Nonischemic cardiomyopathy with ejection fraction 50% to 55%. PLAN: Cont Clonidine at 0.1 mg BID Minoxidil and Terazosin started Cont Amlodipine and Hydralazine s/p Dialysis Glimepiride on hold due to hypoglycemia Cont other meds as below DC later today if ok with Cardiology Review of Systems - Review of Systems Respiratory: negative: Cough, Dry, Shortness of Breath, Hemoptysis, SOB with Excertion, Pleuritic Pain, Sputum, Wheezing Cardiovascular: negative: chest pain, palpitations, orthopnea, paroxysmal nocturnal dyspnea, edema, light headedness, other - Medications/Allergies Allergies/Adverse Reactions: Allergies Allergy/AdvReac Type Severity Reaction Status Date / Time No Known Drug Allergies Allergy Verified 04/08/18 21:07 Medications: Current Medications Acetaminophen (Tylenol) 650 mg PO Q4H PRN PRN Reason: Headache/Fever/Mild Pain (1-3) Albuterol/Ipratropium (Duoneb) 3 ml NEB [id number] PRN PRN Reason: SOB &/or Wheezing Last Admin: 04/10/18 06:18 Dose: 3 ml Amlodipine Besylate (Norvasc) 10 mg PO DAILY [facility] Last Admin: 04/10/18 09:14 Dose: 10 mg Aspirin (Ecotrin) 81 mg PO DAILY [facility] Last Admin: 04/10/18 09:14 Dose: 81 mg Atorvastatin Calcium (Lipitor) 40 mg PO HS [facility] Last Admin: 04/09/18 21:03 Dose: 40 mg Clonidine (Catapres) 0.1 mg PO Q4H PRN PRN Reason: Systolic BP > 180 Clonidine (Catapres) 0.1 mg PO BID [facility] Last Admin: 04/10/18 09:14 Dose: 0.1 mg Dextrose/Water (Dextrose 50%) 25 gm SLOW IVP PRN PRN PRN Reason: Hypoglycemia Glucagon (Glucagon) 1 mg IM PRN PRN PRN Reason: Hypoglycemia Hydralazine HCl (Apresoline) 100 mg PO TID [facility] Last Admin: 04/10/18 09:13 Dose: 100 mg Hydralazine HCl (Apresoline) 10 mg SLOW IVP Q4H PRN PRN Reason: SBP Greater Than 180 Hydroxyzine HCl (Atarax) 25 mg PO Q6H PRN PRN Reason: Itching Last Admin: 04/10/18 12:06 Dose: 25 mg Dextrose/Water (D5w) 1,000 mls @ 0 mls/hr IV .Q0M PRN PRN Reason: Hypoglycemia Insulin Human Regular (Humulin R) 0 units SC .MILD SLIDING SCALE PRN PRN Reason: Mild Correctional Scale Insulin Human Regular (Humulin R) 0 units SC .BEDTIME SLIDING SC PRN PRN Reason: Bedtime Correctional Scale Loratadine (Claritin) 10 mg PO DAILYPRN PRN PRN Reason: ALLERGIES Last Admin: 04/09/18 02:59 Dose: 10 mg Minoxidil (Minoxidil) 2.5 mg PO DAILY [facility] Last Admin: 04/10/18 09:14 Dose: 2.5 mg Mometasone Furoate/Formoterol Fumar (Dulera 200 Mcg/5 Mcg Inhaler) 2 puff INH BID-RT [facility] Last Admin: 04/10/18 06:20 Dose: 2 puff Nitroglycerin (Nitrostat) 0.4 mg PO Q5MIN PRN PRN Reason: Chest Pain Nitroglycerin (Nitro-Bid 2% Ointment) 0.5 inch TOP Q8H PRN PRN Reason: SBP Greater Than 180 Ondansetron HCl (Zofran Odt) 4 mg PO Q6H PRN PRN Reason: Nausea/Vomiting Last Admin: 04/09/18 16:03 Dose: 4 mg Ondansetron HCl (Zofran) 4 mg IVP Q6H PRN PRN Reason: Nausea/Vomiting Senna/Docusate Sodium (Senokot S) 2 tab PO BID PRN PRN Reason: Constipation Sodium Chloride (Flush - Normal Saline) 10 ml IVF PRN PRN PRN Reason: Saline Flush Last Admin: 04/08/18 21:56 Dose: 10 ml Sodium Chloride (Flush - Normal Saline) 10 ml IVF PRN PRN PRN Reason: Saline Flush Sodium Chloride ([place] Nasal [place] 0.65%) 0 ml EA NARE PRN PRN PRN Reason: SINUS CONGESTION Last Admin: 04/09/18 02:59 Dose: 1 spr Terazosin HCl (Hytrin) 2 mg PO HS [facility]
[2018-04-10 15:57] VITALS: BP 135/62; TEMP 97.9
[2018-04-10] MEDS ORDERED: Terazosin HCl 1 MG CAP PO SCH (21:00)
--- NOTE | 2018-04-10 21:25 | DIS ---
DATE OF ADMISSION: 04/08/2018 DATE OF DISCHARGE: 04/10/2018 DISCHARGE DISPOSITION: Home. DISCHARGE MEDICATIONS: 1. Amlodipine 10 mg daily. 2. Aspirin 81 mg daily. 3. Lipitor 40 mg at bedtime. 4. Hydralazine 100 mg 3 times a day. 5. Protonix 40 mg daily. 6. Clonidine 0.1 mg b.i.d. 7. Minoxidil 2.5 mg daily. 8. Dulera 2 puffs b.i.d. 9. Hydroxyzine as needed. Please refer to the discharge summary dictated yesterday for details on this hospitalization. Job ID: [id number]
--- NOTE | 2018-04-12 14:59 | EKG ---
Test Reason : Blood Pressure : / mmHG Vent. Rate : 071 BPM Atrial Rate : 071 BPM P-R Int : 146 ms QRS Dur : 100 ms QT Int : 416 ms P-R-T Axes : 025 -31 071 degrees QTc Int : 452 ms Normal sinus rhythm Possible Left atrial enlargement Left axis deviation Nonspecific ST and T wave abnormality Abnormal ECG Confirmed by TYSHAWN CHRISTY ([id number]), scientific publications editor RYLIE ZHAO ([id number] on 04/12/2018 2:58:43 PM Referred By: Confirmed By:TYSHAWN CHRISTY
== END 2018-04-10 17:25 | disposition home or self-care (01) ==
LOC: ERS 10:56 → 2SW 13:30
PROVIDERS: ADMIT Internal Medicine; ATTEND Internal Medicine
DX: R00.1 Bradycardia, unspecified (principal); T46.5X5A Adverse effect of other antihypertensive drugs, initial encounter; R55 Syncope and collapse; I12.0 Hypertensive chronic kidney disease with stage 5 chronic kidney disease or end stage renal disease; E11.22 Type 2 diabetes mellitus with diabetic chronic kidney disease; N18.6 End stage renal disease; D63.1 Anemia in chronic kidney disease; I24.8 Other forms of acute ischemic heart disease; E87.1 Hypo-osmolality and hyponatremia; F17.210 Nicotine dependence, cigarettes, uncomplicated; E11.21 Type 2 diabetes mellitus with diabetic nephropathy; E11.649 Type 2 diabetes mellitus with hypoglycemia without coma; I42.8 Other cardiomyopathies; J44.9 Chronic obstructive pulmonary disease, unspecified; F14.11 Cocaine abuse, in remission; G47.33 Obstructive sleep apnea (adult) (pediatric); G47.00 Insomnia, unspecified; F32.9 Major depressive disorder, single episode, unspecified; K21.9 Gastro-esophageal reflux disease without esophagitis; E11.40 Type 2 diabetes mellitus with diabetic neuropathy, unspecified; Z79.84 Long term (current) use of oral hypoglycemic drugs; Z79.82 Long term (current) use of aspirin; Z79.899 Other long term (current) drug therapy; Z99.2 Dependence on renal dialysis
CPT/HCPCS: 70450; 71045; 80053; 80162; 82553; 82962 ×3; 83605; 84484 ×2; 85025; 85610; 85730; 93005; 94640 ×4; 94664; 94760 ×2; 96360; 97139; 99285; G0378 ×2; 36415; 36416; 90935; G0257; J1644; J7620; Q0162

== ENCOUNTER 2018-06-27 12:20 | Inpatient (IN) | payer MEDICARE, MEDICAID ==
[2018-06-27] MEDS ORDERED: Acetaminophen 500 MG TAB ONE (13:38)
[2018-06-27] MEDS ORDERED: diphenhydrAMINE 12.5 MG/5 ML UDCUP ONE (13:39)
[2018-06-27] MEDS ORDERED: Metoclopramide HCl 10 MG/2 ML VIAL ONE (13:39)
[2018-06-27] MEDS ORDERED: diphenhydrAMINE 50 MG/ML VIAL ONE (13:40)
--- NOTE | 2018-06-27 14:15 | CT ---
CT HEAD NONCONTRAST: Date: 06/27/18 COMPARISON: 04/08/18. INDICATION: Emergency exam for headache, greater on the right. FINDINGS: Motion artifact is present, producing intracranial streak artifact. There is focal hypoattenuation of the right anterior centrum semiovale at the junction with michael radiata, and there are several smal l hypodensities of the left centrum semiovale/michael radiata indicating areas of age-indeterminate is chemia. There is no hemorrhage or mass effect. Ventricular system is normal in size. IMPRESSION: Interval development of multifocal hypodensities involving the region of each centrum semiovale/coron a radiata indicative of interval areas of ischemia, otherwise age-indeterminate on the basis of this exam. Recommend brain MRI in order to exclude acute foci of ischemia related to cytotoxic edema. POS: [facility]
[2018-06-27 14:19] LABS: #Eosinphils 0.4 thou/uL (0.0-0.7); #Neutrophils 8.8 thou/uL (1.40-6.50); %Basophils 0.4 % (0.0-1.0); %Eosinophils 3.2 % (0.0-10.0); %Monocytes 8.9 % (0.0-10.0); %Neutrophils 78.6 % (42.0-75.0); Hemoglobin 9.3 g/dL (14.0-18.0); Mean Corpuscular Hemoglobin 24.7 pg (27.0-31.0); Mean Corpuscular Volume 79.7 fL (78.0-98.0); Mean Platelet Volume 8.3 fL (7.4-10.4); Platelet Count 287 thou/uL (130-400); RBC Distribution Width 16.2 % (11.5-14.5); Red Blood Cell (RBC) Count 3.77 mill/uL (4.70-6.10); White Blood Cell (WBC) Count 11.2 thou/uL (4.8-10.8)
[2018-06-27 14:34] LABS: Anion Gap 15 mmol/L (10-20); BUN (Urea Nitrogen) 11 mg/dL (8.4-25.7); CRP (Inflammatory) 6.51 mg/dL (= or < 0.5); Calc. Creatinine Clearance 0 mL/min (70-130); Calcium 9.6 mg/dL (7.8-10.44); Carbon Dioxide 29 mmol/L (22-29); Chloride 96 mmol/L (98-107); Estimated GFR-MDRD 28; Glucose 185 mg/dL (70-105); Potassium 4.7 mmol/L (3.5-5.1); Sodium 135 mmol/L (136-145)
[2018-06-27] MEDS ORDERED: predniSONE 20 MG TAB ONE (15:25)
[2018-06-27] MEDS ORDERED: hydrALAZINE 20 MG/ML VIAL ONE (15:25)
[2018-06-27] MEDS ORDERED: Diabetic Tussin 200 MG/10 ML UDCUP PO PRN (16:35)
[2018-06-27] MEDS ORDERED: Dextrose 50% Abboject 50 ML SYRINGE SLOW IVP PRN (16:35)
[2018-06-27] MEDS ORDERED: Benzonatate 100 MG CAP PO PRN (16:35)
[2018-06-27] MEDS ORDERED: Senokot S 8.6-50 MG TAB PO PRN (16:35)
[2018-06-27] MEDS ORDERED: Dextrose 5% in Water 1,000 ML IV PRN (16:35)
[2018-06-27] MEDS ORDERED: Nitroglycerin 0.4 MG TAB (25 Tab Bottle) SL PRN (16:35)
[2018-06-27] MEDS ORDERED: Ondansetron PF 4 MG/2 ML Vial IVP PRN (16:35)
[2018-06-27] MEDS ORDERED: HumaLOG 300 UNITS/3 ML VIAL SC PRN (16:35)
[2018-06-27] MEDS ORDERED: Aspirin Chewable 81 MG TAB ONE (18:29)
--- NOTE | 2018-06-27 21:12 | HP ---
PRIMARY CARE PHYSICIAN: Kim Nunez MD CHIEF COMPLAINT: Intractable headache. HISTORY OF PRESENTING ILLNESS: Mr. Keita is a 58-year-old pleasant male with history of end-stage renal disease as well as history of hypertension, diabetes, chronically elevated troponin, COPD, and chronic anemia as well as supraventricular tachycardia, who presented to the emergency room with above-mentioned complaint. History is mainly obtained by the patient himself and electronic medical records have been reviewed. Mr. Keita reports that he was recently admitted to [facility] in [place] about 2 months ago. He was there diagnosed with what sounds like infective endocarditis as he reports it was "infection of the heart." He reports that Dr. Ontiveros from Infectious Disease Department saw him and he was treated initially with one antibiotic, which failed, so it was later changed to a different antibiotic. He was eventually started on long-term IV antibiotic through a port in the chest and was discharged to [facility] for rehab. He reports that he was still getting the antibiotic up until yesterday after every dialysis treatment. He states that recently as of yesterday or today morning, he was told that his blood results still show infection and he would need a fresh round of antibiotics. He reports that he has been feeling poorly for the last week or so. For the last 3 days, he has been having terrible headache, which is dull and throbbing in nature, mainly located in the right parietal region. He has some numbness and tingling of his arms and some gradual blurring of his eyesight. He has also been having some nausea without any vomiting. He denies any recurrent fevers or chills. He denies any chest pain or shortness of breath. Upon presentation to the emergency room, he was quite hypertensive with a blood pressure of 185/85. He was given multiple medications to control the blood pressure and he underwent a CT scan of the brain. The CT scan of the brain showed concerning findings of interval development of multifocal hypodensities involving the region of each centrum semiovale, michael radiata indicative of interval areas of ischemia most likely. His lab work showed WBCs of 11.2 with 78% neutrophils. ESR was elevated to 125 and CRP was elevated to 6.51. This prompted a provisional diagnosis of temporal arteritis and he was given 50 mg of prednisone in the ER. The plan was to admit him to stroke floor for possible CVA. Upon close history taking, it was found out that the patient most likely has the brain findings since his admission at [facility], which is suspicious by history of septic emboli. I discussed the case with Dr. Ontiveros, who has taken care of him at the other hospital and it was confirmed that indeed he did have septic emboli and has failed vancomycin, requiring daptomycin. His most recent culture in our system is about 1 week ago from 06/18/2018, which was still positive for MRSA. He indeed had MRSA infective endocarditis according to Dr. Ontiveros. Now, he is being admitted with a presumptive diagnosis of possible worsening bacteremia and worsening septic embolization. CVA will also be ruled out and he will be admitted for uncontrolled hypertension as well. PAST MEDICAL HISTORY: 1. 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 2. History of nonischemic cardiomyopathy with EF of 35% according to stress test in October 2017 and EF of 50% according to echo in October 2017. 3. End-stage renal disease, on hemodialysis. 4. Hypertension. 5. Diabetes. 6. History of cocaine abuse. 7. Chronically elevated troponin. 8. Chronic anemia. 9. COPD. 10. History of supraventricular tachycardia. PAST SURGICAL HISTORY: 1. Cardiac catheterization in 2017. 2. Multiple dialysis access. 3. Central IV access at the [facility] 2 months ago for IV antibiotics. ALLERGIES: NO KNOWN MEDICATION ALLERGIES. SOCIAL HISTORY: He currently lives at [facility], possibly for rehab. Smokes cigarettes on a daily basis. Denies any current use of drugs. He has abused cocaine in the past. No alcohol abuse. He is independent with his ADLs and IADLs. FAMILY HISTORY: Positive for hypertension and mother with CVA. HOME MEDICATIONS: They further need to be reconciled, but according to the ER notes, he is on: 1. Clonidine 0.2 b.i.d. 2. Atorvastatin 40 mg daily. 3. Aspirin 81 mg daily. 4. Flovent nebulizer twice a day. 5. Amlodipine 10 mg daily. 6. Hydralazine 100 mg 3 times a day. 7. Cortisone cream. 8. Motrin p.r.n. 9. Labetalol 200 b.i.d. 10. Losartan 25 b.i.d. 11. Unknown antibiotic, likely daptomycin. REVIEW OF SYSTEMS: A 12-point review of system is done, it is negative except for those mentioned in the history and physical. LABORATORY DATA: His CBC shows WBCs at 11.2, hemoglobin 9.3, platelet count of 287, neutrophils 78%. ESR 125. Serum chemistries: Sodium 135, chloride 96, BUN normal at 11, creatinine 2.81, estimated GFR of 28. C-reactive protein 6.51. CT scan by my review as per the HPI. I am not sure if this is multiple foci off CVA and areas of ischemia versus septic emboli. On comparison to his prior CT scan done in our facility in March 2018, these are new findings. A 12-lead EKG by my review shows sinus rhythm at 82 beats per minute with incomplete left bundle-branch block. Normal ST segments and T-waves. PHYSICAL EXAMINATION: VITAL SIGNS: Upon presentation, blood pressure 185/85, pulse of 79, respirations 18, saturating 95% on room air, temperature 97.7. GENERAL: He does appear uncomfortable, but in no acute distress. He is awake, alert, and oriented x3. HEENT: Mucous membrane is moist and pink. No oropharyngeal exudate or erythema. Head is normocephalic, atraumatic. Pupils are equal and reactive to light and accommodation. Extraocular movement intact. NECK: Supple without any lymphadenopathy, JVD, or bruit. CHEST: Clear to auscultation without any wheezing, rales, or rhonchi. He has a loud systolic murmur heard easily at the 2nd intercostal space. HEART: Rate and rhythm is regular. ABDOMEN: Soft, nontender, nondistended with positive bowel sounds. EXTREMITIES: Free of any cyanosis, clubbing, or edema. NEUROLOGIC: Nonfocal. SKIN: Free of any rashes or bruises, feels warm and dry to touch. IMPRESSION AND PLAN: 1. Intractable headache. The patient's findings and clinical history are concerning for septic embolization. Also CVA cannot be ruled out due to uncontrolled hypertension. At this time, the likelihood of temporal arteritis is very low. We will the hold prednisone for now as the possibility of worsening bacteremia and infective endocarditis is high, and steroids will be more harmful than beneficial. I have discussed the case with Infectious Disease, Dr. Ontiveros as well. We will request consultation with Neurology in the morning and obtain an MRI of the brain as well. His hypercoagulable panel including SIVAKUMAR, homocysteine, rheumatoid and syphilis screening would be sent in the morning as well. 2. Uncontrolled hypertension and hypertensive urgency. We will restart his home medications once confirmed. Monitor closely. 3. Recent methicillin-resistant Staphylococcus aureus bacteremia with infective endocarditis and cerebral septic embolization. We will repeat the blood cultures and get an MRI of the brain as well as repeat the transthoracic echocardiogram. He may need a transesophageal echocardiogram. [facility] and request consultation with Dr. Ontiveros formally again. He has failed vancomycin and it seems like with persistent bacteremia, he has failed daptomycin as well. His central IV access is still in place. 4. End-stage renal disease, on hemodialysis. Dr. Garcia is his gardening instructor and we will consult him for maintenance hemodialysis. 5. History of nonischemic cardiomyopathy. Echocardiogram has been ordered. Last echo showed EF of 50% to 55%. 6. Tobacco dependence. 7. Diabetes mellitus type 2. We will add insulin sliding scale and monitor sugars, Accu-Cheks a.c. and bedtime. 8. History of chronic obstructive pulmonary disease. We will use nebulizers p.r.n. and restart his home medications. 9. Deep venous thrombosis and gastrointestinal prophylaxis. DISPOSITION: Mr. Keita is currently being admitted to the hospital with intractable headache with concern of CVA versus septic cerebral embolization and uncontrolled hypertension. Plan as outlined above. Estimated length of stay at this time is at least 2 to 3 midnights. Further management will depend upon his clinical course. LEVEL OF CARE: 3. LEVEL OF COMPLEXITY: 3. TIME SPENT: Total time spent in taking care of this patient and discussion with subspecialist, Dr. Garcia and Dr. Ontiveros as well as emergency room physicians 50 minutes. Job ID: [id number]
[2018-06-27] MEDS: Mometasone/Formoterol 120 PUFF INHALER INH SCH (21:16)
[2018-06-27] MEDS: hydrALAZINE 25 MG TAB PO SCH (21:26)
[2018-06-27] MEDS: Heparin 5,000 UNITS/ML VIAL SC SCH (21:33)
[2018-06-27 23:18] VITALS: BMI 30.9
[2018-06-27 23:36] LABS: Amphetamine Not Detected (NotDetected); Barbiturates Screen Not Detected (NotDetected); Benzodiazepine Screen Not Detected (NotDetected); Cocaine Metabolite Screen Detected (NotDetected); Medtox Control Line Valid? VALID (VALID); Medtox Reader # READER 1; Methadone Not Detected (NotDetected); Methamphetamine Not Detected (NotDetected); Opiate Screen Not Detected (NotDetected); Oxycodone Screen Not Detected (NotDetected); Phencyclidine (PCP) Not Detected (NotDetected); THC/Cannabinoid Screen Not Detected (NotDetected); Tricyclic Screen Not Detected (NotDetected)
[2018-06-28] MEDS: Morphine 4 MG/ML VIAL SLOW IVP PRN ×2 (03:45→09:25)
[2018-06-28] MEDS: hydrALAZINE 20 MG/ML VIAL SLOW IVP PRN ×3 (03:54→17:45)
[2018-06-28] MEDS: Acetaminophen 500 MG TAB PO PRN ×3 (05:19→20:36)
[2018-06-28 06:00] LABS: Cardiac Risk 2.6 (Less than 4.5)
[2018-06-28] MEDS: HumaLOG 300 UNITS/3 ML VIAL SC PRN ×3 (06:16→17:01)
[2018-06-28 06:31] LABS: Syphilis Antibody Nonreactive (Nonreactive); Syphilis Antibody Index 0.14 S/CO (<1.00 Non-Reactive)
[2018-06-28] MEDS: Mometasone/Formoterol 120 PUFF INHALER INH SCH ×2 (06:49→19:00)
[2018-06-28] MEDS ORDERED: predniSONE 50 MG TAB PO SCH (08:00)
[2018-06-28] MEDS ORDERED: Amlodipine 10 MG TAB PO SCH (09:00)
[2018-06-28] MEDS ORDERED: Minoxidil 2.5 MG TAB PO SCH (09:00)
[2018-06-28] MEDS ORDERED: Aspirin 325 mg Enteric Coated Tablet PO SCH (09:00)
[2018-06-28] MEDS ORDERED: cloNIDine 0.1 MG TAB PO SCH (09:00)
[2018-06-28] MEDS ORDERED: Fluticasone Propionate HFA 110 MCG AER INH SCH (09:00)
[2018-06-28 09:05] LABS: #Lymphocytes 1.4 thou/uL (1.20-3.40); #Monocytes 1.2 thou/uL (0.11-0.59); #Neutrophils 9.5 thou/uL (1.40-6.50); %Basophils 0.1 % (0.0-1.0); %Eosinophils 0.3 % (0.0-10.0); %Lymphocytes 11.3 % (21.0-51.0); %Monocytes 9.8 % (0.0-10.0); %Neutrophils 78.6 % (42.0-75.0); Hemoglobin 9.8 g/dL (14.0-18.0); Mean Corpuscular HGB CONC 30.4 g/dL (32.0-36.0); Mean Corpuscular Hemoglobin 24.1 pg (27.0-31.0); Mean Corpuscular Volume 79.2 fL (78.0-98.0); Platelet Count 325 thou/uL (130-400); RBC Distribution Width 16.2 % (11.5-14.5); Red Blood Cell (RBC) Count 4.06 mill/uL (4.70-6.10)
[2018-06-28] MEDS: traMADol HCl 50 MG TAB PO PRN ×3 (09:10→20:19)
[2018-06-28] MEDS: ALPRAZolam 0.25 MG TAB PO SCH ×2 (09:11→20:18)
[2018-06-28] MEDS: Losartan 25 MG TAB PO SCH (09:13)
[2018-06-28] MEDS: hydrALAZINE 25 MG TAB PO SCH ×3 (09:13→20:18)
[2018-06-28] MEDS: Saccharomyces boulardii 250 MG CAP PO SCH (09:13)
[2018-06-28] MEDS: Aspirin 81 mg Enteric Coated Tablet PO SCH (09:14)
[2018-06-28] MEDS: Heparin 5,000 UNITS/ML VIAL SC SCH ×2 (09:14→20:28)
[2018-06-28 09:28] LABS: Anion Gap 13 mmol/L (10-20); BUN (Urea Nitrogen) 19 mg/dL (8.4-25.7); Calc. Creatinine Clearance 29 mL/min (70-130); Calcium 10.3 mg/dL (7.8-10.44); Carbon Dioxide 30 mmol/L (22-29); Chloride 97 mmol/L (98-107); Estimated GFR-MDRD 20; Glucose 146 mg/dL (70-105); Potassium 3.9 mmol/L (3.5-5.1); Sodium 136 mmol/L (136-145)
[2018-06-28] MEDS ORDERED: Morphine 2 MG/ML SYRINGE SLOW IVP SCH (11:36)
--- NOTE | 2018-06-28 11:38 | MRI ---
BRAIN MRI NONCONTRAST: Date: 06/28/18 CLINICAL HISTORY: Stroke. History of headache. FINDINGS: When referencing head CT from previous day, the mentioned multiple hypodensities do reveal increased diffusion-weighted imaging, some of which restrict, to indicate predominance of early subacute multif ocal deep white matter infarctions. There is no mass effect or midline shift. Punctate susceptibility is seen within the anterior left parietal, and left occipital lobes. Skull base flow-voids are gross ly patent. There is mild mucosal thickening of the paranasal sinuses. IMPRESSION: 1. Multifocal early subacute infarctions involve the bilateral cerebral hemispheres, corresponding t o hypodensities on recent head CT. Findings may relate to hypoperfusion phenomenon versus embolic phe nomenon. Recommend clinical correlation. 2. There are a few punctate susceptibility foci favoring hemosiderin deposition. POS: [facility]
[2018-06-28] MEDS ORDERED: Furosemide 100 MG/10 ML VIAL SLOW IVP STA (11:50)
--- NOTE | 2018-06-28 11:54 | CON ---
DATE OF CONSULTATION: 06/28/2018 CONSULTING PHYSICIAN: Hospitalist Services. IMPRESSION: 1. Right-sided headache. 2. Hypertension. 3. Cocaine use. 4. Renal insufficiency. PLAN: Analgesics for pain. HISTORY OF PRESENT ILLNESS: Mr. Keita is a 58-year-old man who came in with complaints of a 5-day history of right-sided headache. He denies any cranial tenderness. There is no associated nausea, vomiting, dizziness, slurred speech, blurred vision, lateralized weakness or numbness. He had a CT scan of the brain in the emergency room, which showed some chronic ischemic changes. He has been hypertensive with blood pressures around 200/99. He has been afebrile since admission. He had an MRI of the brain done this morning. It showed periventricular white matter ischemic changes that appear chronic. No other intracranial abnormalities were noted. He reports this is the worst headache he has ever had. He denies any other stroke-like symptoms. He was given some Tylenol for the pain. PAST MEDICAL HISTORY: As listed above. ALLERGIES: NONE REPORTED. SOCIAL HISTORY: Positive for drug use. MEDICATIONS: Medication list was reviewed. FAMILY HISTORY: Noncontributory. REVIEW OF SYSTEMS: Ten-system review of systems is otherwise negative. PHYSICAL EXAMINATION: GENERAL: He is a well-nourished, middle-aged man, sitting in a chair, reporting to be in some distress. VITAL SIGNS: Blood pressure 205/99, pulse 81, respirations 20, temperature 98.1. HEENT: Pupils are equal. Conjunctivae clear. Cranium, normocephalic and atraumatic. No cranial tenderness reported. NECK: Supple. EXTREMITIES: No cyanosis or edema. NEUROLOGIC: He is alert and cooperative. His speech is fluent and clear. His exam is nonfocal. SUMMARY: This is a middle-age man with complaints of hemicranial headache. He could try the migraine protocol and otherwise he can be discharged with some analgesics for pain. Job ID: [id number]
[2018-06-28] MEDS ORDERED: NIFEdipine XL 30 MG TAB PO SCH (12:45)
--- NOTE | 2018-06-28 12:54 | PDOC.PN ---
- Subjective Encounter Start Date: 06/28/18 Encounter Start Time: 12:52 Subjective: c/o intractable headache w/o N/V.some blurry vision -: no F/C.no Abd pain/N/V/D -: no CP/SOB - Objective MAR Reviewed: Yes Vital Signs & Weight: Vital Signs (12 hours) Temp Pulse Resp BP BP Pulse Ox 06/28/18 12:12 80 06/28/18 12:00 98.1 F 80 20 220/116 H 95 06/28/18 09:13 81 06/28/18 09:12 205/99 H 06/28/18 07:45 98.1 F 81 20 205/99 H 96 06/28/18 06:49 72 12 06/28/18 05:22 184/83 H 06/28/18 04:00 98 F 83 16 196/93 H 99 06/28/18 03:54 81 196/93 H Weight Weight 209 lb 4.8 oz I&O: 06/27/18 06/28/18 06/29/18 06:59 06:59 06:59 Intake Total 250 Output Total 200 Balance 50 Result Diagrams: 06/28/18 08:55 06/28/18 08:55 Additional Labs: Accuchecks 06/28/18 06/28/18 10:47 05:57 POC Glucose 197 H 207 H Microbiology 06/27/18 20:46 Venous blood - Right Arm Blood Culture - Preliminary Specimen has been received and culture in progress. No Growth to date. 06/27/18 20:45 Venous blood - Left Arm Blood Culture - Preliminary Specimen has been received and culture in progress. No Growth to date. Laboratory Tests 06/27/18 06/28/18 06/28/18 22:52 05:18 05:18 Triglycerides 67 Cholesterol 134 LDL Cholesterol, Calc 70 HDL Cholesterol 51 U Cocaine Metab Screen Detected H Syphilis IgG/IgM Ab Nonreactive Radiology Reviewed by me: Yes (MRI brain-multiple foci of subac infarction- ischemic Vs septic) Phys Exam - Physical Examination crying in pain HEENT: PERRLA, moist MMs, sclera anicteric, oral pharynx no lesions Neck: no nodes, no JVD, supple, full ROM Respiratory: no wheezing, no rales, no rhonchi, clear to auscultation bilateral Cardiovascular: RRR systolic murmur Gastrointestinal: soft, non-tender, no distention, positive bowel sounds Musculoskeletal: no edema, pulses present Neurological: non-focal, normal sensation, moves all 4 limbs Psychiatric: normal affect, A&O x 3 Skin: no rash Dx/Plan (1) Hypertensive urgency Code(s): I16.0 - HYPERTENSIVE URGENCY Status: Acute Comment: Start Procardia. Increase Clonidine. Avoid drastic lowering in light of septic infarctionn of brain.PRN meds (2) Intractable headache Code(s): R51 - HEADACHE Status: Acute (3) Cerebral septic emboli Code(s): I76 - SEPTIC ARTERIAL EMBOLISM; I66.9 - OCCLUSION AND STENOSIS OF UNSPECIFIED CEREBRAL ARTERY Status: Acute (4) Cerebral infarction Code(s): I63.9 - CEREBRAL INFARCTION, UNSPECIFIED Status: Acute Qualifiers: Cerebral infarction mechanism: embolism Laterality of affected vessel: bilateral Comment: Likely septic embolization from MRSA bacteremia (5) MRSA bacteremia Code(s): R78.81 - BACTEREMIA Status: Acute Comment: Failed vancomycin , s/p 6 weeks of Daptomycin .Concern for reurrance Vs Recrudescence Vs Daptomycin failure with cerebral septic emboli (6) Infectious endocarditis Code(s): I33.0 - ACUTE AND SUBACUTE INFECTIVE ENDOCARDITIS Status: Acute Qualifiers: Infective endocarditis organism: bacterial Chronicity: acute Qualified Code(s): I33.0 - Acute and subacute infective endocarditis Comment: s/p 6 week of IV ABx at outside hospital (7) Cocaine abuse Code(s): F14.10 - COCAINE ABUSE, UNCOMPLICATED Status: Chronic Comment: last use 3 weeks [employer] (8) Diabetic nephropathy associated with type 2 diabetes mellitus Code(s): E11.21 - TYPE 2 DIABETES MELLITUS WITH DIABETIC NEPHROPATHY Status: Chronic (9) ESRD (end stage renal disease) Code(s): N18.6 - END STAGE RENAL DISEASE Status: Chronic Comment: Dempsey catheter placement then initiation of HD 12/10/17, avoid nephrotoxic meds and limit contrast exposure, continue HD, (10) Tobacco abuse Code(s): Z72.0 - TOBACCO USE Status: Chronic (11) Anemia in chronic kidney disease Code(s): N18.9 - CHRONIC KIDNEY DISEASE, UNSPECIFIED; D63.1 - ANEMIA IN CHRONIC KIDNEY DISEASE Status: Chronic Qualifiers: Chronic kidney disease stage: on chronic dialysis Qualified Code(s): N18.6 - End stage renal disease; D63.1 - Anemia in chronic kidney disease; Z99.2 - Dependence on renal dialysis (12) COPD (chronic obstructive pulmonary disease) Status: Chronic Comment: duonebs PRN - Plan PT/OT, DVT proph w/SCDs awaiting ID recs for need for ABx. repeat ECHo and blood Cx obtained -: supportive care as above. -: cont hemodialysis and monitor renal Fx -: IF BP remains uncontrolled, will start on Cardene drip w transfer to CCU -: Guarded prognosis w MRSA bacteremia w seeding of brain & heart & ABx failur * .am labs Review of Systems - Review of Systems Constitutional: weakness, malaise Respiratory: negative: Cough, Dry, Shortness of Breath, Hemoptysis, SOB with Excertion, Pleuritic Pain, Sputum, Wheezing Cardiovascular: negative: chest pain, palpitations, orthopnea, paroxysmal nocturnal dyspnea, edema, light headedness, other Gastrointestinal: negative: Nausea, Vomiting, Abdominal Pain, Diarrhea, Constipation, Melena, Hematochezia, Other Genitourinary: negative: Dysuria, Frequency, Incontinence, Hematuria, Retention , Other Musculoskeletal: Other (headache). negative: Neck Pain, Shoulder Pain, Arm Pain , Back Pain, Hand Pain, Leg Pain, Foot Pain Neurological: negative: Weakness, Numbness, Incoordination, Change in Speech, Confusion, Seizures, Other - Medications/Allergies Allergies/Adverse Reactions: Allergies Allergy/AdvReac Type Severity Reaction Status Date / Time No Known Drug Allergies Allergy Verified 04/08/18 21:07 Medications: Current Medications Acetaminophen (Tylenol) 1,000 mg PO Q6H PRN PRN Reason: Mild Pain (1-3) Last Admin: 06/28/18 11:48 Dose: 1,000 mg Albuterol/Ipratropium (Duoneb) 3 ml NEB [id number] PRN PRN Reason: SOB &/or Wheezing Alprazolam (Xanax) 0.25 mg PO BID [facility] Last Admin: 06/28/18 09:11 Dose: 0.25 mg Aspirin (Ecotrin) 81 mg PO DAILY [facility] Last Admin: 06/28/18 09:14 Dose: 81 mg Atorvastatin Calcium (Lipitor) 40 mg PO HS [facility] Benzonatate (Tessalon) 100 mg PO Q6H PRN PRN Reason: Cough Bisacodyl (Dulcolax) 10 mg PO DAILYPRN PRN PRN Reason: Constipation Clonidine (Catapres) 0.1 mg PO BID [facility] Last Admin: 06/28/18 09:12 Dose: 0.1 mg Dextrose/Water (Dextrose 50%) 25 gm SLOW IVP PRN PRN PRN Reason: Hypoglycemia Glucagon (Glucagon) 1 mg IM PRN PRN PRN Reason: Hypoglycemia Guaifenesin (Robitussin Sf) 200 mg PO Q4H PRN PRN Reason: Cough Heparin Sodium (Porcine) (Heparin) 5,000 units SC BID [facility] Last Admin: 06/28/18 09:14 Dose: 5,000 units Hydralazine HCl (Apresoline) 10 mg SLOW IVP Q4H PRN PRN Reason: SBP > 180 and HR < 70 Last Admin: 06/28/18 12:12 Dose: 10 mg Hydralazine HCl (Apresoline) 100 mg PO TID [facility] Last Admin: 06/28/18 09:13 Dose: 100 mg Dextrose/Water (D5w) 1,000 mls @ 0 mls/hr IV .Q0M PRN PRN Reason: Hypoglycemia Insulin Human Lispro (Humalog) 0 units SC .MODERATE SLIDING SC PRN PRN Reason: Moderate Correctional Scale Last Admin: 06/28/18 11:49 Dose: 2 unit Insulin Human Lispro (Humalog) 0 units SC .BEDTIME SLIDING SC PRN PRN Reason: Bedtime Correctional Scale Losartan Potassium (Cozaar) 25 mg PO DAILY [facility] Last Admin: 06/28/18 09:13 Dose: 25 mg Mometasone Furoate (Asmanex Hfa 100 Mcg) 1 puff INH BID-RT [facility] Mometasone Furoate/Formoterol Fumar (Dulera 200 Mcg/5 Mcg Inhaler) 2 puff INH BID-RT [facility] Last Admin: 06/28/18 06:49 Dose: 2 puff Morphine Sulfate (Morphine) 2 mg SLOW IVP Q4H PRN PRN Reason: severe pain Last Admin: 06/28/18 09:25 Dose: 2 mg Nifedipine (Procardia Xl) 30 mg PO DAILY [facility] Nifedipine (Procardia Xl) 30 mg PO ONE [facility] Stop: 06/28/18 14:00 Nitroglycerin (Nitrostat) 0.4 mg SL Q5MIN PRN PRN Reason: Chest Pain Nitroglycerin (Nitro-Bid 2% Ointment) 0.5 inch TOP Q8HR [facility] Ondansetron HCl (Zofran) 4 mg IVP Q6H PRN PRN Reason: Nausea/Vomiting Pantoprazole Sodium (Protonix) 40 mg PO 1700 [facility] Saccharomyces Boulardii (Florastor) 250 mg PO DAILY [facility] Last Admin: 06/28/18 09:13 Dose: 250 mg Senna/Docusate Sodium (Senokot S) 2 tab PO BID PRN PRN Reason: Constipation Sodium Chloride (Flush - Normal Saline) 10 ml IVF PRN PRN PRN Reason: Saline Flush Tramadol HCl (Ultram) 50 mg PO Q4H PRN PRN Reason: severe pain Last Admin: 06/28/18 09:10 Dose: 50 mg
--- NOTE | 2018-06-28 13:06 | CON ---
DATE OF CONSULTATION: 06/28/2018 REASON FOR CONSULTATION: Dialytic management. CHIEF COMPLAINT: Intractable headache. HISTORY OF PRESENT ILLNESS: A 58-year-old male with end-stage renal disease on maintenance hemodialysis Saturday, Saturday, Saturday with last dialysis being on June 27, 2018, admitted due to intractable headache since 5 days, which reportedly got worse yesterday after dialysis. The patient noticed that during dialysis, blood pressure had gone up. Of note, the patient was recently hospitalized at [facility] for MRSA bacteremia associated with infective endocarditis and cerebral septic emboli and was [facility] a [facility] for long-term IV antibiotics, which he is currently on. He denied fever, change in vision, focal weakness, nausea, vomiting. The patient also denied neck stiffness. Blood pressure since this admission has been markedly elevated, ranging from 170 to 210 systolic. The patient is well known to Dr. Garcia's service. PHYSICAL EXAMINATION: VITAL SIGNS: Current BP is 205/99. Pulse is 81, respiratory rate 20, SpO2 96 on room air. Temperature is 98.1. Of note, systolic blood pressure ranges from 170 to 210 since admission. GENERAL: Middle aged male, in [id number] painful distress. Afebrile, anicteric, acyanotic. NECK: Supple with no stiffness. Range of motion is present. Mild tenderness is noted on the right lateral side of the neck. RESPIRATORY: Good air entry bilaterally with no obvious crackle or rhonchi. Air entry however is decreased at both bases mildly. CARDIOVASCULAR: Regular rhythm and rate with normal heart sounds one and two. Systolic murmur is heard over the mitral area. GI: Abdomen is full, soft, nontender, nondistended with normal bowel sounds. EXTREMITIES: Mild to moderate bilateral leg edema noted. NEUROLOGIC: Conscious and alert, oriented x3 with appropriate mental status. Cranial nerves 2 through 12 are intact. Power is 5/5 in all limbs. There is no involuntary movement or tremor. Kernig sign is negative. DIAGNOSTIC DATA: CBC showed WBC count of 12, hemoglobin of 9.8, MCV of 79.2, platelet of 325. BMP showed sodium 136, potassium 3.9, chloride 97, CO2 30, BUN 19, creatinine 3.88, glucose 146, and calcium 10.3. Urine drug screen is positive for cocaine. CT scan of the brain performed on June 27, 2018 showed interval development of multifocal hypodensities involving the region of centrum semiovale michael radiata indicative of interval areas of ischemia, otherwise age indeterminate on the basis of this exam. MRI was recommended and this is pending at this time. ASSESSMENT AND PLAN: 1. End-stage renal disease, on maintenance hemodialysis Saturday, Saturday, Saturday. Last dialysis was yesterday June 27, 2018. The patient had full 4 hours of treatment and this was well tolerated. There is no indication for dialysis at this time. We will plan for hemodialysis on Saturday, June 30, 2018. 2. Intractable headache: Etiology is unclear. Given history of MRSA bacteremia and cerebral septic emboli developing cerebral abscess is a concern as well as acute CVA. Some abnormalities were noted on repeat CT scan and MRI for further delineation is pending at this time. This may be due to uncontrolled hypertension. 3. Accelerated hypertension: This may either be due to the headache or the cause of the headache. We gave one dose of morphine 2 mg as well as hydralazine 10 mg and re-evaluate. Home medications have been restarted. The patient also was noted to have cocaine in urine drug screen. This may be responsible for the acute acceleration in hypertension. We will avoid beta-blockers at this time. Rebound hypertension from clonidine is another consideration. If this patient is not very compliant with his medication, clonidine would not be a good medication for him. We add nifedipine 30 mg to get better control. 4. Volume overload. The patient despite dialysis yesterday still had some edema consistent with volume overload. urine. I will add Lasix 80 mg b.i.d. to help with volume control. This will also help with BP control. 5. Acid-base balance acceptable. 6. MRSA bacteremia with infective endocarditis and cerebral septic emboli: The patient is on antibiotic therapy. We will defer to Infectious Disease and the primary attending. Please call for any clarification. We will follow along with you. Job ID: [id number]
[2018-06-28] MEDS: Nitroglycerin 2% Ointment 1 INCH/1 GM Packet TOP SCH ×2 (13:32→20:20)
[2018-06-28] MEDS: cloNIDine 0.1 MG TAB PO SCH ×2 (15:38→20:18)
[2018-06-28 15:49] LABS: Troponin I 0.046 ng/mL (< 0.028)
[2018-06-28] MEDS: Linezolid 600 MG in Premix Bag 1 BAG IVPB SCH (16:59)
[2018-06-28] MEDS: Mometasone 100 MCG HFA INHALER INH SCH (19:00)
[2018-06-28] MEDS: Atorvastatin Calcium 40 MG TAB PO SCH (20:18)
[2018-06-29] MEDS: Linezolid 600 MG in Premix Bag 1 BAG IVPB SCH (03:30)
[2018-06-29] MEDS: Morphine 4 MG/ML VIAL SLOW IVP PRN ×2 (03:30→17:07)
[2018-06-29] MEDS: HumaLOG 300 UNITS/3 ML VIAL SC PRN ×2 (05:39→12:53)
[2018-06-29] MEDS: Nitroglycerin 2% Ointment 1 INCH/1 GM Packet TOP SCH ×2 (05:40→14:54)
[2018-06-29 07:27] LABS: #Eosinphils 0.1 thou/uL (0.0-0.7); #Neutrophils 10.1 thou/uL (1.40-6.50); %Basophils 0.3 % (0.0-1.0); %Lymphocytes 8.1 % (21.0-51.0); %Monocytes 8.1 % (0.0-10.0); %Neutrophils 82.6 % (42.0-75.0); Mean Corpuscular Hemoglobin 24.4 pg (27.0-31.0); Mean Corpuscular Volume 78.5 fL (78.0-98.0); Platelet Count 277 thou/uL (130-400); RBC Distribution Width 16.2 % (11.5-14.5); Red Blood Cell (RBC) Count 3.68 mill/uL (4.70-6.10); White Blood Cell (WBC) Count 12.3 thou/uL (4.8-10.8)
[2018-06-29 07:45] LABS: Anion Gap 17 mmol/L (10-20); BUN (Urea Nitrogen) 24 mg/dL (8.4-25.7); Calc. Creatinine Clearance 24 mL/min (70-130); Calcium 9.5 mg/dL (7.8-10.44); Carbon Dioxide 25 mmol/L (22-29); Chloride 93 mmol/L (98-107); Estimated GFR-MDRD 16; Glucose 142 mg/dL (70-105); Magnesium 1.6 mg/dL (1.6-2.6); Potassium 4.1 mmol/L (3.5-5.1); Sodium 131 mmol/L (136-145)
[2018-06-29] MEDS: Mometasone/Formoterol 120 PUFF INHALER INH SCH ×2 (08:50→18:53)
[2018-06-29] MEDS: Mometasone 100 MCG HFA INHALER INH SCH (08:51)
[2018-06-29] MEDS ORDERED: Furosemide 80 MG TAB PO SCH (09:00)
[2018-06-29] MEDS: Heparin 5,000 UNITS/ML VIAL SC SCH ×2 (09:38→21:38)
[2018-06-29] MEDS: ALPRAZolam 0.25 MG TAB PO SCH ×2 (09:38→21:36)
[2018-06-29] MEDS: Losartan 25 MG TAB PO SCH (09:38)
[2018-06-29] MEDS: Saccharomyces boulardii 250 MG CAP PO SCH (09:39)
[2018-06-29] MEDS: Aspirin 81 mg Enteric Coated Tablet PO SCH (09:39)
[2018-06-29] MEDS: hydrALAZINE 25 MG TAB PO SCH ×3 (09:39→21:37)
[2018-06-29] MEDS: cloNIDine 0.1 MG TAB PO SCH ×3 (09:39→21:38)
[2018-06-29] MEDS: NIFEdipine XL 30 MG TAB PO SCH (09:39)
--- NOTE | 2018-06-29 12:54 | PDOC.PN ---
- Subjective Encounter Start Date: 06/29/18 Encounter Start Time: 12:52 Subjective: feels much better today.headache controlled better - Objective MAR Reviewed: Yes Vital Signs & Weight: Vital Signs (12 hours) Temp Pulse Resp BP BP Pulse Ox 06/29/18 11:53 98.7 F 86 18 174/78 H 94 L 06/29/18 09:39 85 198/85 H 06/29/18 08:50 85 12 06/29/18 07:50 98.2 F 85 16 196/103 H 91 L 06/29/18 04:00 98 F 79 16 173/84 H 95 06/29/18 03:00 113/56 L Weight Admit Weight 209 lb 4.8 oz Weight 209 lb 4.8 oz I&O: 06/28/18 06/29/18 06/30/18 06:59 06:59 06:59 Intake Total 250 1700 Output Total 200 550 600 Balance 50 1150 -600 Result Diagrams: 06/29/18 07:17 06/29/18 07:17 Additional Labs: Accuchecks 06/29/18 06/29/18 06/28/18 10:55 05:36 19:53 POC Glucose 195 H 180 H 174 H 06/28/18 16:40 POC Glucose 203 H Microbiology 06/27/18 20:46 Venous blood - Right Arm Blood Culture - Preliminary Methicillin resistant S.aureus 06/27/18 20:45 Venous blood - Left Arm Blood Culture - Preliminary Specimen has been received and culture in progress. No Growth to date. Laboratory Tests 06/29/18 07:17 Magnesium 1.6 Phys Exam - Physical Examination Constitutional: NAD HEENT: PERRLA, moist MMs, sclera anicteric, oral pharynx no lesions Neck: no nodes, no JVD, supple, full ROM Respiratory: no wheezing, no rales, no rhonchi Cardiovascular: RRR, no significant murmur, no rub Gastrointestinal: soft, non-tender, no distention, positive bowel sounds Musculoskeletal: no edema, pulses present Neurological: non-focal, normal sensation, moves all 4 limbs Psychiatric: normal affect, A&O x 3 Skin: no rash Dx/Plan (1) Hypertensive urgency Code(s): I16.0 - HYPERTENSIVE URGENCY Status: Acute Comment: better controlled.Started Procardia. Increased Clonidine. Avoid drastic lowering in light of septic infarctionn of brain.PRN meds (2) Intractable headache Code(s): R51 - HEADACHE Status: Acute (3) Cerebral septic emboli Code(s): I76 - SEPTIC ARTERIAL EMBOLISM; I66.9 - OCCLUSION AND STENOSIS OF UNSPECIFIED CEREBRAL ARTERY Status: Acute (4) Cerebral infarction Code(s): I63.9 - CEREBRAL INFARCTION, UNSPECIFIED Status: Acute Qualifiers: Cerebral infarction mechanism: embolism Laterality of affected vessel: bilateral Comment: Likely septic embolization from MRSA bacteremia (5) MRSA bacteremia Code(s): R78.81 - BACTEREMIA Status: Acute Comment: Failed vancomycin , s/p 6 weeks of Daptomycin .Concern for reurrance Vs Recrudescence Vs Daptomycin failure with cerebral septic emboli (6) Infectious endocarditis Code(s): I33.0 - ACUTE AND SUBACUTE INFECTIVE ENDOCARDITIS Status: Acute Qualifiers: Infective endocarditis organism: bacterial Chronicity: acute Qualified Code(s): I33.0 - Acute and subacute infective endocarditis Comment: s/p 6 week of IV ABx at outside hospital (7) Cocaine abuse Code(s): F14.10 - COCAINE ABUSE, UNCOMPLICATED Status: Chronic Comment: last use 3 weeks [employer] (8) Diabetic nephropathy associated with type 2 diabetes mellitus Code(s): E11.21 - TYPE 2 DIABETES MELLITUS WITH DIABETIC NEPHROPATHY Status: Chronic (9) ESRD (end stage renal disease) Code(s): N18.6 - END STAGE RENAL DISEASE Status: Chronic Comment: Dempsey catheter placement then initiation of HD 12/10/17, avoid nephrotoxic meds and limit contrast exposure, continue HD, (10) Tobacco abuse Code(s): Z72.0 - TOBACCO USE Status: Chronic (11) Anemia in chronic kidney disease Code(s): N18.9 - CHRONIC KIDNEY DISEASE, UNSPECIFIED; D63.1 - ANEMIA IN CHRONIC KIDNEY DISEASE Status: Chronic Qualifiers: Chronic kidney disease stage: on chronic dialysis Qualified Code(s): N18.6 - End stage renal disease; D63.1 - Anemia in chronic kidney disease; Z99.2 - Dependence on renal dialysis (12) COPD (chronic obstructive pulmonary disease) Status: Chronic Comment: duonebs PRN - Plan continue antibiotics, out of bed/ambulate, DVT proph w/SCDs currently on zyvox. has failed vanco & daptomycin -: discussed w Dr. Ontiveros-Will start Telavancin -: HD stable and clinically better -: cont meds as started. Uptitrate procardia if BP very high -: am labs * Hd on schedule Review of Systems - Review of Systems Constitutional: negative: fever, chills, sweats, weakness, malaise, other Respiratory: negative: Cough, Dry, Shortness of Breath, Hemoptysis, SOB with Excertion, Pleuritic Pain, Sputum, Wheezing Cardiovascular: negative: chest pain, palpitations, orthopnea, paroxysmal nocturnal dyspnea, edema, light headedness, other Gastrointestinal: negative: Nausea, Vomiting, Abdominal Pain, Diarrhea, Constipation, Melena, Hematochezia, Other Genitourinary: negative: Dysuria, Frequency, Incontinence, Hematuria, Retention , Other Musculoskeletal: negative: Neck Pain, Shoulder Pain, Arm Pain, Back Pain, Hand Pain, Leg Pain, Foot Pain, Other Neurological: negative: Weakness, Numbness, Incoordination, Change in Speech, Confusion, Seizures, Other - Medications/Allergies Allergies/Adverse Reactions: Allergies Allergy/AdvReac Type Severity Reaction Status Date / Time No Known Drug Allergies Allergy Verified 04/08/18 21:07 Medications: Current Medications Acetaminophen (Tylenol) 1,000 mg PO Q6H PRN PRN Reason: Mild Pain (1-3) Last Admin: 06/28/18 20:36 Dose: 1,000 mg Albuterol/Ipratropium (Duoneb) 3 ml NEB [id number] PRN PRN Reason: SOB &/or Wheezing Alprazolam (Xanax) 0.25 mg PO BID [facility] Last Admin: 06/29/18 09:38 Dose: 0.25 mg Aspirin (Ecotrin) 81 mg PO DAILY [facility] Last Admin: 06/29/18 09:39 Dose: 81 mg Atorvastatin Calcium (Lipitor) 40 mg PO HS [facility] Last Admin: 06/28/18 20:18 Dose: 40 mg Benzonatate (Tessalon) 100 mg PO Q6H PRN PRN Reason: Cough Bisacodyl (Dulcolax) 10 mg PO DAILYPRN PRN PRN Reason: Constipation Clonidine (Catapres) 0.1 mg PO TID [facility] Last Admin: 06/29/18 09:39 Dose: 0.1 mg Dextrose/Water (Dextrose 50%) 25 gm SLOW IVP PRN PRN PRN Reason: Hypoglycemia Glucagon (Glucagon) 1 mg IM PRN PRN PRN Reason: Hypoglycemia Guaifenesin (Robitussin Sf) 200 mg PO Q4H PRN PRN Reason: Cough Heparin Sodium (Porcine) (Heparin) 5,000 units SC BID [facility] Last Admin: 06/29/18 09:38 Dose: 5,000 units Hydralazine HCl (Apresoline) 10 mg SLOW IVP Q4H PRN PRN Reason: SBP > 180 and HR < 70 Last Admin: 06/28/18 17:45 Dose: 10 mg Hydralazine HCl (Apresoline) 100 mg PO TID [facility] Last Admin: 06/29/18 09:39 Dose: 100 mg Dextrose/Water (D5w) 1,000 mls @ 0 mls/hr IV .Q0M PRN PRN Reason: Hypoglycemia Linezolid 600 mg/ Device 300 mls @ 150 mls/hr IVPB 0400,1600 [facility] Last Admin: 06/29/18 03:30 Dose: 300 mls Insulin Human Lispro (Humalog) 0 units SC .MODERATE SLIDING SC PRN PRN Reason: Moderate Correctional Scale Last Admin: 06/29/18 05:39 Dose: 2 unit Insulin Human Lispro (Humalog) 0 units SC .BEDTIME SLIDING SC PRN PRN Reason: Bedtime Correctional Scale Losartan Potassium (Cozaar) 25 mg PO DAILY [facility] Last Admin: 06/29/18 09:38 Dose: 25 mg Mometasone Furoate (Asmanex Hfa 100 Mcg) 1 puff INH BID-RT [facility] Last Admin: 06/29/18 08:51 Dose: Not Given Mometasone Furoate/Formoterol Fumar (Dulera 200 Mcg/5 Mcg Inhaler) 2 puff INH BID-RT [facility] Last Admin: 06/29/18 08:50 Dose: 2 puff Morphine Sulfate (Morphine) 2 mg SLOW IVP Q4H PRN PRN Reason: severe pain Last Admin: 06/29/18 03:30 Dose: 2 mg Nifedipine (Procardia Xl) 30 mg PO DAILY [facility] Last Admin: 06/29/18 09:39 Dose: 30 mg Nitroglycerin (Nitrostat) 0.4 mg SL Q5MIN PRN PRN Reason: Chest Pain Nitroglycerin (Nitro-Bid 2% Ointment) 0.5 inch TOP Q8HR [facility] Last Admin: 06/29/18 05:40 Dose: 0.5 inch Ondansetron HCl (Zofran) 4 mg IVP Q6H PRN PRN Reason: Nausea/Vomiting Last Admin: 06/28/18 20:20 Dose: 4 mg Pantoprazole Sodium (Protonix) 40 mg PO 1700 [facility] Last Admin: 06/28/18 16:59 Dose: 40 mg Saccharomyces Boulardii (Florastor) 250 mg PO DAILY [facility] Last Admin: 06/29/18 09:39 Dose: 250 mg Senna/Docusate Sodium (Senokot S) 2 tab PO BID PRN PRN Reason: Constipation Sodium Chloride (Flush - Normal Saline) 10 ml IVF PRN PRN PRN Reason: Saline Flush Tramadol HCl (Ultram) 50 mg PO Q4H PRN PRN Reason: severe pain Last Admin: 06/28/18 20:19 Dose: 50 mg
[2018-06-29] MEDS ORDERED: [UNRECOGNIZED DRUG - REMARK] IVPB SCH (13:15)
[2018-06-29] MEDS: traMADol HCl 50 MG TAB PO PRN (17:00)
[2018-06-29] MEDS: Atorvastatin Calcium 40 MG TAB PO SCH (21:38)
--- NOTE | 2018-06-29 22:54 | CON ---
DATE OF CONSULTATION: 06/29/2018 REASON FOR CONSULTATION: Headaches, bacteremia. HISTORY OF PRESENT ILLNESS: This is a 58-year-old male known to me from previous visits at [facility] with history of end-stage renal disease secondary to type 2 diabetes, hypertension, and previous tunneled catheter, which was converted to a left arm fistula, also history of atrial fibrillation with coronary artery disease and prior [place]. The patient developed infection of the tunneled IJ catheter in the past and the catheter removed. After that, it improved, but then developed recrudescence of fever and was noticed to have 2 sets of blood cultures positive for MRSA. MRI did demonstrate multiple supratentorial and infratentorial embolic lesions and an echocardiogram with a moderately thickened mitral valve, severe mitral annular calcification, and an echogenic calcified nodule structures in the mitral valve. The patient was discharged on sliding scale at dialysis and then he was readmitted with recurrence of fever, headaches. The second time around, the patient had his vancomycin dose upgraded. Even after that, he continued to be bacteremic with MRSA. The MRSA [place] to vancomycin was one. He was transitioned to daptomycin and defervesced and then was discharged. He had been transferred to the retirement and was getting daptomycin through a tunneled catheter in the right IJ position. Now, he presents back with intractable headaches, mostly on the right side. It is not clear where was he getting the daptomycin if in the [place] or in the dialysis clinic. I will have to contact the [place] to verify that he was receiving the daptomycin there. The week before admission, he developed worsening headaches again with mostly on the right side and blurred eyesight. On arrival, his BP was 180/85. CT showed multifocal hypodensities. LABORATORY DATA: White cell count is 11,000. Sedimentation rate 125 and CRP 6.5. He was given prednisone because of concern of temporal arteritis, but his blood cultures have resulted positive for MRSA. He is currently seen in bed, still having headaches, some neck pain, but not much, mostly occipital headaches and right parietal. He has blurred vision particularly on the right side, apparently had some treatment scheduled with Dr. Li in the [facility] here in town. No cough or chest pain. No dyspnea. No abdominal pain or diarrhea. He still have some urinary output, but no urinary symptoms. Otherwise, no joint symptoms. No lower back pain. PAST MEDICAL HISTORY: Type 2 diabetes, neuropathy; nephropathy with end-stage renal disease, on hemodialysis, previously was through an IJ tunneled catheter and then catheter removed because of infection by MRSA transitioned to an AV fistula with left upper extremity, which is still functional. Subsequently, he was diagnosed with mitral valve endocarditis secondary to MRSA, failed vancomycin and was transitioned to daptomycin. He was finishing his course of daptomycin, but now has recrudescence of MRSA bacteremia with fever and the other findings noted above. He also has a history of cocaine use in the past, COPD. PAST SURGICAL HISTORY: Cardiac catheterization, dialysis access placements, Dempsey catheter which was placed for the daptomycin administration recently. ALLERGIES: NONE. SOCIAL HISTORY: He had been living in the [place]. Current smoker. FAMILY HISTORY: Hypertension and CVA. ALLERGY HISTORY: None. CURRENT MEDICATIONS: 1. DuoNeb. 2. Xanax. 3. Ecotrin. 4. Lipitor. 5. Tessalon. 6. Dulcolax. 7. Heparin. 8. Insulin. 9. Mometasone. 10. Losartan. 11. Nifedipine. 12. Telavancin. 13. Tramadol. PHYSICAL EXAMINATION: VITAL SIGNS: T-max 98.7, blood pressure 190/90, pulse 88, respirations 16, and O2 saturation 96%. SKIN: Without any major findings. He does have a tunneled Dempsey catheter right IJ position with no inflammatory changes or tenderness. The left AV fistula is dysfunctional. No other findings of significance in skin exam. HEENT: No lymphadenopathy. Ocular movements conjugate. Intraocular media appear to be patent. Pupils are about 1 mm and miotic. Subconjunctival areas normal. Nasal passages patent. Oral cavity normal. NECK: Supple. LUNGS: Symmetric. Clear breath sounds. HEART: S1 and S2 without obvious murmurs. Regular rate. ABDOMEN: Soft, not distended or tender. No ascites. No bladder distention. No joint inflammatory activity. Moves extremities equally. No back tenderness. NEUROLOGIC: Cognitive function appears to be intact. LABORATORY DATA: White cell count 11,000, now is 12.3; hemoglobin 9, MCV 78, platelets 277, and 82% neutrophils. Sodium 131, creatinine 4.54. CRP 6.51. Cocaine metabolites detected on 06/27 and 1 set of blood cultures positive from 06/27 with MRSA pending susceptibilities. Brain MRI demonstrated multifocal subacute infarctions, bilateral cerebral hemispheres. See a chest x-ray obtained at this time. ASSESSMENT: 1. Type 2 diabetes with end-stage renal disease, on hemodialysis through an arteriovenous malformation fistula. 2. Previous dialysis access infection, right IJ position, which has been removed. 3. Mitral valve endocarditis with septic emboli to brain, which has failed treatment with vancomycin, then now failed with daptomycin. DISCUSSION: We will switch him to telavancin. We will obtain cultures from the Dempsey catheter. If those are positive, then remove catheter. After that, we will have to decide to give him a try again vancomycin through a dialysis sliding scale. Consult CV Surgery in view of the failure of 2 different options for treatment or place another access for administration of telavancin. If the Dempsey catheter cultures are negative, then he continue using that for administration of telavancin. Job ID: [id number]
[2018-06-29] MEDS: Acetaminophen 325 MG TAB PO PRN (23:15)
[2018-06-30] MEDS: Nitroglycerin 2% Ointment 1 INCH/1 GM Packet TOP SCH ×3 (06:33→14:52)
[2018-06-30] MEDS: Acetaminophen 325 MG TAB PO PRN ×2 (06:33→21:00)
[2018-06-30] MEDS: hydrALAZINE 20 MG/ML VIAL SLOW IVP PRN ×2 (06:36→13:30)
[2018-06-30] MEDS: Mometasone/Formoterol 120 PUFF INHALER INH SCH ×2 (06:58→18:10)
[2018-06-30] MEDS ORDERED: Epoetin (ESRD) 20,000 UNITS/ML SC SCH (09:00)
--- NOTE | 2018-06-30 09:12 | PRG ---
DATE OF SERVICE: 06/30/2018 SUBJECTIVE: Mr. Keita is a 58-year-old black male with ESRD, was admitted for headache and ? bacteremia. This patient has previous diagnosis infective mitral valve endocarditis with septic emboli to the brain. The patient has failed treatment with vancomycin and daptomycin. Infectious Disease has evaluated the patient, is recommending another type of IV antibiotics. We are following up this patient for his maintenance hemodialysis. I am currently at the bedside supervising his dialysis. We are doing a 4-hour hemodialysis with him with fluid removal. No other complaints. He tells me he is feeling better. OBJECTIVE: VITAL SIGNS: Blood pressure is 166/76, heart rate 76, respiratory rate 16, temperature 98.2, and pulse ox 98% GENERAL: Noted to be awake, alert, comfortable, not in overt distress. SKIN: Adequate turgor. HEENT: He has slightly pale conjunctivae. Anicteric sclerae. No neck mass. No carotid bruits. No JVD. CHEST: No deformities. LUNGS: Clear breath sounds. HEART: Normal sinus rhythm. No murmur. No gallops. No rubs. ABDOMEN: Globular, soft, nontender. No masses. EXTREMITIES: No edema. No deformities. MEDICATIONS: Medications of 06/30/2018, reviewed. LABORATORY DATA: Laboratories of 06/29/2018; white count 12.3, hemoglobin is 9. Sodium 131, potassium 4.1, chloride 93, carbon dioxide 25, BUN 24, creatinine 4.54, glucose 142, calcium 9.5, magnesium 1.6. ASSESSMENT AND PLAN: 1. End-stage renal disease, stable. We will continue current Saturday, Saturday, Saturday dialysis of 4 hours each treatment. Fluid removal only as tolerated. 2. Infective endocarditis-Infectious Disease following. Recommendation for a new type of IV antibiotics has been made-currently Telavancin 750 mg three times a week post hemodialysis has been recommended by the Infectious Disease Service. 3. Anemia, start Epogen and iron supplementation. Job ID: [id number]
--- NOTE | 2018-06-30 10:36 | PDOC.PN ---
- Subjective Encounter Start Date: 06/30/18 Encounter Start Time: 17:25 Subjective: ANDERSON at times - Objective MAR Reviewed: Yes Vital Signs & Weight: Vital Signs (12 hours) Temp Pulse Resp BP BP BP Pulse Ox 06/30/18 07:32 98.2 F 78 16 166/76 H 98 06/30/18 06:58 74 12 06/30/18 06:56 167/72 H 06/30/18 06:36 74 186/80 H 06/30/18 04:00 98.9 F 75 18 186/80 H 95 06/30/18 00:00 99.6 F 76 18 152/78 H 97 Weight Admit Weight 209 lb 4.8 oz Weight 209 lb 4.8 oz I&O: 06/29/18 06/30/18 07/01/18 06:59 06:59 06:59 Intake Total 1700 720 Output Total 550 600 200 Balance 1150 -600 520 Result Diagrams: 06/29/18 07:17 06/29/18 07:17 Additional Labs: Accuchecks 06/30/18 06/29/18 06/29/18 06:03 20:01 17:00 POC Glucose 128 H 177 H 136 H 06/29/18 06/27/18 10:55 19:38 POC Glucose 195 H 177 H Phys Exam - Physical Examination Neck: no JVD Respiratory: clear to auscultation bilateral Cardiovascular: RRR, no significant murmur Gastrointestinal: soft, non-tender, positive bowel sounds Musculoskeletal: no edema Dx/Plan (1) Cerebral septic emboli Code(s): I76 - SEPTIC ARTERIAL EMBOLISM; I66.9 - OCCLUSION AND STENOSIS OF UNSPECIFIED CEREBRAL ARTERY Status: Acute (2) Infectious endocarditis Code(s): I33.0 - ACUTE AND SUBACUTE INFECTIVE ENDOCARDITIS Status: Acute Qualifiers: Infective endocarditis organism: bacterial Chronicity: acute Qualified Code(s): I33.0 - Acute and subacute infective endocarditis Comment: s/p 6 week of IV ABx at outside hospital (3) Intractable headache Code(s): R51 - HEADACHE Status: Acute Qualifiers: Headache type: unspecified Headache chronicity pattern: unspecified pattern Qualified Code(s): R51 - Headache (4) MRSA bacteremia Code(s): R78.81 - BACTEREMIA Status: Acute Comment: Failed vancomycin , s/p 6 weeks of Daptomycin .Concern for reurrance Vs Recrudescence Vs Daptomycin failure with cerebral septic emboli (5) Anemia in chronic kidney disease Code(s): N18.9 - CHRONIC KIDNEY DISEASE, UNSPECIFIED; D63.1 - ANEMIA IN CHRONIC KIDNEY DISEASE Status: Chronic Qualifiers: Chronic kidney disease stage: on chronic dialysis Qualified Code(s): N18.6 - End stage renal disease; D63.1 - Anemia in chronic kidney disease; Z99.2 - Dependence on renal dialysis (6) CKD (chronic kidney disease), stage V Code(s): N18.5 - CHRONIC KIDNEY DISEASE, STAGE 5 Status: Chronic Comment: nephrology following (7) COPD (chronic obstructive pulmonary disease) Status: Chronic Qualifiers: COPD type: emphysema Emphysema type: unspecified Qualified Code(s): J43.9 - Emphysema, unspecified Comment: mari PATEL (8) Chronic diastolic heart failure Code(s): I50.32 - CHRONIC DIASTOLIC (CONGESTIVE) HEART FAILURE Status: Chronic Comment: remove volume by dialysis (9) Cocaine abuse Code(s): F14.10 - COCAINE ABUSE, UNCOMPLICATED Status: Chronic 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 (10) DM2 (diabetes mellitus, type 2) Status: Chronic Qualifiers: Diabetes mellitus long-term insulin use: without long-term use Diabetes mellitus complication status: with kidney complications Diabetes mellitus complication detail: with chronic kidney disease Chronic kidney disease stage : on chronic dialysis Qualified Code(s): E11.22 - Type 2 diabetes mellitus with diabetic chronic kidney disease; N18.6 - End stage renal disease; Z99.2 - Dependence on renal dialysis Comment: see above for current regimen (11) ESRD (end stage renal disease) Code(s): N18.6 - END STAGE RENAL DISEASE Status: Chronic Comment: Dempsey catheter placement then initiation of HD 12/10/17, avoid nephrotoxic meds and limit contrast exposure, continue HD, (12) Tobacco abuse Code(s): Z72.0 - TOBACCO USE Status: Chronic - Plan cont HD -: vancomycin iv at HD -: IJ catheter removed -: cont accu/ss -: cont nifedipine, etc for BP_ * .
[2018-06-30] MEDS: cloNIDine 0.1 MG TAB PO SCH ×3 (11:42→20:59)
[2018-06-30] MEDS: ALPRAZolam 0.25 MG TAB PO SCH ×2 (11:42→21:00)
[2018-06-30] MEDS: hydrALAZINE 25 MG TAB PO SCH ×3 (11:43→21:00)
[2018-06-30] MEDS: Saccharomyces boulardii 250 MG CAP PO SCH (11:43)
[2018-06-30] MEDS: NIFEdipine XL 30 MG TAB PO SCH (11:43)
[2018-06-30] MEDS: Losartan 25 MG TAB PO SCH (11:44)
[2018-06-30] MEDS: Aspirin 81 mg Enteric Coated Tablet PO SCH (11:44)
[2018-06-30] MEDS: Heparin 5,000 UNITS/ML VIAL SC SCH ×2 (13:30→21:01)
--- NOTE | 2018-06-30 14:43 | PRG ---
DATE OF SERVICE: 06/30/2018 SUBJECTIVE: Mr. Keita is still with some headaches, being dialyzed at the moment. No dyspnea or chest pain. No cough. No abdominal pain. No diarrhea. No genitourinary symptoms. OBJECTIVE: VITAL SIGNS: T-max 99.8, blood pressure 204/92, pulse 78, O2 saturation 98%. GENERAL: Awake, alert, oriented, pleasant. HEENT: Ocular movements conjugate. Pupils are equal. LUNGS: Symmetric. Clear breath sounds. HEART: S1, S2. Regular rate without obvious murmurs. ABDOMEN: Soft, not distended or tender. The patient has tunneled Dempsey catheter in the right IJ position. LABORATORY DATA: We have 2 out of 2 sets of blood cultures positive for MRSA. We have a central line positivity as well. The organism in the central line still needs to be identified. ASSESSMENT AND DISCUSSION: 1. Type 2 diabetes, end-stage renal disease, on hemodialysis with an AV fistula. 2. Previous dialysis access infection, which has been removed in the right IJ position. 3. Mitral valve endocarditis secondary to methicillin-resistant Staphylococcus aureus, which failed treatment with vancomycin and daptomycin. 4. Evidence of infection of the right Dempsey catheter. We will consult General Surgery to remove the Dempsey catheter and then probably switch him to IV vancomycin and sliding scale for dialysis again and try and give another shot of vancomycin, try to keep the trough levels higher than 15 mcg and probably discontinue telavancin. Job ID: [id number]
[2018-06-30] MEDS: TELAVANCIN HYDROCHLORIDE IVPB SCH (14:50)
[2018-06-30] MEDS: SODIUM CHLORIDE 0.9% IVPB SCH (14:50)
[2018-06-30] MEDS ORDERED: Lidocaine 1% w/Epinephrine 1:200K 30 ML VIAL FS SCH (17:00)
[2018-06-30] MEDS: HumaLOG 300 UNITS/3 ML VIAL SC PRN (17:34)
[2018-06-30] MEDS: Ferrous Sulfate 325 MG TAB PO SCH (17:35)
--- NOTE | 2018-06-30 18:57 | HP ---
HISTORY OF PRESENT ILLNESS: Morris Keita is a 58-year-old black male patient, who in November 2017, I placed a left Nellie fistula. In my absence on 12/10/2017, Dr. Umaña placed a hemodialysis catheter and he needs to start dialysis right away. They have been accessing this fistula in left arm. He had a line bacteremia, went to [facility], treated there, seen by Dr. Ontiveros. A Dempsey catheter in right IJ was placed. He is now admitted because of bacteremia. Dr. Ontiveros has seen him. I had been asked to see him regarding removal of his Dempsey catheter IJ. ALLERGIES: NONE. TOBACCO: None. ALCOHOL: None. MEDICATIONS: 1. Flovent. 2. Cozaar. 3. Ibuprofen. 4. Catapres. 5. Aspirin. 6. Mometasone/Formoterol. 7. Hydralazine p.o. PAST SURGICAL HISTORY: Left Nellie fistula, Dempsey catheter, hemodialysis catheter placement, cardiac catheterization in 2017. PAST MEDICAL HISTORY: Infective endocarditis, MRSA, six weeks of daptomycin after failed vancomycin therapy, history of nonischemic cardiomyopathy, EF of 35%, stress test in 2018, 50% according to echo in October 2017, end-stage renal disease on hemodialysis, hypertension, diabetes mellitus, cocaine use, cocaine positive toxicology this hospitalization, anemia, COPD, SVT history. PHYSICAL EXAMINATION: VITAL SIGNS: Height 5 feet 9 inches, 209 pounds, 30 BMI, temperature 98.4, 156/78, respiratory rate 16. HEAD, EARS, EYES, NOSE, AND THROAT: Unremarkable. LUNGS: Clear to auscultation. CARDIAC: Regular rate and rhythm without murmur or gallop. ABDOMEN: Soft and nontender, Dempsey catheter in right IJ, left forearm Nellie fistula, good thrill and bruit. ASSESSMENT AND PLAN: 1. Bacteremia in need of Dempsey catheter removal. We will plan this at the bedside. 2. Cocaine use. 3. End-stage renal disease. 4. Endocarditis. Job ID: [id number]
[2018-06-30] MEDS: Atorvastatin Calcium 40 MG TAB PO SCH (22:59)
[2018-07-01] MEDS: Mometasone/Formoterol 120 PUFF INHALER INH SCH ×2 (06:11→18:21)
[2018-07-01] MEDS: Acetaminophen 325 MG TAB PO PRN ×2 (06:44→21:16)
[2018-07-01] MEDS: hydrALAZINE 20 MG/ML VIAL SLOW IVP PRN (06:44)
[2018-07-01] MEDS: Nitroglycerin 2% Ointment 1 INCH/1 GM Packet TOP SCH ×5 (06:45→21:16)
[2018-07-01] MEDS: HumaLOG 300 UNITS/3 ML VIAL SC PRN ×3 (08:01→17:38)
--- NOTE | 2018-07-01 08:31 | PDOC.PN ---
- Subjective Encounter Start Date: 07/01/18 Encounter Start Time: 08:29 Subjective: feeling better, no fever, chills - Objective MAR Reviewed: Yes Vital Signs & Weight: Vital Signs (12 hours) Temp Pulse Resp BP BP Pulse Ox 07/01/18 07:44 98.8 F 76 16 157/82 H 100 07/01/18 06:44 85 07/01/18 06:11 85 14 93 L 07/01/18 05:07 98 F 77 16 186/88 H 98 07/01/18 00:00 97.7 F 81 16 147/64 H 95 06/30/18 21:00 84 138/70 06/30/18 20:59 138/70 06/30/18 20:30 98 Weight Admit Weight 209 lb 4.8 oz Weight 209 lb 4.8 oz I&O: 06/30/18 07/01/18 07/02/18 06:59 06:59 06:59 Intake Total 1920 Output Total 600 3400 Balance -600 -1480 Result Diagrams: 06/29/18 07:17 06/29/18 07:17 Additional Labs: Accuchecks 07/01/18 06/30/18 06/30/18 04:46 19:21 16:27 POC Glucose 219 H 143 H 227 H Phys Exam - Physical Examination Neck: no JVD Respiratory: clear to auscultation bilateral Cardiovascular: RRR, no significant murmur Gastrointestinal: soft, non-tender, positive bowel sounds Musculoskeletal: no edema Dx/Plan (1) Cerebral septic emboli Code(s): I76 - SEPTIC ARTERIAL EMBOLISM; I66.9 - OCCLUSION AND STENOSIS OF UNSPECIFIED CEREBRAL ARTERY Status: Acute (2) Infectious endocarditis Code(s): I33.0 - ACUTE AND SUBACUTE INFECTIVE ENDOCARDITIS Status: Acute Qualifiers: Infective endocarditis organism: bacterial Chronicity: acute Qualified Code(s): I33.0 - Acute and subacute infective endocarditis Comment: s/p 6 week of IV ABx at outside hospital (3) Intractable headache Code(s): R51 - HEADACHE Status: Acute Qualifiers: Headache type: unspecified Headache chronicity pattern: unspecified pattern Qualified Code(s): R51 - Headache (4) MRSA bacteremia Code(s): R78.81 - BACTEREMIA Status: Acute Comment: Failed vancomycin , s/p 6 weeks of Daptomycin .Concern for reurrance Vs Recrudescence Vs Daptomycin failure with cerebral septic emboli (5) Anemia in chronic kidney disease Code(s): N18.9 - CHRONIC KIDNEY DISEASE, UNSPECIFIED; D63.1 - ANEMIA IN CHRONIC KIDNEY DISEASE Status: Chronic Qualifiers: Chronic kidney disease stage: on chronic dialysis Qualified Code(s): N18.6 - End stage renal disease; D63.1 - Anemia in chronic kidney disease; Z99.2 - Dependence on renal dialysis (6) CKD (chronic kidney disease), stage V Code(s): N18.5 - CHRONIC KIDNEY DISEASE, STAGE 5 Status: Chronic Comment: nephrology following (7) COPD (chronic obstructive pulmonary disease) Status: Chronic Qualifiers: COPD type: emphysema Emphysema type: unspecified Qualified Code(s): J43.9 - Emphysema, unspecified Comment: mari PATEL (8) Chronic diastolic heart failure Code(s): I50.32 - CHRONIC DIASTOLIC (CONGESTIVE) HEART FAILURE Status: Chronic Comment: remove volume by dialysis (9) Cocaine abuse Code(s): F14.10 - COCAINE ABUSE, UNCOMPLICATED Status: Chronic 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 (10) DM2 (diabetes mellitus, type 2) Status: Chronic Qualifiers: 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 terminal 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 operator use Diabetes mellitus complication status: with kidney complications Diabetes mellitus complication detail: with chronic kidney disease Chronic kidney disease stage : on chronic dialysis Qualified Code(s): E11.22 - Type 2 diabetes mellitus with diabetic chronic kidney disease; N18.6 - End stage renal disease; Z99.2 - Dependence on renal dialysis Comment: see above for current regimen (11) ESRD (end stage renal disease) Code(s): N18.6 - END STAGE RENAL DISEASE Status: Chronic Comment: Dempsey catheter placement then initiation of HD 12/10/17, avoid nephrotoxic meds and limit contrast exposure, continue HD, (12) Tobacco abuse Code(s): Z72.0 - TOBACCO USE Status: Chronic - Plan post removal infected IJ catheter -: cont HD, SS vancomycin at HD -: DC planning * .
--- NOTE | 2018-07-01 09:24 | PRG ---
DATE OF SERVICE: 07/01/2018 SERVICE: Renal Medicine. SUBJECTIVE: Mr. Keita is a 58-year-old black male with ESRD and followed by the Renal Service for his maintenance hemodialysis. He was admitted for line bacteremia. His Dempsey catheter has been pulled out by Dr. Delarosa. Recommendation by ID is to continue with IV vancomycin. No other complaints today. The patient denies any chest pain, shortness of breath, nausea, or vomiting. OBJECTIVE: VITAL SIGNS: Blood pressure is 157/82, heart rate is 76, respiratory rate 16, temperature 98.8, and pulse ox 100%. GENERAL: Awake, alert, comfortable, not in overt distress. SKIN: Adequate turgor. HEENT: He has slightly pale conjunctivae. Anicteric sclerae. NECK: No neck mass. No carotid bruits. No JVD. CHEST: No deformities. LUNGS: Clear breath sounds. No wheezing. No crackles. HEART: Normal sinus rhythm. No murmur. No gallops. No rubs. ABDOMEN: Globular, soft, and nontender. No masses. EXTREMITIES: No edema. No deformities. MEDICATIONS: Medications of July 01, 2018 reviewed. LABORATORY DATA: Laboratories of June 29, 2018; white count 12.3, hemoglobin 9. On July 01, 2018, glucose 219. On June 29, 2018, potassium 4.1, BUN 24, creatinine 4.54. ASSESSMENT AND PLAN: 1. End-stage renal disease, stable, continuing current maintenance hemodialysis on Saturday, Saturday, and Saturday. Fluid removal as tolerated. 2. Line bacteremia, on IV vancomycin. ID following. 3. Anemia. We have resumed back his weekly Epogen and iron supplementation. Overall, agree with current management. Possible discharge today. Job ID: [id number]
[2018-07-01] MEDS: Ferrous Sulfate 325 MG TAB PO SCH ×2 (09:53→17:38)
[2018-07-01] MEDS: ALPRAZolam 0.25 MG TAB PO SCH ×2 (09:53→20:55)
[2018-07-01] MEDS: NIFEdipine XL 30 MG TAB PO SCH (09:53)
[2018-07-01] MEDS: Heparin 5,000 UNITS/ML VIAL SC SCH ×2 (09:53→20:55)
[2018-07-01] MEDS: hydrALAZINE 25 MG TAB PO SCH ×3 (09:53→20:56)
[2018-07-01] MEDS: Saccharomyces boulardii 250 MG CAP PO SCH (09:53)
[2018-07-01] MEDS: Aspirin 81 mg Enteric Coated Tablet PO SCH (09:53)
[2018-07-01] MEDS: Losartan 25 MG TAB PO SCH (09:54)
[2018-07-01] MEDS: cloNIDine 0.1 MG TAB PO SCH ×3 (09:54→20:56)
[2018-07-01] MEDS: Bisacodyl 5 MG TAB PO PRN ×2 (11:58→20:55)
[2018-07-01 12:25] LABS: ANA Symphony (Quantitative) 0.2 Ratio (< 0.7 Negative)
[2018-07-01 12:26] LABS: ANA Symphony (Qualitative) Negative (Negative); CCP IgG Antibody 1.1 EliAU/mL (<7 Negative); EliA RAS New Method **** NEW METHOD ****; Rheumatoid Factor IgA Antibody Less than 0.6 IU/mL (<14 Negative); Rheumatoid Factor IgM Antibody Less than 0.5 IU/mL (<3.5 Negative); dsDNA IgG Antibody 4.3 IU/mL (<10 Negative)
--- NOTE | 2018-07-01 12:29 | OP ---
DATE OF PROCEDURE: 06/30/2018 PREOPERATIVE DIAGNOSES: Positive bacteremia, cocaine use, functioning Nellie fistula, left arm, endocarditis, followed by Dr. Ontiveros. POSTOPERATIVE DIAGNOSES: Positive bacteremia, cocaine use, functioning Nellie fistula, left arm, endocarditis, followed by Dr. Ontiveros. PROCEDURE PERFORMED: Removal of right IJ-cuffed tunneled Dempsey catheter. ANESTHESIA: 1% Xylocaine with epinephrine. DESCRIPTION OF PROCEDURE: With the patient at bedside in his room, exit site right chest, Dempsey catheter, prepared with alcohol, suture removed. 1% Xylocaine with epinephrine was infiltrated in the skin and subcutaneous tissue and catheter and cuff removed intact without fracture. Catheter was discarded. Hemostasis was gained with local pressure. The patient tolerated the procedure well. Job ID: [id number]
[2018-07-01] MEDS: traMADol HCl 50 MG TAB PO PRN (17:44)
[2018-07-01] MEDS: Atorvastatin Calcium 40 MG TAB PO SCH (20:57)
[2018-07-02] MEDS: Nitroglycerin 2% Ointment 1 INCH/1 GM Packet TOP SCH ×2 (05:49→14:03)
--- NOTE | 2018-07-02 09:03 | PRG ---
DATE OF SERVICE: 07/02/2018 SUBJECTIVE: Mr. Keita is a 58-year-old black male with ESRD-on maintenance hemodialysis and admitted for persistent bacteremia. ID has seen this patient and Dempsey catheter has been pulled out. He continues to be on IV antibiotics. The plan is eventually to bring him back on IV vancomycin at the outpatient dialysis unit. No new complaints except for slight headache today. The patient denies any chest pain or shortness of breath. I am currently at the bedside supervising his dialysis. OBJECTIVE: VITAL SIGNS: Blood pressure is 153/76, heart rate 74, respiratory rate 19, temperature 98, and pulse ox 95%. GENERAL: Noted to be awake, alert, comfortable, not in overt distress. SKIN: Adequate turgor. HEENT: Slightly pale conjunctivae. Anicteric sclerae. No neck mass. No carotid bruits. No JVD. CHEST: No deformities. LUNGS: Clear breath sounds. HEART: Normal sinus rhythm. No murmur. No gallops. No rubs. ABDOMEN: Globular, soft, nontender. No masses. EXTREMITIES: No edema. No deformities. MEDICATIONS: Medications of July 02, 2018, has been reviewed. LABORATORY DATA: Laboratories of June 29, 2018; white count 12.3, hemoglobin 9. On June 29, 2018; sodium 131, potassium 4.1, chloride 93, carbon dioxide 25, BUN 24, creatinine 4.54, glucose 142, calcium 9.5, and magnesium 1.6. ASSESSMENT AND PLAN: 1. End-stage renal disease, stable. We will continue current Saturday, Saturday, Saturday dialysis regimen. Fluid removal as tolerated. The patient tolerating said treatment. No changes will be made with the current dialysis regimen. 2. Anemia, currently on Epogen, ferrous sulfate. 3. Bacteremia, Dempsey catheter has been pulled out. In addition, the patient is currently on IV telavancin at 750 mg three times a week. Eventually, the patient to be converted to IV vancomycin at outpatient dialysis unit. Agree with current management. Job ID: [id number]
[2018-07-02] MEDS: Acetaminophen 325 MG TAB PO PRN ×3 (09:15→21:07)
[2018-07-02] MEDS: Mometasone/Formoterol 120 PUFF INHALER INH SCH ×2 (10:37→18:51)
[2018-07-02] MEDS: Heparin 5,000 UNITS/ML VIAL SC SCH ×2 (11:58→21:07)
[2018-07-02] MEDS: cloNIDine 0.1 MG TAB PO SCH ×3 (11:59→21:06)
[2018-07-02] MEDS: Saccharomyces boulardii 250 MG CAP PO SCH (11:59)
[2018-07-02] MEDS: ALPRAZolam 0.25 MG TAB PO SCH ×2 (11:59→21:06)
[2018-07-02] MEDS: hydrALAZINE 25 MG TAB PO SCH ×3 (11:59→21:07)
[2018-07-02] MEDS: Losartan 25 MG TAB PO SCH (11:59)
[2018-07-02] MEDS: Ferrous Sulfate 325 MG TAB PO SCH ×2 (12:00→16:51)
[2018-07-02] MEDS: NIFEdipine XL 30 MG TAB PO SCH (12:00)
[2018-07-02] MEDS: Aspirin 81 mg Enteric Coated Tablet PO SCH (12:00)
[2018-07-02] MEDS: traMADol HCl 50 MG TAB PO PRN (12:01)
[2018-07-02] MEDS: SODIUM CHLORIDE 0.9% IVPB SCH (12:04)
[2018-07-02] MEDS: TELAVANCIN HYDROCHLORIDE IVPB SCH (12:04)
[2018-07-02] MEDS ORDERED: Bisacodyl 10 MG SUPP PR PRN (15:22)
--- NOTE | 2018-07-02 15:35 | PDOC.PN ---
- Subjective Encounter Start Date: 07/02/18 Encounter Start Time: 15:33 Subjective: post HD, no fever,etc - Objective Vital Signs & Weight: Vital Signs (12 hours) Temp Pulse Resp BP Pulse Ox 07/02/18 12:00 82 07/02/18 11:59 82 07/02/18 11:58 97.7 F 82 16 213/108 H 100 07/02/18 04:00 98.0 F 74 19 153/76 H 95 Weight Admit Weight 209 lb 4.8 oz Weight 209 lb 4.8 oz I&O: 07/01/18 07/02/18 07/03/18 06:59 06:59 06:59 Intake Total 1920 1680 480 Output Total 3400 300 Balance -1480 1380 480 Result Diagrams: 06/29/18 07:17 06/29/18 07:17 Additional Labs: Accuchecks 07/02/18 07/02/18 07/01/18 11:50 05:53 19:57 POC Glucose 135 H 143 H 220 H 07/01/18 16:51 POC Glucose 222 H Phys Exam - Physical Examination Neck: no JVD Respiratory: clear to auscultation bilateral Cardiovascular: RRR, no significant murmur Gastrointestinal: soft, positive bowel sounds Musculoskeletal: no edema Dx/Plan (1) Cerebral septic emboli Code(s): I76 - SEPTIC ARTERIAL EMBOLISM; I66.9 - OCCLUSION AND STENOSIS OF UNSPECIFIED CEREBRAL ARTERY Status: Acute (2) Infectious endocarditis Code(s): I33.0 - ACUTE AND SUBACUTE INFECTIVE ENDOCARDITIS Status: Acute Qualifiers: Infective endocarditis organism: bacterial Chronicity: acute Qualified Code(s): I33.0 - Acute and subacute infective endocarditis Comment: s/p 6 week of IV ABx at outside hospital (3) Intractable headache Code(s): R51 - HEADACHE Status: Acute Qualifiers: Headache type: unspecified Headache chronicity pattern: unspecified pattern Qualified Code(s): R51 - Headache (4) MRSA bacteremia Code(s): R78.81 - BACTEREMIA Status: Acute Comment: Failed vancomycin , s/p 6 weeks of Daptomycin .Concern for reurrance Vs Recrudescence Vs Daptomycin failure with cerebral septic emboli (5) Anemia in chronic kidney disease Code(s): N18.9 - CHRONIC KIDNEY DISEASE, UNSPECIFIED; D63.1 - ANEMIA IN CHRONIC KIDNEY DISEASE Status: Chronic Qualifiers: Chronic kidney disease stage: on chronic dialysis Qualified Code(s): N18.6 - End stage renal disease; D63.1 - Anemia in chronic kidney disease; Z99.2 - Dependence on renal dialysis (6) CKD (chronic kidney disease), stage V Code(s): N18.5 - CHRONIC KIDNEY DISEASE, STAGE 5 Status: Chronic Comment: nephrology following (7) COPD (chronic obstructive pulmonary disease) Status: Chronic Qualifiers: COPD type: emphysema Emphysema type: unspecified Qualified Code(s): J43.9 - Emphysema, unspecified Comment: mari PATEL (8) Chronic diastolic heart failure Code(s): I50.32 - CHRONIC DIASTOLIC (CONGESTIVE) HEART FAILURE Status: Chronic Comment: remove volume by dialysis (9) Cocaine abuse Code(s): F14.10 - COCAINE ABUSE, UNCOMPLICATED Status: Chronic 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 (10) DM2 (diabetes mellitus, type 2) Status: Chronic Qualifiers: 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 use: without custodial use Diabetes mellitus complication status: with kidney complications Diabetes mellitus complication detail: with chronic kidney disease Chronic kidney disease stage : on chronic dialysis Qualified Code(s): E11.22 - Type 2 diabetes mellitus with diabetic chronic kidney disease; N18.6 - End stage renal disease; Z99.2 - Dependence on renal dialysis Comment: see above for current regimen (11) ESRD (end stage renal disease) Code(s): N18.6 - END STAGE RENAL DISEASE Status: Chronic Comment: Dempsey catheter placement then initiation of HD 12/10/17, avoid nephrotoxic meds and limit contrast exposure, continue HD, (12) Tobacco abuse Code(s): Z72.0 - TOBACCO USE Status: Chronic - Plan cont HD -: cont parenteral antibx -: DC antibx planning -: cont nifedipine, hydralazine * .
[2018-07-02] MEDS: HumaLOG 300 UNITS/3 ML VIAL SC PRN (16:53)
[2018-07-02] MEDS ORDERED: Vancomycin HCl 750 MG in Sodium Chloride 0.9% 250 ML 250 ML IVPB SCH (17:00)
[2018-07-02] MEDS ORDERED: Vancomycin HCl 500 MG in Sodium Chloride 0.9% 100 ML IVPB SCH (17:00)
[2018-07-02] MEDS ORDERED: Vancomycin HCl 1.25 GM in Sodium Chloride 0.9% 250 ML 250 ML IVPB SCH (17:00)
[2018-07-02] MEDS ORDERED: HOLD VANCOMYCIN FOR LEVEL >20 FS SCH (17:00)
[2018-07-02] MEDS ORDERED: Vancomycin HCl 1.5 GM in Sodium Chloride 0.9% 250 ML 300 ML IVPB SCH (17:00)
[2018-07-02] MEDS ORDERED: Vancomycin HCl 1 GM in Premix Bag 1 BAG IVPB SCH (17:00)
--- NOTE | 2018-07-02 17:30 | PRG ---
DATE OF SERVICE: 07/02/2018 SUBJECTIVE: Mr. Keita is feeling a little better. He is somewhat upset about the refractoriness of his MRSA bacteremia. Denies any chest pain. No back pain. No abdominal pain or diarrhea. OBJECTIVE: VITAL SIGNS: T-max 98.6, blood pressure 180/80, pulse 78, respirations 16, O2 saturation 96%. GENERAL: Appears in no distress. HEENT: Ocular movements conjugate. LUNGS: Symmetric. Clear breath sounds. HEART: S1, S2 without murmurs. CHEST: Dempsey catheter has been removed. ABDOMEN: No abdomen tenderness. LABORATORY DATA: White cell count 12.3, hemoglobin 9.0, platelets 277, 82% neutrophils. Microbiology with MRSA from the central line samples and the peripheral IV access. ASSESSMENT AND DISCUSSION: Type 2 diabetes, end-stage renal disease, on hemodialysis with AV fistula, previous dialysis access infection which has been removed a few months ago, subsequent mitral valve endocarditis with MRSA, which failed treatment with vancomycin and now daptomycin. It is possible, if not likely that the only residual infected material at this point is the Dempsey catheter. I hesitate to insert another foreign body which will likely become infected again. Therefore, we will switch him back to the vancomycin sliding scale, which can be given at dialysis instead of inserting another catheter and treat for another 6 weeks end date of therapy will be 08/13. Job ID: [id number]
[2018-07-02] MEDS: Atorvastatin Calcium 40 MG TAB PO SCH (21:06)
[2018-07-03] MEDS: Mometasone/Formoterol 120 PUFF INHALER INH SCH (07:08)
[2018-07-03] MEDS: Aspirin 81 mg Enteric Coated Tablet PO SCH (07:47)
[2018-07-03] MEDS: Ferrous Sulfate 325 MG TAB PO SCH ×2 (07:47→15:02)
[2018-07-03] MEDS: cloNIDine 0.1 MG TAB PO SCH ×2 (07:47→15:01)
[2018-07-03] MEDS: ALPRAZolam 0.25 MG TAB PO SCH (07:47)
[2018-07-03] MEDS: Losartan 25 MG TAB PO SCH (07:48)
[2018-07-03] MEDS: NIFEdipine XL 30 MG TAB PO SCH (07:48)
[2018-07-03] MEDS: hydrALAZINE 25 MG TAB PO SCH ×2 (07:48→15:01)
[2018-07-03] MEDS: Saccharomyces boulardii 250 MG CAP PO SCH (07:48)
[2018-07-03] MEDS: Heparin 5,000 UNITS/ML VIAL SC SCH (07:50)
--- NOTE | 2018-07-03 08:21 | PDOC.PN ---
- Subjective Encounter Start Date: 07/03/18 Encounter Start Time: 08:18 Subjective: feels good today - Objective MAR Reviewed: Yes Vital Signs & Weight: Vital Signs (12 hours) Temp Pulse Resp BP BP Pulse Ox 07/03/18 07:48 202/96 H 07/03/18 07:47 202/96 H 07/03/18 07:38 99.4 F 81 16 202/96 H 98 07/03/18 04:00 98.5 F 71 16 168/85 H 98 07/03/18 00:00 98.2 F 82 16 147/68 H 98 Weight Admit Weight 209 lb 4.8 oz Weight 209 lb 4.8 oz I&O: 07/02/18 07/03/18 07/04/18 06:59 06:59 06:59 Intake Total 1680 1030 Output Total 300 500 Balance 1380 530 Result Diagrams: 06/29/18 07:17 06/29/18 07:17 Additional Labs: Accuchecks 07/03/18 07/02/18 07/02/18 06:27 20:13 16:49 POC Glucose 154 H 140 H 206 H 07/02/18 11:50 POC Glucose 135 H Phys Exam - Physical Examination Neck: no JVD Respiratory: clear to auscultation bilateral Cardiovascular: RRR, no significant murmur Gastrointestinal: soft, positive bowel sounds Musculoskeletal: no edema Dx/Plan (1) Cerebral septic emboli Code(s): I76 - SEPTIC ARTERIAL EMBOLISM; I66.9 - OCCLUSION AND STENOSIS OF UNSPECIFIED CEREBRAL ARTERY Status: Acute (2) Infectious endocarditis Code(s): I33.0 - ACUTE AND SUBACUTE INFECTIVE ENDOCARDITIS Status: Acute Qualifiers: Infective endocarditis organism: bacterial Chronicity: acute Qualified Code(s): I33.0 - Acute and subacute infective endocarditis Comment: s/p 6 week of IV ABx at outside hospital (3) Intractable headache Code(s): R51 - HEADACHE Status: Acute Qualifiers: Headache type: unspecified Headache chronicity pattern: unspecified pattern Qualified Code(s): R51 - Headache (4) MRSA bacteremia Code(s): R78.81 - BACTEREMIA Status: Acute Comment: Failed vancomycin , s/p 6 weeks of Daptomycin .Concern for reurrance Vs Recrudescence Vs Daptomycin failure with cerebral septic emboli (5) Anemia in chronic kidney disease Code(s): N18.9 - CHRONIC KIDNEY DISEASE, UNSPECIFIED; D63.1 - ANEMIA IN CHRONIC KIDNEY DISEASE Status: Chronic Qualifiers: Chronic kidney disease stage: on chronic dialysis Qualified Code(s): N18.6 - End stage renal disease; D63.1 - Anemia in chronic kidney disease; Z99.2 - Dependence on renal dialysis (6) CKD (chronic kidney disease), stage V Code(s): N18.5 - CHRONIC KIDNEY DISEASE, STAGE 5 Status: Chronic Comment: nephrology following (7) COPD (chronic obstructive pulmonary disease) Status: Chronic Qualifiers: COPD type: emphysema Emphysema type: unspecified Qualified Code(s): J43.9 - Emphysema, unspecified Comment: mari PRN (8) Chronic diastolic heart failure Code(s): I50.32 - CHRONIC DIASTOLIC (CONGESTIVE) HEART FAILURE Status: Chronic Comment: remove volume by dialysis (9) Cocaine abuse Code(s): F14.10 - COCAINE ABUSE, UNCOMPLICATED Status: Chronic 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 (10) DM2 (diabetes mellitus, type 2) Status: Chronic Qualifiers: Diabetes mellitus intermediate manager insulin use: without intermediate manager use Diabetes mellitus complication status: with kidney complications Diabetes mellitus complication detail: with chronic kidney disease Chronic kidney disease stage : on chronic dialysis Qualified Code(s): E11.22 - Type 2 diabetes mellitus with diabetic chronic kidney disease; N18.6 - End stage renal disease; Z99.2 - Dependence on renal dialysis Comment: see above for current regimen (11) ESRD (end stage renal disease) Code(s): N18.6 - END STAGE RENAL DISEASE Status: Chronic Comment: Dempsey catheter placement then initiation of HD 12/10/17, avoid nephrotoxic meds and limit contrast exposure, continue HD, (12) Tobacco abuse Code(s): Z72.0 - TOBACCO USE Status: Chronic (13) Hypertensive urgency Code(s): I16.0 - HYPERTENSIVE URGENCY Status: Acute Comment: better controlled.Started Procardia. Increased Clonidine. Avoid drastic lowering in light of septic infarctionn of brain.PRN meds - Plan cont HD -: add amlodipine to BP regimen -: cont antibx -: awaiting renal/ ID for outpt directions * .
[2018-07-03] MEDS ORDERED: Amlodipine 5 MG TAB PO SCH (09:00)
[2018-07-03] MEDS: Acetaminophen 325 MG TAB PO PRN (09:06)
[2018-07-03] MEDS ORDERED: Losartan 25 MG TAB PO SCH (09:11)
--- NOTE | 2018-07-03 09:32 | PRG ---
DATE OF SERVICE: 07/03/2018 SERVICE: Renal Medicine. SUBJECTIVE: Mr. Keita is a 58-year-old black male, who was admitted for MRSA bacteremia. He was started on IV antibiotics. The feeling is that there is a residual infection in the Dempsey catheter, and for that reason, this was pulled out. He will be resumed back on IV vancomycin and outpatient dialysis. No other complaints today. He is tolerating the said dialysis regimen. OBJECTIVE: VITAL SIGNS: Blood pressure is 202/96-before BP medications. Heart rate 81, respiratory rate 16, temperature 99.4, and pulse ox is 98%. GENERAL: Noted to be awake, alert, comfortable, not in distress. SKIN: Adequate turgor. HEENT: He has pinkish conjunctivae. Anicteric sclerae. No neck mass. No carotid bruits. No JVD. CHEST: No deformities. LUNGS: Clear breath sounds. HEART: Normal sinus rhythm. No murmur. No gallops or rubs. ABDOMEN: Globular, soft, nontender. No masses. EXTREMITIES: No edema. No deformities. MEDICATIONS: Medications of July 03, 2018, reviewed. LABORATORY DATA: Laboratories of June 29, 2018, hemoglobin is 9. BUN 24, creatinine 4.54, and potassium 4.1. ASSESSMENT AND PLAN: 1. Labile hypertension - The patient is started on amlodipine. For this reason, we will discontinue the nifedipine. In addition, I have decided to increase losartan from 25 to 50 mg tablet once a day. He will continue the other antihypertensive regimen. 2. End-stage renal disease, stable. We will continue current Saturday, Saturday, Saturday dialysis. Fluid removal only as tolerated by the patient. 3. 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 The patient is currently on IV antibiotics. He has been switched back to IV vancomycin. ID is following. 4. Anemia, currently on ferrous sulfate and weekly Epogen. Overall agree with current management. Job ID: [id number]
[2018-07-03] MEDS: HumaLOG 300 UNITS/3 ML VIAL SC PRN (11:09)
[2018-07-03 11:20] VITALS: BP 164/93; TEMP 98.4
[2018-07-03] MEDS ORDERED: Vancomycin HCl 1.5 GM in Sodium Chloride 0.9% 250 ML 300 ML IVPB SCH (12:00)
--- NOTE | 2018-07-03 14:37 | DIS ---
DATE OF ADMISSION: 06/27/2018 DATE OF DISCHARGE: 07/03/2018 TRANSFER OF CARE: PRIMARY CARE PROVIDER: Dr. Nunez. DISPOSITION: Discharged to [facility]. FINAL DIAGNOSES: 1. Septic emboli to the cerebrum. 2. Infectious endocarditis with Methicillin-resistant Staphylococcus aureus bacteremia. 3. Anemia of chronic kidney disease. 4. End-stage renal disease, on hemodialysis. 5. Chronic obstructive pulmonary disease. 6. Chronic diastolic heart failure. 7. Cocaine abuse. 8. Diabetes mellitus type 2 with end-stage renal disease. 9. Hypertension. 10. Tobacco abuse. DISCHARGE MEDICATIONS: 1. Xanax 0.25 mg twice a day. 2. Norvasc 5 mg a day. 3. Erythropoietin 7,500 units every seven days. 4. Ferrous sulfate 325 mg twice a day. 5. DuoNeb 3 mL q.6 hours p.r.n. 6. Florastor 250 mg a day. 7. Vancomycin as hemodialysis on sliding scale from 750 mg to 1.5 g. 8. Tramadol 50 mg p.o. q.4 hours p.r.n. 9. Aspirin 81 mg a day. 10. Dulera 200/5 two puffs b.i.d. 11. Hydralazine 100 mg three times a day. 12. Lipitor 40 mg a day. 13. Catapres 0.1 mg twice a day. 14. Cozaar 25 mg a day. ALLERGIES: NO KNOWN DRUG ALLERGIES. PENDING AT TIME OF DISCHARGE: Nothing. CODE STATUS: Full. DIET: Renal. High protein. HOSPITAL COURSE: [facility] with intractable headache. He had recently been in the [facility] with an infection in his head. Previous history of endocarditis with MRSA. He had been receiving antibiotics with daptomycin and failed vancomycin therapy. He was placed in the hospital. His initial laboratory data; white count 11.2, hemoglobin 9.3, and platelet count 287,000. His sodium 135, potassium 4.7, CO2 of 29, creatinine 2.81, BUN 11, blood sugar 185, and calcium 9.6. His cholesterol studies were excellent. His toxicology screen was once again positive for cocaine. His brain CT revealed multifocal hypodensities. MRI was recommended. MRI was done multifocal early subacute infarctions, considered hypoperfusion or embolic phenomena. Echocardiogram revealed a normal EF, [id number] mitral regurgitation, moderate-to- severe tricuspid regurgitation. He was seen in consultation by Dr. Vasile Garcia, who maintained his dialysis through the hospitalization. He was seen in consultation by Dr. Ontiveros, who recommended Telavancin. Blood cultures were obtained, which reveals MRSA in IJ catheter and a blood culture with MRSA also. He was seen in consultation by Dr. Sinan Floyd, Neurology. The patient was treated on Telavancin through 2018, he was switched to vancomycin with sliding scale postop at the time of discharge. On 06/30/2018, Dr. Jovon Delarosa was consulted and the IJ line, which was infected was removed. The patient has been afebrile. We worked on caring for his multiple problems. He is now being discharged to the [facility] for continuing care. He will be followed up at dialysis by Dr. Garcia. His endocarditis will be followed by Dr. Ontiveros when he is discharged from the [facility], he needs to be followed up with Dr. Nunez. At the time of discharge, the patient is doing well. Heart had a regular rate and rhythm with a 3/6 holosystolic murmur consistent with his mitral regurgitation. His lungs are clear. He has no edema. He is alert and oriented. Job ID: [id number] [facility]
[2018-07-04] MEDS ORDERED: SODIUM CHLORIDE 0.9% IVPB SCH (09:00)
[2018-07-04] MEDS ORDERED: TELAVANCIN HYDROCHLORIDE IVPB SCH (09:00)
== END 2018-07-03 16:03 | DRG 288 ==
LOC: ERS 12:20 → 2SE 16:30
PROVIDERS: ADMIT Internal Medicine; ATTEND Internal Medicine
PROC: 0JPT3XZ Removal of Tunneled Vascular Access Device from Trunk Subcutaneous Tissue and Fascia, Percutaneous Approach (ICD-10-PCS; principal; 2018-06-30)
PROC: 05PYX3Z Removal of Infusion Device from Upper Vein, External Approach (ICD-10-PCS; 2018-06-30)
PROC: 5A1D70Z Performance of Urinary Filtration, Intermittent, Less than 6 Hours Per Day (ICD-10-PCS; 2018-06-30)
PROC: 5A1D70Z Performance of Urinary Filtration, Intermittent, Less than 6 Hours Per Day (ICD-10-PCS; 2018-07-02)
DX: I33.0 Acute and subacute infective endocarditis (principal); N18.6 End stage renal disease; I63.9 Cerebral infarction, unspecified; I76 Septic arterial embolism; I42.9 Cardiomyopathy, unspecified; I50.32 Chronic diastolic (congestive) heart failure; I13.2 Hypertensive heart and chronic kidney disease with heart failure and with stage 5 chronic kidney disease, or end stage renal disease; E11.22 Type 2 diabetes mellitus with diabetic chronic kidney disease; Z99.2 Dependence on renal dialysis; J44.9 Chronic obstructive pulmonary disease, unspecified; R74.8 Abnormal levels of other serum enzymes; I16.0 Hypertensive urgency; R51 Headache; I66.9 Occlusion and stenosis of unspecified cerebral artery; B95.62 Methicillin resistant Staphylococcus aureus infection as the cause of diseases classified elsewhere; F14.10 Cocaine abuse, uncomplicated; E11.21 Type 2 diabetes mellitus with diabetic nephropathy; D63.1 Anemia in chronic kidney disease; F17.210 Nicotine dependence, cigarettes, uncomplicated; I25.10 Atherosclerotic heart disease of native coronary artery without angina pectoris; I48.91 Unspecified atrial fibrillation; E11.40 Type 2 diabetes mellitus with diabetic neuropathy, unspecified; I08.1 Rheumatic disorders of both mitral and tricuspid valves; Z79.82 Long term (current) use of aspirin; I25.2 Old myocardial infarction; Z82.49 Family history of ischemic heart disease and other diseases of the circulatory system; Z82.3 Family history of stroke
CPT/HCPCS: 36415; 36416; 70450; 70551; 80048; 80061; 80306; 83090; 83520; 83735; 84484; 85025; 85652; 86038; 86140; 86200; 86225; 86780; 87040; 87077; 87149; 87186; 90935; 93005; 93010; 93306; 94664; 96365; 96375; G0257; J0360; J1200; J1644; J1940; J2020; J2270; J2405; J2765; J3095; J3370; J7050; Q0163; Q4081

== ENCOUNTER 2018-07-12 15:40 | Inpatient (IN) | payer MEDICAID, MEDICARE ==
[~2018-07-12 15:40] MED LIST: ISOVUE-370 76%-LOCM 1 ML ONE
[2018-07-12 16:24] LABS: #Eosinphils 0.2 thou/uL (0.0-0.7); #Lymphocytes 1.2 thou/uL (1.20-3.40); #Monocytes 0.5 thou/uL (0.11-0.59); #Neutrophils 6.6 thou/uL (1.40-6.50); %Basophils 0.4 % (0.0-1.0); %Eosinophils 2.8 % (0.0-10.0); %Lymphocytes 13.7 % (21.0-51.0); %Monocytes 5.4 % (0.0-10.0); %Neutrophils 77.8 % (42.0-75.0); Hemoglobin 9.6 g/dL (14.0-18.0); Mean Corpuscular HGB CONC 29.7 g/dL (32.0-36.0); Mean Corpuscular Hemoglobin 23.2 pg (27.0-31.0); Mean Corpuscular Volume 78.1 fL (78.0-98.0); Mean Platelet Volume 7.4 fL (7.4-10.4); Platelet Count 338 thou/uL (130-400); RBC Distribution Width 16.9 % (11.5-14.5); Red Blood Cell (RBC) Count 4.14 mill/uL (4.70-6.10); White Blood Cell (WBC) Count 8.5 thou/uL (4.8-10.8)
[2018-07-12 16:46] LABS: ALT (SGPT) 49 U/L (8-55); AST (SGOT) 32 U/L (5-34); Albumin 3.4 g/dL (3.5-5.0); Alkaline Phosphatase 674 U/L (40-150); Anion Gap 16 mmol/L (10-20); BUN (Urea Nitrogen) 25 mg/dL (8.4-25.7); Bilirubin, Total 0.4 mg/dL (0.2-1.2); CK (CPK) 346 U/L (30-200); Calc. Creatinine Clearance 0 mL/min (70-130); Calcium 9.5 mg/dL (7.8-10.44); Carbon Dioxide 28 mmol/L (22-29); Chloride 97 mmol/L (98-107); Estimated GFR-MDRD 17; Globulin 4.8 g/dL (2.4-3.5); Glucose 170 mg/dL (70-105); Lipase 23 U/L (8-78); Potassium 4.2 mmol/L (3.5-5.1); Protein, Total 8.2 g/dL (6.0-8.3); Sodium 137 mmol/L (136-145)
[2018-07-12] MEDS ORDERED: Albuterol Sulfate 2.5 mg/3 ml Neb ONE ×2 (17:02→17:03)
[2018-07-12 17:06] LABS: Acetaminophen Less than 6.0 mcg/mL (10.0-30.0); Alcohol Less than 10 mg/dL (Less than 10); Salicylate Less than 8.0 mg/dL (15.0-30.0)
[2018-07-12 17:11] LABS: CKMB 8.5 ng/mL (0-6.6)
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
[2018-07-12] MEDS ORDERED: Nitroglycerin 0.4mg/Hour PATCH ONE (17:19)
[2018-07-12] MEDS ORDERED: hydrALAZINE 20 MG/ML VIAL ONE ×3 (17:19→18:09)
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
[2018-07-12] MEDS ORDERED: Nitroglycerin 2% Ointment 1 INCH/1 GM Packet ONE (17:22)
[2018-07-12] MEDS ORDERED: Nitroglycerin 2% Ointment 1 INCH/1 GM Packet TOP SCH (17:30)
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
[2018-07-12 17:41] LABS: Actual Bicarbonate (HCO3a) 29.6 mEq/L (22-28); Analyzer IN Cardio ER; Base Excess (BEa) 4.6 mEq/L (-2.0 to +3.0); CO2 Tension 45.7 mmHg (35.0-45.0); Calcium, Ionized 1.12 mmol/L (1.12-1.30); Carboxyhemoglobin (COHb) 1.4 gm% (0.0-3.0); Hemoglobin (Hb) 10.6 g/dL (14.0-18.0); O2 Tension (PaO2) 125.5 mmHg (80.0-100.0); Potassium - ABG Lab 4.17 mmol/L (3.70-5.30); pH, Arterial 7.43 (7.35-7.45)
[2018-07-12] MEDS ORDERED: Fentanyl 100 MCG/2 ML VIAL ONE (17:42)
[2018-07-12 17:50] LABS: ALV-art Gradient 316.475 (0-20)
[2018-07-12 18:11] LABS: Bilirubin Negative (Negative); Blood, Urine Small (Negative); Clarity CLEAR (Clear); Glucose, Urine (Dipstick) 100 mg/dL (Negative); Leukocyte Negative (Negative); Nitrite Negative (Negative); Protein, Urine (Dipstick) 300 mg/dL (Neg-Trace); Specific Gravity, Urine 1.013 (1.002-1.036); Urobilinogen 0.2 mg/dL (0.2-1.0)
[2018-07-12 18:14] LABS: Bacteria/HPF None Seen HPF (None Seen); Hyaline Casts/LPF 0-3 HYALINE CAST LPF (0-3 Hyaline); Pathc Cast-AUWi Flag 0.58 (0-2.49); RBC/HPF 21-50 HPF (0-3); Squamous Epithelial 0-3 HPF (0-3); WBC/HPF 0-3 HPF (0-3)
[2018-07-12 18:21] LABS: Amphetamine Not Detected (NotDetected); Barbiturates Screen Not Detected (NotDetected); Benzodiazepine Screen Detected (NotDetected); Cocaine Metabolite Screen Detected (NotDetected); Medtox Control Line Valid? VALID (VALID); Medtox Reader # READER 1; Methadone Not Detected (NotDetected); Methamphetamine Not Detected (NotDetected); Opiate Screen Detected (NotDetected); Oxycodone Screen Not Detected (NotDetected); Phencyclidine (PCP) Not Detected (NotDetected); THC/Cannabinoid Screen Not Detected (NotDetected); Tricyclic Screen Not Detected (NotDetected)
[2018-07-12 18:29] LABS: INR-International Normal Ratio 1.1; PTT 35.4 SEC (22.9-36.1); Prothrombin Time 14.2 SEC (12.0-14.7)
[2018-07-12] MEDS ORDERED: Lorazepam 2 MG/ML VIAL ONE (18:44)
[2018-07-12] MEDS ORDERED: niCARdipine 20MG In NaCl 20 MG/200 ML BAG ONE (18:44)
[2018-07-12] MEDS ORDERED: Fentanyl 100 MCG/2 ML VIAL SLOW IVP PRN (19:42)
[2018-07-12] MEDS ORDERED: Ondansetron ODT 4 MG TAB SL PRN (19:43)
[2018-07-12] MEDS ORDERED: Ondansetron PF 4 MG/2 ML Vial IVP PRN ×2 (19:43→19:58)
[2018-07-12] MEDS ORDERED: Promethazine HCl 25 MG/ML VIAL IM PRN (19:58)
[2018-07-12] MEDS ORDERED: Dextrose 50% Abboject 50 ML SYRINGE SLOW IVP PRN (19:58)
[2018-07-12] MEDS ORDERED: Dextrose 5% in Water 1,000 ML IV PRN (19:58)
[2018-07-12 20:03] VITALS: BMI 29.7
[2018-07-12 20:15] LABS: Magnesium 1.2 mg/dL (1.6-2.6); Phosphorus 3.6 mg/dL (2.3-4.7)
[2018-07-12] MEDS ORDERED: Vancomycin HCl 1 GM in Premix Bag 1 BAG IVPB SCH ×2 (20:15→20:30)
[2018-07-12] MEDS ORDERED: VANCOMYCIN IVPB PRN (20:27)
[2018-07-12] MEDS ORDERED: Vancomycin HCl 1.25 GM in Sodium Chloride 0.9% 250 ML 250 ML IVPB SCH (20:30)
[2018-07-12] MEDS ORDERED: HOLD VANCOMYCIN FOR LEVEL >20 FS SCH (20:30)
[2018-07-12] MEDS ORDERED: Vancomycin HCl 500 MG in Sodium Chloride 0.9% 100 ML IVPB SCH (20:30)
[2018-07-12] MEDS: Acetaminophen 1,000 MG in Premix Bag 1 BAG IVPB SCH (20:34)
[2018-07-12] MEDS: Famotidine/PF 20 mg/2ml Vial SLOW IVP SCH (20:34)
[2018-07-12] MEDS: niCARdipine HCl 25 MG in Sodium Chloride 0.9% 250 ML 240 ML IVPB SCH ×2 (20:47→23:25)
[2018-07-12] MEDS ORDERED: cloNIDine 0.1mg/24 Hour PATCH TD SCH (22:00)
[2018-07-12 22:03] LABS: Hemoglobin 9.4 g/dL (14.0-18.0); Mean Corpuscular HGB CONC 30.2 g/dL (32.0-36.0); Mean Corpuscular Hemoglobin 23.5 pg (27.0-31.0); Mean Corpuscular Volume 77.7 fL (78.0-98.0); Mean Platelet Volume 7.3 fL (7.4-10.4); Platelet Count 291 thou/uL (130-400); RBC Distribution Width 17.2 % (11.5-14.5); Red Blood Cell (RBC) Count 4.01 mill/uL (4.70-6.10); White Blood Cell (WBC) Count 15.5 thou/uL (4.8-10.8)
[2018-07-12] MEDS ORDERED: Morphine 2 MG/ML SYRINGE SLOW IVP SCH (22:15)
[2018-07-12 22:21] LABS: Vancomycin, Random 11.7 ug/mL (See Comment)
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
[2018-07-12 22:50] LABS: CKMB 7.1 ng/mL (0-6.6); Critical Call CKMB RESULT DECREASING
--- NOTE | 2018-07-12 22:53 | CT ---
CT BRAIN 07/12/18 HISTORY: Followup epidural and subdural and subarachnoid hemorrhage. Noncontrast enhanced CT images of the brain obtained. CT images demonstrate diffuse edema in the scalp. There is a right area of parietal scalp hematoma un changed since the previous exam. Left epidural hematoma is again seen unchanged in size or shape. Peritentorial subdural hematoma again seen unchanged. Just lateral to the peritentorial area, there is an increasing posterior medial temporal area of hem orrhage which has developed. This area measures approximately 2.3 x 1.7 cm. Previously it was thought to be part of the left peritentorial hematoma; however this appears to be larger on the most recent exam. In addition, the bilateral subarachnoid Sylvian fissure areas of hemorrhage are again seen. IMPRESSION: Predominantly stable CT appearance of multiple areas of hemorrhage. There does appear to be increasin g area of hemorrhage involving the medial posterior aspect of the left temporal lobe parenchyma. POS: [facility]
--- NOTE | 2018-07-12 22:59 | CT ---
CTA NECK 07/12/18 HISTORY: Patient with cervical spine fractures. Contrast enhanced CTA carotid arteries performed. Again, diffuse lung parenchymal air space disease seen. Calcifications seen in the aortic arch. The right brachiocephalic artery is patent. The right common carotid artery is patent without evidenc e of significant stenosis. Some distal right CCA atherosclerotic calcifications seen without evidence of significant stenosis. More distally, the right ICA is patent. Atherosclerotic plaques seen in the distal left CCA without evidence of significant stenosis. The right and left vertebral arteries are visualized without evidence of obstruction. In particular, the right vertebral artery passes adjacent to the right C1 fracture without evidence of occlusion or significant dissection. [place] OF [place] CTA WITH 2D AND 3D RECONSTRUCTED IMAGES ALSO PERFORMED: No significant evidence of intracranial vascular occlusion seen in the right and left intracranial IC A, RONNIE, MCA and COMBINED RAIL OPERATOR vessels. POS: [facility]
[2018-07-12] MEDS: traMADol HCl 50 MG TAB PO PRN (23:28)
[2018-07-13] MEDS: Vancomycin HCl 750 MG in Sodium Chloride 0.9% 250 ML 250 ML IVPB SCH
[2018-07-13] MEDS: Morphine 2 MG/ML SYRINGE SLOW IVP PRN ×7 (00:06→19:20)
[2018-07-13] MEDS: HumaLOG 300 UNITS/3 ML VIAL SC PRN ×3 (00:17→16:46)
[2018-07-13] MEDS: Acetaminophen 1,000 MG in Premix Bag 1 BAG IVPB SCH ×3 (01:05→14:15)
[2018-07-13] MEDS ORDERED: niCARdipine HCl 25 MG in Sodium Chloride 0.9% 250 ML 240 ML IVPB SCH (01:22)
[2018-07-13] MEDS: niCARdipine HCl 50 MG in Sodium Chloride 0.9% 250 ML 230 ML IVPB SCH ×4 (01:36→22:12)
[2018-07-13] MEDS: Cyclobenzaprine 10 MG TAB PO PRN ×2 (04:42→23:15)
[2018-07-13 05:19] LABS: #Lymphocytes 0.9 thou/uL (1.20-3.40); #Monocytes 0.7 thou/uL (0.11-0.59); #Neutrophils 12.5 thou/uL (1.40-6.50); %Eosinophils 0.1 % (0.0-10.0); %Lymphocytes 6.5 % (21.0-51.0); %Monocytes 4.8 % (0.0-10.0); %Neutrophils 88.6 % (42.0-75.0); Hemoglobin 9.5 g/dL (14.0-18.0); Mean Corpuscular HGB CONC 29.9 g/dL (32.0-36.0); Mean Corpuscular Hemoglobin 23.3 pg (27.0-31.0); Mean Platelet Volume 7.6 fL (7.4-10.4); Platelet Count 326 thou/uL (130-400); RBC Distribution Width 17.1 % (11.5-14.5); Red Blood Cell (RBC) Count 4.08 mill/uL (4.70-6.10); White Blood Cell (WBC) Count 14.1 thou/uL (4.8-10.8)
[2018-07-13 05:33] LABS: Anion Gap 13 mmol/L (10-20); BUN (Urea Nitrogen) 18 mg/dL (8.4-25.7); Calc. Creatinine Clearance 32 mL/min (70-130); Calcium 9.4 mg/dL (7.8-10.44); Carbon Dioxide 26 mmol/L (22-29); Chloride 100 mmol/L (98-107); Estimated GFR-MDRD 24; Glucose 141 mg/dL (70-105); Magnesium 1.6 mg/dL (1.6-2.6); Phosphorus 3.3 mg/dL (2.3-4.7); Potassium 4.1 mmol/L (3.5-5.1); Sodium 135 mmol/L (136-145)
[2018-07-13 05:57] LABS: CKMB 6.1 ng/mL (0-6.6)
[2018-07-13] MEDS: Mometasone/Formoterol 120 PUFF INHALER INH SCH ×2 (06:38→19:02)
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
--- NOTE | 2018-07-13 07:59 | ULT ---
RIGHT UPPER QUADRANT ULTRASOUND: Date: 07/13/18 INDICATION: Abnormal CT evaluation of the liver. COMPARISON: CT of the chest, abdomen, and pelvis dated 07/12/18, and a CT of the abdomen and pelvis without contr ast dated 04/20/17. CT examination of the abdomen and pelvis from 12/22/14 and 02/16/13 were also rev iewed. FINDINGS: There is a heterogeneous mass without associated internal vascularity measuring 4.0 x 2.5 cm underlyi ng the capsule of the lateral right hepatic lobe corresponding to the CT abnormality suspicious for s ubcapsular hematoma. No visible mass is seen within this region on the comparison examination. There are layered gallstones within the gallbladder without evidence of acute cholecystitis. Common bile du ct measured 3.6 mm. The right kidney measured 10.0 cm in length without evidence of hydronephrosis. N o sonographic Parry's sign is reported. Visualized aspects of the pancreas are unremarkable. IMPRESSION: 1. 4.0 cm heterogeneous nonvascularized mass within the subcapsular region of the right hepatic lobe . In light of the patient's recent trauma, this is suspicious for subcapsular hematoma. Would recomme nd a follow-up CT to document resolution. 2. Cholelithiasis without sonographic evidence of acute cholecystitis. POS: [facility]
--- NOTE | 2018-07-13 08:44 | RAD ---
CHEST 1 VIEW: Date: 07/13/18 HISTORY: Dyspnea. Pulmonary edema. Follow-up. COMPARISON: 07/12/18. FINDINGS: Cardiac silhouette is magnified by projection and partially obscured by infiltrate in the lingula of the left upper lobe. Patchy areas of alveolar and interstitial opacity throughout each lung have prog ressed since the CT exam from 07/12/08. Mediastinum remains midline. No evidence of pneumothorax. IMPRESSION: Worsened radiographic appearance of multifocal infiltrates and edema. POS: [facility]
[2018-07-13] MEDS: Gabapentin 100 MG CAP PO SCH ×3 (09:32→20:26)
[2018-07-13] MEDS: Senokot S 8.6-50 MG TAB PO SCH ×2 (09:32→20:26)
[2018-07-13] MEDS: Polyethylene Glycol 3350 17 GM Packet PO SCH (09:32)
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
[2018-07-13] MEDS ORDERED: Epoetin (ESRD) 20,000 UNITS/ML SC SCH ×2 (11:00→15:00)
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
[2018-07-13] MEDS ORDERED: Bisacodyl 10 MG SUPP PR PRN (12:41)
[2018-07-13 12:55] LABS: CKMB 5.9 ng/mL (0-6.6)
[2018-07-13] MEDS: hydrALAZINE 25 MG TAB PO SCH ×2 (14:59→20:25)
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
[2018-07-13] MEDS: Ferrous Sulfate 325 MG TAB PO SCH (18:28)
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
[2018-07-13] MEDS: Atorvastatin Calcium 40 MG TAB PO SCH (20:26)
[2018-07-13] MEDS: Famotidine/PF 20 mg/2ml Vial SLOW IVP SCH (20:26)
[2018-07-13] MEDS: cloNIDine 0.1 MG TAB PO SCH (20:30)
[2018-07-13] MEDS: traMADol HCl 50 MG TAB PO PRN (23:16)
[2018-07-14 05:14] LABS: #Eosinphils 0.2 thou/uL (0.0-0.7); #Lymphocytes 1.7 thou/uL (1.20-3.40); #Neutrophils 9.2 thou/uL (1.40-6.50); %Basophils 0.4 % (0.0-1.0); %Lymphocytes 13.9 % (21.0-51.0); %Monocytes 7.9 % (0.0-10.0); %Neutrophils 75.8 % (42.0-75.0); Hemoglobin 9.3 g/dL (14.0-18.0); Mean Corpuscular HGB CONC 31.2 g/dL (32.0-36.0); Mean Corpuscular Hemoglobin 23.9 pg (27.0-31.0); Mean Corpuscular Volume 76.5 fL (78.0-98.0); Mean Platelet Volume 7.5 fL (7.4-10.4); Platelet Count 333 thou/uL (130-400); RBC Distribution Width 17.1 % (11.5-14.5); White Blood Cell (WBC) Count 12.1 thou/uL (4.8-10.8)
[2018-07-14 05:27] LABS: Anion Gap 18 mmol/L (10-20); BUN (Urea Nitrogen) 28 mg/dL (8.4-25.7); Calc. Creatinine Clearance 20 mL/min (70-130); Calcium 9.3 mg/dL (7.8-10.44); Carbon Dioxide 22 mmol/L (22-29); Chloride 100 mmol/L (98-107); Estimated GFR-MDRD 14; Glucose 129 mg/dL (70-105); Magnesium 2.1 mg/dL (1.6-2.6); Phosphorus 5.5 mg/dL (2.3-4.7); Potassium 4.9 mmol/L (3.5-5.1); Sodium 135 mmol/L (136-145)
[2018-07-14] MEDS: Morphine 2 MG/ML SYRINGE SLOW IVP PRN ×2 (05:30→09:26)
[2018-07-14] MEDS: Mometasone/Formoterol 120 PUFF INHALER INH SCH ×2 (06:45→21:10)
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
[2018-07-14] MEDS: niCARdipine HCl 50 MG in Sodium Chloride 0.9% 250 ML 230 ML IVPB SCH (08:15)
[2018-07-14] MEDS: traMADol HCl 50 MG TAB PO PRN ×3 (08:32→21:29)
[2018-07-14] MEDS: hydrALAZINE 25 MG TAB PO SCH ×3 (08:41→20:42)
[2018-07-14] MEDS: Losartan 25 MG TAB PO SCH (08:42)
[2018-07-14] MEDS: Gabapentin 100 MG CAP PO SCH ×3 (08:42→20:42)
[2018-07-14] MEDS: cloNIDine 0.1 MG TAB PO SCH ×3 (08:42→21:29)
[2018-07-14] MEDS: Senokot S 8.6-50 MG TAB PO SCH ×2 (08:42→20:42)
[2018-07-14] MEDS: Amlodipine 5 MG TAB PO SCH (08:42)
[2018-07-14] MEDS: Polyethylene Glycol 3350 17 GM Packet PO SCH (08:43)
[2018-07-14] MEDS: Saccharomyces boulardii 250 MG CAP PO SCH (08:43)
[2018-07-14] MEDS: Ferrous Sulfate 325 MG TAB PO SCH ×2 (08:43→17:00)
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
[2018-07-14] MEDS ORDERED: cloNIDine 0.1 MG TAB PO SCH ×2 (10:00→10:54)
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
[2018-07-14] MEDS: Sevelamer Carbonate 800 MG TAB PO SCH ×2 (12:54→17:00)
[2018-07-14] MEDS: HumaLOG 300 UNITS/3 ML VIAL SC PRN (12:54)
[2018-07-14] MEDS: Acetaminophen 500 MG TAB PO SCH ×3 (13:01→23:26)
[2018-07-14] MEDS: Labetalol HCl 100 MG/20 ML VIAL SLOW IVP PRN ×2 (14:15→22:08)
[2018-07-14] MEDS: Cyclobenzaprine 10 MG TAB PO PRN (14:33)
[2018-07-14 16:36] LABS: Vancomycin, Random 12.1 ug/mL (See Comment)
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
[2018-07-14] MEDS: Atorvastatin Calcium 40 MG TAB PO SCH (20:42)
[2018-07-14] MEDS: Famotidine/PF 20 mg/2ml Vial SLOW IVP SCH (20:42)
[2018-07-15] MEDS: cloNIDine 0.1 MG TAB PO SCH ×4 (03:27→22:45)
[2018-07-15 04:45] LABS: #Eosinphils 0.2 thou/uL (0.0-0.7); #Lymphocytes 1.2 thou/uL (1.20-3.40); #Monocytes 0.7 thou/uL (0.11-0.59); #Neutrophils 5.2 thou/uL (1.40-6.50); %Basophils 0.1 % (0.0-1.0); %Eosinophils 2.7 % (0.0-10.0); %Lymphocytes 16.9 % (21.0-51.0); %Neutrophils 71.3 % (42.0-75.0); Hemoglobin 8.5 g/dL (14.0-18.0); Mean Corpuscular HGB CONC 29.9 g/dL (32.0-36.0); Mean Corpuscular Hemoglobin 23.2 pg (27.0-31.0); Mean Corpuscular Volume 77.5 fL (78.0-98.0); Mean Platelet Volume 7.2 fL (7.4-10.4); Platelet Count 264 thou/uL (130-400); RBC Distribution Width 16.8 % (11.5-14.5); Red Blood Cell (RBC) Count 3.66 mill/uL (4.70-6.10); White Blood Cell (WBC) Count 7.3 thou/uL (4.8-10.8)
[2018-07-15 05:03] LABS: Anion Gap 14 mmol/L (10-20); BUN (Urea Nitrogen) 20 mg/dL (8.4-25.7); Calc. Creatinine Clearance 27 mL/min (70-130); Calcium 9.1 mg/dL (7.8-10.44); Carbon Dioxide 28 mmol/L (22-29); Chloride 95 mmol/L (98-107); Estimated GFR-MDRD 19; Glucose 112 mg/dL (70-105); Magnesium 1.6 mg/dL (1.6-2.6); Phosphorus 4.3 mg/dL (2.3-4.7); Sodium 133 mmol/L (136-145)
[2018-07-15] MEDS: Acetaminophen 500 MG TAB PO SCH ×4 (05:21→22:45)
[2018-07-15] MEDS: Mometasone/Formoterol 120 PUFF INHALER INH SCH ×2 (07:14→19:17)
[2018-07-15] MEDS: traMADol HCl 50 MG TAB PO PRN ×2 (08:26→21:39)
[2018-07-15] MEDS: Sevelamer Carbonate 800 MG TAB PO SCH ×3 (08:27→16:00)
[2018-07-15] MEDS: Ferrous Sulfate 325 MG TAB PO SCH ×2 (08:27→16:00)
[2018-07-15] MEDS: Losartan 25 MG TAB PO SCH (09:11)
[2018-07-15] MEDS: Amlodipine 5 MG TAB PO SCH (09:11)
[2018-07-15] MEDS: hydrALAZINE 25 MG TAB PO SCH ×3 (09:11→21:41)
[2018-07-15] MEDS: Gabapentin 100 MG CAP PO SCH ×3 (09:11→21:40)
[2018-07-15] MEDS: Polyethylene Glycol 3350 17 GM Packet PO SCH (09:12)
[2018-07-15] MEDS: Senokot S 8.6-50 MG TAB PO SCH ×2 (09:12→21:40)
[2018-07-15] MEDS: Saccharomyces boulardii 250 MG CAP PO SCH (09:12)
[2018-07-15] MEDS: HumaLOG 300 UNITS/3 ML VIAL SC PRN ×3 (09:19→23:02)
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
[2018-07-15] MEDS: Atorvastatin Calcium 40 MG TAB PO SCH (21:40)
[2018-07-15] MEDS: Famotidine/PF 20 mg/2ml Vial SLOW IVP SCH (21:42)
[2018-07-16] MEDS: Cyclobenzaprine 10 MG TAB PO PRN ×2 (01:19→21:04)
[2018-07-16] MEDS: Acetaminophen 500 MG TAB PO SCH ×4 (04:22→22:04)
[2018-07-16] MEDS: cloNIDine 0.1 MG TAB PO SCH ×4 (04:22→21:07)
[2018-07-16] MEDS: traMADol HCl 50 MG TAB PO PRN ×3 (04:22→21:02)
[2018-07-16] MEDS: Labetalol HCl 100 MG/20 ML VIAL SLOW IVP PRN ×2 (05:17→12:35)
[2018-07-16 06:47] LABS: Anion Gap 17 mmol/L (10-20); BUN (Urea Nitrogen) 37 mg/dL (8.4-25.7); Calc. Creatinine Clearance 18 mL/min (70-130); Calcium 9.5 mg/dL (7.8-10.44); Carbon Dioxide 26 mmol/L (22-29); Chloride 96 mmol/L (98-107); Estimated GFR-MDRD 12; Glucose 131 mg/dL (70-105); Magnesium 1.8 mg/dL (1.6-2.6); Sodium 135 mmol/L (136-145)
[2018-07-16 06:54] LABS: #Eosinphils 0.2 thou/uL (0.0-0.7); #Lymphocytes 1.2 thou/uL (1.20-3.40); #Monocytes 0.7 thou/uL (0.11-0.59); #Neutrophils 4.4 thou/uL (1.40-6.50); %Basophils 0.6 % (0.0-1.0); %Eosinophils 3.8 % (0.0-10.0); %Lymphocytes 18.4 % (21.0-51.0); %Monocytes 10.4 % (0.0-10.0); %Neutrophils 66.8 % (42.0-75.0); Band 1 % (5-11); Eosinophils 8 % (0-10); Hemoglobin 8.9 g/dL (14.0-18.0); Hypochromia MODERATE=16-30 cells (100X) (0-5/hpf); Lymphocytes 16 % (21-51); MDiff Complete? YES; Mean Corpuscular HGB CONC 29.8 g/dL (32.0-36.0); Mean Corpuscular Volume 77.4 fL (78.0-98.0); Mean Platelet Volume 7.4 fL (7.4-10.4); Microcytosis SLIGHT = 6-15 cells (100X) (0-5/hpf); Monocytes 9 % (0-10); Neutrophil 64 % (42-75); Platelet Count 330 thou/uL (130-400); Platelet Morphology Comment Appears Adequate; Polychromasia SLIGHT = 2-3 cells (100X) (0-2/hpf); RBC Distribution Width 16.7 % (11.5-14.5); Reactive Lymphocytes 1 % (0-10); Red Blood Cell (RBC) Count 3.87 mill/uL (4.70-6.10); Reflex for Review?? NO; White Blood Cell (WBC) Count 6.6 thou/uL (4.8-10.8)
[2018-07-16] MEDS: Mometasone/Formoterol 120 PUFF INHALER INH SCH ×2 (08:14→18:42)
[2018-07-16 08:44] LABS: Vancomycin, Random 15.5 ug/mL (See Comment)
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
[2018-07-16] MEDS: hydrALAZINE 25 MG TAB PO SCH ×4 (09:33→21:01)
[2018-07-16] MEDS: Senokot S 8.6-50 MG TAB PO SCH ×2 (09:33→21:07)
[2018-07-16] MEDS: Sevelamer Carbonate 800 MG TAB PO SCH ×3 (09:33→16:03)
[2018-07-16] MEDS: Ferrous Sulfate 325 MG TAB PO SCH ×2 (09:33→16:03)
[2018-07-16] MEDS: Gabapentin 100 MG CAP PO SCH ×3 (09:33→21:07)
[2018-07-16] MEDS: Losartan 25 MG TAB PO SCH (09:43)
[2018-07-16] MEDS: Amlodipine 10 MG TAB PO SCH (09:43)
[2018-07-16] MEDS: Saccharomyces boulardii 250 MG CAP PO SCH (12:35)
[2018-07-16] MEDS: Polyethylene Glycol 3350 17 GM Packet PO SCH (12:35)
[2018-07-16] MEDS: HumaLOG 300 UNITS/3 ML VIAL SC PRN (16:03)
[2018-07-16] MEDS ORDERED: Losartan 25 MG TAB PO SCH (16:45)
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
[2018-07-16] MEDS: Atorvastatin Calcium 40 MG TAB PO SCH (21:01)
[2018-07-16] MEDS: Famotidine 20 MG TAB PO SCH (21:04)
[2018-07-17 01:54] LABS: Amphetamine Not Detected (NotDetected); Barbiturates Screen Not Detected (NotDetected); Benzodiazepine Screen Detected (NotDetected); Cocaine Metabolite Screen Detected (NotDetected); Medtox Control Line Valid? VALID (VALID); Medtox Reader # READER 4; Methadone Not Detected (NotDetected); Methamphetamine Not Detected (NotDetected); Opiate Screen Detected (NotDetected); Oxycodone Screen Not Detected (NotDetected); Phencyclidine (PCP) Not Detected (NotDetected); THC/Cannabinoid Screen Not Detected (NotDetected); Tricyclic Screen Not Detected (NotDetected)
[2018-07-17] MEDS: cloNIDine 0.1 MG TAB PO SCH ×4 (04:44→23:11)
[2018-07-17] MEDS: traMADol HCl 50 MG TAB PO PRN ×2 (04:45→19:23)
[2018-07-17] MEDS: Acetaminophen 500 MG TAB PO SCH ×4 (04:45→23:11)
[2018-07-17 06:36] LABS: Anion Gap 15 mmol/L (10-20); BUN (Urea Nitrogen) 23 mg/dL (8.4-25.7); Calc. Creatinine Clearance 24 mL/min (70-130); Calcium 9.5 mg/dL (7.8-10.44); Carbon Dioxide 28 mmol/L (22-29); Chloride 96 mmol/L (98-107); Estimated GFR-MDRD 17; Glucose 121 mg/dL (70-105); Magnesium 1.9 mg/dL (1.6-2.6); Potassium 3.9 mmol/L (3.5-5.1); Sodium 135 mmol/L (136-145)
[2018-07-17 06:41] LABS: Eosinophils 4 % (0-10); Hemoglobin 8.8 g/dL (14.0-18.0); Hypochromia SLIGHT = 6-15 cells (100X) (0-5/hpf); Lymphocytes 20 % (21-51); MDiff Complete? YES; Mean Corpuscular HGB CONC 30.2 g/dL (32.0-36.0); Mean Corpuscular Hemoglobin 23.3 pg (27.0-31.0); Mean Corpuscular Volume 77.2 fL (78.0-98.0); Mean Platelet Volume 7.3 fL (7.4-10.4); Monocytes 20 % (0-10); Neutrophil 56 % (42-75); Platelet Count 288 thou/uL (130-400); RBC Distribution Width 16.4 % (11.5-14.5); Red Blood Cell (RBC) Count 3.75 mill/uL (4.70-6.10); White Blood Cell (WBC) Count 4.6 thou/uL (4.8-10.8)
[2018-07-17 06:57] LABS: HBSAg Index 0.28 S/CO (0-0.99); Hep B Surf Ag Non-Reactive S/CO (NonReactive)
[2018-07-17] MEDS: Mometasone/Formoterol 120 PUFF INHALER INH SCH ×2 (07:34→19:00)
[2018-07-17] MEDS: Polyethylene Glycol 3350 17 GM Packet PO SCH (08:40)
[2018-07-17] MEDS: Gabapentin 100 MG CAP PO SCH ×3 (08:41→20:42)
[2018-07-17] MEDS: Amlodipine 10 MG TAB PO SCH (08:41)
[2018-07-17] MEDS: Ferrous Sulfate 325 MG TAB PO SCH ×2 (08:42→17:58)
[2018-07-17] MEDS: hydrALAZINE 25 MG TAB PO SCH ×3 (08:42→20:40)
[2018-07-17] MEDS: Sevelamer Carbonate 800 MG TAB PO SCH ×3 (08:42→17:58)
[2018-07-17] MEDS: Saccharomyces boulardii 250 MG CAP PO SCH (08:42)
[2018-07-17] MEDS: Senokot S 8.6-50 MG TAB PO SCH ×2 (08:42→20:41)
[2018-07-17] MEDS ORDERED: Losartan 25 MG TAB PO SCH (09:00)
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
[2018-07-17] MEDS: HumaLOG 300 UNITS/3 ML VIAL SC PRN (17:58)
[2018-07-17] MEDS: Atorvastatin Calcium 40 MG TAB PO SCH (20:41)
[2018-07-17] MEDS: Losartan 25 MG TAB PO SCH (20:42)
[2018-07-17] MEDS: Famotidine 20 MG TAB PO SCH (20:43)
[2018-07-18] MEDS: Cyclobenzaprine 10 MG TAB PO PRN ×3 (00:05→16:35)
[2018-07-18] MEDS: traMADol HCl 50 MG TAB PO PRN ×3 (02:08→15:15)
[2018-07-18] MEDS: cloNIDine 0.1 MG TAB PO SCH ×3 (05:01→16:35)
[2018-07-18] MEDS: Acetaminophen 500 MG TAB PO SCH ×3 (05:01→16:34)
[2018-07-18] MEDS: Mometasone/Formoterol 120 PUFF INHALER INH SCH ×2 (06:28→18:34)
[2018-07-18] MEDS: HumaLOG 300 UNITS/3 ML VIAL SC PRN (06:42)
[2018-07-18] MEDS: Ferrous Sulfate 325 MG TAB PO SCH ×2 (08:44→16:35)
[2018-07-18] MEDS: hydrALAZINE 25 MG TAB PO SCH ×2 (08:44→16:34)
[2018-07-18] MEDS: Gabapentin 100 MG CAP PO SCH ×2 (08:45→15:20)
[2018-07-18] MEDS: Losartan 25 MG TAB PO SCH (08:45)
[2018-07-18] MEDS: Sevelamer Carbonate 800 MG TAB PO SCH ×3 (08:45→16:35)
[2018-07-18] MEDS: Amlodipine 10 MG TAB PO SCH (08:45)
[2018-07-18] MEDS: Saccharomyces boulardii 250 MG CAP PO SCH (08:45)
[2018-07-18] MEDS: Senokot S 8.6-50 MG TAB PO SCH (08:45)
[2018-07-18] MEDS: Polyethylene Glycol 3350 17 GM Packet PO SCH (08:46)
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
[2018-07-18] MEDS ORDERED: Gabapentin 300 MG CAP PO SCH (15:00)
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
[2018-07-18 15:37] LABS: Vancomycin, Random 13.6 ug/mL (See Comment)
[2018-07-18 16:34] VITALS: TEMP 97.6
[2018-07-18] MEDS: Vancomycin HCl 750 MG in Sodium Chloride 0.9% 250 ML 250 ML IVPB SCH (16:35)
[2018-07-18 17:39] VITALS: BP 129/73
[2018-07-19] MEDS ORDERED: cloNIDine 0.1mg/24 Hour PATCH TD SCH (09:00)
== END 2018-07-18 19:39 | DRG 963 ==
LOC: ERS 15:40 → CCU 17:54 → SJJU 07-15 13:54
PROVIDERS: ADMIT Surgery; ATTEND Surgery
PROC: 5A09457 Assistance with Respiratory Ventilation, 24-96 Consecutive Hours, Continuous Positive Airway Pressure (ICD-10-PCS; principal; 2018-07-12)
PROC: 5A1D70Z Performance of Urinary Filtration, Intermittent, Less than 6 Hours Per Day (ICD-10-PCS; 2018-07-16)
DX: S06.4X0A Epidural hemorrhage without loss of consciousness, initial encounter (principal); N18.6 End stage renal disease; S36.113A Laceration of liver, unspecified degree, initial encounter; I33.0 Acute and subacute infective endocarditis; I50.33 Acute on chronic diastolic (congestive) heart failure; I21.4 Non-ST elevation (NSTEMI) myocardial infarction; I26.90 Septic pulmonary embolism without acute cor pulmonale; S12.000A Unspecified displaced fracture of first cervical vertebra, initial encounter for closed fracture; S12.400A Unspecified displaced fracture of fifth cervical vertebra, initial encounter for closed fracture; I13.2 Hypertensive heart and chronic kidney disease with heart failure and with stage 5 chronic kidney disease, or end stage renal disease; I76 Septic arterial embolism; V47.6XXA Car passenger injured in collision with fixed or stationary object in traffic accident, initial encounter; F14.10 Cocaine abuse, uncomplicated; S06.6X0A Traumatic subarachnoid hemorrhage without loss of consciousness, initial encounter; E83.42 Hypomagnesemia; E11.22 Type 2 diabetes mellitus with diabetic chronic kidney disease; E78.5 Hyperlipidemia, unspecified; J98.8 Other specified respiratory disorders; J44.9 Chronic obstructive pulmonary disease, unspecified; D18.09 Hemangioma of other sites; E83.39 Other disorders of phosphorus metabolism; B95.62 Methicillin resistant Staphylococcus aureus infection as the cause of diseases classified elsewhere; D53.9 Nutritional anemia, unspecified; Z99.2 Dependence on renal dialysis; Z79.899 Other long term (current) drug therapy; Z79.82 Long term (current) use of aspirin
CPT/HCPCS: 36415; 36416; 51702; 70450; 70496; 70498; 71045; 71260; 72125; 74177; 76705; 80048; 80053; 80202; 80306; 80307; 81003; 81015; 82550; 82553; 82805; 83605; 83690; 83735; 83880; 84100; 84484; 85025; 85610; 85730; 87040; 87340; 90935; 93005; 94644; 94660; 94664; 96365; 96375; 96376; 99292; G0257; J0131; J0360; J2060; J2270; J2405; J3010; J3370; J7050; J7611; J7620; Q4081; Q9966; S0028

== ENCOUNTER 2018-08-07 11:15 | Emergency (ER) | payer MEDICARE | END 2018-08-07 12:05 | disposition home or self-care (01) | LOC: ERS 11:15 | DX: M79.602 Pain in left arm (principal); Z99.2 Dependence on renal dialysis; G47.30 Sleep apnea, unspecified; I25.10 Atherosclerotic heart disease of native coronary artery without angina pectoris; E78.5 Hyperlipidemia, unspecified; I13.2 Hypertensive heart and chronic kidney disease with heart failure and with stage 5 chronic kidney disease, or end stage renal disease; N18.6 End stage renal disease; I50.9 Heart failure, unspecified; E11.22 Type 2 diabetes mellitus with diabetic chronic kidney disease; Z79.4 Long term (current) use of insulin; F41.9 Anxiety disorder, unspecified; F17.210 Nicotine dependence, cigarettes, uncomplicated; Z79.899 Other long term (current) drug therapy | CPT/HCPCS: 99283 ==

== ENCOUNTER 2018-08-11 23:54 | Emergency (ER) | payer MEDICARE ==
[2018-08-12] MEDS ORDERED: Diazepam 5 MG TAB ONE (00:23)
[2018-08-12] MEDS ORDERED: HYDROcodone/Acetaminophen 10/325 mg Tablet ONE (00:23)
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
== END 2018-08-12 03:44 | disposition home or self-care (01) ==
LOC: ERS 23:54
DX: M62.838 Other muscle spasm (principal); J44.9 Chronic obstructive pulmonary disease, unspecified; G47.30 Sleep apnea, unspecified; I13.2 Hypertensive heart and chronic kidney disease with heart failure and with stage 5 chronic kidney disease, or end stage renal disease; I50.9 Heart failure, unspecified; N18.6 End stage renal disease; E11.40 Type 2 diabetes mellitus with diabetic neuropathy, unspecified; E78.5 Hyperlipidemia, unspecified; F41.9 Anxiety disorder, unspecified; F17.210 Nicotine dependence, cigarettes, uncomplicated; Z79.891 Long term (current) use of opiate analgesic; Z79.899 Other long term (current) drug therapy
CPT/HCPCS: 72125

== ENCOUNTER 2018-08-12 16:38 | Inpatient (IN) | payer MEDICARE ==
[2018-08-12 17:33] LABS: #Basophils 0.1 thou/uL (0.0-0.2); #Eosinphils 0.2 thou/uL (0.0-0.7); #Lymphocytes 1.3 thou/uL (1.20-3.40); #Monocytes 0.6 thou/uL (0.11-0.59); #Neutrophils 6.1 thou/uL (1.40-6.50); %Basophils 0.7 % (0.0-1.0); %Eosinophils 2.6 % (0.0-10.0); %Lymphocytes 15.8 % (21.0-51.0); %Monocytes 7.7 % (0.0-10.0); %Neutrophils 73.2 % (42.0-75.0); Hemoglobin 10.2 g/dL (14.0-18.0); Mean Corpuscular HGB CONC 31.2 g/dL (32.0-36.0); Mean Corpuscular Hemoglobin 23.4 pg (27.0-31.0); Mean Platelet Volume 8.4 fL (7.4-10.4); Platelet Count 224 thou/uL (130-400); RBC Distribution Width 17.9 % (11.5-14.5); Red Blood Cell (RBC) Count 4.36 mill/uL (4.70-6.10); White Blood Cell (WBC) Count 8.3 thou/uL (4.8-10.8)
[2018-08-12 17:43] LABS: ALT (SGPT) 16 U/L (8-55); AST (SGOT) 17 U/L (5-34); Albumin 3.8 g/dL (3.5-5.0); Alkaline Phosphatase 249 U/L (40-150); Anion Gap 12 mmol/L (10-20); BUN (Urea Nitrogen) 28 mg/dL (8.4-25.7); Bilirubin, Total 0.4 mg/dL (0.2-1.2); CK (CPK) 193 U/L (30-200); Calc. Creatinine Clearance 0 mL/min (70-130); Calcium 9.7 mg/dL (7.8-10.44); Carbon Dioxide 33 mmol/L (22-29); Chloride 96 mmol/L (98-107); Estimated GFR-MDRD 15; Globulin 4.7 g/dL (2.4-3.5); Glucose 224 mg/dL (70-105); Potassium 4.7 mmol/L (3.5-5.1); Protein, Total 8.5 g/dL (6.0-8.3); Sodium 136 mmol/L (136-145)
--- NOTE | 2018-08-12 17:46 | RAD ---
FEXAM: Portable chest PROVIDED CLINICAL HISTORY: Chest pain COMPARISON: 07/29/2018 FINDINGS: Cardiac and mediastinal silhouette is within normal limits. No focal consolidation, pleural fluid or pneumothorax evident. IMPRESSION: No evidence for an acute cardiopulmonary process.
--- NOTE | 2018-08-12 17:46 | RAD ---
FEXAM: Left shoulder 3 views PROVIDED CLINICAL HISTORY: Pain FINDINGS: There is no evidence for fracture or other acute osseous abnormality. Alignment appears anatomic. Beth nt spaces appear preserved. IMPRESSION: No evidence for an acute osseous abnormality. If there is persistent clinical concern, conservative m anagement and follow-up imaging advised.
[2018-08-12 18:06] LABS: CKMB 5.9 ng/mL (0-6.6)
[2018-08-12] MEDS ORDERED: cloNIDine 0.1 MG TAB ONE ×2 (19:05→20:24)
[2018-08-12] MEDS ORDERED: Acetaminophen 500 MG TAB ONE (20:09)
[2018-08-12] MEDS ORDERED: Zolpidem Tartrate 5 MG TAB PO PRN (21:13)
[2018-08-12] MEDS ORDERED: Ondansetron PF 4 MG/2 ML Vial IVP PRN (21:13)
[2018-08-12] MEDS ORDERED: Acetaminophen 325 MG TAB PO PRN (21:13)
[2018-08-12] MEDS ORDERED: Cyclobenzaprine 10 MG TAB PO PRN (21:17)
[2018-08-12] MEDS ORDERED: cloNIDine 0.1 MG TAB PO PRN (21:21)
[2018-08-12] MEDS ORDERED: Dextrose 50% Abboject 50 ML SYRINGE SLOW IVP PRN (21:22)
[2018-08-12] MEDS ORDERED: Dextrose 5% in Water 1,000 ML IV PRN (21:22)
[2018-08-12] MEDS ORDERED: Insulin Regular 300 UNITS/3 ML VIAL SC PRN (21:22)
--- NOTE | 2018-08-12 21:28 | PDOC.EVN ---
Event Note - Event Note Event Note: H&P [id number]
[2018-08-12] MEDS ORDERED: Morphine 4 MG/ML VIAL SLOW IVP PRN (21:34)
--- NOTE | 2018-08-12 22:00 | HP ---
CHIEF COMPLAINT: Chest pain, neck pain, as well as hypertension. HISTORY OF PRESENT ILLNESS: This is a 58-year-old male with a past medical history of diabetes, hypertension, hyperlipidemia, heart failure, COPD, and ESRD, being seen in the ER because of chest discomfort as well as left arm pain, hypertension, and neck pain. The patient states that he is apparently to see Dr. Cantor for his neck issues and would like to see the patient here. According to him, he came in because of chest pain and discomfort. He had come in the past he says because of cocaine use as well. The patient, otherwise, denies any other complaints. No nausea, vomiting, diarrhea, constipation, fever, or chills. States that he does not use oxygen at home. The patient was seen and examined in the ER. No family at bedside. ALLERGIES: NO KNOWN DRUG ALLERGIES. PAST MEDICAL HISTORY: Hypertension, diabetes mellitus, ESRD, COPD, heart failure, metabolic bone disease, anemia of renal disease, and peripheral vascular disease. FAMILY HISTORY: Positive for hypertension, diabetes, and ESRD. SOCIAL HISTORY: States that he stopped drinking and smoking. REVIEW OF SYSTEMS: All systems were reviewed, pertinent positive in HPI, otherwise negative. ALLERGIES: NO KNOWN DRUG ALLERGIES. PHYSICAL EXAMINATION: VITAL SIGNS: Blood pressure is 188/105, respiratory rate of 20, temperature of 98, O2 saturations 100% on 2 L nasal cannula, and heart rate of 100. GENERAL: The patient is lying in bed, in no acute distress. HEENT: Pupils equal, round, and reactive to light and accommodation. Neck brace in place. NC/AT. NECK: Supple, mobile, and nontender. Thyroid appreciated. CARDIOVASCULAR: Tachycardia, S1 and S2, 2/6 systolic ejection murmur appreciated. PULMONARY: Clear to auscultation bilaterally. No respiratory distress. ABDOMEN: Positive bowel sounds. Soft, nontender, and nondistended. EXTREMITIES: 2+ peripheral pulses noted. Left upper extremity AV fistula noted. NEUROLOGIC: Cranial nerves 2 through 12 intact. No loss of motor or sensory function. LABORATORY DATA: CBC reviewed. BMP reviewed. Chest x-ray reviewed. ASSESSMENT: 1. Hypertensive . 2. End-stage renal disease. 3. Metabolic bone disease. 4. Anemia. 5. Neck brace. 6. Diabetes mellitus type 2. 7. Chest pain. PLAN: At this point in time, we will place a consult to Nephrology, Cardiology, as well as the basic general neurosurgeon available to take care of the patient. The patient likely needs dialysis. For his high blood pressure, he is on [id number] and clonidine as well as hydralazine. He either may be rebounding or may have done drugs, at this point in time, I am not sure. Urine drug screen not done in the ER. We will obtain a urine drug screen to evaluate for any cocaine-induced hypertension. The patient has had a history of prior use of cocaine in the past and has also tested positive for cocaine as recently as 1 month ago. The patient otherwise is stable, wishes to remain a full code. We will repeat lab work tomorrow, dialysis for Saturday, Saturday, Saturday. Last dialyzed on Saturday according to the patient. Nephrology consulted for this. We will trend troponins as well. Given his history of cocaine use and heart disease in the fact that he says that he feels like last time he had, he was told that he would need a stent. We will consult drawer in jacquard loom. He says that he has seen Dr. Storey in the past. We will place consult for the Dr. Storey and we will place a consult for the general neurosurgeon as well for evaluation for his neck brace. Case and plan discussed with the patient at length. He understands and agrees with this plan. Job ID: [id number]
[2018-08-12] MEDS: cloNIDine 0.1 MG TAB PO SCH (22:01)
[2018-08-12 22:48] VITALS: BMI 27.3
[2018-08-12 23:20] LABS: Troponin I 0.049 ng/mL (< 0.028)
[2018-08-13] MEDS: traMADol HCl 50 MG TAB PO PRN (00:24)
[2018-08-13 00:58] LABS: Medtox Reader # READER 4
[2018-08-13 00:59] LABS: Amphetamine Not Detected (NotDetected); Barbiturates Screen Not Detected (NotDetected); Benzodiazepine Screen Detected (NotDetected); Cocaine Metabolite Screen Not Detected (NotDetected); Medtox Control Line Valid? VALID (VALID); Methadone Not Detected (NotDetected); Methamphetamine Not Detected (NotDetected); Opiate Screen Detected (NotDetected); Oxycodone Screen Not Detected (NotDetected); Phencyclidine (PCP) Not Detected (NotDetected); THC/Cannabinoid Screen Not Detected (NotDetected); Tricyclic Screen Not Detected (NotDetected)
[2018-08-13] MEDS: cloNIDine 0.1 MG TAB PO SCH ×4 (04:30→21:01)
[2018-08-13 07:19] LABS: #Eosinphils 0.3 thou/uL (0.0-0.7); #Lymphocytes 1.3 thou/uL (1.20-3.40); #Monocytes 0.5 thou/uL (0.11-0.59); #Neutrophils 3.2 thou/uL (1.40-6.50); %Basophils 0.8 % (0.0-1.0); %Eosinophils 5.5 % (0.0-10.0); %Lymphocytes 23.5 % (21.0-51.0); %Neutrophils 60.1 % (42.0-75.0); Hemoglobin 9.3 g/dL (14.0-18.0); Mean Corpuscular HGB CONC 31.2 g/dL (32.0-36.0); Mean Corpuscular Hemoglobin 23.1 pg (27.0-31.0); Mean Corpuscular Volume 73.8 fL (78.0-98.0); Mean Platelet Volume 8.3 fL (7.4-10.4); Platelet Count 196 thou/uL (130-400); RBC Distribution Width 17.5 % (11.5-14.5); Red Blood Cell (RBC) Count 4.01 mill/uL (4.70-6.10); White Blood Cell (WBC) Count 5.4 thou/uL (4.8-10.8)
[2018-08-13 07:30] LABS: Anion Gap 13 mmol/L (10-20); BUN (Urea Nitrogen) 32 mg/dL (8.4-25.7); Calc. Creatinine Clearance 18 mL/min (70-130); Calcium 9.1 mg/dL (7.8-10.44); Carbon Dioxide 28 mmol/L (22-29); Chloride 101 mmol/L (98-107); Estimated GFR-MDRD 13; Glucose 123 mg/dL (70-105); Potassium 5.2 mmol/L (3.5-5.1); Sodium 137 mmol/L (136-145)
[2018-08-13 08:28] LABS: Troponin I 0.053 ng/mL (< 0.028)
[2018-08-13] MEDS ORDERED: Vancomycin HCl 1 GM in Premix Bag 1 BAG IVPB SCH (08:45)
[2018-08-13] MEDS: Sevelamer Carbonate 800 MG TAB PO SCH ×3 (09:40→17:23)
[2018-08-13] MEDS: Saccharomyces boulardii 250 MG CAP PO SCH (09:41)
[2018-08-13] MEDS: Gabapentin 300 MG CAP PO SCH ×3 (09:41→21:02)
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
[2018-08-13 11:16] LABS: Prothrombin Time 13.7 SEC (12.0-14.7)
[2018-08-13 11:17] LABS: PTT 35.4 SEC (22.9-36.1)
[2018-08-13] MEDS: hydrALAZINE 25 MG TAB PO SCH ×3 (13:57→21:02)
[2018-08-13] MEDS: Amlodipine 10 MG TAB PO SCH (13:58)
[2018-08-13] MEDS: Insulin Regular 300 UNITS/3 ML VIAL SC PRN (17:28)
--- NOTE | 2018-08-13 22:15 | PDOC.PN ---
- Subjective Encounter Start Date: 08/13/18 Encounter Start Time: 15:00 Subjective: pt up in bed complains of pain to his left cervical area - Objective Vital Signs & Weight: Vital Signs (12 hours) Temp Pulse Resp BP BP Pulse Ox 08/13/18 21:02 68 171/81 H 08/13/18 21:01 171/81 H 08/13/18 16:21 60 16 169/89 H 99 08/13/18 15:50 97.9 F 60 14 197/91 H 100 08/13/18 15:09 184/91 H 08/13/18 15:06 97.7 F 60 18 173/84 H 100 08/13/18 13:58 60 08/13/18 13:57 60 184/91 H 08/13/18 13:44 97.9 F 60 18 184/91 H 100 08/13/18 11:09 200/110 H Weight Admit Weight 185 lb 4.8 oz Weight 185 lb 4.8 oz I&O: 08/12/18 08/13/18 08/14/18 06:59 06:59 06:59 Intake Total 200 800 Output Total 400 Balance -200 800 Result Diagrams: 08/13/18 05:56 08/13/18 05:56 Additional Labs: Accuchecks 08/13/18 08/13/18 08/13/18 20:35 17:26 14:16 POC Glucose 170 H 189 H 102 08/13/18 08/12/18 05:52 23:00 POC Glucose 139 H 94 Phys Exam - Physical Examination Neck: no nodes, no JVD, supple, full ROM Respiratory: no wheezing, no rales, no rhonchi, wheezing present, clear to auscultation bilateral Cardiovascular: RRR, no significant murmur, no rub, gallop, irregular Gastrointestinal: soft, non-tender, no distention, positive bowel sounds Musculoskeletal: no edema, pulses present limited movement of left arm, sensation intact Dx/Plan (1) Left arm pain Code(s): M79.602 - PAIN IN LEFT ARM Status: Acute (2) ESRD on dialysis Code(s): N18.6 - END STAGE RENAL DISEASE; Z99.2 - DEPENDENCE ON RENAL DIALYSIS Status: Acute Comment: will continue dialysis as [facility] MWF. (3) Fracture of cervical spine without spinal cord lesion Code(s): S12.9XXA - FRACTURE OF NECK, UNSPECIFIED, INITIAL ENCOUNTER Status: Acute (4) HTN (hypertension) Code(s): I10 - ESSENTIAL (PRIMARY) HYPERTENSION Status: Acute - Plan per neurosurgery pt to wear his brace at all times -: pain non cardiac by nature -: will await neurosurgery recommendation * . Review of Systems - Review of Systems Respiratory: negative: Cough, Dry, Shortness of Breath, Hemoptysis, SOB with Excertion, Pleuritic Pain, Sputum, Wheezing Cardiovascular: negative: chest pain, palpitations, orthopnea, paroxysmal nocturnal dyspnea, edema, light headedness, other Musculoskeletal: Other (neck pain left) - Medications/Allergies Allergies/Adverse Reactions: Allergies Allergy/AdvReac Type Severity Reaction Status Date / Time No Known Drug Allergies Allergy Verified 07/12/18 18:25 Medications: Current Medications Acetaminophen (Tylenol) 650 mg PO Q4H PRN PRN Reason: Headache/Fever/Mild Pain (1-3) Albuterol/Ipratropium (Duoneb) 3 ml NEB [id number] PRN PRN Reason: SOB &/or Wheezing Amlodipine Besylate (Norvasc) 10 mg PO DAILY [facility] Last Admin: 08/13/18 13:58 Dose: 10 mg Clonidine (Catapres) 0.2 mg PO Q6H [facility] Last Admin: 08/13/18 21:01 Dose: 0.2 mg Clonidine (Catapres) 0.1 mg PO Q4H PRN PRN Reason: FOR SBP > 170mmHg Cyclobenzaprine HCl (Flexeril) 5 mg PO Q8H PRN PRN Reason: Muscle Spasm Dextrose/Water (Dextrose 50%) 25 gm SLOW IVP PRN PRN PRN Reason: Hypoglycemia Gabapentin (Neurontin) 300 mg PO TID [facility] Last Admin: 08/13/18 21:02 Dose: 300 mg Glucagon (Glucagon) 1 mg IM PRN PRN PRN Reason: Hypoglycemia Hydralazine HCl (Apresoline) 100 mg PO TID [facility] Last Admin: 08/13/18 21:02 Dose: 100 mg Dextrose/Water (D5w) 1,000 mls @ 0 mls/hr IV .Q0M PRN PRN Reason: Hypoglycemia Vancomycin HCl 1 gm/ Device 200 mls @ 200 mls/hr IVPB ONCALL-OR [facility] Last Admin: 08/13/18 11:58 Dose: 200 mls Insulin Human Regular (Humulin R) 0 units SC .MILD SLIDING SCALE PRN PRN Reason: Mild Correctional Scale Last Admin: 08/13/18 17:28 Dose: 2 unit Insulin Human Regular (Humulin R) 0 units SC .BEDTIME SLIDING SC PRN PRN Reason: Bedtime Correctional Scale Morphine Sulfate (Morphine) 2 mg SLOW IVP Q4H PRN PRN Reason: Severe Pain (7-10) Last Admin: 08/13/18 15:08 Dose: 2 mg Ondansetron HCl (Zofran) 4 mg IVP Q6H PRN PRN Reason: Nausea/Vomiting Oxycodone HCl (Oxycodone Ir) 5 mg PO Q4H PRN PRN Reason: Pain 7-10 Saccharomyces Boulardii (Florastor) 250 mg PO DAILY [facility] Last Admin: 08/13/18 09:41 Dose: Not Given Sevelamer Carbonate (Renvela) 800 mg PO TID-WM [facility] Last Admin: 08/13/18 17:23 Dose: 800 mg Sodium Chloride (Flush - Normal Saline) 10 ml IVF Q12HR PRN PRN Reason: Saline Flush Tramadol HCl (Ultram) 50 mg PO Q6H PRN PRN Reason: Moderate Pain (4-6) Last Admin: 08/13/18 00:24 Dose: 50 mg Zolpidem Tartrate (Ambien) 5 mg PO HSPRN PRN PRN Reason: Insomnia
[2018-08-14] MEDS: oxyCODONE 5 MG TAB PO PRN ×5 (00:08→21:41)
[2018-08-14] MEDS: cloNIDine 0.1 MG TAB PO SCH ×4 (03:16→20:49)
[2018-08-14] MEDS: traMADol HCl 50 MG TAB PO PRN (05:50)
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
[2018-08-14 07:33] LABS: Magnesium 1.6 mg/dL (1.6-2.6); Phosphorus 4.4 mg/dL (2.3-4.7)
[2018-08-14] MEDS: Sevelamer Carbonate 800 MG TAB PO SCH ×3 (08:27→17:29)
[2018-08-14] MEDS: Amlodipine 10 MG TAB PO SCH (08:27)
[2018-08-14] MEDS: hydrALAZINE 25 MG TAB PO SCH ×3 (08:27→20:49)
[2018-08-14] MEDS: Gabapentin 300 MG CAP PO SCH ×3 (08:28→20:49)
[2018-08-14] MEDS: Saccharomyces boulardii 250 MG CAP PO SCH (08:28)
[2018-08-14] MEDS ORDERED: Epoetin (ESRD) 20,000 UNITS/ML SC SCH (08:30)
--- NOTE | 2018-08-14 10:11 | PRG ---
DATE OF SERVICE: 08/14/2018 SERVICE: Renal Medicine. SUBJECTIVE: Mr. Keita is a 58-year-old black male, followed up by the Renal Service for his maintenance hemodialysis. He has history of ESRD and currently on Saturday, Saturday, and Saturday dialysis. Recently, he was diagnosed with infective endocarditis and receiving a course of IV vancomycin. He received one dose yesterday. He came initially with a question levy of chest pain with radiation to the left upper extremity. Cardiology has evaluated and the feeling is that this is noncardiac chest pain. Neurosurgery has evaluated this patient and there is still some inflammation on cervical spine. Recommendations to continue hard brace for the next several weeks. He tolerated dialysis yesterday. He has no new complaints. He denies any chest pain or shortness of breath. OBJECTIVE: VITAL SIGNS: Blood pressure 145/78, heart rate 54, respiratory rate 19, temperature 97.8, and pulse ox 99%. GENERAL: Awake, alert, comfortable, not in distress. SKIN: Adequate turgor. HEENT: He has slightly pale conjunctivae. Anicteric sclerae. No neck mass. No carotid bruits. No JVD. CHEST: No deformities. LUNGS: Clear breath sounds. No wheezing. No crackles. HEART: Normal sinus rhythm. No murmurs, gallops, or rubs. ABDOMEN: Globular, soft, nontender. No masses. EXTREMITIES: No edema. No deformities. MEDICATIONS: Medications of August 14, 2018, reviewed. LABORATORY DATA: Laboratories of August 13, 2018; white count 5.4, hemoglobin 9.3. August 14, 2018, calcium is 8.8, glucose 154, magnesium 1.6, phosphorus 4.4. August 13, 2018; potassium 5.2, BUN 32, creatinine 5.41. Troponin I 0.053. ASSESSMENT AND PLAN: 1. End-stage renal disease, stable. Continue current hemodialysis regimen on Saturday, Saturday, and Saturday. He is tolerating said treatment. 2. Anemia. We will start Epogen 7500 units subcu q.week and start ferrous sulfate 325 mg p.o. b.i.d. 3. Infective endocarditis. Received vancomycin. Recheck vancomycin level. According to the patient, his last course of vancomycin should be this week. 4. Cervical neck pain-continue cervical neck collar. 5. Recheck basic metabolic panel and CBC in a.m. Job ID: [id number]
[2018-08-14] MEDS: Insulin Regular 300 UNITS/3 ML VIAL SC PRN (11:57)
--- NOTE | 2018-08-14 11:59 | PDOC.PN ---
- Subjective Encounter Start Date: 08/14/18 Encounter Start Time: 11:57 Patient seen and examined, no new issues or questions, no family at bedside, all questions answered. - Objective Vital Signs & Weight: Vital Signs (12 hours) Temp Pulse Resp BP BP Pulse Ox 08/14/18 11:20 97.7 F 55 L 16 143/74 H 99 08/14/18 07:30 97.8 F 54 L 19 145/78 H 99 08/14/18 03:46 97.9 F 56 L 17 156/86 H 99 08/14/18 03:16 156/86 H Weight Admit Weight 185 lb 4.8 oz Weight 185 lb 4.8 oz I&O: 08/13/18 08/14/18 08/15/18 06:59 06:59 06:59 Intake Total 200 800 Output Total 400 Balance -200 800 Result Diagrams: 08/13/18 05:56 08/13/18 05:56 Additional Labs: Accuchecks 08/14/18 08/14/18 08/13/18 11:34 05:10 20:35 POC Glucose 218 H 154 H 170 H 08/13/18 08/13/18 17:26 14:16 POC Glucose 189 H 102 Phys Exam - Physical Examination Constitutional: NAD HEENT: PERRLA, moist MMs, sclera anicteric neck brace in place Neck: no nodes, no JVD, supple Respiratory: no wheezing, no rales, no rhonchi Cardiovascular: no significant murmur, no rub Gastrointestinal: soft, non-tender, no distention Dx/Plan (1) Abnormal MRI, cervical spine Code(s): R93.7 - ABNORMAL FINDINGS ON DIAGNOSTIC IMAGING OF PRT MS SYS Status : Acute (2) HTN (hypertension) Code(s): I10 - ESSENTIAL (PRIMARY) HYPERTENSION Status: Acute (3) Left arm pain Code(s): M79.602 - PAIN IN LEFT ARM Status: Acute (4) ESRD on dialysis Code(s): N18.6 - END STAGE RENAL DISEASE; Z99.2 - DEPENDENCE ON RENAL DIALYSIS Status: Acute Comment: will continue dialysis as [facility] MWF. - Plan * cont current plan of care * will await input from neuro sx team, if stable from their perspective will DC patient * further management per neuro sx otherwise, no changes in current plan of care * MRI pending * case and plan d/w patient at length, he understood and agreed with this plan
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
[2018-08-14] MEDS: Ferrous Sulfate 325 MG TAB PO SCH (17:29)
[2018-08-15] MEDS: cloNIDine 0.1 MG TAB PO SCH ×3 (03:05→15:23)
[2018-08-15] MEDS: oxyCODONE 5 MG TAB PO PRN ×3 (04:48→13:26)
[2018-08-15 05:03] LABS: #Eosinphils 0.2 thou/uL (0.0-0.7); #Lymphocytes 1.5 thou/uL (1.20-3.40); #Monocytes 0.6 thou/uL (0.11-0.59); #Neutrophils 3.3 thou/uL (1.40-6.50); %Basophils 0.3 % (0.0-1.0); %Eosinophils 4.3 % (0.0-10.0); %Lymphocytes 26.4 % (21.0-51.0); %Monocytes 10.4 % (0.0-10.0); %Neutrophils 58.6 % (42.0-75.0); Hemoglobin 9.5 g/dL (14.0-18.0); Mean Corpuscular HGB CONC 31.4 g/dL (32.0-36.0); Mean Corpuscular Hemoglobin 23.8 pg (27.0-31.0); Mean Corpuscular Volume 75.8 fL (78.0-98.0); Mean Platelet Volume 8.3 fL (7.4-10.4); Platelet Count 163 thou/uL (130-400); RBC Distribution Width 18.9 % (11.5-14.5); Red Blood Cell (RBC) Count 3.99 mill/uL (4.70-6.10); White Blood Cell (WBC) Count 5.6 thou/uL (4.8-10.8)
[2018-08-15 05:22] LABS: Anion Gap 13 mmol/L (10-20); BUN (Urea Nitrogen) 36 mg/dL (8.4-25.7); Calc. Creatinine Clearance 16 mL/min (70-130); Calcium 9.2 mg/dL (7.8-10.44); Carbon Dioxide 28 mmol/L (22-29); Chloride 98 mmol/L (98-107); Estimated GFR-MDRD 12; Glucose 128 mg/dL (70-105); Potassium 4.9 mmol/L (3.5-5.1); Sodium 134 mmol/L (136-145)
[2018-08-15] MEDS: Sevelamer Carbonate 800 MG TAB PO SCH ×3 (09:25→17:59)
[2018-08-15] MEDS: Ferrous Sulfate 325 MG TAB PO SCH ×2 (09:25→17:59)
[2018-08-15] MEDS: Saccharomyces boulardii 250 MG CAP PO SCH (09:25)
[2018-08-15] MEDS: Gabapentin 300 MG CAP PO SCH ×2 (09:25→15:24)
[2018-08-15] MEDS: hydrALAZINE 25 MG TAB PO SCH ×2 (09:25→15:23)
[2018-08-15] MEDS: Amlodipine 10 MG TAB PO SCH (09:25)
[2018-08-15 09:30] LABS: Vancomycin, Random 16.4 ug/mL (See Comment)
--- NOTE | 2018-08-15 09:46 | PRG ---
DATE OF SERVICE: 08/15/2018 SUBJECTIVE: Mr. Keita is a 58-year-old black male with ESRD and being followed up for his maintenance hemodialysis. He is currently at the dialysis and I am supervising his dialysis. He did complain of some cervical neck pain with radiation to the left upper extremity. Please note, Cardiology has evaluated this patient and the feeling is that he does not have a cardiac etiology for the chest pain. No other complaints today. OBJECTIVE: VITAL SIGNS: Blood pressure is 147/73, heart rate 57, respiratory rate 16, pulse oximetry 100%. GENERAL: Awake, alert, comfortable, not in distress. SKIN: Adequate turgor. HEENT: He has a pinkish conjunctivae. Anicteric sclerae. No neck mass. No carotid bruits. No JVD. CHEST: No deformities. LUNGS: Clear breath sounds. No wheezing. No crackles. HEART: Normal sinus rhythm. No murmurs, gallops, or rubs. ABDOMEN: Globular, soft, nontender. No masses. EXTREMITIES: No edema. No deformities. MEDICATIONS: Of August 15, 2018, reviewed. LABORATORY DATA: Of August 15, 2018; white count 5.6, hemoglobin 9.5, hematocrit 30.2. Sodium 134, potassium 4.9, chloride 98, carbon dioxide 28, BUN 36, creatinine 6.08, glucose 128, and calcium 9.2. ASSESSMENT AND PLAN: 1. End-stage renal disease, stable, continuing current hemodialysis regimen. Avoiding heparin use. Fluid removal as tolerated. 2. Anemia. Continuing weekly Epogen. 3. Infective endocarditis, vancomycin dose will be redosed for this week. We will check a vancomycin level today. 4. Cervical neck pain, secondary to a previous cervical neck trauma. Continuing hard cervical collar support. Job ID: [id number] [facility]
[2018-08-15 15:24] VITALS: BP 168/85
[2018-08-15 15:42] VITALS: TEMP 98.4
--- NOTE | 2018-08-15 16:50 | PRG ---
DATE OF SERVICE: 08/15/2018 This is Kareem Orosco PA-C dictating a report for Thomas Cantor MD. This is a 10-minute subsequent patient evaluation, in which greater than 50% of the exam was spent in counseling and coordinating the patient's care. Remainder of the exam was spent in review of the patient's medical records and formulation of treatment plan. Mr. Keita is hospital day #3 with multiple medical comorbidities. In regard to headache, he states much better after dialysis. He still has diffuse left upper extremity burning, but nothing dermatomal. He denies weakness into the arm as well. He typically takes gabapentin. He states that he is much more comfortable in the refitted Maybell J collar. He has good strength in the bilateral upper extremities, perhaps there is some trace weakness in the left hand end trimmer, this is stable from his exam on . At this time, he is safe for discharge from neurosurgical standpoint, and I have discussed in great detail that he needs to be compliant in wearing his collar so that we can avoid any type of surgical intervention. Again, he stated his understanding. We will schedule followup in our office in the next 2 to 3 weeks with repeat cervical imaging. Please call with any changes in the patient's neurologic status. Job ID: [id number]
--- NOTE | 2018-08-16 02:18 | DIS ---
DATE OF ADMISSION: 08/12/2018 DATE OF DISCHARGE: 08/15/2018 ADMITTING COMPLAINT: Hypertension, end-stage renal disease, hyperlipidemia, elevated troponins, neck pain. DISCHARGE DIAGNOSES: Hypertension, stable; end-stage renal disease; chest pain, resolved; neck pain, stable. HOSPITAL COURSE: This is a 58-year-old male admitted to the internal medicine team, seen also by Nephrology and Cardiology and Neurosurgery. The patient had dialysis given throughout the treatment here, had troponins trended, clearance obtained from all specialists. The patient had his neck brace changed from one specific type to another by the neurosurgery team, advised to be very compliant with the neck brace as the patient expressed that he did not want surgical options and surgery team expressed interest in not wanting to pursue surgery at this point in time. The patient receives dialysis treatments prior to discharge, was stable. Denied any nausea, vomiting, diarrhea, constipation, chest pain, fevers, chills, or shortness of breath. He was advised to follow up with his PCP as well as his edge finisher within 1 to 2 weeks and his dialysis unit as soon as possible and with neurosurgery team in about 2 weeks. The patient at point in time of discharge was stable, tolerating diet. He stated that he felt like he was back to his baseline, appreciated the care at the hospital. DISPOSITION: Home. MEDICATIONS: See MAR. ACTIVITY: As tolerated with assistance as needed. DIET: Low-fat, low-calorie, high-fiber renal diet. CONDITION: Stable. PROGNOSIS: Good. FOLLOWUP: Follow up with PCP, Neurosurgery, Nephrology and dialysis within the next 1-2 weeks. Once again, case and plan were discussed with the patient at length. He understood and agreed with this plan. Job ID: [id number]
--- NOTE | 2018-08-18 12:12 | PQF ---
CRUZITO FLOWERS FABIOLA FLANAGAN [id number] [facility]-256 [id number] CLINICAL DOCUMENTATION CLARIFICATION FORM: POST DISCHARGE Addendum to original discharge summary date: ____ Late entry note date: __ DATE: 08/18/17 ATTN: Dr. Murphy, Please exercise your independent, professional judgment in responding to the clarification form. Clinical indicators are provided on the bottom of this form for your review Please check appropriate box(s): HEART FAILURE: A. TYPE: [ ] Systolic / HFrEF [ x ] Diastolic / HFpEF [ ] Combined Systolic / Diastolic B. ACUITY [ ] Acute [ x ] Acute on Chronic [ ] Chronic [ ] Other diagnosis [ ] Unable to determine In addition, please specify: Present on Admission (POA): [ x ] Yes [ ] No [ ] Unable to determine For continuity of documentation, please document condition throughout progress notes and discharge summary. Thank You. CLINICAL INDICATORS - SIGNS / SYMPTOMS / LABS Ejection Fraction =55-60 %--08/14 Progress note and 08/14 Echocardiogram Report Heart Failure---4/2 H&P E/A flow reversal. Suggestive of diastolic dysfunction--08/14 Echocardiogram Report Moderate concentric left ventricular hypertrophy---08/14 Echocardiogram Report RISKS: History of CAD treated with angioplasty--2 ED note ESRD--4/2 H&P Hypertension--4/2 H&P TREATMENTS: Cardiac monitoring--ordered in ED Hydralazine--100 mg Oral, Losartan 50 mg OR--08/12 ED note under current meds Cardiology Consult--ordered 08/13 Thank you, Xena Petit CCS 12:09PM (This form is maintained as a part of the permanent medical record) 2014 [employer]. All Rights Reserved Xena [email or web address] [phone] [facility]
== END 2018-08-15 19:51 | disposition home or self-care (01) | DRG 304 ==
LOC: ERS 16:38 → 2NO 19:07
PROVIDERS: ADMIT Internal Medicine; ATTEND Internal Medicine
PROC: 5A1D70Z Performance of Urinary Filtration, Intermittent, Less than 6 Hours Per Day (ICD-10-PCS; principal; 2018-08-15)
DX: I16.0 Hypertensive urgency (principal); N18.6 End stage renal disease; I33.0 Acute and subacute infective endocarditis; I50.33 Acute on chronic diastolic (congestive) heart failure; I42.9 Cardiomyopathy, unspecified; R07.89 Other chest pain; I13.2 Hypertensive heart and chronic kidney disease with heart failure and with stage 5 chronic kidney disease, or end stage renal disease; E11.22 Type 2 diabetes mellitus with diabetic chronic kidney disease; E78.5 Hyperlipidemia, unspecified; J44.9 Chronic obstructive pulmonary disease, unspecified; E88.89 Other specified metabolic disorders; D63.1 Anemia in chronic kidney disease; S12.040D Displaced lateral mass fracture of first cervical vertebra, subsequent encounter for fracture with routine healing; V49.9XXD Car occupant (driver) (passenger) injured in unspecified traffic accident, subsequent encounter; I25.10 Atherosclerotic heart disease of native coronary artery without angina pectoris; G62.9 Polyneuropathy, unspecified; I07.1 Rheumatic tricuspid insufficiency; I34.0 Nonrheumatic mitral (valve) insufficiency; G47.30 Sleep apnea, unspecified; Z99.2 Dependence on renal dialysis; Z87.820 Personal history of traumatic brain injury; F14.21 Cocaine dependence, in remission; Z87.891 Personal history of nicotine dependence; Z98.61 Coronary angioplasty status; Z79.4 Long term (current) use of insulin; Z79.899 Other long term (current) drug therapy; Z82.49 Family history of ischemic heart disease and other diseases of the circulatory system
CPT/HCPCS: 36415; 36416; 71045; 72125; 80048; 80053; 80202; 80306; 82310; 82550; 82553; 83735; 84100; 84484; 85025; 85610; 85730; 90935; 93005; 93306; G0257; J1815; J2270; J3370; Q4081

== ENCOUNTER 2018-09-20 08:24 | Inpatient (IN) | payer MEDICARE ==
[2018-09-20] MEDS ORDERED: Albuterol Sulfate 2.5 mg/0.5 ml Neb ONE ×2 (08:40→08:41)
[2018-09-20 08:55] LABS: Actual Bicarbonate (HCO3a) 28.2 mEq/L (22-28); Analyzer IN Cardio ER; Base Excess (BEa) 4.7 mEq/L (-2.0 to +3.0); CO2 Tension 37.9 mmHg (35.0-45.0); Calcium, Ionized 1.17 mmol/L (1.12-1.30); Carboxyhemoglobin (COHb) 0.1 gm% (0.0-3.0); Hemoglobin (Hb) 11.9 g/dL (14.0-18.0); O2 Tension (PaO2) 85.5 mmHg (80.0-100.0); Potassium - ABG Lab 4.52 mmol/L (3.70-5.30); pH, Arterial 7.49 (7.35-7.45)
[2018-09-20 08:56] LABS: Puncture Site RRA
[2018-09-20 08:57] LABS: ALV-art Gradient 580.125 (0-20)
[2018-09-20] MEDS ORDERED: Piperacillin/Tazobactam 4.5 GM VIAL ONE (08:59)
--- NOTE | 2018-09-20 09:25 | RAD ---
Chest AP view INDICATION: Dyspnea COMPARISON: August 12, 2018 FINDINGS: Lungs:There is obscuration of the right heart border with suspicion for elevation of the right hemidi aphragm or interval development of a moderate right subpulmonic effusion. The left lung is clear. Cardiac silhouette pulmonary vasculature:The cardiomediastinal silhouette appears within normal limit s. Pleural spaces:There is increased opacity underlying the right lung which may reflect and moderate zelaya bpulmonic effusion or atelectasis of the right lung base and elevation of the right hemidiaphragm. The left costophrenic angle is sharp. Upper abdomen:No abnormality seen. Osseous structures: No acute osseous abnormality. Additional findings:There is been interval placement of a right sided PICC line. The PICC line tip pr ojects in the region of the SVC. IMPRESSION: Interval development of a right lower hemithorax opacity with obscuration of the right he art border may reflect atelectasis of the right middle lobe and portions of the right lower lobe and elevation of the right hemidiaphragm. Alternatively this may reflect interval development of prom inent opacity within the right middle lobe and establishment of a moderate size subpulmonic effusion. CT of the thorax with contrast recommended for further characterization.
[2018-09-20 09:29] LABS: Bilirubin Negative (Negative); Blood, Urine Negative (Negative); Clarity CLEAR (Clear); Glucose, Urine (Dipstick) 250 mg/dL (Negative); Leukocyte Negative (Negative); Nitrite Negative (Negative); Protein, Urine (Dipstick) 300 mg/dL (Neg-Trace); Specific Gravity, Urine 1.022 (1.002-1.036); Urobilinogen 0.2 mg/dL (0.2-1.0); pH, Urine 6.5 (5.0-9.0)
[2018-09-20 09:30] LABS: #Basophils 0.1 thou/uL (0.0-0.2); #Lymphocytes 1.1 thou/uL (1.20-3.40); #Monocytes 1.4 thou/uL (0.11-0.59); #Neutrophils 15.1 thou/uL (1.40-6.50); %Basophils 0.3 % (0.0-1.0); %Eosinophils 0.1 % (0.0-10.0); %Lymphocytes 6.5 % (21.0-51.0); %Monocytes 7.7 % (0.0-10.0); %Neutrophils 85.5 % (42.0-75.0); Hemoglobin 11.5 g/dL (14.0-18.0); MDiff Complete? YES; Mean Corpuscular HGB CONC 31.4 g/dL (32.0-36.0); Mean Corpuscular Hemoglobin 23.3 pg (27.0-31.0); Mean Corpuscular Volume 74.2 fL (78.0-98.0); Mean Platelet Volume 9.5 fL (7.4-10.4); Microcytosis SLIGHT = 6-15 cells (100X) (0-5/hpf); Platelet Count 367 thou/uL (130-400); RBC Distribution Width 19.3 % (11.5-14.5); Red Blood Cell (RBC) Count 4.96 mill/uL (4.70-6.10); White Blood Cell (WBC) Count 17.7 thou/uL (4.8-10.8)
[2018-09-20 09:31] LABS: Bacteria/HPF None Seen HPF (None Seen); Hyaline Casts/LPF 0-3 HYALINE CAST LPF (0-3 Hyaline); Pathc Cast-AUWi Flag 0.27 (0-2.49); RBC/HPF 0-3 HPF (0-3); Squamous Epithelial 0-3 HPF (0-3); WBC/HPF 0-3 HPF (0-3)
[2018-09-20 09:32] LABS: ALT (SGPT) 11 U/L (8-55); AST (SGOT) 19 U/L (5-34); Albumin 3.6 g/dL (3.5-5.0); Alkaline Phosphatase 183 U/L (40-150); Anion Gap 25 mmol/L (10-20); BUN (Urea Nitrogen) 36 mg/dL (8.4-25.7); Bilirubin, Total 0.4 mg/dL (0.2-1.2); CK (CPK) 446 U/L (30-200); Calc. Creatinine Clearance 0 mL/min (70-130); Calcium 10.1 mg/dL (7.8-10.44); Carbon Dioxide 27 mmol/L (22-29); Chloride 92 mmol/L (98-107); Estimated GFR-MDRD 13; Globulin 6.2 g/dL (2.4-3.5); Glucose 137 mg/dL (70-105); Lipase 17 U/L (8-78); Potassium 4.7 mmol/L (3.5-5.1); Protein, Total 9.8 g/dL (6.0-8.3); Sodium 139 mmol/L (136-145)
[2018-09-20] MEDS ORDERED: Acetaminophen 650 MG Suppository ONE (10:10)
[2018-09-20] MEDS ORDERED: Aspirin 300 MG Suppository ONE (10:10)
--- NOTE | 2018-09-20 10:16 | CT ---
CTA Angio Chest W WO Con 09/20/2018 9:36 AM Indication: Hypoxia concern for PE Technique: Multiple CTA images were obtained of the thorax with IV contrast. 3D reformatted images were constructed from the raw data. Comparison: Chest radiograph dated September 20, 2018 Findings: Pulmonary arteries: No central or segmental pulmonary embolus is evident. Heart and Great Vessels: There is mild ectasia of the ascending aorta measuring 4 cm. There are mild vascular calcifications involving coronary arteries and thoracic aorta. There is a right-sided PICC line in place. Lungs:There is volume loss of the right lower lobe and right middle lobe. There is tree-in-bud nodula rity within the posterior segment of the right upper lobe. There is debris seen within the distal right mainstem bronchus. The left lung is clear. Pleural space: Clear. Upper Abdomen: There is layered gallstones within the gallbladder. Osseous Structures: No acute osseous abnormality is evident. There is scattered degenerative and ost eoarthritic change present. Impression: 1. No central or segmental pulmonary embolus demonstrated. 2. Findings of aspiration with complete volume loss of the right middle lobe and lower lobe. There is tree-in-bud nodularity within the posterior segment right upper lobe. Pulmonary consultation is recommended. 3. Mild ectasia of the descending aorta, measuring up to 4 cm in size. 4. Right PICC line.
[2018-09-20] MEDS ORDERED: ISOVUE-370 76%-LOCM 1 ML ONE (11:58)
[2018-09-20 13:32] LABS: Critical Call Chem Troponin I RESULT DECREASING; Troponin I 0.619 ng/mL (< 0.028)
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
[2018-09-20] MEDS ORDERED: Dextrose 5% in Water 1,000 ML IV PRN (13:58)
[2018-09-20] MEDS ORDERED: HumaLOG 300 UNITS/3 ML VIAL SC PRN (13:58)
[2018-09-20] MEDS ORDERED: Artificial Tears 18 DROP/0.9 ML EA EYE PRN (13:58)
[2018-09-20] MEDS ORDERED: Eucerin (Mineral Oil/Petrolatum,White) 30 gm Jar TOP PRN (13:58)
[2018-09-20] MEDS ORDERED: Bisacodyl 10 MG SUPP PR PRN (13:58)
[2018-09-20] MEDS ORDERED: Labetalol HCl 100 MG/20 ML VIAL SLOW IVP PRN (13:58)
[2018-09-20] MEDS ORDERED: Dextrose 50% Abboject 50 ML SYRINGE SLOW IVP PRN (13:58)
[2018-09-20] MEDS ORDERED: hydrALAZINE 20 MG/ML VIAL SLOW IVP PRN (13:58)
[2018-09-20] MEDS ORDERED: Ondansetron PF 4 MG/2 ML Vial IVP PRN (13:58)
[2018-09-20] MEDS ORDERED: Sodium Chloride 0.65% Nasal 44 ML BOT EA NARE PRN (13:58)
[2018-09-20] MEDS: Sodium Chloride 0.9% 1,000 ML IV SCH (14:42)
[2018-09-20] MEDS: Piperacillin/Tazobactam 2.25 GM in Sodium Chloride 0.9% 100 ML IVPB SCH (16:04)
[2018-09-20 16:20] LABS: Critical Call Chem Troponin I RESULT DECREASING; Troponin I 0.617 ng/mL (< 0.028)
[2018-09-20] MEDS: DAPTOmycin 400 MG in Sodium Chloride 0.9% 50 ML IVPB SCH (16:23)
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
[2018-09-20] MEDS: Heparin 5,000 UNITS/ML VIAL SC SCH (21:28)
[2018-09-21] MEDS: Piperacillin/Tazobactam 2.25 GM in Sodium Chloride 0.9% 100 ML IVPB SCH ×3 (00:24→16:57)
[2018-09-21 05:51] LABS: ALT (SGPT) 10 U/L (8-55); AST (SGOT) 19 U/L (5-34); Albumin 2.9 g/dL (3.5-5.0); Alkaline Phosphatase 135 U/L (40-150); Anion Gap 20 mmol/L (10-20); BUN (Urea Nitrogen) 56 mg/dL (8.4-25.7); Bilirubin, Total 0.3 mg/dL (0.2-1.2); Calc. Creatinine Clearance 11 mL/min (70-130); Calcium 9.9 mg/dL (7.8-10.44); Carbon Dioxide 29 mmol/L (22-29); Chloride 95 mmol/L (98-107); Estimated GFR-MDRD 10; Globulin 5.8 g/dL (2.4-3.5); Glucose 121 mg/dL (70-105); Potassium 4.8 mmol/L (3.5-5.1); Protein, Total 8.7 g/dL (6.0-8.3); Sodium 139 mmol/L (136-145)
[2018-09-21 06:17] LABS: #Eosinphils 0.1 thou/uL (0.0-0.7); #Monocytes 1.2 thou/uL (0.11-0.59); #Neutrophils 10.7 thou/uL (1.40-6.50); %Basophils 0.4 % (0.0-1.0); %Eosinophils 0.4 % (0.0-10.0); %Lymphocytes 7.9 % (21.0-51.0); %Monocytes 8.9 % (0.0-10.0); %Neutrophils 82.4 % (42.0-75.0); Hemoglobin 9.2 g/dL (14.0-18.0); Mean Corpuscular HGB CONC 30.9 g/dL (32.0-36.0); Mean Corpuscular Hemoglobin 23.2 pg (27.0-31.0); Mean Corpuscular Volume 75.3 fL (78.0-98.0); Mean Platelet Volume 8.7 fL (7.4-10.4); Platelet Count 267 thou/uL (130-400); RBC Distribution Width 19.1 % (11.5-14.5); Red Blood Cell (RBC) Count 3.97 mill/uL (4.70-6.10)
[2018-09-21] MEDS: Sodium Chloride 0.9% 1,000 ML IV SCH (08:31)
[2018-09-21] MEDS: Pantoprazole 40 MG VIAL IVP SCH (08:32)
[2018-09-21] MEDS: Heparin 5,000 UNITS/ML VIAL SC SCH ×2 (08:33→21:30)
--- NOTE | 2018-09-21 10:05 | PRG ---
DATE OF SERVICE: 09/21/2018 SUBJECTIVE: Mr. Keita is a 58-year-old black male with ESRD, who was admitted for hypoxemia from presumed aspiration pneumonia. He was recently admitted at [facility] for fever and chills. At that time, he was found to have persistent infective endocarditis with mural thrombus, and developed CVA secondary to septic emboli. We are now being consulted for his maintenance hemodialysis. Of interest, this patient has had prolonged use of IV drug. We are following this patient for his regular dialysis this coming Saturday. This morning, no other complaints. He continues to be on empiric IV antibiotics. OBJECTIVE: VITAL SIGNS: Blood pressure is 155/74, heart rate 86, respiratory rate 24, pulse ox 95%, and temperature 98.5. GENERAL: Noted to be awake, nonverbal, but can follow simple commands. SKIN: Adequate turgor. HEENT: Slightly pale conjunctivae. Anicteric sclerae. NECK: No neck mass. No carotid bruits. No JVD. CHEST: No deformities. LUNGS: Decreased breath sounds. HEART: Normal sinus rhythm. Grade 2/6 systolic murmur. No gallops or rubs. ABDOMEN: Globular, soft, and nontender. No masses. EXTREMITIES: No edema. No deformities. NEUROLOGICAL: The patient is dysarthric. Right-sided weakness. MEDICATIONS: Medications of September 21, 2018, was reviewed. LABORATORY DATA: Laboratories of September 21, 2018; white count 13 and hemoglobin 9.2. Sodium 139, potassium 4.8, chloride 95, carbon dioxide 29, BUN 56, creatinine 7.21, glucose 121, AST 19, ALT is 10, and albumin 2.9. On September 20, 2018, troponin I 0.617. IMAGING STUDIES: On September 20, 2018; CT scan of the chest, no acute pulmonary embolus was seen. There is finding of aspiration with complete volume loss of the right middle lobe and lower lobe. ASSESSMENT AND PLAN: 1. Aspiration pneumonia-currently on IV antibiotics. 2. Infective endocarditis on planned several weeks of IV antibiotics. Infectious Disease is following. 3. End-stage renal disease, stable. We will continue current hemodialysis regimen. Fluid removal only as tolerated. His regular dialysis is Saturday, Saturday, and Saturday. 4. Anemia. We will start Epogen 7500 units subcutaneous weekly. Job ID: [id number]
--- NOTE | 2018-09-21 10:06 | PDOC.PN ---
- Subjective Encounter Start Date: 09/21/18 Encounter Start Time: 09:56 Subjective: minimally responsive - Objective Resuscitation Status - Order Detail: 09/20/18 11:46 Resuscitation Status Routine Resuscitation Status: FULL: Full Resuscitation MAR Reviewed: Yes Vital Signs & Weight: Vital Signs (12 hours) Temp Pulse Resp Pulse Ox 09/21/18 08:00 98.5 F 09/21/18 06:08 99 09/21/18 06:06 82 12 99 09/21/18 04:00 99.9 F H 09/21/18 00:40 82 12 95 09/21/18 00:00 99.0 F Weight Weight 147 lb 0.773 oz Most Recent Monitor Data Heart Rate from ECG 83 NIBP 137/71 NIBP BP-Mean 93 Respiration from ECG 20 SpO2 96 I&O: 09/20/18 09/21/18 09/22/18 06:59 06:59 06:59 Intake Total 1068 Output Total 15 0 Balance 1053 0 Result Diagrams: 09/21/18 05:17 09/21/18 05:17 Additional Labs: Accuchecks 09/21/18 09/20/18 09/20/18 09:49 23:30 15:46 POC Glucose 124 H 140 H 136 H Phys Exam - Physical Examination Neck: no JVD coarse BS Cardiovascular: no significant murmur, irregular Gastrointestinal: soft, positive bowel sounds Musculoskeletal: no edema R hemiplegia Dx/Plan (1) Acute worsening of stage 4 chronic kidney disease Code(s): N28.9 - DISORDER OF KIDNEY AND URETER, UNSPECIFIED; N18.4 - CHRONIC KIDNEY DISEASE, STAGE 4 (SEVERE) Status: Acute (2) Cerebral infarction Code(s): I63.9 - CEREBRAL INFARCTION, UNSPECIFIED Status: Acute Qualifiers: Cerebral infarction mechanism: embolism Laterality of affected vessel: bilateral Comment: Likely septic embolization from MRSA bacteremia (3) Cerebral septic emboli Code(s): I76 - SEPTIC ARTERIAL EMBOLISM; I66.9 - OCCLUSION AND STENOSIS OF UNSPECIFIED CEREBRAL ARTERY Status: Acute (4) Infectious endocarditis Code(s): I33.0 - ACUTE AND SUBACUTE INFECTIVE ENDOCARDITIS Status: Acute Qualifiers: Infective endocarditis organism: bacterial Chronicity: acute Qualified Code(s): I33.0 - Acute and subacute infective endocarditis Comment: s/p 6 week of IV ABx at outside hospital (5) COPD (chronic obstructive pulmonary disease) Status: Chronic Qualifiers: COPD type: emphysema Emphysema type: unspecified Qualified Code(s): J43.9 - Emphysema, unspecified Comment: mari PATEL (6) DM2 (diabetes mellitus, type 2) Status: Chronic Qualifiers: Diabetes mellitus correction insulin use: without correction use Diabetes mellitus complication status: with kidney complications Diabetes mellitus complication detail: with chronic kidney disease Chronic kidney disease stage : on chronic dialysis Qualified Code(s): E11.22 - Type 2 diabetes mellitus with diabetic chronic kidney disease; N18.6 - End stage renal disease; Z99.2 - Dependence on renal dialysis Comment: see above for current regimen (7) ESRD (end stage renal disease) Code(s): N18.6 - END STAGE RENAL DISEASE Status: Chronic Comment: Dempsey catheter placement then initiation of HD 12/10/17, avoid nephrotoxic meds and limit contrast exposure, continue HD, (8) Obesity (BMI 30-39.9) Code(s): E66.9 - OBESITY, UNSPECIFIED Status: Chronic (9) Tobacco abuse Code(s): Z72.0 - TOBACCO USE Status: Chronic - Plan declining; on iv antibx -: esrd-HD -: SS/accu/etc -: discuss with consultants re plan going forward * .
[2018-09-21] MEDS ORDERED: Sodium Chloride 0.9% 1,000 ML IV SCH ×2 (10:11→10:26)
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
[2018-09-21] MEDS: EPOETIN ALFA-EPBX (ESRD) 4,000 UNIT/ML VIAL SC SCH (16:24)
--- NOTE | 2018-09-21 17:20 | CON ---
DATE OF CONSULTATION: With regard to his radiographic abnormalities, he is receiving antimicrobial therapy for aspiration pathogens. I would not recommend bronchoscopy although we have to intubate him for bronchoscopy. We will just follow him clinically for now. ADDENDUM: Mr. Keita clinically cannot swallow. We are placing an NG tube. We are out of Dobbhoff tubes apparently. He will start with renal feeds using Nepro at 20 mL/hour. Job ID: [id number]
[2018-09-22] MEDS: Piperacillin/Tazobactam 2.25 GM in Sodium Chloride 0.9% 100 ML IVPB SCH ×3 (00:02→14:41)
[2018-09-22] MEDS: Pantoprazole 40 MG VIAL IVP SCH (08:10)
[2018-09-22] MEDS: Heparin 5,000 UNITS/ML VIAL SC SCH ×2 (08:10→21:20)
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
--- NOTE | 2018-09-22 09:56 | PRG ---
DATE OF SERVICE: 09/22/2018 SUBJECTIVE: Morris Keita is nonverbal. He is in no distress. He has a C-collar in place. OBJECTIVE: VITAL SIGNS: He is afebrile. Heart rate 77, respiratory rate is 20, oximetry is 96% on 1 L cannula, and blood pressure 144/75. LUNGS: Clear. HEART: Regular rhythm. ABDOMEN: Soft. IMPRESSION AND PLAN: 1. Pneumonia, likely aspiration mediated. 2. Cerebrovascular accident secondary to embolic event associated with endocarditis. 3. Endocarditis, currently been treated via peripherally inserted central catheter line. 4. Extreme deconditioning. 5. End-stage renal disease. Continue supportive care. Palliative Care needs to be involved. Hospice should be considered. He will need a placement of a feeding tube at some point, likely. He is not a candidate for bronchoscopy given his multiple medical problems. Job ID: [id number]
--- NOTE | 2018-09-22 10:03 | PRG ---
DATE OF SERVICE: 09/22/2018 SUBJECTIVE: Mr. Keita is a 58-year-old black male with ESRD and followed up by the [facility] for his maintenance hemodialysis. He was admitted for aspiration pneumonia. He is on empiric IV antibiotics. NG tube has been placed. In addition, he was unable to sign consent for the dialysis. Due to the emergent nature of the dialysis, we went and proceeded with the dialysis. No acute events noted. Please note, this patient has underlying infective endocarditis with mural thrombosis as well as recent CVA secondary to a septic emboli. OBJECTIVE: VITAL SIGNS: Blood pressure 144/75, heart rate 77, respiratory rate 20, temperature 98, and pulse ox 96%. GENERAL: The patient has decreased mentation, but is arousable, not in distress. SKIN: Adequate turgor. HEENT: He has slightly pale conjunctivae. Anicteric sclerae. No neck mass. No carotid bruits. No JVD. CHEST: No deformities. LUNGS: Clear breath sounds. HEART: Normal sinus rhythm. No murmur. No gallops. No rubs. ABDOMEN: Globular, soft, nontender. No masses. EXTREMITIES: No edema. No deformities. NEUROLOGIC: Decreased mentation, arousable. Positive for right hemiplegia. MEDICATIONS: Medications of September 22, 2018, reviewed. LABORATORY DATA: Laboratories of September 21, 2018; white count 13, hemoglobin 9.2. Sodium 139, potassium 4.8, chloride 95, carbon dioxide 29, BUN 56, creatinine 7.21, glucose 121, albumin 2.9. ASSESSMENT AND PLAN: 1. End-stage renal disease, stable. We will continue current Saturday, Saturday, and Saturday hemodialysis. We are avoiding heparin use for the moment. Fluid removal only as tolerated. 2. Aspiration pneumonia, on empiric IV antibiotics. Pulmonary is following. 3. Anemia. He is currently on weekly Epogen. 4. Infective endocarditis/mural thrombosis - currently on IV antibiotics. ID is following. Overall, prognosis remains guarded. Job ID: [id number]
[2018-09-22 11:20] LABS: #Eosinphils 0.1 thou/uL (0.0-0.7); #Lymphocytes 0.9 thou/uL (1.20-3.40); #Monocytes 0.8 thou/uL (0.11-0.59); #Neutrophils 8.2 thou/uL (1.40-6.50); %Basophils 0.1 % (0.0-1.0); %Eosinophils 1.1 % (0.0-10.0); %Lymphocytes 8.6 % (21.0-51.0); %Neutrophils 82.2 % (42.0-75.0); Hemoglobin 8.6 g/dL (14.0-18.0); Mean Corpuscular Hemoglobin 23.5 pg (27.0-31.0); Mean Corpuscular Volume 75.6 fL (78.0-98.0); Mean Platelet Volume 8.8 fL (7.4-10.4); Platelet Count 241 thou/uL (130-400); RBC Distribution Width 18.9 % (11.5-14.5); Red Blood Cell (RBC) Count 3.67 mill/uL (4.70-6.10)
[2018-09-22 11:29] LABS: ALT (SGPT) 15 U/L (8-55); AST (SGOT) 25 U/L (5-34); Albumin 2.8 g/dL (3.5-5.0); Alkaline Phosphatase 137 U/L (40-150); Anion Gap 22 mmol/L (10-20); BUN (Urea Nitrogen) 77 mg/dL (8.4-25.7); Bilirubin, Total 0.3 mg/dL (0.2-1.2); Calc. Creatinine Clearance 8 mL/min (70-130); Calcium 9.8 mg/dL (7.8-10.44); Carbon Dioxide 26 mmol/L (22-29); Chloride 98 mmol/L (98-107); Estimated GFR-MDRD 7; Globulin 5.6 g/dL (2.4-3.5); Glucose 114 mg/dL (70-105); Protein, Total 8.4 g/dL (6.0-8.3); Sodium 141 mmol/L (136-145)
[2018-09-22 11:34] LABS: Phosphorus 9.2 mg/dL (2.3-4.7)
--- NOTE | 2018-09-22 14:06 | PDOC.PN ---
- Subjective Encounter Start Date: 09/22/18 Encounter Start Time: 14:00 Subjective: f/u for ESRD on HD, infective endocarditis with septic embolization CVA -: from MRSA. Currently on Daptomycin, Teflaro and Zosyn. - Objective Resuscitation Status - Order Detail: 09/20/18 11:46 Resuscitation Status Routine Resuscitation Status: FULL: Full Resuscitation MAR Reviewed: Yes Vital Signs & Weight: Vital Signs (12 hours) Temp Pulse Resp BP Pulse Ox 09/22/18 08:02 98.0 F 77 20 144/75 H 96 09/22/18 06:35 81 12 96 09/22/18 04:00 98.2 F 82 20 130/81 95 Weight Admit Weight 147 lb 0.773 oz Weight 147 lb 0.773 oz Most Recent Monitor Data Heart Rate from ECG 87 NIBP 155/87 NIBP BP-Mean 109 Respiration from ECG 13 SpO2 94 I&O: 09/21/18 09/22/18 09/23/18 06:59 06:59 06:59 Intake Total 1068 920 Output Total 15 0 Balance 1053 920 Result Diagrams: 09/22/18 09:15 09/22/18 09:15 Additional Labs: Accuchecks 09/22/18 09/21/18 09/21/18 05:49 20:54 16:32 POC Glucose 141 H 131 H 129 H Microbiology 09/20/18 08:52 Venous blood - Right Hand Blood Culture - Preliminary NO GROWTH AT 48 HOURS 09/20/18 08:52 Venous blood - Right Arm Blood Culture - Preliminary NO GROWTH AT 48 HOURS Laboratory Tests 03/15/15 03/16/15 12/07/17 16:03 04:57 02:05 WBC Hgb Creatinine 1.33 H Phosphorus Creatine Kinase 451 H B-Natriuretic Peptide Hep Bs Antigen Non-Reactive Hep Bs Antibody Non-Reactive Hep Bs Antibody Index 1.24 Hepatitis C Antibody Non-Reactive 12/07/17 12/08/17 07/12/18 02:06 06:04 16:02 WBC Hgb Creatinine 6.30 H 6.74 H Phosphorus Creatine Kinase B-Natriuretic Peptide 1517.0 H Hep Bs Antigen Hep Bs Antibody Hep Bs Antibody Index Hepatitis C Antibody 08/14/18 09/20/18 09/20/18 07:12 08:52 08:52 WBC 17.7 H Hgb 11.5 L Creatinine Phosphorus 4.4 Creatine Kinase B-Natriuretic Peptide 407.3 H Hep Bs Antigen Hep Bs Antibody Hep Bs Antibody Index Hepatitis C Antibody 09/20/18 09/21/18 09/21/18 08:52 05:17 05:17 WBC 13.0 H Hgb 9.2 L Creatinine 5.71 H 7.21 H Phosphorus Creatine Kinase B-Natriuretic Peptide Hep Bs Antigen Hep Bs Antibody Hep Bs Antibody Index Hepatitis C Antibody 09/22/18 09:15 WBC Hgb Creatinine Phosphorus 9.2 H* Creatine Kinase B-Natriuretic Peptide Hep Bs Antigen Hep Bs Antibody Hep Bs Antibody Index Hepatitis C Antibody Phys Exam - Physical Examination Constitutional: NAD lethargic, minimally responsive HEENT: PERRLA, sclera anicteric, oral pharynx no lesions Neck: no nodes, no JVD, supple, full ROM diminished bilaterally, scattered rhonchi S1, S2 Cardiovascular: no rub, gallop, irregular Gastrointestinal: soft, non-tender, no distention, positive bowel sounds Musculoskeletal: no edema, pulses present R hemiplegia, minimally responsive Skin: normal turgor, cap refill <2 seconds Dx/Plan (1) ESRD on dialysis Code(s): N18.6 - END STAGE RENAL DISEASE; Z99.2 - DEPENDENCE ON RENAL DIALYSIS Status: Acute Comment: Continue maintenance HD (2) Hyperphosphatemia Code(s): E83.39 - OTHER DISORDERS OF PHOSPHORUS METABOLISM Status: Acute Comment: Resume Renvela 800mg TID, repeat PO3 in am (3) Cerebral septic emboli Code(s): I76 - SEPTIC ARTERIAL EMBOLISM; I66.9 - OCCLUSION AND STENOSIS OF UNSPECIFIED CEREBRAL ARTERY Status: Chronic Comment: Suspected given hx of infective endocarditis and MRSA bacteremia, continue Daptomycin/Teflaro/Zosyn (4) Anemia in chronic kidney disease Code(s): N18.9 - CHRONIC KIDNEY DISEASE, UNSPECIFIED; D63.1 - ANEMIA IN CHRONIC KIDNEY DISEASE Status: Chronic Qualifiers: Chronic kidney disease stage: on chronic dialysis Qualified Code(s): N18.6 - End stage renal disease; D63.1 - Anemia in chronic kidney disease; Z99.2 - Dependence on renal dialysis Comment: Serial monitoring, no current evidence of acute blood loss (5) Diabetic nephropathy associated with type 2 diabetes mellitus Code(s): E11.21 - TYPE 2 DIABETES MELLITUS WITH DIABETIC NEPHROPATHY Status: Chronic Comment: ISS, serial accuchecks - Plan continue antibiotics, social media strategist, speech therapy, DVT proph w/SCDs Continue IV abx -: Palliative care consult appreciated -: Wound care/Speech evaluations -: Ange Singh -: AM lab: BMP, PO3 * .
[2018-09-22] MEDS: Piperacillin/Tazobactam 0.75 GM, Admixture Fee 1 EACH in Sodium Chloride 0.9% 100 ML IVPB SCH (14:40)
[2018-09-22] MEDS: DAPTOmycin 400 MG in Sodium Chloride 0.9% 50 ML IVPB SCH (14:40)
[2018-09-22] MEDS: Sevelamer Carbonate 800 MG TAB PER TUBE SCH (17:05)
[2018-09-22 17:28] LABS: Actual Bicarbonate (HCO3a) 26.3 mEq/L (22-28); Base Excess (BEa) 3.9 mEq/L (-2.0 to +3.0); CO2 Tension 32.4 mmHg (35.0-45.0); Calcium, Ionized 1.15 mmol/L (1.12-1.30); Hemoglobin (Hb) 11.1 g/dL (14.0-18.0); Potassium - ABG Lab 4.29 mmol/L (3.70-5.30); pH, Arterial 7.53 (7.35-7.45)
[2018-09-22 17:29] LABS: O2 Tension (PaO2) 38.5 mmHg (80.0-100.0); Puncture Site RRA
[2018-09-22] MEDS: Acetaminophen 650 MG Suppository PR PRN (17:30)
--- NOTE | 2018-09-22 18:00 | PDOC.EVN ---
Event Note - Event Note Event Note: Called by nursing secondary to pt's hypoxia and elevated temp 101.6F. Nsg noted lethargy and difficulty with secretions and increased O2 from 2L to 5L/min NC. Tube feedings held during HD today but aspiration pneumonia and retained secretions were noted previously in the last 48h. Continues to receive Teflaro, Zosyn and Daptomycin. Selected Entries 09/22/18 17:00 Temperature 101.6 F H Pulse Rate 113 H Blood Pressure 183/109 H [Semi-Fowlers] Respiratory 24 H Rate O2 Sat by Pulse 86 L Oximetry Oxygen Flow 2 Rate Exam shows weak cough with retained secretions, coarse breath sounds bilat and tachycardia with HR's 100's, opens eyes to name, non-verbal and spontaneously moves LUE, R hemiplegia. ABG reviewed with Laboratory Tests 09/22/18 17:22 Bicarbonate Actual 26.3 ABG pH 7.53 H ABG pCO2 32.4 L ABG pO2 38.5 L* ABG O2 Sat Calc/[place] 71.3 L* Inspired O2 40 PCXR - pending A/P: Acute hypoxic resp failure due to aspiration - 100% NRB applied, sit upright, hold all TF's and NPO, Continue abx with Zosyn, Teflaro, PCXR now, discussed code status with family and awaiting final decision regarding aggressive interventions vs palliative measures. ESRD with HD - s/p HD today Infective Endocarditis - Daptomycin, Teflaro CVA with dysphagia, aphasia, R hemiplegia - total care and assistance, supportive mgmt Total critical care time: 32min
--- NOTE | 2018-09-22 18:18 | PDOC.EVN ---
Event Note - Event Note Event Note: ACP Note: Discussed current clinical situation with family, , brother regarding aspiration in context of CVA and likely continuation of similar events at which point pt may succumb to this issue. Discussed intermediate school teacher effects and likelihood of mech ventilation and the high probability pt may not come off life support given his co-morbid status. Family wishing to discuss goals of care and decide on course of action. Total time: 18min
--- NOTE | 2018-09-22 21:06 | RAD ---
PORTABLE CHEST: Date: 09-22-18 Provided Clinical History: Aspiration. FINDINGS: Comparison 09-20-18. Interval placement of enteric catheter, the tip of which projects in the left upper quadrant. Right u pper extremity PICC line is again seen in similar position. Right basilar pleural parenchymal opacity appears similar to the prior study. The left lung remains clear. No evidence for a pneumothorax. IMPRESSION: Persistent right basilar pleural parenchymal opacity. POS: [place]
[2018-09-22] MEDS ORDERED: Rocuronium Bromide 50 MG/5 ML VIAL ONE (21:52)
--- NOTE | 2018-09-22 22:08 | PDOC.EVN ---
Event Note - Event Note Event Note: Pt went into acute respiratory failure with sustained saturation in the 80's, chart reviewed as of now pt. had remained full code, pt intubated, pulmonary already on the case, pt has very poor prognosis unlikely to survive given severity of illness and co-morbidities, palliative care to follow up with family for further goals of care. will monitor closely .
[2018-09-22] MEDS ORDERED: Ventilator Sedation Protocol 1 EACH FS ONE (22:10)
[2018-09-22] MEDS ORDERED: Fentanyl BOLUS 250 ML IVPB PRN (22:18)
[2018-09-22] MEDS ORDERED: Propofol BOLUS 1,000 MG/100 ML VIAL IV PRN (22:18)
[2018-09-22] MEDS ORDERED: fentaNYL Citrate/PF 2,000 MCG in Sodium Chloride 0.9% 60 ML IV SCH (22:18)
[2018-09-22] MEDS ORDERED: DISCONTINUE PREVIOUS NARCOTIC PAIN MEDICATIONS AND BENZODIAZEPINES FS SCH (22:18)
[2018-09-22] MEDS ORDERED: Morphine 2 MG/ML SYRINGE SLOW IVP PRN (22:18)
[2018-09-22] MEDS ORDERED: Lorazepam 2 MG/ML VIAL SLOW IVP PRN (22:18)
--- NOTE | 2018-09-22 22:43 | RAD ---
Portable frontal chest radiograph: 09/22/2018 10:08pm. COMPARISON: 09/22/2018 7:55 PM HISTORY: Evaluate lines and tubes FINDINGS: Dense pleural and parenchymal opacity noted in the right lung base. Nasogastric tube extend s into the upper abdomen. Stable right-sided PICC. New endotracheal tube terminates at the level of the clavicular heads. Left lung is clear. Supine imaging limits assessment for pneumothorax and pleur al fluid. IMPRESSION: Lines and tubes as detailed above. Focal pleural and parenchymal opacity in the right claudia g base. Endotracheal tube in proper position.
[2018-09-22] MEDS: Propofol 1,000 MG/100 ML VIAL IV PRN (22:57)
[2018-09-23] MEDS: Piperacillin/Tazobactam 2.25 GM in Sodium Chloride 0.9% 100 ML IVPB SCH ×3 (00:42→17:36)
[2018-09-23 03:14] LABS: Actual Bicarbonate (HCO3a) 25.7 mEq/L (22-28); Base Excess (BEa) 2.4 mEq/L (-2.0 to +3.0); Calcium, Ionized 1.16 mmol/L (1.12-1.30); Carboxyhemoglobin (COHb) 0.8 gm% (0.0-3.0); Hemoglobin (Hb) 10.7 g/dL (14.0-18.0); O2 Tension (PaO2) 60.8 mmHg (80.0-100.0); Potassium - ABG Lab 4.45 mmol/L (3.70-5.30); pH, Arterial 7.48 (7.35-7.45)
[2018-09-23] MEDS: Acetaminophen 650 MG Suppository PR PRN ×2 (04:02→23:55)
[2018-09-23 05:47] LABS: Anion Gap 22 mmol/L (10-20); BUN (Urea Nitrogen) 43 mg/dL (8.4-25.7); Calc. Creatinine Clearance 13 mL/min (70-130); Calcium 10.5 mg/dL (7.8-10.44); Carbon Dioxide 27 mmol/L (22-29); Chloride 94 mmol/L (98-107); Estimated GFR-MDRD 12; Glucose 131 mg/dL (70-105); Phosphorus 6.6 mg/dL (2.3-4.7); Potassium 4.8 mmol/L (3.5-5.1); Sodium 138 mmol/L (136-145)
[2018-09-23 06:29] LABS: Actual Bicarbonate (HCO3a) 26.9 mEq/L (22-28); Base Excess (BEa) 4.3 mEq/L (-2.0 to +3.0); Calcium, Ionized 1.16 mmol/L (1.12-1.30); Carboxyhemoglobin (COHb) 0.5 gm% (0.0-3.0); Hemoglobin (Hb) 10.2 g/dL (14.0-18.0); Potassium - ABG Lab 4.75 mmol/L (3.70-5.30); pH, Arterial 7.53 (7.35-7.45)
[2018-09-23 06:30] LABS: Puncture Site RRA
[2018-09-23] MEDS: Sevelamer Carbonate 800 MG TAB PER TUBE SCH ×2 (08:00→20:27)
[2018-09-23] MEDS: Heparin 5,000 UNITS/ML VIAL SC SCH ×2 (09:01→21:07)
[2018-09-23] MEDS: Pantoprazole 40 MG VIAL IVP SCH (09:19)
--- NOTE | 2018-09-23 11:38 | PRG ---
DATE OF SERVICE: SUBJECTIVE: Mr. Keita is a 58-year-old black male with ESRD and followed by the Renal Service for his maintenance hemodialysis. He was initially admitted for an aspiration pneumonia. Please note, he has had recent history of CVA secondary to septic emboli, infective endocarditis/mural thrombus. Last night, the patient went to acute respiratory failure and he was intubated. He is currently in the ICU on ventilator support. OBJECTIVE: VITAL SIGNS: Blood pressure is 135/75, heart rate 101, respiratory rate 26, and pulse ox 100%. GENERAL: The patient is sedated and intubated on ventilator support. SKIN: Adequate turgor. HEENT: He has a slightly pale conjunctivae. Anicteric sclerae. NECK: No neck mass. No carotid bruits. No JVD. CHEST: No deformities. LUNGS: Decreased breath sounds. HEART: Normal sinus rhythm. He has a grade 2/6 systolic murmur. No gallops. No rubs. ABDOMEN: Globular, soft, nontender. EXTREMITIES: No edema. No deformities. MEDICATIONS: Medications of September 23, 2018, reviewed. LABORATORY DATA: Laboratories of September 23, 2018, sodium 138, potassium 4.8, chloride 94, carbon dioxide 27, BUN 43, creatinine 6.01, glucose 131, calcium 10.5, phosphorus 6.6. ASSESSMENT AND PLAN: 1. Acute respiratory failure-Pulmonary is following. The patient is currently intubated. He does have a history of aspiration pneumonia. Continue supportive care. 2. End-stage renal disease, stable. No indication for any emergent dialysis today. We will continue current Saturday, Saturday, and Saturday dialysis regimen. We are attempting fluid removal as tolerated by this patient. 3. Anemia. We are continuing the patient's Epogen regimen. 4. Infective endocarditis/mural thrombosis, on IV antibiotics. ID is following. His overall prognosis remains poor. 5. Continue supportive care. Job ID: [id number]
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
[2018-09-23] MEDS: Propofol 1,000 MG/100 ML VIAL IV PRN (15:56)
--- NOTE | 2018-09-23 18:20 | PDOC.PN ---
- Subjective Encounter Start Date: 09/23/18 Encounter Start Time: 10:20 Subjective: f/u for acute hypoxic resp failure and aspiration PNA requiring mech -: ventilation overnight. Remains on Teflaro, Daptomycin and Zosyn. -: No new events reported. - Objective Resuscitation Status - Order Detail: 09/20/18 11:46 Resuscitation Status Routine Resuscitation Status: FULL: Full Resuscitation MAR Reviewed: Yes Vital Signs & Weight: Vital Signs (12 hours) Temp Pulse Resp BP Pulse Ox 09/23/18 18:00 17 09/23/18 16:00 98.8 F 16 09/23/18 15:22 101 H 09/23/18 14:00 15 09/23/18 13:16 97 126/72 09/23/18 12:00 23 H 09/23/18 10:34 97 127/70 09/23/18 10:00 14 09/23/18 08:00 100 F H 25 H 100 09/23/18 07:01 100 135/75 Weight Admit Weight 147 lb 0.773 oz Weight 152 lb 12.485 oz Most Recent Monitor Data Heart Rate from ECG 95 NIBP 160/77 NIBP BP-Mean 104 Respiration from ECG 17 SpO2 100 I&O: 09/22/18 09/23/18 09/24/18 06:59 06:59 06:59 Intake Total 920 703 584 Output Total 0 200 50 Balance 920 503 534 Result Diagrams: 09/22/18 09:15 09/23/18 05:00 Additional Labs: Accuchecks 09/23/18 09/23/18 09/22/18 11:08 04:36 20:14 POC Glucose 137 H 132 H 143 H Microbiology 09/20/18 08:52 Venous blood - Right Hand Blood Culture - Preliminary NO GROWTH AT 48 HOURS 09/20/18 08:52 Venous blood - Right Arm Blood Culture - Preliminary NO GROWTH AT 48 HOURS Laboratory Tests 09/20/18 09/20/18 09/21/18 08:52 08:52 05:17 WBC 17.7 H Hgb 11.5 L Creatinine 5.71 H 7.21 H Phosphorus 09/21/18 09/22/18 09/23/18 05:17 09:15 05:00 WBC 13.0 H Hgb 9.2 L Creatinine 9.43 H Phosphorus 9.2 H* 6.6 H Radiology Reviewed by me: Yes (PCXR - ETT in position, RLL infiltrate) EKG Reviewed by me: Yes (Tele - Sinus tachycardia) Phys Exam - Physical Examination sedate on mech vent, ETT in place HEENT: sclera anicteric, oral pharynx no lesions Neck: no nodes, no JVD, supple, full ROM coarse sounds in bases R>L S1, S2 Cardiovascular: RRR, no significant murmur, no rub, gallop Gastrointestinal: soft, non-tender, no distention, positive bowel sounds Musculoskeletal: no edema, pulses present R hemiparesis Skin: normal turgor, cap refill <2 seconds Dx/Plan (1) Acute respiratory failure with hypoxia Code(s): J96.01 - ACUTE RESPIRATORY FAILURE WITH HYPOXIA Status: Acute Comment: Requiring [facility] ventilation due to #2, continue SIMV, likely unweanable given co-morbid conditions, serial PCXR, ABG (2) Aspiration pneumonia Code(s): J69.0 - PNEUMONITIS DUE TO INHALATION OF FOOD AND VOMIT Status: Acute Comment: RLL involvement, continue Teflaro, Zosyn and Daptomycin (3) ESRD on dialysis Code(s): N18.6 - END STAGE RENAL DISEASE; Z99.2 - DEPENDENCE ON RENAL DIALYSIS Status: Acute Comment: Continue maintenance HD (4) Hyperphosphatemia Code(s): E83.39 - OTHER DISORDERS OF PHOSPHORUS METABOLISM Status: Acute Comment: Resume Renvela 800mg TID, repeat PO3 in am (5) Cerebral septic emboli Code(s): I76 - SEPTIC ARTERIAL EMBOLISM; I66.9 - OCCLUSION AND STENOSIS OF UNSPECIFIED CEREBRAL ARTERY Status: Chronic Comment: Suspected given hx of infective endocarditis and MRSA bacteremia, continue Daptomycin/Teflaro/Zosyn (6) Anemia in chronic kidney disease Code(s): N18.9 - CHRONIC KIDNEY DISEASE, UNSPECIFIED; D63.1 - ANEMIA IN CHRONIC KIDNEY DISEASE Status: Chronic Qualifiers: Chronic kidney disease stage: on chronic dialysis Qualified Code(s): N18.6 - End stage renal disease; D63.1 - Anemia in chronic kidney disease; Z99.2 - Dependence on renal dialysis Comment: Serial monitoring, no current evidence of acute blood loss (7) Diabetic nephropathy associated with type 2 diabetes mellitus Code(s): E11.21 - TYPE 2 DIABETES MELLITUS WITH DIABETIC NEPHROPATHY Status: Chronic Comment: ISS, serial accuchecks - Plan continue antibiotics, socially responsible investment adviser, respiratory therapy, DVT proph w/SCDs Continue critical support -: Continue Teflaro, Daptomycin and Zosyn -: CCU sedation protocol -: Palliative care consulted -: AM lab: BMP, CBC * Poor prognosis
[2018-09-23] MEDS: HumaLOG 300 UNITS/3 ML VIAL SC PRN (18:30)
--- NOTE | 2018-09-23 18:45 | PRG ---
DATE OF SERVICE: 09/23/2018 SUBJECTIVE: Mr. Keita is in C1 and developed respiratory complications and now he is intubated and sedated at this time. OBJECTIVE: HEENT: He opens his eyes intermittently. His pupils are 1 mm. LUNGS: With diminished breath sounds in the right hemithorax. Few crackles there. HEART: S1 and S2. Regular rate. ABDOMEN: Soft, not distended. LABORATORY DATA: White cell count is 10,000, hemoglobin 8.6, platelets 241, 82% neutrophils. This is from yesterday. Sodium 138, creatinine is 6.01, calcium 10.5. Two sets of blood culture, no growth at 48 hours. Repeat chest x-ray from yesterday with focal parenchymal opacity in the right lung base. 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 Conversations with family members regarding palliative care are being undertaken. Job ID: [id number]
[2018-09-24] MEDS: Piperacillin/Tazobactam 2.25 GM in Sodium Chloride 0.9% 100 ML IVPB SCH ×3 (01:00→16:47)
[2018-09-24] MEDS: HumaLOG 300 UNITS/3 ML VIAL SC PRN ×2 (04:01→19:16)
[2018-09-24] MEDS: Acetaminophen 650 MG Suppository PR PRN ×2 (04:05→22:41)
[2018-09-24 04:30] LABS: Anion Gap 23 mmol/L (10-20); BUN (Urea Nitrogen) 66 mg/dL (8.4-25.7); Calc. Creatinine Clearance 10 mL/min (70-130); Calcium 10.4 mg/dL (7.8-10.44); Carbon Dioxide 26 mmol/L (22-29); Chloride 97 mmol/L (98-107); Estimated GFR-MDRD 8; Glucose 150 mg/dL (70-105); Potassium 5.2 mmol/L (3.5-5.1); Sodium 141 mmol/L (136-145)
[2018-09-24 04:44] LABS: Hemoglobin 8.4 g/dL (14.0-18.0); MDiff Complete? YES; Mean Corpuscular Hemoglobin 23.5 pg (27.0-31.0); Mean Corpuscular Volume 75.8 fL (78.0-98.0); Mean Platelet Volume 8.7 fL (7.4-10.4); Platelet Count 306 thou/uL (130-400); Red Blood Cell (RBC) Count 3.59 mill/uL (4.70-6.10); White Blood Cell (WBC) Count 11.9 thou/uL (4.8-10.8)
[2018-09-24 04:45] LABS: Lymphocytes 8 % (21-51); Monocytes 8 % (0-10); Neutrophil 84 % (42-75)
[2018-09-24 06:58] LABS: Actual Bicarbonate (HCO3a) 24.1 mEq/L (22-28); Base Excess (BEa) 0.7 mEq/L (-2.0 to +3.0); CO2 Tension 33.7 mmHg (35.0-45.0); Calcium, Ionized 1.16 mmol/L (1.12-1.30); Carboxyhemoglobin (COHb) 0.1 gm% (0.0-3.0); Hemoglobin (Hb) 9.1 g/dL (14.0-18.0); O2 Tension (PaO2) 132.9 mmHg (80.0-100.0); Potassium - ABG Lab 4.91 mmol/L (3.70-5.30); pH, Arterial 7.47 (7.35-7.45)
[2018-09-24 07:00] LABS: ALV-art Gradient 252.775 (0-20); Puncture Site RRA
[2018-09-24] MEDS: Pantoprazole 40 MG VIAL IVP SCH (08:52)
[2018-09-24] MEDS: Heparin 5,000 UNITS/ML VIAL SC SCH ×2 (08:52→20:20)
[2018-09-24] MEDS: Sevelamer Carbonate 800 MG TAB PER TUBE SCH ×3 (08:53→16:47)
--- NOTE | 2018-09-24 09:21 | PRG ---
DATE OF SERVICE: 09/24/2018 SUBJECTIVE: Mr. Keita is a 58-year-old black male with ESRD and was admitted for aspiration pneumonia. During this hospitalization, he went to acute respiratory failure, was intubated and placed on ventilator support. He has also a recent diagnosis of infective endocarditis/mural thrombus. During his last hospitalization, he developed a CVA secondary to septic emboli. He is currently on several IV antibiotics. I am currently dialyzing the patient. No other acute events last night. OBJECTIVE: VITAL SIGNS: Blood pressure is 103/79, heart rate 94, respiratory rate 14, pulse ox 100%. GENERAL: The patient is not fully arousable, sedated, not in overt distress. SKIN: Adequate turgor. HEENT: He has a slightly pale conjunctivae. Anicteric sclerae. No neck mass. No carotid bruits. No JVD. CHEST: No deformities. LUNGS: Decreased breath sounds. HEART: Normal sinus rhythm. Grade 2/6 systolic murmur. No gallops. No rubs. ABDOMEN: Globular, soft, nontender. No masses. EXTREMITIES: No edema. NEUROLOGICAL: Decreased mentation, right-sided weakness. LABORATORY DATA: Laboratories of September 24, 2018, white count 11.9, hemoglobin 8.4, sodium 141, potassium 5.2, chloride 97, carbon dioxide 26, BUN 66, creatinine 8.26, glucose 150, and calcium 10.4. ASSESSMENT AND PLAN: 1. End-stage renal disease, currently undergoing hemodialysis. Fluid removal only as tolerated. No heparin use for the moment. 2. Aspiration pneumonia-currently intubated on ventilator support. This patient is being considered for possible tracheostomy depending on what the patient's family wishes. 3. Anemia, on weekly Epogen. P.r.n. blood transfusion. 4. Infective endocarditis, currently on several IV antibiotics. ID is following. Overall prognosis remains poor. Agree with current management. Job ID: [id number]
[2018-09-24] MEDS: Propofol 1,000 MG/100 ML VIAL IV PRN (10:05)
[2018-09-24] MEDS: Piperacillin/Tazobactam 0.75 GM, Admixture Fee 1 EACH in Sodium Chloride 0.9% 100 ML IVPB SCH (13:25)
[2018-09-24] MEDS: DAPTOmycin 400 MG in Sodium Chloride 0.9% 50 ML IVPB SCH (16:59)
[2018-09-24] MEDS ORDERED: niCARdipine HCl 50 MG in Sodium Chloride 0.9% 250 ML 230 ML IVPB SCH (17:45)
[2018-09-24] MEDS: Acetaminophen 650 MG/20.3 ML UDCUP PER TUBE PRN (17:46)
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
--- NOTE | 2018-09-24 18:41 | PDOC.PN ---
- Subjective Encounter Start Date: 09/24/18 Encounter Start Time: 14:15 Subjective: f/u for resp failure, aspiration PNA on [facility] ventilation. Remains mech -: ventilated and unresponsive. - Objective Resuscitation Status - Order Detail: 09/20/18 11:46 Resuscitation Status Routine Resuscitation Status: FULL: Full Resuscitation MAR Reviewed: Yes Vital Signs & Weight: Vital Signs (12 hours) Temp Pulse Resp Pulse Ox 09/24/18 18:23 100 18 100 09/24/18 14:59 104 H 09/24/18 14:00 22 H 09/24/18 13:29 94 09/24/18 12:00 99.4 F 18 09/24/18 11:00 93 09/24/18 10:00 14 09/24/18 08:00 100.2 F H 14 100 09/24/18 06:50 93 Weight Admit Weight 147 lb 0.773 oz Weight 151 lb 0.266 oz Most Recent Monitor Data Heart Rate from ECG 102 NIBP 132/64 NIBP BP-Mean 86 Respiration from ECG 18 SpO2 100 I&O: 09/23/18 09/24/18 09/25/18 06:59 06:59 06:59 Intake Total 703 1129 320 Output Total 200 100 Balance 503 1029 320 Result Diagrams: 09/24/18 04:00 09/24/18 04:00 Additional Labs: Accuchecks 09/24/18 09/24/18 09/23/18 11:24 04:00 21:08 POC Glucose 108 156 H 138 H Microbiology 09/20/18 08:52 Venous blood - Right Hand Blood Culture - Preliminary NO GROWTH AT 48 HOURS 09/20/18 08:52 Venous blood - Right Arm Blood Culture - Preliminary NO GROWTH AT 48 HOURS Laboratory Tests 09/20/18 09/20/18 09/21/18 08:52 08:52 05:17 WBC 17.7 H Hgb 11.5 L Creatinine 5.71 H 7.21 H Phosphorus 09/21/18 09/22/18 09/23/18 05:17 09:15 05:00 WBC 13.0 H Hgb 9.2 L Creatinine 9.43 H Phosphorus 9.2 H* 6.6 H EKG Reviewed by me: Yes (Tele - Sinus tachycardia) Phys Exam - Physical Examination [facility], ETT in place HEENT: PERRLA, sclera anicteric, oral pharynx no lesions Neck: no nodes, no JVD, supple, full ROM diminished bilat, few rhonchi S1, S2 Cardiovascular: RRR, no significant murmur, no rub, gallop Gastrointestinal: soft, no distention, positive bowel sounds Musculoskeletal: no edema, pulses present unresponsive Skin: normal turgor, cap refill <2 seconds Dx/Plan (1) Acute respiratory failure with hypoxia Code(s): J96.01 - ACUTE RESPIRATORY FAILURE WITH HYPOXIA Status: Acute Comment: Requiring mech ventilation due to #2, continue SIMV, likely unweanable given co-morbid conditions, serial PCXR, ABG (2) Aspiration pneumonia Code(s): J69.0 - PNEUMONITIS DUE TO INHALATION OF FOOD AND VOMIT Status: Acute Comment: RLL involvement, continue Teflaro, Zosyn and Daptomycin, likely recurrent process and end-stage (3) ESRD on dialysis Code(s): N18.6 - END STAGE RENAL DISEASE; Z99.2 - DEPENDENCE ON RENAL DIALYSIS Status: Acute Comment: Continue maintenance HD (4) Hyperphosphatemia Code(s): E83.39 - OTHER DISORDERS OF PHOSPHORUS METABOLISM Status: Acute Comment: Resume Renvela 800mg TID, repeat PO3 in am (5) Cerebral septic emboli Code(s): I76 - SEPTIC ARTERIAL EMBOLISM; I66.9 - OCCLUSION AND STENOSIS OF UNSPECIFIED CEREBRAL ARTERY Status: Chronic Comment: Suspected given hx of infective endocarditis and MRSA bacteremia, continue Daptomycin/Teflaro/Zosyn (6) Anemia in chronic kidney disease Code(s): N18.9 - CHRONIC KIDNEY DISEASE, UNSPECIFIED; D63.1 - ANEMIA IN CHRONIC KIDNEY DISEASE Status: Chronic Qualifiers: Chronic kidney disease stage: on chronic dialysis Qualified Code(s): N18.6 - End stage renal disease; D63.1 - Anemia in chronic kidney disease; Z99.2 - Dependence on renal dialysis Comment: Serial monitoring, no current evidence of acute blood loss (7) Diabetic nephropathy associated with type 2 diabetes mellitus Code(s): E11.21 - TYPE 2 DIABETES MELLITUS WITH DIABETIC NEPHROPATHY Status: Chronic Comment: ISS, serial accuchecks - Plan continue antibiotics, PT/OT, community mental health social worker, respiratory therapy, DVT proph w/ SCDs Continue critical support -: SIMV and unweanable, likely end-stage process -: Continue Teflaro/Zosyn/Daptomycin -: Palliative care -: HD per Renal service * AM lab: BMP, CBC * PCXR in am
[2018-09-25] MEDS: Piperacillin/Tazobactam 2.25 GM in Sodium Chloride 0.9% 100 ML IVPB SCH ×3 (00:47→17:46)
[2018-09-25] MEDS: Acetaminophen 650 MG/20.3 ML UDCUP PER TUBE PRN ×2 (03:40→15:00)
[2018-09-25] MEDS: HumaLOG 300 UNITS/3 ML VIAL SC PRN ×2 (03:48→17:53)
[2018-09-25 05:06] LABS: Anion Gap 21 mmol/L (10-20); BUN (Urea Nitrogen) 44 mg/dL (8.4-25.7); Calc. Creatinine Clearance 14 mL/min (70-130); Calcium 10.2 mg/dL (7.8-10.44); Carbon Dioxide 27 mmol/L (22-29); Chloride 95 mmol/L (98-107); Estimated GFR-MDRD 13; Glucose 141 mg/dL (70-105); Potassium 4.2 mmol/L (3.5-5.1); Sodium 139 mmol/L (136-145)
[2018-09-25 05:16] LABS: Band 5 % (5-11); Eosinophils 1 % (0-10); Lymphocytes 6 % (21-51); MDiff Complete? YES; Mean Corpuscular HGB CONC 31.1 g/dL (32.0-36.0); Mean Corpuscular Hemoglobin 23.4 pg (27.0-31.0); Mean Corpuscular Volume 75.2 fL (78.0-98.0); Mean Platelet Volume 8.6 fL (7.4-10.4); Neutrophil 88 % (42-75); Platelet Count 274 thou/uL (130-400); RBC Distribution Width 18.7 % (11.5-14.5); Red Blood Cell (RBC) Count 3.43 mill/uL (4.70-6.10); White Blood Cell (WBC) Count 11.5 thou/uL (4.8-10.8)
--- NOTE | 2018-09-25 09:29 | PRG ---
DATE OF SERVICE: 09/25/2018 SUBJECTIVE: Mr. Keita is a 58-year-old black male with ESRD-on maintenance hemodialysis. He was admitted for aspiration pneumonia. He developed acute respiratory failure in the hospital, has been intubated and placed on ventilator support. His mentation remains unimproved. Please note, this patient was also recently diagnosed with infective endocarditis and CVA secondary to a septic emboli. No acute events noted last night. OBJECTIVE: VITAL SIGNS: Blood pressure is 136/73, heart rate 93, respiratory rate 19, and pulse ox 100%. GENERAL EXAM: The patient is unresponsive, intubated, in ventilator support. HEENT: He has pale conjunctivae. Anicteric sclerae. NECK: No neck mass. No carotid bruits. No JVD. CHEST: No deformities. LUNGS: Clear breath sounds. HEART: Normal sinus rhythm. No murmur. No gallops. No rubs. ABDOMEN: Globular, soft, nontender. No masses. EXTREMITIES: No edema. No deformities. NEUROLOGICAL EXAM: He has a right-sided weakness. The patient remains unresponsive. MEDICATIONS: Medications of September 25, 2018, was reviewed. LABORATORY DATA: Laboratories of September 25, 2018, white count 11.5, hemoglobin 8. Sodium 139, potassium 4.2, chloride 95, carbon dioxide 27, BUN 44, creatinine 5.44, glucose 141, calcium 10.2. ASSESSMENT AND PLAN: 1. End-stage renal disease, stable. Continuing Saturday, Saturday, and Saturday hemodialysis. Continuing heparin-free dialysis with this patient. Fluid removal as tolerated. 2. Status post cardiorespiratory arrest-the patient remains unresponsive. He remains intubated. Eventually, he will need a tracheostomy. Pulmonary is following. 3. Status post cerebrovascular accident secondary to septic emboli-the patient will need a PEG tube placement for the long-term. 4. Infective endocarditis, currently on IV antibiotics. 5. Overall prognosis remains poor with this patient. Continue supportive care. Job ID: [id number]
[2018-09-25] MEDS: Heparin 5,000 UNITS/ML VIAL SC SCH ×2 (09:56→20:37)
[2018-09-25] MEDS: Pantoprazole 40 MG VIAL IVP SCH (09:57)
[2018-09-25] MEDS: Sevelamer Carbonate 800 MG TAB PER TUBE SCH ×3 (09:57→17:47)
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
--- NOTE | 2018-09-25 13:33 | RAD ---
EXAM: Single view of the chest HISTORY: Pneumonia COMPARISON: 09/22/2018 FINDINGS: Single view of the chest shows a normal sized cardiomediastinal silhouette. The lines and tubes are unchanged in position. Volume loss is seen in the right thorax with a wedgelike area of airspace opacity in the inferior thorax. There may be a small right pleural effusion. Degenerative ch anges are seen in the spine. IMPRESSION: Right lower lobe infiltrate with adjacent pleural effusion
--- NOTE | 2018-09-25 16:01 | PDOC.PN ---
- Subjective Encounter Start Date: 09/25/18 Encounter Start Time: 14:10 Subjective: f/u for resp failure, aspiration PNA [facility] -: but off sedation. Unweanable with need for Trach/PEG. - Objective Resuscitation Status - Order Detail: 09/20/18 11:46 Resuscitation Status Routine Resuscitation Status: FULL: Full Resuscitation MAR Reviewed: Yes Vital Signs & Weight: Vital Signs (12 hours) Temp Pulse Resp Pulse Ox 09/25/18 14:00 18 09/25/18 12:33 99 09/25/18 12:00 100.4 F H 20 09/25/18 10:28 96 09/25/18 10:00 18 09/25/18 08:00 98.9 F 17 09/25/18 07:51 100 09/25/18 07:00 89 09/25/18 06:00 14 09/25/18 05:00 99.4 F 09/25/18 04:00 99.5 F 25 H Weight Admit Weight 147 lb 0.773 oz Weight 147 lb 14.883 oz Most Recent Monitor Data Heart Rate from ECG 97 NIBP 155/67 NIBP BP-Mean 96 Respiration from ECG 0 SpO2 99 I&O: 09/24/18 09/25/18 09/26/18 06:59 06:59 06:59 Intake Total 1129 961 320 Output Total 100 Balance 1029 961 320 Result Diagrams: 09/25/18 03:40 09/25/18 03:40 Additional Labs: Accuchecks 09/25/18 09/25/18 09/24/18 12:41 03:45 22:12 POC Glucose 175 H 152 H 123 H 09/24/18 19:16 POC Glucose 173 H Microbiology 09/20/18 08:52 Venous blood - Right Hand Blood Culture - Preliminary NO GROWTH AT 48 HOURS 09/20/18 08:52 Venous blood - Right Arm Blood Culture - Preliminary NO GROWTH AT 48 HOURS Laboratory Tests 09/20/18 09/20/18 09/21/18 08:52 08:52 05:17 WBC 17.7 H Hgb 11.5 L Creatinine 5.71 H 7.21 H Phosphorus 09/21/18 09/22/18 09/23/18 05:17 09:15 05:00 WBC 13.0 H Hgb 9.2 L Creatinine 9.43 H Phosphorus 9.2 H* 6.6 H Radiology Reviewed by me: Yes (PCXR - RLL infiltrate with effusion, lines/tubes in place) EKG Reviewed by me: Yes (Tele - SR) Phys Exam - Physical Examination sedate, unresponsive, mech ventilation, ETT in place HEENT: oral pharynx no lesions C-collar in place Neck: no nodes, no JVD, supple, full ROM diminished in bases Respiratory: no rhonchi S1, S2 Cardiovascular: RRR, no significant murmur, no rub, gallop Gastrointestinal: soft, non-tender, no distention, positive bowel sounds Musculoskeletal: no edema, pulses present unresponsive Skin: normal turgor, cap refill <2 seconds Dx/Plan (1) Acute respiratory failure with hypoxia Code(s): J96.01 - ACUTE RESPIRATORY FAILURE WITH HYPOXIA Status: Acute Comment: Requiring mech ventilation due to #2, continue SIMV, likely unweanable given co-morbid conditions, serial PCXR, ABG, consideration for tracheostomy (2) Aspiration pneumonia Code(s): J69.0 - PNEUMONITIS DUE TO INHALATION OF FOOD AND VOMIT Status: Acute Comment: RLL involvement, continue Teflaro, Zosyn and Daptomycin, likely recurrent process and end-stage (3) ESRD on dialysis Code(s): N18.6 - END STAGE RENAL DISEASE; Z99.2 - DEPENDENCE ON RENAL DIALYSIS Status: Acute Comment: Continue maintenance HD (4) Hyperphosphatemia Code(s): E83.39 - OTHER DISORDERS OF PHOSPHORUS METABOLISM Status: Acute Comment: Resume Renvela 800mg TID, repeat PO3 in am (5) Cerebral septic emboli Code(s): I76 - SEPTIC ARTERIAL EMBOLISM; I66.9 - OCCLUSION AND STENOSIS OF UNSPECIFIED CEREBRAL ARTERY Status: Chronic Comment: Suspected given hx of infective endocarditis and MRSA bacteremia, continue Daptomycin/Teflaro/Zosyn (6) Anemia in chronic kidney disease Code(s): N18.9 - CHRONIC KIDNEY DISEASE, UNSPECIFIED; D63.1 - ANEMIA IN CHRONIC KIDNEY DISEASE Status: Chronic Qualifiers: Chronic kidney disease stage: on chronic dialysis Qualified Code(s): N18.6 - End stage renal disease; D63.1 - Anemia in chronic kidney disease; Z99.2 - Dependence on renal dialysis Comment: Serial monitoring, no current evidence of acute blood loss (7) Diabetic nephropathy associated with type 2 diabetes mellitus Code(s): E11.21 - TYPE 2 DIABETES MELLITUS WITH DIABETIC NEPHROPATHY Status: Chronic Comment: ISS, serial accuchecks - Plan continue antibiotics, social media manager, respiratory therapy, DVT proph w/SCDs Continue critical support -: Trach and PEG consideration -: Palliative care options -: Continue IV abx -: AM lab: BMP, CBC, ABG * Poor prognosis
[2018-09-26] MEDS: Piperacillin/Tazobactam 2.25 GM in Sodium Chloride 0.9% 100 ML IVPB SCH ×3 (00:42→16:16)
[2018-09-26] MEDS: Acetaminophen 650 MG/20.3 ML UDCUP PER TUBE PRN (00:52)
[2018-09-26 05:05] LABS: Anion Gap 26 mmol/L (10-20); BUN (Urea Nitrogen) 69 mg/dL (8.4-25.7); Calc. Creatinine Clearance 11 mL/min (70-130); Calcium 10.1 mg/dL (7.8-10.44); Carbon Dioxide 24 mmol/L (22-29); Chloride 96 mmol/L (98-107); Estimated GFR-MDRD 10; Glucose 151 mg/dL (70-105); Potassium 4.5 mmol/L (3.5-5.1); Sodium 141 mmol/L (136-145)
[2018-09-26 05:20] LABS: Anisocytosis SLIGHT = 6-15 cells (100X) (0-5/hpf); Band 2 % (5-11); Eosinophils 1 % (0-10); Hypochromia SLIGHT = 6-15 cells (100X) (0-5/hpf); Lymphocytes 8 % (21-51); MDiff Complete? YES; Mean Corpuscular HGB CONC 31.3 g/dL (32.0-36.0); Mean Corpuscular Hemoglobin 23.5 pg (27.0-31.0); Mean Corpuscular Volume 75.1 fL (78.0-98.0); Mean Platelet Volume 8.8 fL (7.4-10.4); Microcytosis SLIGHT = 6-15 cells (100X) (0-5/hpf); Monocytes 11 % (0-10); Neutrophil 76 % (42-75); Platelet Count 288 thou/uL (130-400); Platelet Morphology Comment Appears Adequate; RBC Distribution Width 18.4 % (11.5-14.5); Reactive Lymphocytes 1 % (0-10)
--- NOTE | 2018-09-26 07:26 | HP ---
HISTORY OF PRESENT ILLNESS: Mr. Keita is a 58-year-old black male with known history of ESRD and currently followed by the renal service for his maintenance hemodialysis. The patient was initially admitted due to aspiration pneumonia. He developed acute respiratory failure and had to be intubated. He is now off his IV sedation. He has not fully awakened. He still has low-grade fever. Please note, he has also underlying history of infective endocarditis. PHYSICAL EXAMINATION: VITAL SIGNS: Blood pressure is 122/68, heart rate 101, respiratory rate 27, and pulse ox 95%. GENERAL: The patient is unresponsive, intubated on ventilator support. SKIN: Adequate turgor. HEENT: He has slightly pale conjunctivae. Anicteric sclerae. No neck mass. No carotid bruits. No JVD. CHEST: No deformities. LUNGS: Decreased breath sounds. HEART: Normal sinus rhythm. Grade 2/6 systolic murmur. No gallops. No rubs. ABDOMEN: Globular, soft, nontender. No masses. EXTREMITIES: No edema. NEUROLOGICAL: Decreased mentation, right-sided weakness. MEDICATIONS: Medications of September 26, 2018, were reviewed. LABORATORY DATA: Laboratories of September 26, 2018; white count 11, hemoglobin 8. Sodium 141, potassium 4.5, chloride 96, carbon dioxide 24, BUN 69, creatinine 7.2, glucose 151, calcium 10.1. ASSESSMENT AND PLAN: 1. End-stage renal disease, stable. We will continue current Saturday, Saturday, and Saturday hemodialysis regimen. Again, no heparin to be used. Fluid removal only as tolerated. No changes will be made with the current hemodialysis bath. 2. Aspiration pneumonia/acute respiratory failure-the patient did not fully awake. He may end up needing tracheostomy. We are awaiting for the final decision by the family. 3. Infective endocarditis-on IV antibiotics. ID is following. Overall prognosis remains poor. Job ID: [id number]
[2018-09-26] MEDS: Acetaminophen 650 MG Suppository PR PRN (07:33)
[2018-09-26] MEDS: Sevelamer Carbonate 800 MG TAB PER TUBE SCH ×3 (07:39→16:16)
[2018-09-26] MEDS: Heparin 5,000 UNITS/ML VIAL SC SCH ×2 (07:40→21:23)
--- NOTE | 2018-09-26 08:22 | RAD ---
CHEST 1 VIEW: Date: 09/26/18 INDICATION: Intubation. COMPARISON: Prior exam dated 09/25/18. FINDINGS: Right basilar pleural parenchymal opacity persists. Left lung remains hyperaerated but clear. Right-s ided PICC line is stable. ET tube and gastric catheter unchanged. No pneumothorax evident. IMPRESSION: Stable exam. POS: BH
[2018-09-26] MEDS: Pantoprazole 40 MG VIAL IVP SCH (09:04)
--- NOTE | 2018-09-26 09:27 | CON ---
DATE OF CONSULTATION: 09/26/2018 CHIEF COMPLAINT: Respiratory failure. HISTORY OF PRESENT ILLNESS: This is a 58-year-old male, who has end-stage renal disease, who presents after an aspiration pneumonia. He has a history of infected endocarditis, likely from tunneled central line and is still undergoing treatment for that. I have been consulted for tracheostomy and PEG feeding tube. PAST MEDICAL HISTORY: End-stage renal disease, infected endocarditis, nonischemic cardiomyopathy, diabetes type 2, COPD, history of SVT, and history of stroke and dysphagia. ALLERGIES: NO KNOWN DRUG ALLERGIES. MEDICINES: See list. PHYSICAL EXAMINATION: VITAL SIGNS: His pulse is 91 and blood pressure 120/54. He is afebrile. CRANIOFACIAL: Atraumatic. GENERAL: He is alert on the ventilator, not following commands. CHEST: Clear. HEART: Regular rate and rhythm. ABDOMEN: Soft without any obvious old incision, scars, or hernias. EXTREMITIES: No ischemic edema to extremities. LABORATORY DATA: White blood cell count is 11 and hemoglobin 8. Creatinine is 7.2. ASSESSMENT: Respiratory failure from aspiration pneumonia, history of infective endocarditis, and end-stage renal disease. PLAN: Tracheostomy and PEG feeding tube. Potentially, this afternoon if the or schedule will allow, risks and benefits will be discussed with family. Job ID: [id number]
[2018-09-26] MEDS ORDERED: Rocuronium Bromide 10 MG/ML (10ML VIAL) ONE (10:43)
[2018-09-26] MEDS ORDERED: PHENYLEPHRINE-NS 100 MCG/ML 10 ML SYRINGE ONE (10:43)
--- NOTE | 2018-09-26 11:15 | PRG ---
DATE OF SERVICE: 09/26/2018 SUBJECTIVE: Mr. Keita remains poorly responsive. Hemodynamically stable. OBJECTIVE: VITAL SIGNS: He is afebrile, respiratory rate 22, heart rate 86, blood pressure 119/61. LUNGS: Clear. HEART: Regular rhythm. S1, S2 are normal. ABDOMEN: Soft. EXTREMITIES: Without asymmetry. NEURO: Unchanged. IMAGING: Chest x-ray shows right lower lung field alveolar infiltrates. Film was rotated. IMPRESSION: 1. Pneumonia, probably aspiration mediated. At some point, he will need a bronchoscopy just to look at his right middle, right lower lobe since he has a history of smoking and drug abuse. I doubt he has an endobronchial lesion. 2. Respiratory failure. 3. History of an embolic CVA. 4. Encephalopathy. 5. Respiratory failure secondary to inability to handle his secretions. 6. Endocarditis. 7. End-stage renal disease. PLAN: Trach and PEG today. Continue with antimicrobial therapy. Continue with attempts at weaning from mechanical ventilation. Probably do a fiberoptic bronchoscopy at the bedside Saturday or Saturday. CRITICAL CARE TIME: 30 minutes. Job ID: [id number]
[2018-09-26] MEDS ORDERED: Fentanyl 100 MCG/2 ML VIAL ONE (13:05)
[2018-09-26] MEDS ORDERED: Midazolam HCl 2 mg/2 ml Vial ONE (13:05)
[2018-09-26] MEDS ORDERED: Bupivacaine/Epinephrine 0.25% 30 ML VIAL ONE (13:16)
[2018-09-26] MEDS: Piperacillin/Tazobactam 0.75 GM, Admixture Fee 1 EACH in Sodium Chloride 0.9% 100 ML IVPB SCH (14:14)
--- NOTE | 2018-09-26 15:53 | RAD ---
XR Chest 1 View Portable History: [Tracheostomy] Comparison: Chest radiograph same day Findings: The tracheostomy tube is in place. Large layering right pleural effusion. Left lung is callie r. PICC is similar. Chronic silhouette is similar. The enteric tube is in place. The gastric catheter is present. Impression: Uncomplicated placement tracheostomy.
[2018-09-26] MEDS: DAPTOmycin 400 MG in Sodium Chloride 0.9% 50 ML IVPB SCH (16:15)
--- NOTE | 2018-09-26 16:27 | PDOC.PN ---
- Subjective Encounter Start Date: 09/26/18 Encounter Start Time: 12:00 Subjective: f/u resp failure, aspiration PNA on mech ventilation. Plan for trach /PEG -: today. - Objective Resuscitation Status - Order Detail: 09/20/18 11:46 Resuscitation Status Routine Resuscitation Status: FULL: Full Resuscitation MAR Reviewed: Yes Vital Signs & Weight: Vital Signs (12 hours) Temp Pulse Resp Pulse Ox 09/26/18 16:00 98.4 F 19 09/26/18 15:17 77 09/26/18 14:57 98.2 F 09/26/18 14:50 15 98 09/26/18 13:12 85 09/26/18 12:00 16 09/26/18 11:59 99.2 F 09/26/18 10:40 86 09/26/18 09:47 98.6 F 22 H 09/26/18 08:59 99.9 F H 09/26/18 07:42 16 100 09/26/18 07:19 94 09/26/18 07:00 102.2 F H 09/26/18 06:00 26 H 09/26/18 05:00 100.3 F H Weight Admit Weight 147 lb 0.773 oz Weight 151 lb 3.794 oz Most Recent Monitor Data Heart Rate from ECG 78 NIBP 137/69 NIBP BP-Mean 91 Respiration from ECG 16 SpO2 98 I&O: 09/25/18 09/26/18 09/27/18 06:59 06:59 06:59 Intake Total 961 1429 150 Balance 961 1429 150 Result Diagrams: 09/26/18 04:00 09/26/18 04:00 Additional Labs: Accuchecks 09/26/18 09/26/18 09/26/18 16:01 09:38 04:29 POC Glucose 113 H 128 H 159 H 09/25/18 09/25/18 20:38 17:53 POC Glucose 120 H 154 H Microbiology 09/20/18 08:52 Venous blood - Right Hand Blood Culture - Preliminary NO GROWTH AT 48 HOURS 09/20/18 08:52 Venous blood - Right Arm Blood Culture - Preliminary NO GROWTH AT 48 HOURS Laboratory Tests 09/20/18 09/20/18 09/21/18 08:52 08:52 05:17 WBC 17.7 H Hgb 11.5 L Creatinine 5.71 H 7.21 H Phosphorus 09/21/18 09/22/18 09/23/18 05:17 09:15 05:00 WBC 13.0 H Hgb 9.2 L Creatinine 9.43 H Phosphorus 9.2 H* 6.6 H Radiology Reviewed by me: Yes (PCXR - RML opacity remains, lines/tubes in position) EKG Reviewed by me: Yes (Tele - SR) Phys Exam - Physical Examination opens eyes to name, follows simple commands ETT in place HEENT: PERRLA, sclera anicteric, oral pharynx no lesions Neck: no nodes, no JVD, supple, full ROM diminished in R base Respiratory: no wheezing, no rales, no rhonchi, clear to auscultation bilateral S1, S2 Cardiovascular: RRR (s1, ), no significant murmur, no rub, gallop Gastrointestinal: soft, non-tender, no distention, positive bowel sounds Musculoskeletal: no edema, pulses present squeezes with L hand and moves LLE to command, opens eyes to name Skin: normal turgor, cap refill <2 seconds Dx/Plan (1) Acute respiratory failure with hypoxia Code(s): J96.01 - ACUTE RESPIRATORY FAILURE WITH HYPOXIA Status: Acute Comment: Requiring mech ventilation due to #2, continue SIMV, unweanable currently, Tracheostomy today (2) Aspiration pneumonia Code(s): J69.0 - PNEUMONITIS DUE TO INHALATION OF FOOD AND VOMIT Status: Acute Comment: RLL involvement, continue Teflaro, Zosyn and Daptomycin, likely recurrent process and end-stage, bronchoscopy for early next week (3) ESRD on dialysis Code(s): N18.6 - END STAGE RENAL DISEASE; Z99.2 - DEPENDENCE ON RENAL DIALYSIS Status: Acute Comment: Continue maintenance HD (4) Hyperphosphatemia Code(s): E83.39 - OTHER DISORDERS OF PHOSPHORUS METABOLISM Status: Acute Comment: Resume Renvela 800mg TID, repeat PO3 in am (5) Cerebral septic emboli Code(s): I76 - SEPTIC ARTERIAL EMBOLISM; I66.9 - OCCLUSION AND STENOSIS OF UNSPECIFIED CEREBRAL ARTERY Status: Chronic Comment: Suspected given hx of infective endocarditis and MRSA bacteremia, continue Daptomycin/Teflaro/Zosyn (6) Anemia in chronic kidney disease Code(s): N18.9 - CHRONIC KIDNEY DISEASE, UNSPECIFIED; D63.1 - ANEMIA IN CHRONIC KIDNEY DISEASE Status: Chronic Qualifiers: Chronic kidney disease stage: on chronic dialysis Qualified Code(s): N18.6 - End stage renal disease; D63.1 - Anemia in chronic kidney disease; Z99.2 - Dependence on renal dialysis Comment: Serial monitoring, no current evidence of acute blood loss (7) Diabetic nephropathy associated with type 2 diabetes mellitus Code(s): E11.21 - TYPE 2 DIABETES MELLITUS WITH DIABETIC NEPHROPATHY Status: Chronic Comment: ISS, serial accuchecks - Plan continue antibiotics, 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
[2018-09-27] MEDS: Piperacillin/Tazobactam 2.25 GM in Sodium Chloride 0.9% 100 ML IVPB SCH ×3 (01:05→18:13)
[2018-09-27 05:16] LABS: Anion Gap 26 mmol/L (10-20); BUN (Urea Nitrogen) 82 mg/dL (8.4-25.7); Calc. Creatinine Clearance 9 mL/min (70-130); Calcium 9.8 mg/dL (7.8-10.44); Carbon Dioxide 22 mmol/L (22-29); Chloride 97 mmol/L (98-107); Estimated GFR-MDRD 8; Glucose 92 mg/dL (70-105); Potassium 4.9 mmol/L (3.5-5.1); Sodium 140 mmol/L (136-145)
[2018-09-27 05:36] LABS: Band 9 % (5-11); Hemoglobin 7.5 g/dL (14.0-18.0); Hypochromia SLIGHT = 6-15 cells (100X) (0-5/hpf); Lymphocytes 9 % (21-51); MDiff Complete? YES; Mean Corpuscular HGB CONC 30.1 g/dL (32.0-36.0); Mean Corpuscular Hemoglobin 23.1 pg (27.0-31.0); Mean Platelet Volume 8.8 fL (7.4-10.4); Monocytes 6 % (0-10); Neutrophil 76 % (42-75); Platelet Count 277 thou/uL (130-400); Platelet Morphology Comment Appears Adequate; RBC Distribution Width 18.8 % (11.5-14.5); Red Blood Cell (RBC) Count 3.24 mill/uL (4.70-6.10); White Blood Cell (WBC) Count 9.2 thou/uL (4.8-10.8)
--- NOTE | 2018-09-27 08:03 | RAD ---
PORTABLE CHEST: HISTORY: CCU followup. Shortness of breath. COMPARISON: 09/26/2018. FINDINGS: Tracheostomy device again noted. Central line is unchanged. Elevated right hemidiaphragm and opacit y in the right lung base is again seen possibly representing atelectasis or infiltrate. The left claudia g remains clear. IMPRESSION: No significant interval change. POS: OFF
--- NOTE | 2018-09-27 08:34 | PDOC.GSPN ---
Surgery Progress Note: Subj - Subjective Narrative: No issues overnight Surgery Progress Note: Obj - Vital signs Vital signs: Vital Signs - Most Recent Temp Pulse Resp BP Pulse Ox 98.9 F 82 22 H 152/79 H 97 09/27/18 04:00 09/27/18 07:11 09/27/18 08:00 09/27/18 07:11 09/27/18 00:23 - Physical Exam Neck: other (Trach site clear) Cardiovascular: regular rate and rhythm Respiratory: breath sounds present Abdomen: soft, nondistended Surgery Progress Note: Results - Labs Result Diagrams: 09/27/18 04:30 09/27/18 04:30 Lab results: Laboratory Results - last 24 hr 09/26/18 09/27/18 09/27/18 21:26 04:30 04:30 WBC 9.2 RBC 3.24 L Hgb 7.5 L Hct 24.9 L MCV 77.0 L MCH 23.1 L MCHC 30.1 L RDW 18.8 H Plt Count 277 MPV 8.8 Neutrophils % (Manual) 76 H Band Neuts % (Manual) 9 Lymphocytes % (Manual) 9 L Monocytes % (Manual) 6 Hypochromia SLIGHT = 6-15 cells Plt Morphology Comment Appears Adequate Sodium 140 Potassium 4.9 Chloride 97 L Carbon Dioxide 22 Anion Gap 26 H BUN 82 H Creatinine 8.54 H Estimated GFR (MDRD) 8 Glucose 92 POC Glucose 118 H Calcium 9.8 09/27/18 06:25 WBC RBC Hgb Hct MCV MCH MCHC RDW Plt Count MPV Neutrophils % (Manual) Band Neuts % (Manual) Lymphocytes % (Manual) Monocytes % (Manual) Hypochromia Plt Morphology Comment Sodium Potassium Chloride Carbon Dioxide Anion Gap BUN Creatinine Estimated GFR (MDRD) Glucose POC Glucose 98 Calcium Surgery Progress Note: A/P - Problem (1) Acute respiratory failure with hypoxia Current Visit: Yes Code(s): J96.01 - ACUTE RESPIRATORY FAILURE WITH HYPOXIA Status: Acute - Plan Plan: POD 1 trach/peg -start TF -trach care can start in 48/72 hrs
[2018-09-27 09:22] LABS: HBSAg Index 0.29 S/CO (0-0.99); Hep B Surf Ag Non-Reactive S/CO (NonReactive)
[2018-09-27] MEDS: Sevelamer Carbonate 800 MG TAB PER TUBE SCH ×3 (09:27→18:14)
--- NOTE | 2018-09-27 09:29 | PRG ---
DATE OF SERVICE: 09/27/2018 TIME SPENT: 35 minutes of critical care time. SUBJECTIVE: The patient remains on mechanical ventilation through tracheostomy. He is very weak and will not follow commands specifically for me. OBJECTIVE: VITAL SIGNS: His temperature is 98.9, pulse 82, blood pressure 152/79, and O2 saturation 100%. Intake for 24 hours 735, output none. HEENT: Severe muscle wasting. NECK: Tracheostomy in place. LUNGS: Diminished breath sounds throughout. CARDIAC: S1 and S2, regular. ABDOMEN: Soft, nontender. EXTREMITIES: No edema. Severe muscle wasting in arms and legs. LABORATORY DATA: White blood cell count 9.2, hematocrit 24.9, and platelet count 277. Sodium 140, potassium 4.9, chloride 97, CO2 of 22, BUN 82, creatinine 8.5, and glucose 92. ASSESSMENT: 1. Pneumonia on likely secondary to aspiration. 2. Respiratory failure, requiring mechanical ventilation. 3. Embolic cerebrovascular accident. 4. Encephalopathy. 5. Severe neuromuscular weakness. 6. Endocarditis. 7. End-stage renal disease. PLAN: 1. Does not look imminently weanable from mechanical ventilation. Chest x-ray continues to show partial right diaphragmatic elevation. 2. Continue mechanical ventilation, probably will have bronchoscopy early next week. He will continue on the Cubicin, Teflaro, and Zosyn at the discretion of Dr. Ontiveros. 3. Dialysis today. Job ID: [id number]
--- NOTE | 2018-09-27 10:42 | PDOC.PN ---
- Subjective Encounter Start Date: 09/27/18 Encounter Start Time: 10:41 Mr. Keita was seen today in follow-up of aspiration pneumonia with respiratory failure. He is intubated and has a trach in place, His eyes are open but he does not track or follow commands for me. - Objective Resuscitation Status - Order Detail: 09/20/18 11:46 Resuscitation Status Routine Resuscitation Status: FULL: Full Resuscitation MAR Reviewed: Yes Vital Signs & Weight: Vital Signs (12 hours) Temp Pulse Resp BP Pulse Ox 09/27/18 09:00 98.3 F 09/27/18 08:55 89 148/72 H 09/27/18 08:00 22 H 09/27/18 07:11 82 152/79 H 09/27/18 06:00 21 H 09/27/18 04:00 98.9 F 18 09/27/18 02:23 77 147/58 H 09/27/18 02:00 98.2 F 17 09/27/18 00:23 79 24 H 97 09/27/18 00:00 98.2 F 18 Weight Admit Weight 147 lb 0.773 oz Weight 148 lb 12.992 oz Most Recent Monitor Data Heart Rate from ECG 87 NIBP 153/78 NIBP BP-Mean 103 Respiration from ECG 23 SpO2 100 I&O: 09/26/18 09/27/18 09/28/18 06:59 06:59 06:59 Intake Total 1429 735 Balance 1429 735 Result Diagrams: 09/27/18 04:30 09/27/18 04:30 Additional Labs: Accuchecks 09/27/18 09/26/18 09/26/18 06:25 21:26 16:01 POC Glucose 98 118 H 113 H Phys Exam - Physical Examination HEENT: PERRLA, sclera anicteric + coarse breath sounds with rales at the right base Cardiovascular: RRR, no significant murmur, no rub Gastrointestinal: soft, non-tender, no distention, positive bowel sounds PEG site ok Musculoskeletal: no edema, pulses present Dx/Plan (1) Acute respiratory failure with hypoxia Code(s): J96.01 - ACUTE RESPIRATORY FAILURE WITH HYPOXIA Status: Acute Comment: Requiring mech ventilation due to #2, continue SIMV, unweanable currently, Tracheostomy today (2) Aspiration pneumonia Code(s): J69.0 - PNEUMONITIS DUE TO INHALATION OF FOOD AND VOMIT Status: Acute Comment: RLL involvement, continue Teflaro, Zosyn and Daptomycin, likely recurrent process and end-stage, bronchoscopy for early next week (3) ESRD on dialysis Code(s): N18.6 - END STAGE RENAL DISEASE; Z99.2 - DEPENDENCE ON RENAL DIALYSIS Status: Acute Comment: Continue maintenance HD (4) HTN (hypertension) Code(s): I10 - ESSENTIAL (PRIMARY) HYPERTENSION Status: Acute (5) Infectious endocarditis Code(s): I33.0 - ACUTE AND SUBACUTE INFECTIVE ENDOCARDITIS Status: Acute Qualifiers: Infective endocarditis organism: bacterial Chronicity: acute Qualified Code(s): I33.0 - Acute and subacute infective endocarditis Comment: s/p 6 week of IV ABx at outside hospital (6) Anemia in chronic kidney disease Code(s): N18.9 - CHRONIC KIDNEY DISEASE, UNSPECIFIED; D63.1 - ANEMIA IN CHRONIC KIDNEY DISEASE Status: Chronic Qualifiers: Chronic kidney disease stage: on chronic dialysis Qualified Code(s): N18.6 - End stage renal disease; D63.1 - Anemia in chronic kidney disease; Z99.2 - Dependence on renal dialysis Comment: Serial monitoring, no current evidence of acute blood loss - Plan * Acute respiratory failure due to aspiration pneumonia. He recently had Tracheostomy placed. 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
--- NOTE | 2018-09-27 12:56 | PRG ---
DATE OF SERVICE: 09/27/2018 SUBJECTIVE: Mr. Keita is a 58-year-old black male with ESRD and currently undergoing hemodialysis. He was admitted for acute aspiration pneumonia and developed acute respiratory failure. Currently, on ventilator support. He had a tracheostomy and PEG tube placed yesterday. He is more arousable-has spontaneous eye opening, but cannot follow commands. OBJECTIVE: VITAL SIGNS: Blood pressure 153/78, heart rate 87, respiratory rate 23, and pulse ox 100%. GENERAL: The patient is awake, but not following commands. SKIN: Adequate turgor. HEENT: He has pale conjunctivae. Anicteric sclerae. Positive for tracheostomy. NECK: No neck mass. No carotid bruits. No JVD. CHEST: No deformities. LUNGS: Clear breath sounds. No wheezing. No crackles. HEART: Normal sinus rhythm. Grade 2/6 systolic murmur. No gallops or rubs. ABDOMEN: Globular, soft, nontender. No masses. Positive for PEG tube. EXTREMITIES: No edema. NEUROLOGIC: Right-sided weakness. MEDICATIONS: Medications of September 27, 2018, reviewed. LABORATORY DATA: On September 27, 2018, white count 9.2, hemoglobin 7.5. Sodium 140, potassium 4.9, chloride 97, carbon dioxide 22, BUN is 82, creatinine 8.54, calcium 9.8. ASSESSMENT AND PLAN: 1. End-stage renal disease, stable. We will continue current heparin free hemodialysis. Fluid removal only as tolerated. We will resume back the Saturday, Saturday, and Saturday hemodialysis next week. 2. 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 3. Infective endocarditis-currently on triple IV antibiotics. Overall, prognosis remains poor. 4. Anemia. Continuing weekly Epogen. Job ID: [id number]
[2018-09-27] MEDS: Heparin 5,000 UNITS/ML VIAL SC SCH ×2 (13:40→21:16)
[2018-09-27] MEDS: Pantoprazole 40 MG VIAL IVP SCH (13:40)
--- NOTE | 2018-09-27 13:44 | EKG ---
Test Reason : Blood Pressure : / mmHG Vent. Rate : 104 BPM Atrial Rate : 104 BPM P-R Int : 136 ms QRS Dur : 102 ms QT Int : 368 ms P-R-T Axes : 053 020 088 degrees QTc Int : 483 ms Sinus tachycardia Possible Left atrial enlargement Borderline ECG Confirmed by YULIYA JIMENEZ, GAVIN ([id number]), editor city DELVIN LANIER ([id number]) on 09/27/2018 1:44:36 PM Referred By: Confirmed By:GAVIN DWYER MD
[2018-09-27] MEDS: Acetaminophen 650 MG/20.3 ML UDCUP PER TUBE PRN (18:27)
[2018-09-28] MEDS: Piperacillin/Tazobactam 2.25 GM in Sodium Chloride 0.9% 100 ML IVPB SCH ×3 (00:23→18:06)
--- NOTE | 2018-09-28 08:05 | RAD ---
PORTABLE CHEST: HISTORY: CCU followup. COMPARISON: 09/27/2018. FINDINGS: Elevated right hemidiaphragm again noted. Patchy infiltrate in the right perihilar region is again s een. The left lung remains clear. Tracheostomy device and central line are unchanged. IMPRESSION: Above findings are stable from yesterday. POS: OFF
[2018-09-28] MEDS: Sevelamer Carbonate 800 MG TAB PER TUBE SCH ×3 (08:18→18:06)
[2018-09-28] MEDS: Heparin 5,000 UNITS/ML VIAL SC SCH ×2 (08:18→21:29)
[2018-09-28] MEDS: Pantoprazole 40 MG VIAL IVP SCH (08:19)
--- NOTE | 2018-09-28 09:49 | PRG ---
DATE OF SERVICE: 09/28/2018 35 minutes of critical care time. SUBJECTIVE: The patient remains on mechanical ventilation through tracheostomy. There were no acute changes overnight. OBJECTIVE: VITAL SIGNS: Temperature 98.4 with a T-max of 102.0, pulse 95, blood pressure 98/61. 24-hour intake 1322, output not recorded. HEENT: Unremarkable. NECK: C-collar in place. LUNGS: Clear anteriorly. CARDIAC: S1 and S2, regular. ABDOMEN: Soft and nontender. EXTREMITIES: No edema. LABORATORY DATA: White blood cell count 9.2, hematocrit 24.9, and platelet count 277. No chemistry was done today. ASSESSMENT: 1. Pneumonia secondary to aspiration. 2. Respiratory failure, requiring mechanical ventilation. 3. Embolic cerebrovascular accident. 4. Encephalopathy. 5. Severe neuromuscular weakness. 6. Endocarditis. 7. End-stage renal disease. PLAN: Not weanable at this time. Continuing dialysis and antibiotics. Job ID: [id number]
--- NOTE | 2018-09-28 10:28 | PDOC.PN ---
- Subjective Encounter Start Date: 09/28/18 Encounter Start Time: 10:26 Mr. Keita was seen today in follow-up of aspiration pneumonia. He will open his eyes to touch, but does not track, and does not follow commands. - Objective Resuscitation Status - Order Detail: 09/20/18 11:46 Resuscitation Status Routine Resuscitation Status: FULL: Full Resuscitation MAR Reviewed: Yes Vital Signs & Weight: Vital Signs (12 hours) Temp Pulse Resp BP Pulse Ox 09/28/18 08:00 98.4 F 23 H 98 09/28/18 07:03 84 113/65 09/28/18 06:00 26 H 09/28/18 04:00 100.0 F H 20 09/28/18 02:05 90 115/77 09/28/18 02:00 27 H 09/28/18 00:48 91 23 H 97 09/28/18 00:00 99.6 F 28 H Weight Admit Weight 147 lb 0.773 oz Weight 151 lb 3.794 oz Most Recent Monitor Data Heart Rate from ECG 93 NIBP 97/64 NIBP BP-Mean 75 Respiration from ECG 20 SpO2 94 I&O: 09/27/18 09/28/18 09/29/18 06:59 06:59 06:59 Intake Total 735 1322 50 Output Total 0 Balance 735 1322 50 Result Diagrams: 09/27/18 04:30 09/27/18 04:30 Additional Labs: Accuchecks 09/28/18 09/27/18 09/27/18 06:06 21:22 18:22 POC Glucose 133 H 118 H 122 H 09/27/18 11:41 POC Glucose 95 Phys Exam - Physical Examination HEENT: PERRLA + coarse breath sounds Cardiovascular: RRR, no significant murmur, no rub Gastrointestinal: soft, non-tender, no distention, positive bowel sounds Musculoskeletal: no edema, pulses present Dx/Plan (1) Aspiration pneumonia Code(s): J69.0 - PNEUMONITIS DUE TO INHALATION OF FOOD AND VOMIT Status: Acute Comment: RLL involvement, continue Teflaro, Zosyn and Daptomycin, likely recurrent process and end-stage, bronchoscopy for early next week (2) Acute respiratory failure with hypoxia Code(s): J96.01 - ACUTE RESPIRATORY FAILURE WITH HYPOXIA Status: Acute Comment: Requiring mech ventilation due to #2, continue SIMV, unweanable currently, Tracheostomy today (3) ESRD on dialysis Code(s): N18.6 - END STAGE RENAL DISEASE; Z99.2 - DEPENDENCE ON RENAL DIALYSIS Status: Acute Comment: Continue maintenance HD (4) HTN (hypertension) Code(s): I10 - ESSENTIAL (PRIMARY) HYPERTENSION Status: Acute (5) Infectious endocarditis Code(s): I33.0 - ACUTE AND SUBACUTE INFECTIVE ENDOCARDITIS Status: Acute Qualifiers: Infective endocarditis organism: bacterial Chronicity: acute Qualified Code(s): I33.0 - Acute and subacute infective endocarditis Comment: s/p 6 week of IV ABx at outside hospital (6) Anemia in chronic kidney disease Code(s): N18.9 - CHRONIC KIDNEY DISEASE, UNSPECIFIED; D63.1 - ANEMIA IN CHRONIC KIDNEY DISEASE Status: Chronic Qualifiers: Chronic kidney disease stage: on chronic dialysis Qualified Code(s): N18.6 - End stage renal disease; D63.1 - Anemia in chronic kidney disease; Z99.2 - Dependence on renal dialysis Comment: Serial monitoring, no current evidence of acute blood loss - Plan * Aspiration Pneumonia with acute respiratory failure- Continue Zosyn. He is still requiring ventilatory support. * HTN- blood pressure is low normal * ESRD- continue dialysis as per Nephrology * Endocarditis- (continued treatment from a previous admission) due to MRSA- continue Daptomycin and Teflaro * Anemia in kidney disease- he was transfused yesterday- will re- check his H&H today * Nutritional support with PEG tube feeding
--- NOTE | 2018-09-28 11:37 | PRG ---
DATE OF SERVICE: 09/28/2018 SUBJECTIVE: Mr. Keita is a 58-year-old black male with ESRD, who is admitted for aspiration pneumonia. He has current acute respiratory failure. A tracheostomy and a PEG tube has been placed. This patient also has known history of recent CVA secondary to septic emboli. This morning, he remains unchanged. He sometimes open his eyes spontaneously. He is not following commands. OBJECTIVE: VITAL SIGNS: Blood pressure is 101/50, heart rate 87, respiratory rate 17, and pulse ox 97%. GENERAL: Unresponsive, occasional spontaneous eye opening, not in distress on ventilator support. HEENT: Slightly pale conjunctivae. Anicteric sclerae. NECK: No neck mass. No carotid bruits. Positive for tracheostomy. LUNGS: Decreased breath sounds. HEART: Normal sinus rhythm. Grade 2/6 systolic murmur. No gallops. No rubs. ABDOMEN: Globular, soft, and nontender. EXTREMITIES: No edema. NEUROLOGIC: Right-sided weakness. MEDICATIONS: Medications of September 28, 2018, reviewed. LABORATORY DATA: Laboratories of September 27, 2018, white count 9.2 and hemoglobin 7.5. Glucose 142. On September 28, 2018, BUN 82 and creatinine 8.54. ASSESSMENT AND PLAN: 1. End-stage renal disease - the patient is status post hemodialysis yesterday. Fluid removal was tolerated. Continue current 3 times a week hemodialysis. I have rescheduled him back to a Saturday, Saturday, and Saturday schedule. 2. 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 He is currently on tube feeding. 3. Infective endocarditis, on IV antibiotics. 4. Acute respiratory failure, currently on ventilator support, status post tracheostomy placement. Overall prognosis remains poor. Job ID: [id number]
[2018-09-28] MEDS: EPOETIN ALFA-EPBX (ESRD) 4,000 UNIT/ML VIAL SC SCH (11:59)
[2018-09-28] MEDS: DAPTOmycin 400 MG in Sodium Chloride 0.9% 50 ML IVPB SCH (16:09)
[2018-09-29] MEDS: Piperacillin/Tazobactam 2.25 GM in Sodium Chloride 0.9% 100 ML IVPB SCH ×4 (00:48→17:36)
[2018-09-29 05:11] VITALS: BMI 23.3
[2018-09-29 05:24] LABS: #Eosinphils 0.3 thou/uL (0.0-0.7); #Lymphocytes 0.8 thou/uL (1.20-3.40); #Neutrophils 7.7 thou/uL (1.40-6.50); %Basophils 0.2 % (0.0-1.0); %Eosinophils 2.9 % (0.0-10.0); %Lymphocytes 7.8 % (21.0-51.0); %Monocytes 10.2 % (0.0-10.0); %Neutrophils 78.8 % (42.0-75.0); Hemoglobin 8.7 g/dL (14.0-18.0); Mean Corpuscular HGB CONC 30.9 g/dL (32.0-36.0); Mean Corpuscular Volume 77.8 fL (78.0-98.0); Mean Platelet Volume 8.2 fL (7.4-10.4); Platelet Count 288 thou/uL (130-400); RBC Distribution Width 19.2 % (11.5-14.5); White Blood Cell (WBC) Count 9.8 thou/uL (4.8-10.8)
[2018-09-29 05:42] LABS: Anion Gap 19 mmol/L (10-20); BUN (Urea Nitrogen) 55 mg/dL (8.4-25.7); Calc. Creatinine Clearance 12 mL/min (70-130); Calcium 9.5 mg/dL (7.8-10.44); Carbon Dioxide 25 mmol/L (22-29); Chloride 99 mmol/L (98-107); Estimated GFR-MDRD 11; Glucose 177 mg/dL (70-105); Potassium 3.8 mmol/L (3.5-5.1); Sodium 139 mmol/L (136-145)
[2018-09-29] MEDS: HumaLOG 300 UNITS/3 ML VIAL SC PRN ×2 (06:21→20:32)
--- NOTE | 2018-09-29 07:58 | RAD ---
CHEST 1 VIEW: Date: 09/29/18 INDICATION: Intubation. COMPARISON: Prior exam dated 09/28/18. FINDINGS: The patient is heavily rotated to the right, limiting exam. Elevation of the right hemidiaphragm and right basilar opacity persists. Right-sided PICC line and tracheostomy tube are stable. No definite p neumothorax is evident. There are skin folds overlying the left hemithorax. IMPRESSION: Stable exam. Limitations as above. POS: [facility]ITISH
[2018-09-29] MEDS: Heparin 5,000 UNITS/ML VIAL SC SCH ×2 (08:12→20:26)
[2018-09-29] MEDS: Sevelamer Carbonate 800 MG TAB PER TUBE SCH ×3 (08:12→16:33)
[2018-09-29] MEDS: Pantoprazole 40 MG VIAL IVP SCH (08:13)
--- NOTE | 2018-09-29 09:57 | PRG ---
DATE OF SERVICE: 09/29/2018 SERVICE: Renal Medicine. SUBJECTIVE: Mr. Keita is a 58-year-old black male with known history of ESRD and currently undergoing hemodialysis. I am at the bedside supervising his dialysis. I plan to do a 3-1/2 hour dialysis with minimal fluid removal of about 1.4 L. The patient was recently admitted due to an acute respiratory failure and developed aspiration pneumonia. He has also an underlying infective endocarditis and currently on IV antibiotics. He also has developed CVA secondary to septic emboli. No acute events noted last night. OBJECTIVE: VITAL SIGNS: Blood pressure 150/76, heart rate 77, respiratory rate 13, pulse ox 99%. GENERAL: The patient has spontaneous eye opening, but not following simple commands. He does have a trach collar. He is off vent. HEENT: Pinkish conjunctivae. Anicteric sclerae. NECK: No neck mass. No carotid bruits. No JVD. CHEST: No deformities. LUNGS: Decreased breath sounds. HEART: Normal sinus rhythm. Grade 2/6 systolic murmur. No gallops. No rubs. ABDOMEN: Globular, soft, nontender. No masses. EXTREMITIES: No edema. No deformities. Positive for a PEG tube in the belly. MEDICATIONS: Medications of September 29, 2018, reviewed. LABORATORY DATA: Laboratories of September 29, 2018, white count 9.8, hemoglobin 8.7. Sodium 139, potassium 3.8, chloride 99, carbon dioxide 25, BUN 55, creatinine 6.29, glucose 177, calcium 9.5. ASSESSMENT AND PLAN: 1. End-stage renal disease, stable. We will continue current Saturday, Saturday, and Saturday dialysis. I have changed his dialysis regimen from 4 hours to 3-1/2 hours. Fluid removal only to remove as tolerated by the patient. 2. Acute respiratory failure-currently on a trach collar. Doing well status post tracheostomy. 3. Infective endocarditis-on IV antibiotics. 4. 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 Continue supportive care. His overall prognosis remains poor. Agree with current management. Job ID: [id number]
--- NOTE | 2018-09-29 11:06 | OP ---
DATE OF PROCEDURE: 09/26/2018 PREOPERATIVE DIAGNOSES: Respiratory failure, protein calorie malnutrition. POSTOPERATIVE DIAGNOSES: Respiratory failure, protein calorie malnutrition. PROCEDURES PERFORMED: 1. Open tracheostomy 8LPC. 2. Percutaneous endoscopic gastrostomy tube placement. ANESTHESIA: General. ESTIMATED BLOOD LOSS: Minimal. COMPLICATIONS: None. SPECIMEN: None. FINDINGS: None. DESCRIPTION OF PROCEDURE: The patient was taken from the ICU to the operating room and laid supine on the operating room table. After general anesthetic was obtained, the arms were draped at the side. His neck, chest and abdomen were all prepped and draped in a sterile fashion. The C-collar was removed, but his neck was left in midline formation and not rotated. A low collar incision was made. Dissection was through the center of the strap muscles, exposing the thyroid. The thyroid was opened over the course of the second tracheal ring. Holding stitch of Prolene was placed on each side of the second tracheal ring. The anterior blocks of trachea were removed and the trach land developer used as the ET tube was removed. The 8LPC tracheostomy tube was placed with its inner cannula removed and the drill rig operator placed the inner cannula was then replaced. There was good CO2 return chest wall excursion and good breath sounds on the balloon was inflated. There was no air leak. The trach ties were placed to the anterior chest using Steri-Strips. A Velcro trach ties were placed around the neck. Silk sutures used to hold the collar of the trach to the anterior skin and neck. A small piece of Surgicel was left in the neck on each side of the wound. Next, the EGD scope was passed through esophagus stomach to the level of duodenum without obstruction and the mid greater curve pushing left subcostal, there was good transillumination of light. A skin wheal was raised 1 cm incision was made. The introducer was placed into the stomach. A wire was passed. The wire was snared from above, brought out through the mouth, connected to the PEG. The PEG was pulled from the esophagus stomach out to a distance of 2 cm, held in place by the enclosed connector, Gabrielle tree adapter and clamp was placed. The patient was back into the ICU in stable condition. Job ID: [id number]
[2018-09-29] MEDS: Piperacillin/Tazobactam 0.75 GM, Admixture Fee 1 EACH in Sodium Chloride 0.9% 100 ML IVPB SCH (15:30)
--- NOTE | 2018-09-29 16:27 | PRG ---
DATE OF SERVICE: 09/29/2018 SUBJECTIVE: Morris Keita is now on a T-collar. He is weak. OBJECTIVE: VITAL SIGNS: Heart rate is 84, respiratory rate is 18, oximetry is 100%, and blood pressure 138/84. Intake and output, positive 1486. LUNGS: Clear anteriorly. HEART: Regular rhythm. ABDOMEN: Soft. EXTREMITIES: Without edema. LABORATORY DATA: White count 9.8, hemoglobin 8.7, platelets 288. Potassium 3.8, BUN 65, creatinine 6.29. IMPRESSION: 1. Respiratory failure associated with pneumonia. 2. Status post embolic CVA. 3. Status post trach and PEG. Off ventilation. We will continue with nocturnal ventilation, given his weakness. CRITICAL CARE TIME: 30 minutes. Job ID: [id number]
--- NOTE | 2018-09-29 17:06 | PDOC.PN ---
- Subjective Encounter Start Date: 09/29/18 Encounter Start Time: 11:30 Mr. Keita was seen today in follow-up of respiratory failure. He has a trach and is on T-collar. - Objective Resuscitation Status - Order Detail: 09/20/18 11:46 Resuscitation Status Routine Resuscitation Status: FULL: Full Resuscitation MAR Reviewed: Yes Vital Signs & Weight: Vital Signs (12 hours) Temp Pulse Resp Pulse Ox 09/29/18 16:00 97.8 F 09/29/18 13:30 84 18 100 09/29/18 12:00 98.7 F 09/29/18 08:00 98.3 F 98 09/29/18 07:15 100 09/29/18 07:02 83 09/29/18 06:00 22 H Weight Admit Weight 147 lb 0.773 oz Weight 144 lb 9.972 oz Most Recent Monitor Data Heart Rate from ECG 79 NIBP 137/82 NIBP BP-Mean 100 Respiration from ECG 16 SpO2 98 I&O: 09/28/18 09/29/18 09/30/18 06:59 06:59 06:59 Intake Total 1322 1486 155 Output Total 0 0 Balance 1322 1486 155 Result Diagrams: 09/29/18 05:10 09/29/18 05:10 Additional Labs: Accuchecks 09/29/18 09/29/18 09/29/18 16:35 11:58 06:21 POC Glucose 138 H 119 H 168 H 09/29/18 00:49 POC Glucose 148 H Phys Exam - Physical Examination HEENT: PERRLA Respiratory: no wheezing + coarse breath sounds, and rales at the bases Cardiovascular: RRR, no significant murmur, no rub Gastrointestinal: soft, non-tender, no distention, positive bowel sounds Musculoskeletal: no edema, pulses present Dx/Plan (1) Aspiration pneumonia Code(s): J69.0 - PNEUMONITIS DUE TO INHALATION OF FOOD AND VOMIT Status: Acute Comment: RLL involvement, continue Teflaro, Zosyn and Daptomycin, likely recurrent process and end-stage, bronchoscopy for early next week (2) Acute respiratory failure with hypoxia Code(s): J96.01 - ACUTE RESPIRATORY FAILURE WITH HYPOXIA Status: Acute Comment: Requiring mech ventilation due to #2, continue SIMV, unweanable currently, Tracheostomy today (3) ESRD on dialysis Code(s): N18.6 - END STAGE RENAL DISEASE; Z99.2 - DEPENDENCE ON RENAL DIALYSIS Status: Acute Comment: Continue maintenance HD (4) HTN (hypertension) Code(s): I10 - ESSENTIAL (PRIMARY) HYPERTENSION Status: Acute (5) Infectious endocarditis Code(s): I33.0 - ACUTE AND SUBACUTE INFECTIVE ENDOCARDITIS Status: Acute Qualifiers: Infective endocarditis organism: bacterial Chronicity: acute Qualified Code(s): I33.0 - Acute and subacute infective endocarditis Comment: s/p 6 week of IV ABx at outside hospital (6) Anemia in chronic kidney disease Code(s): N18.9 - CHRONIC KIDNEY DISEASE, UNSPECIFIED; D63.1 - ANEMIA IN CHRONIC KIDNEY DISEASE Status: Chronic Qualifiers: Chronic kidney disease stage: on chronic dialysis Qualified Code(s): N18.6 - End stage renal disease; D63.1 - Anemia in chronic kidney disease; Z99.2 - Dependence on renal dialysis Comment: Serial monitoring, no current evidence of acute blood loss - Plan * Aspiration Pneumonia- continue. Zosyn. He is on T-collar, with Nocturnal ventilation * History of MRSA Endocarditis- continue Teflaro and Daptomycin * HTN- blood pressure is stable * ESRD- continue dialysis as per Nephrology
[2018-09-30] MEDS: Piperacillin/Tazobactam 2.25 GM in Sodium Chloride 0.9% 100 ML IVPB SCH ×3 (01:13→18:07)
[2018-09-30] MEDS: Sevelamer Carbonate 800 MG TAB PER TUBE SCH ×3 (07:57→18:07)
[2018-09-30] MEDS: Pantoprazole 40 MG VIAL IVP SCH (07:58)
[2018-09-30] MEDS: Heparin 5,000 UNITS/ML VIAL SC SCH ×2 (07:58→21:31)
--- NOTE | 2018-09-30 08:25 | RAD ---
SINGLE VIEW CHEST: Date: 09/30/18 COMPARISON: 09/29/18. HISTORY: Ventilated patient with respiratory failure. FINDINGS: Single view of the chest shows normal sized cardiomediastinal silhouette. Tracheostomy and PICC line are unchanged in position. There is stable elevation of the right hemidiaphragm. There is no evidence of consolidation, mass, or pleural effusion. IMPRESSION: No evidence of acute cardiopulmonary disease. POS: [facility]
--- NOTE | 2018-09-30 09:56 | PRG ---
DATE OF SERVICE: 09/30/2018 SUBJECTIVE: Mr. Keita is a 58-year-old black male, being followed by the [facility] for his maintenance hemodialysis. He underwent heparin free dialysis yesterday and tolerated this treatment. We were able to remove about 1.4 L of fluid. Please note, this patient was recently admitted for aspiration pneumonia, developed acute respiratory failure, was subsequently intubated. Tracheostomy has been placed, and the patient is now off ventilator. He also has been diagnosed in the recent past with infective endocarditis and he developed CVA secondary to septic emboli. No acute events noted last night. OBJECTIVE: VITAL SIGNS: Blood pressure is 119/71, heart rate 87, respiratory rate 28, and pulse ox 100%. GENERAL: Noted to be awake, but not following commands. He has spontaneous eye opening. HEENT: Slightly pale conjunctivae. Anicteric sclerae. NECK: No neck mass. No carotid bruits. Positive for tracheostomy. Positive for T-piece collar. LUNGS: Clear breath sounds. No wheezing. No crackles. HEART: Normal sinus rhythm. No murmurs, gallops, or rubs. ABDOMEN: Globular. Soft and nontender. No masses. EXTREMITIES: No edema. No deformities. He has a positive PEG tube. MEDICATIONS: Medications of September 30, 2018, was reviewed. LABORATORY DATA: Laboratories of September 29, 2018; white count 9.8 and hemoglobin 8.7. Sodium 139, potassium 3.8, chloride 99, carbon dioxide 25, BUN 55, creatinine 6.29, glucose 177, and calcium 9.5. ASSESSMENT AND PLAN: 1. End-stage renal disease, stable, tolerating current Saturday, Saturday, and Saturday dialysis. Fluid removal again as tolerated by the patient. Continue to use heparin free dialysis. 2. Acute respiratory failure, off ventilator, currently on T-piece, doing well. 3. Infective endocarditis/CVA from septic emboli. Continue supportive care. 4. Anemia, on weekly Epogen. Overall prognosis remains poor. Continue supportive care. Job ID: [id number]
--- NOTE | 2018-09-30 10:45 | PRG ---
DATE OF SERVICE: 09/30/2018 Mr. Keita has had no issues with bleeding. He is on tube feeds. His trach site is clear. The black sutures to the trach collar can be removed and routine trach care can start. We will follow on an as-needed basis. Job ID: [id number]
[2018-09-30] MEDS: HumaLOG 300 UNITS/3 ML VIAL SC PRN (11:15)
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
--- NOTE | 2018-09-30 15:16 | PDOC.PN ---
- Subjective Encounter Start Date: 09/30/18 Encounter Start Time: 10:50 Mr. Keita was seen today in follow-up of aspiration pneumonia with respiratory failure. He was a bit more alert today when I saw him as compared to yesterday. He opened his eyes to voice, and seemed to track me for a few seconds. He raised his left arm a few times, but not to command. - Objective Resuscitation Status - Order Detail: 09/20/18 11:46 Resuscitation Status Routine Resuscitation Status: FULL: Full Resuscitation MAR Reviewed: Yes Vital Signs & Weight: Vital Signs (12 hours) Temp Pulse Resp Pulse Ox 09/30/18 13:41 76 16 99 09/30/18 11:00 99.2 F 09/30/18 08:00 99.6 F 09/30/18 07:41 87 28 H 100 09/30/18 06:00 12 09/30/18 04:00 98.1 F 12 Weight Admit Weight 147 lb 0.773 oz Weight 144 lb 9.6 oz Most Recent Monitor Data Heart Rate from ECG 78 NIBP 153/80 NIBP BP-Mean 104 Respiration from ECG 23 SpO2 96 I&O: 09/29/18 09/30/18 10/01/18 06:59 06:59 06:59 Intake Total 1486 1597 240 Output Total 0 0 Balance 1486 1597 240 Result Diagrams: 09/29/18 05:10 09/29/18 05:10 Additional Labs: Accuchecks 09/30/18 09/30/18 09/29/18 11:16 04:54 20:34 POC Glucose 193 H 141 H 171 H 09/29/18 16:35 POC Glucose 138 H Phys Exam - Physical Examination HEENT: PERRLA, sclera anicteric Respiratory: no rales, wheezing present + coarse breath sounds Cardiovascular: RRR, no significant murmur, no rub Gastrointestinal: soft, non-tender, no distention, positive bowel sounds Musculoskeletal: no edema, pulses present Dx/Plan (1) Aspiration pneumonia Code(s): J69.0 - PNEUMONITIS DUE TO INHALATION OF FOOD AND VOMIT Status: Acute Comment: RLL involvement, continue Teflaro, Zosyn and Daptomycin, likely recurrent process and end-stage, bronchoscopy for early next week (2) Acute respiratory failure with hypoxia Code(s): J96.01 - ACUTE RESPIRATORY FAILURE WITH HYPOXIA Status: Acute Comment: [facility] #[facility], continue SIMV, unweanable currently, Tracheostomy today (3) ESRD on dialysis Code(s): N18.6 - END STAGE RENAL DISEASE; Z99.2 - DEPENDENCE ON RENAL DIALYSIS Status: Acute Comment: Continue maintenance HD (4) HTN (hypertension) Code(s): I10 - ESSENTIAL (PRIMARY) HYPERTENSION Status: Acute (5) Infectious endocarditis Code(s): I33.0 - ACUTE AND SUBACUTE INFECTIVE ENDOCARDITIS Status: Acute Qualifiers: Infective endocarditis organism: bacterial Chronicity: acute Qualified Code(s): I33.0 - Acute and subacute infective endocarditis Comment: s/p 6 week of IV ABx at outside hospital (6) Anemia in chronic kidney disease Code(s): N18.9 - CHRONIC KIDNEY DISEASE, UNSPECIFIED; D63.1 - ANEMIA IN CHRONIC KIDNEY DISEASE Status: Chronic Qualifiers: Chronic kidney disease stage: on chronic dialysis Qualified Code(s): N18.6 - End stage renal disease; D63.1 - Anemia in chronic kidney disease; Z99.2 - Dependence on renal dialysis Comment: Serial monitoring, no current evidence of acute blood loss - Plan * Aspiration Pneumonia with respiratory failure- on Zosyn- consider de- escalating antibiotic soon * Respiratory failure- improving- he is tolerating T- collar * Endocarditis- continuing treatment from a previous admission- continue Teflaro and Daptomycin * ESRD- continue dialysis as pre Nephrology * HTN- blood pressure is stable * DM- blood glucose is stable.
[2018-09-30] MEDS: DAPTOmycin 400 MG in Sodium Chloride 0.9% 50 ML IVPB SCH (17:04)
[2018-10-01] MEDS ORDERED: Piperacillin/Tazobactam 2.25 GM in Sodium Chloride 0.9% 100 ML IVPB SCH ×2 (01:45→17:00)
[2018-10-01 02:37] VITALS: BP 116/77
[2018-10-01] MEDS: HumaLOG 300 UNITS/3 ML VIAL SC PRN (06:30)
--- NOTE | 2018-10-01 07:40 | RAD ---
Chest one view HISTORY: Dyspnea. Intubated. Follow-up. COMPARISON: 09/30/2018. FINDINGS: Cardiac silhouette is shifted rightward atelectasis/infiltrate at the right base is unchang ed in appearance. Very vasculature upper limits of normal. Tracheostomy appliance and right upper extremity PICC remain in place. No evidence of pneumothorax. IMPRESSION: Right basilar infiltrate and other findings are stable.
[2018-10-01] MEDS: Heparin 5,000 UNITS/ML VIAL SC SCH (08:35)
[2018-10-01] MEDS: Sevelamer Carbonate 800 MG TAB PER TUBE SCH ×2 (08:35→12:51)
[2018-10-01] MEDS: Pantoprazole 40 MG VIAL IVP SCH (08:36)
--- NOTE | 2018-10-01 10:20 | PRG ---
DATE OF SERVICE: 10/01/2018 SUBJECTIVE: Mr. Keita is a 58-year-old black male with ESRD, followed by Renal Service for maintenance hemodialysis. Continues to tolerate his dialysis. I am currently at the bedside supervising his dialysis. We continued to use heparin free dialysis with this patient. He has a known diagnosis of infective endocarditis, status post CVA secondary to an embolic phenomenon, and recently acute respiratory failure secondary to aspiration pneumonia. The patient is scheduled for transfer to LTAC today. OBJECTIVE: VITAL SIGNS: Blood pressure 123/78, heart rate 91, respiratory rate 12, pulse ox 100%. GENERAL: The patient has spontaneous eye opening, but not following commands. HEENT: Slightly pale conjunctivae. Anicteric sclerae. NECK: No neck mass. No carotid bruits. No JVD. Positive for tracheostomy. Positive for trach collar. LUNGS: Decreased breath sounds. HEART: Normal sinus rhythm. No murmur. No gallops. No rubs. ABDOMEN: Globular, soft, nontender. No masses. Positive for PEG tube. EXTREMITIES: No edema. MEDICATIONS: Medications of October 01, 2018, was reviewed. LABORATORY DATA: Laboratories of October 01, 2018; white count 9.8, hemoglobin 8.7. On September 30, 2018, glucose 193. On September 29, 2018, potassium 3.8, BUN 55, creatinine 6.29. ASSESSMENT AND PLAN: 1. End-stage renal disease, stable. We will continue current Saturday, Saturday, and Saturday hemodialysis, attempting between 2 and 2.5 L fluid removal as tolerated. Continue heparin free dialysis. 2. Status post cerebrovascular accident secondary to septic emboli, supportive care. 3. Aspiration pneumonia, on IV antibiotics. 4. Infective endocarditis with mural thrombus-on IV antibiotics. ID following. 5. Anemia on weekly Epogen. Overall, agree with current management. Agree with transfer to LTAC. Job ID: [id number]
--- NOTE | 2018-10-01 11:27 | PDOC.PN ---
- Subjective Encounter Start Date: 10/01/18 Encounter Start Time: 11:26 Mr. Keita was seen today in follow-up of respiratory failure. He will open his eyes to voice. He is moving his left arm. - Objective Resuscitation Status - Order Detail: 09/20/18 11:46 Resuscitation Status Routine Resuscitation Status: FULL: Full Resuscitation MAR Reviewed: Yes Vital Signs & Weight: Vital Signs (12 hours) Temp Pulse Resp BP Pulse Ox 10/01/18 11:06 99.8 F H 10/01/18 08:03 90 18 100 10/01/18 07:43 100 10/01/18 07:00 99.3 F 10/01/18 06:00 25 H 10/01/18 04:00 99.5 F 22 H 10/01/18 02:36 88 116/77 10/01/18 02:00 28 H 10/01/18 00:09 81 20 100 10/01/18 00:00 98.1 F 18 Weight Admit Weight 147 lb 0.773 oz Weight 145 lb 4.554 oz Most Recent Monitor Data Heart Rate from ECG 93 NIBP 120/85 NIBP BP-Mean 96 Respiration from ECG 17 SpO2 100 I&O: 09/30/18 10/01/18 10/02/18 06:59 06:59 06:59 Intake Total 1597 3 40 Output Total 0 0 0 Balance 1597 2053 40 Result Diagrams: 09/29/18 05:10 09/29/18 05:10 Additional Labs: Accuchecks 09/30/18 11:16 POC Glucose 193 H Phys Exam - Physical Examination HEENT: PERRLA Respiratory: no wheezing, no rales, no rhonchi, clear to auscultation bilateral Cardiovascular: RRR + coarse breath sounds bilaterally Gastrointestinal: soft, non-tender, no distention, positive bowel sounds Musculoskeletal: no edema, pulses present Dx/Plan (1) Aspiration pneumonia Code(s): J69.0 - PNEUMONITIS DUE TO INHALATION OF FOOD AND VOMIT Status: Acute Comment: RLL involvement, continue Teflaro, Zosyn and Daptomycin, likely recurrent process and end-stage, bronchoscopy for early next week (2) Acute respiratory failure with hypoxia Code(s): J96.01 - ACUTE RESPIRATORY FAILURE WITH HYPOXIA Status: Acute Comment: Requiring mech ventilation due to #2, continue SIMV, unweanable currently, Tracheostomy today (3) ESRD on dialysis Code(s): N18.6 - END STAGE RENAL DISEASE; Z99.2 - DEPENDENCE ON RENAL DIALYSIS Status: Acute Comment: Continue maintenance HD (4) HTN (hypertension) Code(s): I10 - ESSENTIAL (PRIMARY) HYPERTENSION Status: Acute (5) Infectious endocarditis Code(s): I33.0 - ACUTE AND SUBACUTE INFECTIVE ENDOCARDITIS Status: Acute Qualifiers: Infective endocarditis organism: bacterial Chronicity: acute Qualified Code(s): I33.0 - Acute and subacute infective endocarditis Comment: s/p 6 week of IV ABx at outside hospital (6) Anemia in chronic kidney disease Code(s): N18.9 - CHRONIC KIDNEY DISEASE, UNSPECIFIED; D63.1 - ANEMIA IN CHRONIC KIDNEY DISEASE Status: Chronic Qualifiers: Chronic kidney disease stage: on chronic dialysis Qualified Code(s): N18.6 - End stage renal disease; D63.1 - Anemia in chronic kidney disease; Z99.2 - Dependence on renal dialysis Comment: Serial monitoring, no current evidence of acute blood loss - Plan * Aspiration Pneumonia- continue Zosyn * ESRD- continue dialysis ( maintenance hemodialysis ) * DM- blood glucose is stable * HTN.- blood pressure is stable * Anemia in chronic renal disease- stable * 

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
[2018-10-01] MEDS: Piperacillin/Tazobactam 0.75 GM, Admixture Fee 1 EACH in Sodium Chloride 0.9% 100 ML IVPB SCH (15:20)
[2018-10-01 16:41] VITALS: TEMP 99.4
[2018-10-01] MEDS ORDERED: SODIUM CHLORIDE 0.9% IVPB SCH (21:00)
[2018-10-01] MEDS ORDERED: CEFTAROLINE IVPB SCH (21:00)
--- NOTE | 2018-10-02 01:41 | DIS ---
DATE OF ADMISSION: 09/20/2018 DATE OF DISCHARGE: 10/01/2018 DISCHARGE DISPOSITION: [facility]. DISCHARGE DIAGNOSES: 1. Aspiration pneumonia. 2. Acute respiratory failure with hypoxemia. 3. Metabolic encephalopathy secondary to above. 4. Diabetes mellitus type 2. 5. End-stage renal disease, on hemodialysis. 6. 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 7. Cerebrovascular accident with right-sided hemiparesis and aphasia due to septic emboli. DISCHARGE MEDICATIONS: 1. Zosyn 2.25 mg IV q.8. 2. Daptomycin 400 mg every other day. 3. Teflaro 200 mg q.12. 4. Epogen 7500 units every 7 days. 5. Heparin 5000 units twice a day. 6. Insulin sliding scale. 7. DuoNeb q.4 hours as needed. 8. Renvela 800 mg through the tube t.i.d. PROCEDURES DONE DURING THE ADMISSION: The patient had a CT angiogram of the chest, which demonstrated no central or segmental pulmonary embolism. There were findings of aspiration with complete volume loss of the right middle lobe and lower lobe. There was some tree-in-bud nodularity in the posterior segment of the right upper lobe. CODE STATUS: Full code. ALLERGIES: NO KNOWN DRUG ALLERGIES. HOSPITAL COURSE: Mr. Keita is a 58-year-old gentleman, who has a complicated past medical history. He was recently admitted to our facility for MRSA endocarditis of the mitral valve, which he developed septic emboli to the brain. This unfortunately led to him having right-sided hemiparesis as well as aphasia. He was discharged to an outside rehabilitation facility and then to custodial. He was brought in on this admission due to fever and tachypnea and was found to have acute hypoxic respiratory failure. The respiratory failure thought to be due to aspiration pneumonia. He was started on IV Zosyn. He required intubation during this hospital stay due to the severity of the respiratory failure. Pulmonology was consulted as well as Nephrology for his end-stage renal disease. He was maintained on hemodialysis during his hospital stay. Due to the prolonged weaning process, the patient required tracheostomy and PEG tube placement. He was able to be weaned down to a T-collar during this hospital stay. He has been also treated for the endocarditis on daptomycin and Teflaro which have been renally dosed. The end date of therapy is the end of October. He has been stabilized to the point where he can be transferred to a long-term care facility. He has been accepted at [facility] and the plan is for him to be transferred there today. Job ID: [id number]
== END 2018-10-01 16:48 | DRG 4 ==
LOC: ERS 08:24 → CCU 14:00 → T4-A 09-21 18:06 → IMCU/EMU 09-22 21:36 → CCU 09-22 21:52
PROVIDERS: ADMIT Internal Medicine; ATTEND Internal Medicine
PROC: 5A1955Z Respiratory Ventilation, Greater than 96 Consecutive Hours (ICD-10-PCS; principal; 2018-09-22)
PROC: 0BH17EZ Insertion of Endotracheal Airway into Trachea, Via Natural or Artificial Opening (ICD-10-PCS; 2018-09-22)
PROC: 5A1955Z Respiratory Ventilation, Greater than 96 Consecutive Hours (ICD-10-PCS; 2018-09-22)
PROC: 5A1D70Z Performance of Urinary Filtration, Intermittent, Less than 6 Hours Per Day (ICD-10-PCS; 2018-09-22)
PROC: 0B110F4 Bypass Trachea to Cutaneous with Tracheostomy Device, Open Approach (ICD-10-PCS; 2018-09-26)
PROC: 0DH63UZ Insertion of Feeding Device into Stomach, Percutaneous Approach (ICD-10-PCS; 2018-09-26)
DX: J96.01 Acute respiratory failure with hypoxia (principal); N18.6 End stage renal disease; I21.4 Non-ST elevation (NSTEMI) myocardial infarction; A41.9 Sepsis, unspecified organism; R65.20 Severe sepsis without septic shock; G93.41 Metabolic encephalopathy; I33.0 Acute and subacute infective endocarditis; J69.0 Pneumonitis due to inhalation of food and vomit; I63.9 Cerebral infarction, unspecified; I12.0 Hypertensive chronic kidney disease with stage 5 chronic kidney disease or end stage renal disease; N25.81 Secondary hyperparathyroidism of renal origin; G81.91 Hemiplegia, unspecified affecting right dominant side; I76 Septic arterial embolism; R47.01 Aphasia; E11.22 Type 2 diabetes mellitus with diabetic chronic kidney disease; D63.1 Anemia in chronic kidney disease; J44.9 Chronic obstructive pulmonary disease, unspecified; E78.5 Hyperlipidemia, unspecified; B95.8 Unspecified staphylococcus as the cause of diseases classified elsewhere; E83.39 Other disorders of phosphorus metabolism; Z99.2 Dependence on renal dialysis; Z95.5 Presence of coronary angioplasty implant and graft; Z79.82 Long term (current) use of aspirin; Z79.899 Other long term (current) drug therapy
CPT/HCPCS: 36415; 36416; 36430; 51702; 71045; 71275; 80048; 80053; 81003; 81015; 82550; 82553; 82805; 83605; 83690; 83880; 84100; 84484; 85007; 85025; 85027; 85379; 86850; 86900; 86901; 87040; 87340; 90935; 93005; 94002; 94003; 94640; 94644; 96365; 96366; 96367; C9113; G0257; J0712; J0878; J1644; J1956; J2250; J2543; J2704; J3010; J3370; J3490; J7050; J7611; J7620; P9016; Q5105; Q9966